=== PATIENT | male | born 1975 | race Caucasian/White ===

== ENCOUNTER 2020-10-17 02:18 | Outpatient (CLI) | payer MEDICAID, SELFPAY ==
--- NOTE | 2020-10-17 | DI.US_ITS ---
EXAM: US ABDOMEN CLINICAL HISTORY: CIRRHOSIS OF LIVER, K74.60 TECHNIQUE: Ultrasound abdomen performed using standard protocol. COMPARISON: No exams were available for comparison FINDINGS: ABDOMINAL AORTA AND IVC: Visualized portions normal caliber. PANCREAS: Normal where visualized. LIVER: There is diffuse increased echogenicity of the liver consistent with fatty infiltration. The liver measures 20 cm in length. No hepatic mass is seen. Hepatopedal flow in the Portal Vein. There is a nodular contour of the liver suggesting hepatic cirrhosis. GALLBLADDER: No evidence of cholelithiasis. No evidence of wall thickening. No pericholecystic fluid identified. BILIARY SYSTEM: Common bile duct measures < 7 mm. No intrahepatic biliary ductal dilation. DARBY'S SIGN: Negative. KIDNEYS: Kidneys are symmetric in size. No evidence of renal calculi. No evidence of hydronephrosis. There is a 1.2 cm cyst in the midpole of the right kidney. No further follow-up is recommended. SPLEEN: The spleen measures 12.5 cm in length. ASCITES: None seen. IMPRESSION: 1. Findings of hepatic cirrhosis, hepatomegaly and hepatic steatosis. 2. No evidence of a hepatic mass. 3. Spleen measures 12.5 cm in length. DATA REPOSITORY:
== END 2020-10-17 02:38 ==
PROVIDERS: PCP Family Medicine; Visit Provider Family Medicine
DX: K74.60 Unspecified cirrhosis of liver (principal); K76.0 Fatty (change of) liver, not elsewhere classified; R16.0 Hepatomegaly, not elsewhere classified
CPT/HCPCS: 76700

== ENCOUNTER 2021-01-31 19:22 | Emergency (ER) | payer MEDICAID, SELFPAY ==
[2021-01-31 19:35] VITALS: BP 126/82; PULSE 110; RESP 16; TEMP 36.8; O2SAT 94
--- NOTE | 2021-01-31 19:52 | W.ED.GENAD ---
Discharge Plan Disposition Patient Disposition: AGAINST MEDICAL ADVICE Condition: Fair Discharge Details Clinical Impression: Pancreatitis, Alcohol intoxication, Cirrhosis, Colitis Primary Care Provider: Fauzia Nelson ED Provider: Ankit Duran and New Rx's Prescriptions: Continued omeprazole 40 mg Capsule,Delayed Release(Dr/Ec) 40 mg PO DAILY RF: 0 sumatriptan succinate 4 mg/0.5 mL Pen Injector SUBCUT RF: 0 buprenorphine-naloxone [Suboxone] 12-3 mg Film 1 film sublingual DAILY RF: 0 acamprosate 333 mg Tablet,Delayed Release (Dr/Ec) 333 mg PO TID RF: 0 Discharge Instructions Instructions: Pancreatitis (ED) Additional Instructions: It is recommended that you stay in the hospital for IV fluids and nothing by mouth status, pain control as needed. Pancreatitis can progress and cause significant morbidity and possibly mortality with worsening pain, vomiting, third spacing and shock. You should return to the ED if your symptoms worsen or if you change your mind regarding admission. Otherwise you should contact your GI doctor at [facility] for close follow-up. I would avoid alcohol at this point. I would stick with clear liquids until you are feeling significantly better. Medical Decision Making Patient presenting to ED with acute epigastric abdominal pain that feels different than his previous chronic abdominal problems. He does have history of cirrhosis, hepatitis C, alcohol abuse and continues to drink. He is followed by [facility] GI. He reports multiple ultrasounds but no CT scan at any point. He is on omeprazole but nothing else for acid disease. Reports that his GI doctor wants to scope him. Reports no vomiting today but typically has vomiting regularly. Patient brought in today by his due to new onset of pain which is different than typical as well as continued chronic abdominal complaints. Patient former IV drug abuser. He did agree to one attempt at ultrasound-guided IV placement peripherally. This was not successful. Given that he has new pain and no previous CT imaging which for abdominal pelvic CT scan. Patient has neck vein and agreed to allow me to attempt EJ which was successful on the first attempt on the left. Blood was obtained. Fluids started. IV Pepcid, oral Carafate ordered. CT of the abdomen pelvis ordered. Patient's laboratory studies show a normal CBC. His normal chemistries. He has elevated liver function which compared to [facility] labs are baseline. He does have elevated lipase at about 550. No previous lipase in the [facility] records. Troponin and BNP is normal. Alcohol level [address] scan was ordered as IV contrast. Per senior quality technician there is no protocol for use of the EJ to give IV contrast through and they declined to perform CT with IV contrast. Noncontrast CT was obtained. Pancreas appears normal. Liver does appear fatty and cirrhotic. Also some evidence of right-sided colitis but patient without right side pain, diarrhea, fever. Recommendation was to admit for IV fluids, n.p.o., pain medication as needed. Reevaluate in the morning and consider repeat ultrasound. Despite my and 's attempt to convince him to stay he wished to sign out AMA. It was explained to him potential complications of pancreatitis. Patient does have capacity and understands his decision and risk. Will contact his GI physician at [facility] for follow-up. Return to ED if worse or if he changes his mind. Discharged AGAINST MEDICAL ADVICE. Medical Records Medical records reviewed: Yes I reviewed the patient's medical records. Lab Data Lab results reviewed: Yes I reviewed the patient's lab results. HPI General Mode of arrival: ambulatory. Date/Time Provider Initiated Documentation: 01/31/21 19:43. Limitations to Documentation: no limitations. Information obtained by: patient, family and RN notes reviewed. HPI Narrative: Patient presents to ED with upper abdominal/epigastric pain for about 18 hours now. Patient has chronic abdominal problems and is followed by [facility] GI for cirrhosis. He has had work-up including ultrasound, laboratory studies with likely endoscopy. He has history of hepatitis C. He no longer using IV drugs. He does continue to drink on a daily basis. He denies any hematemesis. He has vomiting almost every day but has not today. However he has not had much by mouth today. He denies any diarrhea. He has had no fever. He denies chest pain or shortness of breath. He denies any back pain. Related Data Home Medications Medication Instructions Recorded Confirmed acamprosate 333 mg PO TID 01/31/21 01/31/21 buprenorphine-naloxone [Suboxone] 1 film SUBLINGUAL DAILY 01/31/21 01/31/21 omeprazole 40 mg PO DAILY 01/31/21 01/31/21 sumatriptan succinate SUBCUT 01/31/21 Allergies Allergy/AdvReac Type Severity Reaction Status Date / Time No Known Allergies Allergy Unverified 01/31/21 19:41 General Stated Complaint: Abd Prob NUBIA: 3 Review of Systems Narrative: As documented in HPI otherwise negative as below. Const: no fever, chills, weakness Resp: no cough, SOB, pleuritic pain CV: no CP, diaphoresis, edema, syncope GI: no diarrhea Neuro: no headache, numbness, focal weakness, confusion PFSH Medical History Cirrhosis Social History Smoking/Tobacco Use Status: Current every day Tobacco Type: e-cigarettes Smoking risk assessment performed?: Yes Alcohol Intake: current Alcohol Intake frequency: 3 or more drinks per day Substance use type: does not use Do you feel safe at home: Yes Do you feel safe in your relationship?: Yes Exam Narrative Exam Narrative: Const: WDWN male in NAD. HEENT: NC/AT. Normal facial exam. Eyes: Normal conjunctiva and sclera. Neck: Supple. Trachea midline. Lungs: Normal respiratory effort. Lungs are clear. Cor: RRR without murmur/gallop. Good radial pulses. GI: Soft and ND. Tender in the epigastic region. Voluntary guarding. No RUQ tenderness. Neuro: A+O x 3. Normal speech, mentation, gait. Cranial nerves II - XII grossly intact. No gross motor or sensory deficit. Ext: No C/C/E. Skin: Warm and dry without rash. Course Vital Signs Vital signs: Vital Signs Temperature 98.2 F 01/31/21 19:35 Pulse 110 H 01/31/21 19:35 Respiratory Rate 16 01/31/21 19:35 Blood Pressure 126/82 01/31/21 19:35 Pulse Oximetry 94 01/31/21 19:35 Temperature 98.2 F 01/31/21 19:35 Temperature Source Skin 01/31/21 19:35 Pulse 110 H 01/31/21 19:35 Respiratory Rate 16 01/31/21 19:35 Respiratory Effort Non-Labored 01/31/21 19:44 Blood Pressure 126/82 01/31/21 19:35 Blood Pressure Position Sitting 01/31/21 19:35 Pulse Oximetry 94 08/11/21 19:35 Oxygen Delivery Method Room Air 01/31/21 19:35 Oxygen Flow Rate 0 01/31/21 19:35 Procedures EJ/Peripheral Line Neck L: Skin Cleansed in Sterile Fashion: Yes Size (gauge): 22 IV Secured and Dressing Applied: Yes Patient Tolerated Procedure: well and no complications
--- NOTE | 2021-01-31 21:04 | NUR.NOTE ---
while placing US guided IV pt's at bedside began shouting and demanded nurse to stop attempting IV, charge nurse aware, will continue to monitor.
[2021-01-31] MEDS: FAMOTIDINE 20 MG/50 ML BAG 100 MG IVPB (21:27)
[2021-01-31] MEDS: Lactated Ringers 1,000 ML 1000 ML IV (21:27)
[2021-01-31 21:31] LABS: Abs Immature Grans 0.02 10^3/uL (0.0-0.06); Absolute Basophil Count 0.04 10^3/uL (0.0-0.2); Absolute Eosinophil Count 0.26 10^3/uL (0.0-0.7); Absolute Monocyte Count 0.66 10^3/uL (0.1-0.8); Absolute Neutrophil Count 3.57 10^3/uL (1.2-6.7); Basophils % 0.7; Eosinophils % 4.4; HCT 42.2 % (40.0-50.0); HGB 14.3 g/dL (13.5-17.5); Immature Grans % 0.3; Lymphocytes % 22.2; MCH 31.5 pg (27.0-33.0); MCHC 33.9 % (32.0-36.0); MPV 10.2 fL (8.0-11.0); Monocytes % 11.3; Neutrophils % 61.1; Nucleated RBC 0 %; Platelet Count 130 10^3/uL (130-400); RBC 4.54 10^6/uL (4.36-5.78); RDW 12.2 % (11.8-14.1); RDW-SD 41.7 fL; WBC 5.85 10^3/uL (4.4-10.8)
[2021-01-31 21:41] LABS: ETHANOL BLOOD 174.7 mg/dL (<3)
[2021-01-31 21:53] LABS: ALT 228 U/L (16-63); AST 411 U/L (15-37); Albumin 3.5 g/dL (3.4-5.0); Alkaline Phosphatase 131 U/L (46-116); Anion Gap 7.6 mmol/L (3-11); BUN 7 mg/dL (7-18); Bilirubin, Total 0.7 mg/dL (0.2-1.0); CO2 28.4 mmol/L (21.0-32.0); CREATININE 0.7 mg/dL (0.70-1.30); Calcium 8.6 mg/dL (8.5-10.1); Chloride 103 mmol/L (98-107); Glucose 102 mg/dL (74-106); Lipase 547 U/L (73-393); Magnesium 1.8 mg/dL (1.8-2.4); NT-proBNP 26 pg/mL (<300); Potassium 3.8 mmol/L (3.5-5.1); Sodium 139 mmol/L (136-145); Total Protein 9.1 g/dL (6.4-8.2)
[2021-01-31 21:55] LABS: Troponin I < 0.05 ng/mL (<0.06)
--- NOTE | 2021-01-31 22:02 | NUR.NOTE ---
Report from AR King for continued care. Patient in CT scan. Spouse in room.Nursing Note:
--- NOTE | 2021-01-31 22:23 | DI.CT_ITS ---
Exam(s) CT ABDOMEN PELVIS WO EXAM: CT ABDOMEN PELVIS WO CLINICAL HISTORY: upper abdominal pain; different then previous. TECHNIQUE: Imaging Protocol: Axial computed tomography images with coronal and sagittal reformatted images were created and reviewed. COMPARISON: No exams were available for comparison FINDINGS: ABDOMEN: Lung Bases: Normal where visualized. Liver: There is diffuse fatty infiltration. There is a 0.9 cm round hypodense lesion in the left lob e of the liver. The liver measures 20 cm in length. Gallbladder and biliary tract: No radiodense calculus or biliary ductal dilation. Pancreas: Normal density, no abnormal calcifications or inflammatory process. Spleen: The spleen measures 15 cm in length. Kidneys: Normal size, contour and axis.No radiodense stones or obstructive uropathy. No masses seen. Adrenal glands: No mass is seen. Lymph nodes: There is a 2.9 cm lymph node in the milla hepatis. No other enlarged lymph nodes are se en. Abdominal Aorta: Abdominal portion non-dilated. Mild atherosclerosis. PELVIS: Bladder:Symmetric distention, no gross wall thickening. Bowel: No evidence of bowel obstruction. There is mild thickening of the wall of the ascending colon . There is a question of mild inflammatory changes associated with this region. Non-specific coliti s should be considered. Please correlate clinically. Appendix is unremarkable. Peritoneal cavity: No ascites, collection or mesenteric inflammatory response. No free air. Reproductive organs: Within normal limits. Bones: Within normal limits. There is L5 spondylolysis and grade 1 spondylolisthesis of L5 on S1. Soft Tissues: Within normal limits. IMPRESSION: 1. Mild wall thickening and surrounding inflammatory changes in the ascending colon suspicious for a nonspecific colitis. 2. Enlarged milla hepatis lymph node at 2.9 cm. 3. Hepatosplenomegaly. Hepatic steatosis. RADIATION DOSE DELIVERED: 1,217.29mGy.cm Total DLP DATA REPOSITORY: All CT scans at this facility are submitted to the National Radiology Data Registry (NRDR) Dose Index Registry (DIR) with the [employer] (ACR). RADIATION OPTIMIZATION: All CT scans at this facility use at least one of these dose optimization te chniques: automated exposure control; mA and/or kV adjustment per patient size (includes targeted exa ms where dose is matched to clinical indication); or iterative reconstruction.
[2021-01-31 22:35] VITALS: TEMP 37.2
[2021-01-31 22:36] VITALS: BP 130/94; PULSE 86; RESP 18; O2SAT 94
--- NOTE | 2021-01-31 22:50 | DI.VRAD_ITS ---
PROCEDURE INFORMATION: Exam: CT Abdomen And Pelvis Without Contrast Exam date and time: 01/31/2021 10:19 PM Age: 45 years old Clinical indication: Other: Upper abdominal pain; Different then previous TECHNIQUE: Imaging protocol: Computed tomography of the abdomen and pelvis without contrast. Radiation optimization: All CT scans at this facility use at least one of these dose optimization techniques: automated exposure control; mA and/or kV adjustment per patient size (includes targeted exams where dose is matched to clinical indication); or iterative reconstruction. COMPARISON: SD US ABDOMEN 10/17/2020 9:06 AM FINDINGS: Liver: Diffuse decrease in hepatic parenchymal density, consistent with fatty infiltration. 10 mm liver hypodensity that cannot be further characterized on the current examination. Slight nodular contour to the liver suggestive of hepatocellular dysfunction/ cirrhosis. Gallbladder and bile ducts: Normal. No calcified stones. No ductal dilation. Pancreas: Normal. No ductal dilation. Spleen: Splenomegaly up to 14.7 cm. Adrenal glands: Normal. No mass. Kidneys and ureters: Normal. No hydronephrosis. Stomach and bowel: Wall thickening with surrounding inflammatory change at the right colon consistent with a nonspecific colitis. No evidence of intestinal perforation or obstruction. Appendix: No evidence of appendicitis. Intraperitoneal space: Unremarkable. No free air. No significant fluid collection. Vasculature: Unremarkable. No abdominal aortic aneurysm. Lymph nodes: Adenopathy at the milla hepatis largest 2.9 x 1.7 cm. Urinary bladder: Unremarkable as visualized. Reproductive: Unremarkable as visualized. Bones/joints: Bilateral pars defects L5. Grade 1 anterolisthesis L5-S1. Soft tissues: Unremarkable. IMPRESSION: 1. Splenomegaly up to 14.7 cm. 2. Slight nodular contour to the liver suggestive of hepatocellular dysfunction/ cirrhosis. Correlate clinically. 3. Adenopathy at the milla hepatis largest 2.9 x 1.7 cm. 4. Wall thickening with surrounding inflammatory change at the right colon consistent with a nonspecific colitis. Dictated and Authenticated by: Brady Fierro MD. Ordering:ALEA Pham MD
== END 2021-01-31 23:18 | disposition left against medical advice (07) ==
PROVIDERS: Emergency Provider Emergency Medicine; PCP Family Medicine
DX: K85.90 Acute pancreatitis without necrosis or infection, unspecified (principal); K74.60 Unspecified cirrhosis of liver; B18.2 Chronic viral hepatitis C; F10.129 Alcohol abuse with intoxication, unspecified; Z53.29 Procedure and treatment not carried out because of patient's decision for other reasons
CPT/HCPCS: 36556; 80053; 83690; 96361; 96365; 96366; 99284; 74176; 80320; 83735; 83880; 84484; 85025

== ENCOUNTER 2021-04-25 20:12 | Emergency (ER) | payer MEDICAID, SELFPAY ==
[2021-04-25 20:17] VITALS: BP 147/92; PULSE 97; RESP 20; TEMP 37.1; O2SAT 93
[2021-04-25 20:21] VITALS: RESP 20
--- NOTE | 2021-04-25 20:30 | DI.CT_ITS ---
Exam(s) CT NECK W EXAM: CT NECK W CLINICAL HISTORY: reports of difficulty swallowing. TECHNIQUE: Imaging Protocol: Axial CT angiography was performed with multi-slice acquisition and mu lti-planar and/or 3D reconstructions. CONTRAST MATERIAL: Intravenous: Omnipaque 350 Contrast volume:98ml COMPARISON: CR,XR XR CHEST 2V PA LATERAL from 04/25/2021 FINDINGS: Visualized sinuses reveal mucosal thickening in the right frontal sinus and right maxillary sinus. N o fluid levels. Tissues of the nasopharynx are symmetrical. Uvula is midline. Oropharynx appears unremarkable. Hypopharynx reveals no prominent thickening of t he free edge of the epiglottis nor obliteration of the valleculae. No abnormal thickening of the ret ropharyngeal tissues nor of the prevertebral tissues. There is narrowing of the supraglottic airway. This, however, may be related to the patient's holding his breath during image acquisition.. Same is true for the vocal cords. Subglottic airway appears unremarkable. Thyroid gland is not enlarged. No obvious nodules. Lymph nodes: There is no prominent lymphadenopathy in the neck and supraclavicular regions. Parotid and submandibular glands appear unremarkable. Vascular: No significant atherosclerotic narrowing at the level the carotid bifurcations and proximal internal carotid arteries. Internal jugular veins are patent. Osseous: No fractures. Multilevel disc space narrowing. Luschka joint osteophytes noted at the C3-4 level. IMPRESSION: 1. There is a narrowing of the supraglottic airway which is either related to thickening of the aryep iglottic folds or possibly just because the patient was held his breath during image acquisition, res ulting in adduction of soft tissues. Recommend that this can be repeated with quiet breathing techni que (as opposed to breath hold). RADIATION DOSE DELIVERED: 449.82mGy.cm Total DLP DATA REPOSITORY: All CT scans at this facility are submitted to the National Radiology Data Registry (NRDR) Dose Index Registry (DIR) with the [employer] (ACR). RADIATION OPTIMIZATION: All CT scans at this facility use at least one of these dose optimization te chniques: automated exposure control; mA and/or kV adjustment per patient size (includes targeted exa ms where dose is matched to clinical indication); or iterative reconstruction.
--- NOTE | 2021-04-25 20:30 | DI.RAD_ITS ---
Exam(s) XR CHEST 2V PA LATERAL EXAM: XR CHEST 2V PA LATERAL CLINICAL HISTORY: cough. TECHNIQUE: 2D digital imaging was performed. COMPARISON: No exams were available for comparison FINDINGS: Heart size is normal. The mediastinum is not widened. Lungs are clear. No infiltrates nor pleural effusions. IMPRESSION: No acute pulmonary findings. DATA REPOSITORY: RADIATION DOSE DELIVERED:
--- NOTE | 2021-04-25 20:42 | ED.GENADUL_ITS ---
Discharge Plan Disposition Patient Disposition: HOME Condition: Stable Discharge Details Clinical Impression: Vocal cord edema Primary Care Provider: Fauzia Nelson ED Provider: Nadia Capone Home Meds and New Rx's Prescriptions: Continued omeprazole 40 mg Capsule,Delayed Release(Dr/Ec) 40 mg PO DAILY RF: 0 sumatriptan succinate 4 mg/0.5 mL Pen Injector SUBCUT RF: 0 buprenorphine-naloxone [Suboxone] 12-3 mg Film 1 film sublingual DAILY RF: 0 Discharge Instructions Instructions: Pharyngitis (ED) Referrals: Asad Sam MD [ [facility] STAFF PHYSICIAN] - (call in am for follow up rozina,return sooner for new or worsening symptoms) Discharge Data Discharge Date/Time-TO BE ENTERED AT DEPARTURE: 04/25/21 23:07 Medical Decision Making patient presents with c/o throat pain, swelling sensation. voice is unaffected, able to swallow food and fluids. will get cxr, ct soft tissue, cbc, bmp and covid and strep screen. strep screen in negative. posterior pharynx clear with no edema, uvula midline. CT results reviewed, given decadron 10 mg. no elevated white count or fever. stable for discharge to home, close f/u with ENT tomorrow, return sooner if needed. Medical Records Medical records reviewed: Yes I reviewed the patient's medical records. Imaging Data Radiologic Study: Imaging: X-Ray Radiologist's impression: PROCEDURE INFORMATION: Exam: XR Chest Exam date and time: 04/25/2021 8:35 PM Age: 45 years old Clinical indication: Other: Cough TECHNIQUE: Imaging protocol: XR of the chest. Views: 2 views. COMPARISON: CT NECK W 04/25/2021 10:00 PM FINDINGS: Lungs: Mild chronic interstitial prominence. No consolidation. Pleural spaces: No pleural effusion. No pneumothorax. Heart/Mediastinum: No cardiomegaly. Bones/joints: Unremarkable. IMPRESSION: No acute findings. Dictated and Authenticated by: Jarret Villeda MD. Radiologic Study #2: Imaging: CT Scan Radiologist's impression: PROCEDURE INFORMATION: Exam: CT Neck With Contrast Exam date and time: 04/25/2021 8:37 PM Age: 45 years old Clinical indication: Other: Cough, difficulty swallowing TECHNIQUE: Imaging protocol: Computed tomography images of the neck with contrast. COMPARISON: No relevant prior studies available. FINDINGS: Mildly limited due to motion artifact Nasopharynx: Unremarkable. Oropharynx: Unremarkable. No significant tonsillar enlargement. Hypopharynx: Question mild thickening of the aryepiglottic folds Larynx: Narrowing of the supraglottic larynx. Normal epiglottis. Retropharyngeal space: Unremarkable. Submandibular/Parotid glands: Normal. Glands are normal in size. Thyroid: Normal. No enlarged or calcified nodules. Lymph nodes: Unremarkable. No lymphadenopathy. Trachea: Visualized trachea is unremarkable. Lungs: Unremarkable as visualized. Bones/joints: Chronic left clavicular fracture. No acute fracture. Soft tissues: Unremarkable. No significant soft tissue swelling. IMPRESSION: Mild thickening of the aryepiglottic fold suspected with associated narrowing of the supraglottic larynx. Findings may be infectious/inflammatory Dictated and Authenticated by: Jarret Villeda MD. Lab Data Lab results reviewed: Yes I reviewed the patient's lab results. Lab results narrative: Laboratory Results - last 24 hr 04/25/21 04/25/21 21:05 21:05 WBC 5.74 RBC 4.35 L Hgb 14.1 Hct 40.8 MCV 93.8 MCH 32.4 MCHC 34.6 RDW 14.0 Plt Count 117 L MPV 9.5 Immature Gran % 0.3 Neutrophils % 50.9 Lymphocytes % 32.4 Monocytes % 10.6 Eosinophils % 4.9 Basophils % 0.9 Nucleated RBC % 0 Absolute Neutrophils 2.92 Absolute Lymphocytes 1.86 Absolute Monocytes 0.61 Absolute Eosinophils 0.28 Absolute Basophils 0.05 Sodium 144 Potassium 3.5 Chloride 104 Carbon Dioxide 30.1 Anion Gap 9.9 BUN 6 L Creatinine 1.1 Estimated GFR/1.73 m2 >= 60.00 Glucose 149 H Calcium 8.7 HPI General Mode of arrival: ambulatory . Limitations to Documentation: no limitations . Information obtained by: patient . HPI Narrative: patient presents with a 3 day history of dry cough, scratchy throat, swelling sensation with reported difficu lty swallowing. no similar history. no fever, no sick contacts with similar symptoms. is able to take po but states he feels he can't swallow. states he does feel like he has been wheezing and shortness of breath. feels need to frequently clear throat Related Data Home Medications Medication Instructions Recorded Confirmed buprenorphine-naloxone [Suboxone] 1 film SUBLINGUAL DAILY 01/31/21 04/26/21 omeprazole 40 mg PO DAILY 01/31/21 04/26/21 sumatriptan succinate SUBCUT 01/31/21 04/26/21 Allergies Allergy/AdvReac Type Severity Reaction Status Date / Time No Known Allergies Allergy Unverified 04/26/21 15:48 General Stated Complaint: GenMedical NUBIA: 3 Review of Systems All systems reviewed & are unremarkable except as noted in HPI and below Constitutional Constitutional: Denies fever(s) ENT Ears, Nose, Mouth, and Throat: Denies change in voice, Reports dysphagia, Denies dizziness, Denies dry mouth, Denies otalgia, Denies hoarseness, Reports neck mass, Reports sore throat, Reports throat swelling and Denies tongue swelling Cardiovascular Cardiovascular: Denies chest pain and Reports dyspnea Respiratory Respiratory: Reports cough, Reports dyspnea and Reports wheezing Gastrointestinal Gastrointestinal: Reports dysphagia and Denies nausea Musculoskeletal Musculoskeletal: Denies back pain and Denies arthralgias Integumentary/Breasts Skin/Breast: Denies new lesions and Denies rash Neurologic Neurologic: Denies abnormal speech and Denies dizziness Allergic/Immunologic Allergic/Immunologic: Reports throat swelling, Denies tongue swelling and Reports wheezing [facility] Medical History Alcohol intoxication Cirrhosis Colitis Pancreatitis Pharyngitis Vocal cord edema Surgical History History of sinus surgery 2014 Family History Daughter Diabetes Mother Lupus Maternal Aunt Diabetes Breast cancer Brother Diabetes Other Cancer Multiple sclerosis Social History Smoking/Tobacco Use Status: Current every day Tobacco Type: e-cigarettes Smoking risk assessment performed?: Yes Alcohol Intake: current Alcohol Intake frequency: 3 or more drinks per day Drug use: Never Substance use type: marijuana Details: Eats Marijuana cookies Pets and animals: Yes (2 dogs, 1 cat, 2 gerbils ) Pets and animals: cat(s), dog(s) and gerbil(s) Do you feel safe at home: Yes Do you feel safe in your relationship?: Yes Exam Const General: cooperative, comfortable, no acute distress and intoxicated appearing Nutritional Appearance: overweight Orientation: alert, awake and oriented x3 HENMT Head: normal to inspection and normocephalic Mouth: oral mucosae normal Throat: uvula midline, postnasal drainage, uvula not displaced and uvular edema Resp Effort & Inspection: normal respiratory effort Auscultation: clear to auscultation bilaterally Cardio Rate: regular rate Rhythm: regular rhythm GI Inspection: normal to inspection Palpation: soft Skin General skin exam: no rashes or lesions noted Neuro General: patient alert, patient awake and patient oriented x3 Cranial Nerves: tongue midline Speech: speech normal Extrem General: normal to inspection, full ROM and no pedal edema Course Vital Signs Vital signs: Vital Signs Temperature 37.1 C 04/25/21 20:17 Pulse 97 H 04/25/21 20:17 Respiratory Rate 20 04/25/21 20:17 Blood Pressure 147/92 H 04/25/21 20:17 Pulse Oximetry 93 04/25/21 20:17 Temperature 37.1 C 04/25/21 20:17 Temperature Source Temporal Artery Scan 04/25/21 20:17 Pulse 97 H 04/25/21 20:17 Respiratory Rate 20 04/25/21 20:21 Respiratory Effort Non-Labored 04/25/21 20:21 Respiratory Depth Normal 04/25/21 20:21 Respiratory Pattern Normal 04/25/21 20:21 Blood Pressure 147/92 H 04/25/21 20:17 Blood Pressure Position Sitting 04/25/21 20:17 Pulse Oximetry 93 04/25/21 20:17 Pain Level 6 04/25/21 20:17
[2021-04-25 21:14] LABS: Abs Immature Grans 0.02 10^3/uL (0.0-0.06); Absolute Basophil Count 0.05 10^3/uL (0.0-0.2); Absolute Eosinophil Count 0.28 10^3/uL (0.0-0.7); Absolute Lymphocyte Count 1.86 10^3/uL (1.2-3.4); Absolute Monocyte Count 0.61 10^3/uL (0.1-0.8); Absolute Neutrophil Count 2.92 10^3/uL (1.2-6.7); Basophils % 0.9; Eosinophils % 4.9; HCT 40.8 % (40.0-50.0); HGB 14.1 g/dL (13.5-17.5); Immature Grans % 0.3; Lymphocytes % 32.4; MCH 32.4 pg (27.0-33.0); MCHC 34.6 % (32.0-36.0); MCV 93.8 fL (80-95); MPV 9.5 fL (8.0-11.0); Monocytes % 10.6; Neutrophils % 50.9; Nucleated RBC 0 %; Platelet Count 117 10^3/uL (130-400); RBC 4.35 10^6/uL (4.36-5.78); RDW-SD 47.8 fL; WBC 5.74 10^3/uL (4.4-10.8)
[2021-04-25 21:22] LABS: Anion Gap 9.9 mmol/L (3-11); BUN 6 mg/dL (7-18); CO2 30.1 mmol/L (21.0-32.0); CREATININE 1.1 mg/dL (0.70-1.30); Calcium 8.7 mg/dL (8.5-10.1); Chloride 104 mmol/L (98-107); Glucose 149 mg/dL (74-106); Potassium 3.5 mmol/L (3.5-5.1); Sodium 144 mmol/L (136-145)
[2021-04-25] MEDS: Normal Saline - Diluent 50 ML VIAL IV (22:15)
[2021-04-25] MEDS: Normal Saline Flush 10 ML SYR IVP (22:15)
[2021-04-25] MEDS: Omnipaque 350 MG/ML 100 ML BTL IJ (22:15)
--- NOTE | 2021-04-25 22:22 | DI.VRAD_ITS ---
PROCEDURE INFORMATION: Exam: XR Chest Exam date and time: 04/25/2021 8:35 PM Age: 45 years old Clinical indication: Other: Cough TECHNIQUE: Imaging protocol: XR of the chest. Views: 2 views. COMPARISON: CT NECK W 04/25/2021 10:00 PM FINDINGS: Lungs: Mild chronic interstitial prominence. No consolidation. Pleural spaces: No pleural effusion. No pneumothorax. Heart/Mediastinum: No cardiomegaly. Bones/joints: Unremarkable. IMPRESSION: No acute findings. Dictated and Authenticated by: Jarret Villeda MD. Ordering:ATIYA Zuniga MD
--- NOTE | 2021-04-25 22:24 | DI.VRAD_ITS ---
PROCEDURE INFORMATION: Exam: CT Neck With Contrast Exam date and time: 04/25/2021 8:37 PM Age: 45 years old Clinical indication: Other: Cough, difficulty swallowing TECHNIQUE: Imaging protocol: Computed tomography images of the neck with contrast. COMPARISON: No relevant prior studies available. FINDINGS: Mildly limited due to motion artifact Nasopharynx: Unremarkable. Oropharynx: Unremarkable. No significant tonsillar enlargement. Hypopharynx: Question mild thickening of the aryepiglottic folds Larynx: Narrowing of the supraglottic larynx. Normal epiglottis. Retropharyngeal space: Unremarkable. Submandibular/Parotid glands: Normal. Glands are normal in size. Thyroid: Normal. No enlarged or calcified nodules. Lymph nodes: Unremarkable. No lymphadenopathy. Trachea: Visualized trachea is unremarkable. Lungs: Unremarkable as visualized. Bones/joints: Chronic left clavicular fracture. No acute fracture. Soft tissues: Unremarkable. No significant soft tissue swelling. IMPRESSION: Mild thickening of the aryepiglottic fold suspected with associated narrowing of the supraglottic larynx. Findings may be infectious/inflammatory Dictated and Authenticated by: Jarret Villeda MD. Ordering:ATIYA Zuniga MD
[2021-04-25 23:06] VITALS: BP 136/76; PULSE 72; RESP 20; TEMP 37.1; O2SAT 96
--- NOTE | 2021-04-25 23:06 | NUR.NOTE ---
Nursing Note: faxed the follow up referral to ent
[2021-04-27 14:23] LABS: COVID-19 RT-PCR UVMMC Result Negative (Negative)
== END 2021-04-25 23:07 | disposition home or self-care (01) ==
PROVIDERS: Emergency Provider Nurse Practitioner Acute Care; PCP Family Medicine
DX: J38.4 Edema of larynx (principal); Z20.822 Contact with and (suspected) exposure to COVID-19
CPT/HCPCS: 70491; 80048; 87880; 99285; U0003; 71046; 85025; 99284; J3490

== ENCOUNTER 2021-04-26 22:33 | Emergency (ER) | payer MEDICAID, SELFPAY ==
[2021-04-26 22:35] VITALS: BP 148/96; PULSE 110; RESP 18; TEMP 37; O2SAT 98
== END 2021-04-26 22:49 ==
PROVIDERS: PCP Family Medicine
DX: Z53.21 Procedure and treatment not carried out due to patient leaving prior to being seen by health care provider (principal)

== ENCOUNTER 2021-06-03 04:32 | Inpatient (IN) | payer MEDICAID, SELFPAY ==
[2021-06-03] VITALS (139 sets, daily range): BP systolic 121–165; BP diastolic 74–104; PULSE 53–87; RESP 4–29; TEMP 36.7–37; O2SAT 86–100
--- NOTE | 2021-06-03 04:35 | ED.GENADUL_ITS ---
Discharge Plan Disposition Patient Disposition: [facility] INPATIENT Condition: Serious Discharge Details Clinical Impression: Alcohol withdrawal, Pancreatitis, Hypomagnesemia, Thrombocytopenia Primary Care Provider: Fauzia Nelson ED Provider: Ankit Duran and New Rx's Prescriptions: No Action sertraline [Zoloft] 50 mg Tablet 50 mg PO DAILY RF: 0 omeprazole 40 mg Capsule,Delayed Release(Dr/Ec) 40 mg PO DAILY RF: 0 sumatriptan succinate 4 mg/0.5 mL Pen Injector 4 mg SUBCUT DAILY RF: 0 buprenorphine-naloxone [Suboxone] 12-3 mg Film 1 film sublingual DAILY RF: 0 Medical Decision Making Patient presenting in DOC custody with alcohol withdrawal. Previous labs and imaging showed hepatosplenomegaly with elevated LFTs and patient has reported cirrhosis in the past. He does appear to be slightly icteric. We will proceed with benzodiazepine use as opposed to phenobarbital due to the potential for abnormal liver function. IV fluids ordered. IV thiamine ordered. EKG and labs ordered. Nursing unable to obtain IV access in upper extremities due to previous IV drug abuse. EJ placed by me on the right side after attempt on the left failed. Patient subsequently was seen Valium, thiamine, fluids. Heart rate has come down into the 50s which is probably his normal resting. Blood pressure still elevated, still tremulous. Laboratory studies show magnesium to be quite low at 1.2 and this will be replaced. Lipase elevated above 1000. He is not complaining of any abdominal pain or back pain. Liver function with elevated AST but normal ALT. Total bili at 2.8 consistent with his mild icterus. Pt/INR elevated consistent with abnormal liver funcion. He has fairly significant thrombocytopenia as well. Case discussed with hospitalist. Patient will require admission for further managemnt of his alcohol withdrawal, pancreatitis, hypomagnesemia. Patient to be seen by hospitalist in ED and admitted to ICU. Medical Records Medical records reviewed: Yes I reviewed the patient's medical records. Lab Data Lab results reviewed: Yes I reviewed the patient's lab results. ECG Data Attestation: I personally reviewed and interpreted this ECG (s) as follows: Prior ECG tracings: not available for review Interpretation: see EKG HPI General Mode of arrival: EMS . Date/Time Provider Initiated Documentation: 06/03/21 04:35 . Limitations to Documentation: no limitations . Information obtained by: patient, RN notes reviewed and old records reviewed . HPI Narrative: Patient presents to the ED in DOC custody with anxiety, tremor, vomiting, elevated blood pressure presumed due to alcohol withdrawal. Patient last had alcohol 72 hours ago. He has never gone through alcohol detox previously. Only time he stops drinking is to sleep. He did receive 2 doses of p.o. clonidine at the [facility] for elevated blood pressure. He is experiencing sweats, trauma, vomiting, anxiety. He denies chest pain, abdominal pain, shortness of breath. He has not had his Suboxone for almost 48 hours. Related Data Home Medications Medication Instructions Recorded Confirmed buprenorphine-naloxone [Suboxone] 1 film SUBLINGUAL DAILY 01/31/21 06/03/21 omeprazole 40 mg PO DAILY 01/31/21 06/03/21 sumatriptan succinate 4 mg SUBCUT DAILY 01/31/21 06/03/21 sertraline [Zoloft] 50 mg PO DAILY 06/03/21 06/03/21 Allergies Allergy/AdvReac Type Severity Reaction Status Date / Time No Known Allergies Allergy Unverified 06/03/21 04:52 General NUBIA: 2 Review of Systems Narrative: 04/05 Review of Systems completed and is negative except as stated above in HPI (Systems reviewed: Const, Eyes, ENT, Resp, CV, GI, , MSK, Skin, Neuro) PFSH All Active Problems (Updated 06/03/21 @ 06:53 by Ankit Duran MD) Alcohol withdrawal (Acute) Pancreatitis (Chronic) Hypomagnesemia (Acute) Thrombocytopenia (Chronic) Alcohol intoxication (Acute) Colitis (Acute) Vocal cord edema (Acute) Pharyngitis (Acute) Medical History Alcohol abuse Cirrhosis Pancreatitis Surgical History History of sinus surgery 2014 Family History Daughter Diabetes Mother Lupus Maternal Aunt Diabetes Breast cancer Brother Diabetes Other Cancer Multiple sclerosis Social History Smoking/Tobacco Use Status: Current every day Tobacco Type: e-cigarettes Smoking risk assessment performed?: Yes Alcohol Intake: current Alcohol Intake frequency: 3 or more drinks per day Alcohol type: hard liquor Drug use: Current Sobriety Substance use type: marijuana Details: Eats Marijuana cookies Pets and animals: Yes (2 dogs, 1 cat, 2 gerbils ) Pets and animals: cat(s), dog(s) and gerbil(s) Do you feel safe at home: Yes Do you feel safe in your relationship?: Yes Exam Narrative Exam Narrative: Const: WDWN male who is tremulous and diaphoretic.. HEENT: NC/AT. Normal facial exam. Eyes: PERRL and EOMI. Slight icteric tint to sclera. Neck: Supple. Trachea midline. Lungs: Normal respiratory effort. Lungs are clear. Cor: RRR without murmur/gallop. Good radial pulses. GI: Soft. NT/ND. Neuro: A+O x 3. Normal speech, mentation, gait. Cranial nerves II - XII grossly intact. No gross motor or sensory deficit. Ext: No C/C/E. Skin: No rash. Procedures EJ/Peripheral Line Neck R: Time Out Performed: Yes Skin Cleansed in Sterile Fashion: Yes Size (gauge): 20 IV Secured and Dressing Applied: Yes Patient Tolerated Procedure: well Additional Comments: Attempt on left side failed. Attempt on right successful. Critical Care Time Critical Care Time Critical Care Time: Yes Total Critical Care Time: 60 Attestation: Upon my evaluation, this patient had a high probability of imminent or life-threatening deterioration, which required my direct attention, intervention, and personal management. I have personally provided 60 minutes of critical care time exclusive of time spent on separately billable procedures. Time includes review of laboratory data, radiology results, discussion with consultants, and monitoring for potential decompensation. Interventions were performed as documented above.
--- NOTE | 2021-06-03 04:45 | RT.EKG_ITS ---
APPROVED REPORT Exam: Resting ECG Reason for Exam: alcohol withdrawal Patient Location: E HR:62 bpm ECG Measurements Heart Rate 62 AXIS MA 184 P 37 QRSd 106 QRS -8 QT 504 T 6 QTc 504 Conclusion Sinus rhythm...normal P axis, V-rate 60- 99 Atrial premature complex...SV complex w/ short R-R interval Prolonged QT interval...QTc >500mS I have reviewed and interpreted ECG and agree with software generated interpretation.
[2021-06-03 05:54] LABS: Lipase 1035 U/L (73-393)
[2021-06-03] MEDS: Lactated Ringers 1,000 ML 1000 ML IV (05:55)
[2021-06-03] MEDS: diazePAM 10 MG/2 ML SYR IVP (05:55)
[2021-06-03 06:01] LABS: ALT 60 U/L (16-63); AST 130 U/L (15-37); Albumin 3.8 g/dL (3.4-5.0); Alkaline Phosphatase 76 U/L (46-116); Anion Gap 10.3 mmol/L (3-11); BUN 8 mg/dL (7-18); Bilirubin, Total 2.8 mg/dL (0.2-1.0); CO2 28.7 mmol/L (21.0-32.0); CREATININE 0.7 mg/dL (0.70-1.30); Calcium 8.1 mg/dL (8.5-10.1); Chloride 99 mmol/L (98-107); Glucose 137 mg/dL (74-106); Magnesium 1.2 mg/dL (1.8-2.4); Potassium 3.2 mmol/L (3.5-5.1); Sodium 138 mmol/L (136-145); Total Protein 8.2 g/dL (6.4-8.2)
[2021-06-03] MEDS: THIAMINE 100 MG in Normal Saline 100 ML 200 MG IVPB (06:05)
[2021-06-03 06:11] LABS: Troponin I < 0.05 ng/mL (<0.06)
[2021-06-03 06:17] LABS: Source Nasal/Nares
[2021-06-03 06:18] LABS: Abs Immature Grans 0.01 10^3/uL (0.0-0.06); Absolute Basophil Count 0.03 10^3/uL (0.0-0.2); Absolute Eosinophil Count 0.03 10^3/uL (0.0-0.7); Absolute Monocyte Count 0.48 10^3/uL (0.1-0.8); Absolute Neutrophil Count 2.78 10^3/uL (1.2-6.7); Basophils % 0.7; Eosinophils % 0.7; HCT 40.2 % (40.0-50.0); HGB 13.6 g/dL (13.5-17.5); Immature Grans % 0.2; Lymphocytes % 17.4; MCH 32.1 pg (27.0-33.0); MCHC 33.8 % (32.0-36.0); MCV 94.8 fL (80-95); Monocytes % 11.9; Neutrophils % 69.1; Nucleated RBC 0 %; RBC 4.24 10^6/uL (4.36-5.78); RDW 13.7 % (11.8-14.1); RDW-SD 47.5 fL; WBC 4.03 10^3/uL (4.4-10.8)
[2021-06-03 06:27] LABS: INR 1.6 (0.9-1.1); Prothrombin Time 15.6 sec (9.3-11.0)
[2021-06-03 06:45] LABS: Platelet Count 61 10^3/uL (130-400)
[2021-06-03 06:46] LABS: Diff Comment PLT Morph Reviewed; RBC Morphology Normal
--- NOTE | 2021-06-03 07:02 | HPE_ITS ---
Date of service: 06/03/21 Time of Service: 06:50 Assessment and Plan Assessment and plan (1) Alcohol withdrawal: Status: Acute Assessment and plan: Admit to ICU. Will treat with benzodiazepines due to concerns for liver dysfunction. Monitor on CIWA. Supplement thiamine/vitamins. (2) Elevated lipase: Status: Acute Assessment and plan: Clinically there is no evidence of pancreatitis. Will obtain US liver to ensure that there is not obvious pathology. Pancreas looked normal on CT in 01/2021. (3) Opioid abuse: Assessment and plan: Will verify dose of suboxone with pharmacy. (4) Hypomagnesemia: Status: Acute Assessment and plan: Replete (5) Hypokalemia: Status: Acute Assessment and plan: Replete (6) Esophageal varices: Assessment and plan: Avoid chemical DVT ppx. Continue home PPI. Check hematest stool. (7) Thrombocytopenia: Status: Chronic Assessment and plan: As above Avoid chemical DVT ppx. (8) Cirrhosis: Assessment and plan: Alcoholic + h/o Hepatitis C, now treated. With h/o esophageal varices, thrombocytopenia, coagulopathy. Avoid hepatotoxic medications and chemical DVT ppx. [place] [facility] (9) DVT prophylaxis: Status: Acute Assessment and plan: SCDs Will avoid chemical DVT ppx due to h/o bleeding esophageal varices and thrombo cytopenia (10) Discharge planning issues: Status: Acute Assessment and plan: DNR/DNI Admit to ICU. Total Critical Care Time 35 minutes. History of Present Illness History of Present Illness Chief Complaint: Tremors, nausea/vomiting Narrative: Mr Guillermo is a 45 year old male with PMHx of alcoholic cirrhosis and esophageal varices with prior history of variceal bleeding, as well as h/o GERD, cluster headache, opioid dependence on suboxone, who was brought to [facility] ED by the DOC for tremors, n/v, c/w alcohol withdrawal. Because he was icteric and had a h/o cirrhosis, benzodiazepine treatment pathway was chosen, and hospitalist admission was requested. He denies seeing blood in his emetic contents. Just bile. He denies abdominal pain. The patient denies having a hisotry of alcohol withdrawal seizures. He is not sure exactly when he had his last drink (either or Friday morning). Sx of withdrawal started last night. He drinks a fifth a day. The patient states that he has a h/o treated hepatitis C. He gets his suboxone through [facility], fills his script at [facility] ([facility] He is fully vaccinated against COVID-19 and has not had known contacts or sx of COVID-19. Review of Systems All systems reviewed & are unremarkable except as noted in HPI and below PFSH All Active Problems (Updated 06/03/21 @ 07:14 by Yessica Whittington MD) Discharge planning issues (Acute) DVT prophylaxis (Acute) Hypokalemia (Acute) Elevated lipase (Acute) Alcohol withdrawal (Acute) Pancreatitis (Chronic) Hypomagnesemia (Acute) Thrombocytopenia (Chronic) Alcohol intoxication (Acute) Colitis (Acute) Vocal cord edema (Acute) Pharyngitis (Acute) Medical History (Updated 06/03/21 @ 07:14 by Yessica Whittington MD) Alcohol abuse Cirrhosis Cluster headaches Esophageal varices GERD (gastroesophageal reflux disease) GI bleeding Opioid abuse Pancreatitis Surgical History (Updated 06/03/21 @ 07:09 by Yessica Whittington MD) History of esophagogastroduodenoscopy (EGD) History of sinus surgery 2014 Family History (Updated 06/03/21 @ 07:10 by Yessica Whittington MD) Daughter Diabetes Mother Lupus Maternal Aunt Diabetes Breast cancer Stroke Brother Diabetes Maternal Uncle Heart disease Father Hypertension Other Cancer Multiple sclerosis Social History Smoking/Tobacco Use Status: Current every day Tobacco Type: e-cigarettes Smoking risk assessment performed?: Yes Alcohol Intake: current Alcohol Intake frequency: 3 or more drinks per day Alcohol type: hard liquor Drug use: Current Sobriety Substance use type: marijuana Details: Eats Marijuana cookies Pets and animals: Yes (2 dogs, 1 cat, 2 gerbils ) Pets and animals: cat(s), dog(s) and gerbil(s) Do you feel safe at home: Yes Do you feel safe in your relationship?: Yes Meds Allergies and Home Medications Allergies Allergy/AdvReac Type Severity Reaction Status Date / Time No Known Allergies Allergy Unverified 06/03/21 04:52 Home Medications Medication Instructions Recorded Confirmed Type buprenorphine-naloxone [Suboxone] 1 film SUBLINGUAL DAILY 01/31/21 06/03/21 History omeprazole 40 mg PO DAILY 01/31/21 06/03/21 History sumatriptan succinate 4 mg SUBCUT DAILY 01/31/21 06/03/21 History sertraline [Zoloft] 50 mg PO DAILY 06/03/21 06/03/21 History Exam Narrative Exam Narrative: General: Tremulous very pleasant/cooperative middle-aged male, A&Ox3 Neurological: A&Ox3, mildly tremulous, no focal deficits Psychiatric: Appropriate speech pattern/content Skin: Tattoos, otherwise visible skin intact HEENT: Atraumatic, normocephalic, EOMI, dry MM, clear oropharynx, no subm andibular or cervical lymphadenopathy, no goiter or JVD Cardiovascular: RRR, no m/r/g Lungs: CTAB Gastrointestinal: soft, nontender, nondistended Genitourinary: deferred Extremities: no edema BLE's Results Labs Result diagrams: 06/03/21 05:35 06/03/21 06:12 Labs: Laboratory Results - last 24 hr 06/03/21 06/03/21 06/03/21 05:35 05:35 06:10 WBC 4.03 L RBC 4.24 L Hgb 13.6 Hct 40.2 MCV 94.8 MCH 32.1 MCHC 33.8 RDW 13.7 Plt Count 61 L MPV 10.0 Immature Gran % 0.2 Neutrophils % 69.1 Lymphocytes % 17.4 Monocytes % 11.9 Eosinophils % 0.7 Basophils % 0.7 Nucleated RBC % 0 Absolute Neutrophils 2.78 Absolute Lymphocytes 0.70 L Absolute Monocytes 0.48 Absolute Eosinophils 0.03 Absolute Basophils 0.03 RBC Morphology Normal PT INR Sodium Potassium Chloride Carbon Dioxide Anion Gap BUN Creatinine Estimated GFR/1.73 m2 Glucose Calcium Magnesium Total Bilirubin AST ALT Alkaline Phosphatase Troponin I Total Protein Albumin Lipase 1035 H COVID-19 Source Nasal/Nares 06/03/21 06/03/21 06:12 06:12 WBC RBC Hgb Hct MCV MCH MCHC RDW Plt Count MPV Immature Gran % Neutrophils % Lymphocytes % Monocytes % Eosinophils % Basophils % Nucleated RBC % Absolute Neutrophils Absolute Lymphocytes Absolute Monocytes Absolute Eosinophils Absolute Basophils RBC Morphology PT 15.6 H INR 1.6 H Sodium 138 Potassium 3.2 L Chloride 99 Carbon Dioxide 28.7 Anion Gap 10.3 BUN 8 Creatinine 0.7 Estimated GFR/1.73 m2 >= 60.00 Glucose 137 H Calcium 8.1 L Magnesium 1.2 L Total Bilirubin 2.8 H AST 130 H ALT 60 Alkaline Phosphatase 76 Troponin I < 0.05 Total Protein 8.2 Albumin 3.8 Lipase COVID-19 Source Last Vital Signs Temp 37.0 C 06/03/21 04:35 Pulse 54 L 06/03/21 06:30 Resp 19 06/03/21 06:40 BP 157/81 H 06/03/21 06:30 Pulse Ox 95 06/03/21 06:40 PAWSS Pt Consumed Any Amount of Alcohol Within the Last 30 days OR had positive DASHA Upon Admission: Yes Have you Been Recently Intoxicated or Drunk Within the Last 30 days?: Yes Have you Ever Experienced Previous Episodes of Alcohol Withdrawal?: Yes Have you ever Experienced Withdrawal Seizures?: No Have you ever Experienced Delirium Tremens(DT)s?: Yes Result: 3
[2021-06-03] MEDS: MAGNESIUM SULFATE 2 GM/50 ML BAG IVPB ×2 (07:04→14:14)
--- NOTE | 2021-06-03 08:25 | PDOC.CMIN ---
- If Service Date Differs Date of service: 06/03/21 Time of Service: 08:25 Care Management Initial Assess REASON FOR HOSPITALIZATION:: ETOH Withdrawal PAST MEDICAL HISTORY/PAST SURGICAL HISTORY:: Alcohol use disorder. Cirrhosis. Cluster headaches. Esophageal varices. GERD (gastroesophageal reflux disease). GI bleeding. Opioid abuse. Pancreatitis. Surgical History (Updated 06/03/21 @ 07:09 by Yessica Whittington MD). History of esophagogastroduodenoscopy (EGD). History of sinus surgery. 2015 PREVIOUS FUNCTIONAL STATUS/SOCIAL/FAMILY SUPPORTS:: Resides in [facility], reportedly , arrived to hospital in company of correctional guard. CURRENT FUNCTIONAL STATUS:: Wai is in the ICU, being treated for alcohol withdrawal, per [facility] protocol with benzos at this time due to liver function, per MD. Per report, Wai has not detoxed from alcohol in the past. He arrived to [facility] from [facility] after not drinking for a few days with sweats, trauma, vomitting and anxiety. He also had not had his prescribed suboxone for almost 48 hours, assumed this coincides with time of admission to [facility]. ADVANCE DIRECTIVES:: None on file. Has patient been provided with info about the portal/API?: No Did the patient sign up for the portal?: No CODE STATUS:: DNR/DNI INSURANCE COVERAGE / FINANCIAL ISSUES:: Medicaid CURRENT HOME/COMMUNITY SERVICES/EQUIPMENT:: [facility] ([facility]) PRIMARY CARE PHYSICIAN:: Fauzia Nelson POTENTIAL DISCHARGE NEEDS:: Coordinated return to [facility]. PATIENT/FAMILY EDUCATION NEEDS:: Review of discharge instructions. ANTICIPATED BARRIERS TO DISCHARGE:: ETOH withdrawal. [facility] PLAN:: Anticipate Wai will return to the [facility] when medically cleared per MD, he will transport via the facility's transport van. CM continues to follow.
[2021-06-03] MEDS: Omeprazole 20 MG CAPCR 40 MG PO (08:42)
[2021-06-03] MEDS: LORazepam 2 MG/ML VIAL IVP ×5 (08:42→23:52)
[2021-06-03] MEDS: Sertraline 50 MG TAB PO (08:42)
[2021-06-03] MEDS: POTASSIUM CHLORIDE 20 MEQ/100 ML BAG 50 MEQ IVPB ×2 (08:46→10:38)
[2021-06-03] MEDS: Lactated Ringers 1,000 ML 150 ML IV ×2 (08:58→21:30)
[2021-06-03] MEDS: Buprenorphine/Naloxone 12 mg/3 mg FILM 1 EACH SL (09:54)
[2021-06-03] MEDS: MULTIVITAMIN 10 ML, THIAMINE 100 MG, FOLIC ACID 1 MG in DEXTROSE 5%-0.45% SALINE 1,000 ML 150 ML IV (11:59)
[2021-06-03 14:38] LABS: COVID-19 PCR Negative (Negative)
[2021-06-04] VITALS (169 sets, daily range): BP systolic 115–132; BP diastolic 63–100; PULSE 60–118; RESP 10–32; TEMP 36.6–37; O2SAT 79–97
--- NOTE | 2021-06-04 | DI.US_ITS ---
Exam(s) US ABDOMEN EXAM: US ABDOMEN CLINICAL HISTORY: elevated lipase, cirrhosis TECHNIQUE: Ultrasound of complete upper abdomen performed using standard protocol. COMPARISON: US US ABDOMEN from 10/17/[address] ABDOMEN PELVIS WO from 01/31/2021 FINDINGS: There is no ascites evident. LIVER: Somewhat coarse echotexture liver but no discrete focal hepatic solid lesions. There is a 2 x 1.3 x 1.4 cm cyst noted in the liver. Liver size is upper normal. GALLBLADDER/BILIARY: There are no gallstones but there does appear to be some sludge in the gallbladd er lumen. The common hepatic duct isnot dilated, measuring 4-5mm at the level of milla hepatis. PANCREAS: There is no evidence of pancreatic mass nor dilatation of the pancreatic duct. SPLEEN: Splenomegaly noted. Spleen length measures 15 cm. Also small 11 millimeter splenule noted KIDNEYS:Kidneys exhibit normal size with no evidence of solid mass, calculus, nor hydronephrosis. No cortical cysts evident. ABDOMINAL AORTA: No obvious abdominal aortic aneurysm. Bowel gas does somewhat limited IVC: Normal diameter where visualized. IMPRESSION: 1. No calcified gallstones but there does appear to be mild sludge in the gallbladder lumen. No gal lbladder wall edema. Common hepatic duct is not dilated 2. Splenomegaly noted. Liver size is also slightly prominent. There is a small 2 millimeter benign cyst in the liver noted. 3. There is no ascites. DATA REPOSITORY:
--- NOTE | 2021-06-04 | DI.RAD_ITS ---
Exam(s) XR CHEST 2V PA LATERAL EXAM: XR CHEST 2V PA LATERAL CLINICAL HISTORY: vomiting, concern for aspiration pneumonia. TECHNIQUE: 2D digital imaging was performed. COMPARISON: CR,XR XR CHEST 2V PA LATERAL from 04/25/2021 FINDINGS: Chest leads in place Heart size is normal. The mediastinum is not widened. Lungs are clear. No infiltrates nor pleural effusions. IMPRESSION: No acute pulmonary findings.Significant change compared to 04/25/2021. DATA REPOSITORY: RADIATION DOSE DELIVERED:
[2021-06-04] MEDS: LORazepam 2 MG/ML VIAL IVP ×3 (03:39→17:50)
[2021-06-04] MEDS: Lactated Ringers 1,000 ML 150 ML IV ×3 (05:44→20:34)
[2021-06-04] MEDS: Normal Saline Flush 10 ML SYR IVP (05:50)
[2021-06-04 07:42] LABS: Abs Immature Grans 0.01 10^3/uL (0.0-0.06); Absolute Basophil Count 0.04 10^3/uL (0.0-0.2); Absolute Eosinophil Count 0.15 10^3/uL (0.0-0.7); Absolute Lymphocyte Count 1.05 10^3/uL (1.2-3.4); Absolute Monocyte Count 0.52 10^3/uL (0.1-0.8); Absolute Neutrophil Count 2.77 10^3/uL (1.2-6.7); Basophils % 0.9; Eosinophils % 3.3; HCT 38.7 % (40.0-50.0); HGB 13.1 g/dL (13.5-17.5); Immature Grans % 0.2; Lymphocytes % 23.1; MCH 32.7 pg (27.0-33.0); MCHC 33.9 % (32.0-36.0); MCV 96.5 fL (80-95); MPV 10.4 fL (8.0-11.0); Monocytes % 11.5; Nucleated RBC 0 %; RBC 4.01 10^6/uL (4.36-5.78); RDW 13.6 % (11.8-14.1); RDW-SD 48.3 fL; WBC 4.54 10^3/uL (4.4-10.8)
[2021-06-04 07:51] LABS: Platelet Count 53 10^3/uL (130-400)
[2021-06-04 07:59] LABS: ALT 41 U/L (16-63); AST 88 U/L (15-37); Albumin 3.3 g/dL (3.4-5.0); Alkaline Phosphatase 61 U/L (46-116); Anion Gap 3.5 mmol/L (3-11); BUN 7 mg/dL (7-18); Bilirubin, Total 3.2 mg/dL (0.2-1.0); CO2 32.5 mmol/L (21.0-32.0); CREATININE 0.6 mg/dL (0.70-1.30); Calcium 7.8 mg/dL (8.5-10.1); Chloride 101 mmol/L (98-107); Glucose 94 mg/dL (74-106); PHOSPHORUS 2.4 mg/dL (2.6-4.7); Potassium 3.2 mmol/L (3.5-5.1); Sodium 137 mmol/L (136-145); Total Protein 7.1 g/dL (6.4-8.2)
[2021-06-04 08:01] LABS: INR 1.4 (0.9-1.1); Prothrombin Time 14.3 sec (9.3-11.0)
[2021-06-04 08:21] LABS: Folate 5.1 ng/mL (8.6-20.0); Vitamin B12 439 pg/mL (193-986)
--- NOTE | 2021-06-04 09:40 | NUR.NOTE ---
PTs plaid boxers sent to laundry. Nursing Note:
--- NOTE | 2021-06-04 10:18 | PDOC.CMPRO ---
- If Service Date Differs Date of service: 06/04/21 Time of Service: 10:18 Care Management Progress Note S/O: Wai continues to be closely monitored for alcohol withdrawal in the ICU, per [facility] protocol. Visitors for patient are not permitted and he will be accompanied by correctional officers at all times. Per report, IV ativan is working well. Wai has not detoxed from alcohol in the past. CM will continue to monitor discharge planning needs. A: 45 year old male admitted to [facility] on 06/03/21 for alcohol withdrawal. P: Anticipate Wai will return to the [facility] when medically cleared per MD, he will transport via the facility's transport van. CM continues to follow.
[2021-06-04] MEDS: Acetaminophen 325 MG TAB PO ×2 (10:42→17:50)
[2021-06-04] MEDS: Buprenorphine/Naloxone 12 mg/3 mg FILM 1 EACH SL (10:43)
[2021-06-04] MEDS: Heparin 5,000 UNITS/ML VIAL 5000 UNITS SC ×2 (10:43→17:35)
[2021-06-04] MEDS: Omeprazole 20 MG CAPCR 40 MG PO (10:43)
[2021-06-04] MEDS: Sertraline 50 MG TAB PO (10:43)
--- NOTE | 2021-06-04 12:39 | PGE_ITS ---
Date of Service Date of service: 06/04/21 Time of Service: 12:39 Assessment and Plan Assessment and plan (1) Alcohol withdrawal: Status: Acute Assessment and plan: Admit to ICU. Treating withdrawal symptoms with benzodiazepines due to concerns for liver dysfunction (rather than phenobarbitol). Monitor on CIWA. Supplement thiamine/vitamins / now po. (2) Elevated lipase: Status: Acute Assessment and plan: Clinically there is no evidence of pancreatitis. Biliary US: 1. No calcified gallstones but there does appear to be mild sludge in the gallbladder lumen. No gallbladder wall edema. Common hepatic duct is not dilated 2. Splenomegaly noted. Liver size is also slightly prominent. There is a small 2 millimeter benign cyst in the liver noted. 3. There is no ascites. (3) Opioid abuse: Assessment and plan: Cont his prescribed suboxone. (4) Hypomagnesemia: Status: Acute Assessment and plan: Replete (5) Hypokalemia: Status: Acute Assessment and plan: Replete (6) Esophageal varices: Assessment and plan: Dr Carbajal consult appreciated. Despite low platelets, recommends heparin for DVT prophylaxis. Continue home PPI. Hgb 13.3 > 13.1. (7) Thrombocytopenia: Status: Chronic Assessment and plan: As above Avoid chemical DVT ppx. (8) Cirrhosis: Assessment and plan: Alcoholic + h/o Hepatitis C, now treated. With h/o esophageal varices, thrombocytopenia, coagulopathy. Avoid hepatotoxic medications. Followed by GI at [facility] [place]. (9) DVT prophylaxis: Status: Acute Assessment and plan: Now changed to heparin SQ. Monitor platelets and signs/symptoms of bleeding, H/H. (10) Discharge planning issues: Status: Acute Assessment and plan: DNR/DNI Admit to ICU. Subjective Subjective Patient reports: tolerating a regular diet and afebrile Interval history since last seen: Pt asleep. Wakes briefly with soft tactile stimuli but falls back asleep. Exam Const General: no acute distress Nutritional Appearance: overweight Orientation: not awake (arouses briefly to tactile stim. ) Resp Effort & Inspection: normal respiratory effort Auscultation: clear to auscultation bilaterally Cardio Rate: regular rate Rhythm: regular rhythm Heart Sounds: S1 normal and S2 normal GI Inspection: non-distended Palpation: soft Auscultation: normal bowel sounds Skin General skin exam: no rashes or lesions noted Extrem General: no pedal edema and no calf tenderness Objective Last Vital Signs Temp 36.9 C 06/04/21 07:29 Pulse 64 06/04/21 06:00 Resp 18 06/04/21 06:10 BP 122/63 06/04/21 06:00 Pulse Ox 96 06/04/21 06:10 Laboratory Results - last 24 hr 06/03/21 06/04/21 06/04/21 06:10 06:20 06:20 WBC 4.54 RBC 4.01 L Hgb 13.1 L Hct 38.7 L MCV 96.5 H MCH 32.7 MCHC 33.9 RDW 13.6 Plt Count 53 L MPV 10.4 Immature Gran % 0.2 Neutrophils % 61.0 Lymphocytes % 23.1 Monocytes % 11.5 Eosinophils % 3.3 Basophils % 0.9 Nucleated RBC % 0 Absolute Neutrophils 2.77 Absolute Lymphocytes 1.05 L Absolute Monocytes 0.52 Absolute Eosinophils 0.15 Absolute Basophils 0.04 PT 14.3 H INR 1.4 H Sodium Potassium Chloride Carbon Dioxide Anion Gap BUN Creatinine Estimated GFR/1.73 m2 Glucose Calcium Phosphorus Magnesium Total Bilirubin Conjugated Bilirubin AST ALT Alkaline Phosphatase Total Protein Albumin Vitamin B12 Folate SARS-CoV-2 (PCR) Negative 06/04/21 06/04/21 06:22 06:40 WBC RBC Hgb Hct MCV MCH MCHC RDW Plt Count MPV Immature Gran % Neutrophils % Lymphocytes % Monocytes % Eosinophils % Basophils % Nucleated RBC % Absolute Neutrophils Absolute Lymphocytes Absolute Monocytes Absolute Eosinophils Absolute Basophils PT INR Sodium 137 Potassium 3.2 L Chloride 101 Carbon Dioxide 32.5 H Anion Gap 3.5 BUN 7 Creatinine 0.6 L Estimated GFR/1.73 m2 >= 60.00 Glucose 94 Calcium 7.8 L Phosphorus 2.4 L Magnesium 2.0 Total Bilirubin 3.2 H Conjugated Bilirubin 1.0 H AST 88 H ALT 41 Alkaline Phosphatase 61 Total Protein 7.1 Albumin 3.3 L Vitamin B12 439 Folate 5.1 L SARS-CoV-2 (PCR) PAWSS Pt Consumed Any Amount of Alcohol Within the Last 30 days OR had positive DASHA Upon Admission: Yes Have you Been Recently Intoxicated or Drunk Within the Last 30 days?: Yes Have you Ever Experienced Previous Episodes of Alcohol Withdrawal?: Yes Have you ever Experienced Withdrawal Seizures?: No Have you ever Experienced Delirium Tremens(DT)s?: Yes Result: 3
[2021-06-04] MEDS: Thiamine 100 MG TAB PO (13:26)
[2021-06-04] MEDS: Folic Acid 1 MG TAB PO (13:27)
[2021-06-04] MEDS: Multivitamin TAB 1 TAB PO (13:27)
--- NOTE | 2021-06-04 14:14 | PUCC_ITS ---
General Date of Service Date of service: 06/04/21 Time of Service: 08:30 Reason for Admission to ICU: EtOH withdrawal Assessment and Plan Assessment and plan (1) Alcohol withdrawal: Status: Acute (2) Thrombocytopenia: Status: Chronic (3) Hypokalemia: Status: Acute (4) Hypomagnesemia: Status: Acute (5) Cirrhosis: Status: Acute (6) Hepatitis C: Status: Chronic (7) Dooley esophagus: Status: Acute (8) Portal hypertensive gastropathy: Status: Acute Assessment and plan: This is a 45 yo man with alcoholic and hepatitis C related F2 cirrhosis admitted to the ICU for alcohol withdrawal. He was incarcerated and so have been without alcohol since friday when he presented to the ED in withdrawal. He has several electrolyte derrangements that are being corrected. He does not have any known esophageal varices. Given his liver cirrhosis he is being treated with the benzodiazepine pathway and is responding appropriately to this. Recommendations Pulmonary: Hypoxia - can try to wean O2 - in the setting of withdrawal and benzo administration Cardiac: No acute concerns Renal: Hypokalemia - replete to 4.0 Hypomagnesemia - replete to 2.0 I&O: Intake & Output 06/01/21 06/02/21 06/03/21 06/04/21 23:59 23:59 23:59 23:59 Intake Total 2810.533 / 2810.533 2730 / 2730 Output Total 650 / 650 675 / 675 Balance 2160.533 / 2160.533 5 / 205 Weight 104 kg 105.5 kg Daily Fluid Goal:: Positive today GI Nutrition: Cirrhosis - alcohol cessation - no known varices on recent EGD - f/u with outpatient GI at [facility] [place] - MELD 17 today, up from 9 in December - recommend PO diet as soon as patient wanting to eat - consider discontinuing IVF once patient taking PO Dooley's esophagus - continue home PPI Date of Last Bowel Movement: 06/02/21 Infectious Disease: No acute concerns Hematologic: No acute concerns Neurologic: Alcohol withdrawal - CIWA and benzodiazepine algorythm - 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 He has a history of hepatitis C infection (genotype 1a) with a low viral load with no treatment, a history of IVDU ([id number]) on suboxone. He follows with GI at [facility] [place]. He has had a fibroscan in 2018 and was found to have F2 cirrhosis (MELD-Na 9 on 12/26/20). He was recommended to have repeat labs and an up to date Fibroscan in order to submit PA for antiviral therapy for his hep C. He had esophageal varices screening completed and the upper endoscopy found mild portal gastropathy, no varices and Dooley's esophagus and was recommended to take a daily PPI. The patient had received Ativan at the time of my assessment but was calm and responsive to voice. He denied at abdominal pain. He only complained of back pain, which is a chronic issue. He states his last drink was Friday evening. He denies prior episodes of alcohol withdrawal. He has never had seizures. Currently he does not feel as though he is having withdrawal symptoms. Exam Const General: no acute distress Nutritional Appearance: well nourished [facility] Head: normocephalic Ears: external ears normal and no periauricular adenopathy General nose exam: nasal mucous membranes and turbinates normal Face and sinus: sinuses nontender Mouth: oropharynx normal and moist mucous membranes Teeth and gingiva: dentition normal Eyes General: appearance normal, both eyes and all related structures Pupils: PERRL Neck Neck: normal visual inspection and no lymphadenopathy Chest Chest: normal inspection of the chest Resp Effort & Inspection: normal respiratory effort Auscultation: clear to auscultation bilaterally, no rales, no rhonchi and no wheezes Cardio Rate: regular rate Rhythm: regular rhythm Heart Sounds: S1 normal, S2 normal and no murmurs Pulses: radial pulses present bilaterally GI Inspection: normal to inspection Palpation: soft Skin General skin exam: no rashes or lesions noted Neuro General: patient alert, patient awake and patient oriented x3 Extrem General: no clubbing, cyanosis or edema Psych Mental Status: mental status grossly normal Affect: normal affect Attitude: cooperative Most Recent VS/Results Last Vital Signs Temp 36.9 C 06/04/21 07:29 Pulse 64 06/04/21 06:00 Resp 18 06/04/21 06:10 BP 122/63 06/04/21 06:00 Pulse Ox 96 06/04/21 06:10 Laboratory Results - last 24 hr 06/03/21 06/04/21 06/04/21 06:10 06:20 06:20 WBC 4.54 RBC 4.01 L Hgb 13.1 L Hct 38.7 L MCV 96.5 H MCH 32.7 MCHC 33.9 RDW 13.6 Plt Count 53 L MPV 10.4 Immature Gran % 0.2 Neutrophils % 61.0 Lymphocytes % 23.1 Monocytes % 11.5 Eosinophils % 3.3 Basophils % 0.9 Nucleated RBC % 0 Absolute Neutrophils 2.77 Absolute Lymphocytes 1.05 L Absolute Monocytes 0.52 Absolute Eosinophils 0.15 Absolute Basophils 0.04 PT 14.3 H INR 1.4 H Sodium Potassium Chloride Carbon Dioxide Anion Gap BUN Creatinine Estimated GFR/1.73 m2 Glucose Calcium Phosphorus Magnesium Total Bilirubin Conjugated Bilirubin AST ALT Alkaline Phosphatase Total Protein Albumin Vitamin B12 Folate SARS-CoV-2 (PCR) Negative 06/04/21 06/04/21 06:22 06:40 WBC RBC Hgb Hct MCV MCH MCHC RDW Plt Count MPV Immature Gran % Neutrophils % Lymphocytes % Monocytes % Eosinophils % Basophils % Nucleated RBC % Absolute Neutrophils Absolute Lymphocytes Absolute Monocytes Absolute Eosinophils Absolute Basophils PT INR Sodium 137 Potassium 3.2 L Chloride 101 Carbon Dioxide 32.5 H Anion Gap 3.5 BUN 7 Creatinine 0.6 L Estimated GFR/1.73 m2 >= 60.00 Glucose 94 Calcium 7.8 L Phosphorus 2.4 L Magnesium 2.0 Total Bilirubin 3.2 H Conjugated Bilirubin 1.0 H AST 88 H ALT 41 Alkaline Phosphatase 61 Total Protein 7.1 Albumin 3.3 L Vitamin B12 439 Folate 5.1 L SARS-CoV-2 (PCR) Review of Systems All systems reviewed & are unremarkable except as noted in HPI and below Time spent with patient Time spent in Critical Care: 40 Time spent in Critical care included: Coordination of care, Chart review, Docu menting critically ill care, Time at immediate bedside and Discussing critically ill care with other medical staff
--- NOTE | 2021-06-04 14:48 | PHA.REVIEW ---
Pharmacy Admission Review - Admission Clinical Review (Last Updated 06/04/21 @ 14:30 by Nadine Carbajal MD) Portal hypertensive gastropathy (Acute) Dooley esophagus (Acute) Cirrhosis (Acute) Discharge planning issues (Acute) DVT prophylaxis (Acute) Hypokalemia (Acute) Elevated lipase (Acute) Alcohol withdrawal (Acute) Hypomagnesemia (Acute) No Known Allergies Allergy (Unverified 06/03/21 04:52) Resuscitation Status DNR/DNI Height 6 ft 2 in Weight 105.5 kg - Renal Dosing Renal Dosing: BUN 7 mg/dL (7-18) 06/04/21 06:40 Creatinine 0.6 mg/dL (0.70-1.30) L 06/04/21 06:40 Medications needing adjustments: Reviewed (Crcl ~134 mL/min current meds okay.) - Anticoagulation Anticoagulation: Hgb 13.1 g/dL (13.5-17.5) L 06/04/21 06:20 Hct 38.7 % (40.0-50.0) L 06/04/21 06:20 Plt Count 53 10^3/uL (130-400) L 06/04/21 06:20 INR 1.4 (0.9-1.1) H 06/04/21 06:20 Creatinine 0.6 mg/dL (0.70-1.30) L 06/04/21 06:40 DVT Prophylaxis: Intervened (Double checked with provider on the heparin given low platelets, provider is aware and monitoring.) Medications: Heparin Therapeutic Anticoagulation: N/A - Opiate Usage Evaluate Pain Scale/Pains Meds: Reviewed Scheduled Bowel Reg ordered if on Opiates?: No (has prn docusate ordered) - Relevant Labs Sodium 137 mmol/L (136-145) 06/04/21 06:40 Potassium 3.2 mmol/L (3.5-5.1) L 06/04/21 06:40 Chloride 101 mmol/L (98-107) 06/04/21 06:40 Phosphorus 2.4 mg/dL (2.6-4.7) L 06/04/21 06:40 Magnesium 2.0 mg/dL (1.8-2.4) 06/04/21 06:40 Electrolytes, C-Reactive P, ESR: Intervened (K+ and phos low. Provider mentioned K+ replacement in progress note, but no replacement ordered. Will check in with provider.) - DM Control DM Control: Glucose 94 mg/dL (74-106) 06/04/21 06:40 Insulin Dosing: N/A - Heart Failure/NH Heart Failure/NH: Troponin I < 0.05 ng/mL (<0.06) 06/03/21 06:12 EF%, LINH's, B-Blockers, Diuretics: Reviewed - BP Control BP Control: Blood Pressure 122/63 Blood Pressure 119/73 If elevated: N/A - Qtc Review If Elevated: Reviewed (QTc on admission was 504, current meds okay) - IV to PO Switch IV Medications: Intervened (Talked to provider about changing IV multivitamin, thiamine and folic acid to PO as pt is taking other PO meds.) - Home Meds Relevent Home Meds Not ordered & why?: sumatriptan - Current meds Current Medication Order Review: Reviewed - Comments Comments/Follow Ups: Watch VS, plts, K+, phos, labs and for med changes (additional need BM meds, avoid QT prolonging meds).
[2021-06-04] MEDS: Potassium Chloride 20 MEQ TABCR PO ×2 (17:35→23:10)
[2021-06-04] MEDS: LORazepam 1 MG TAB PO/SL (23:10)
[2021-06-05] VITALS (112 sets, daily range): BP systolic 120–142; BP diastolic 68–107; PULSE 63–113; RESP 10–28; TEMP 35.6–37.5; O2SAT 87–97
[2021-06-05] MEDS: LORazepam 2 MG/ML VIAL IVP ×3 (01:55→08:18)
[2021-06-05] MEDS: Lactated Ringers 1,000 ML 150 ML IV ×2 (01:56→10:14)
[2021-06-05] MEDS: Heparin 5,000 UNITS/ML VIAL 5000 UNITS SC ×3 (01:56→19:09)
[2021-06-05] MEDS: Normal Saline Flush 10 ML SYR IVP ×4 (03:59→13:03)
[2021-06-05 07:09] LABS: Abs Immature Grans 0.01 10^3/uL (0.0-0.06); Absolute Basophil Count 0.05 10^3/uL (0.0-0.2); Absolute Eosinophil Count 0.24 10^3/uL (0.0-0.7); Absolute Lymphocyte Count 1.33 10^3/uL (1.2-3.4); Absolute Monocyte Count 0.58 10^3/uL (0.1-0.8); Absolute Neutrophil Count 3.22 10^3/uL (1.2-6.7); Basophils % 0.9; Eosinophils % 4.4; HCT 39.6 % (40.0-50.0); HGB 13.8 g/dL (13.5-17.5); Immature Grans % 0.2; Lymphocytes % 24.5; MCH 32.7 pg (27.0-33.0); MCHC 34.8 % (32.0-36.0); MCV 93.8 fL (80-95); Monocytes % 10.7; Neutrophils % 59.3; Nucleated RBC 0 %; RBC 4.22 10^6/uL (4.36-5.78); RDW 13.8 % (11.8-14.1); RDW-SD 47.5 fL; WBC 5.43 10^3/uL (4.4-10.8)
--- NOTE | 2021-06-05 07:16 | W.PULMCC ---
General Date of Service Date of service: 06/05/21 Time of Service: 07:16 Reason for Admission to ICU: Alcohol withdrawal Assessment and Plan Assessment and plan (1) Alcohol withdrawal: Status: Acute (2) Thrombocytopenia: Status: Chronic (3) Hypokalemia: Status: Acute (4) Hypomagnesemia: Status: Acute (5) Cirrhosis: Status: Acute (6) Hepatitis C: Status: Chronic (7) Dooley esophagus: Status: Acute (8) Portal hypertensive gastropathy: Status: Acute Assessment and plan: This is a 45 yo man with alcoholic and hepatitis C related F2 cirrhosis admitted to the ICU for alcohol withdrawal. He was incarcerated and so have been without alcohol since friday when he presented to the ED in withdrawal. He has several electrolyte derrangements that are being corrected. He does not have any known esophageal varices. Given his liver cirrhosis he is being treated with the benzodiazepine pathway and is responding appropriately to this. He is safe for transfer to med surg Recommendations Pulmonary: Hypoxia - in the setting of withdrawal and benzo administration as well as likely SANTINO Cardiac: No acute concerns Renal: Hypokalemia - replete to 4.0 Hypomagnesemia - replete to 2.0 I&O: Intake & Output 06/02/21 06/03/21 06/04/21 06/05/21 23:59 23:59 23:59 23:59 Intake Total 2810.533 / 2810.533 4040 / 4040 1305 / 1305 Output Total 650 / 650 3275 / 3275 1250 / 1250 Balance 2160.533 / 2160.533 765 / 765 55 / 55 Weight 104 kg 105.5 kg 107.4 kg Daily Fluid Goal:: Even GI Nutrition: Cirrhosis - alcohol cessation - no known varices on recent EGD - [place] [facility] [place] today, up from 9 in December - recommend PO diet as soon as patient wanting to eat - consider discontinuing IVF once patient taking PO Dooley's esophagus - continue home PPI Date of Last Bowel Movement: 06/02/21 Infectious Disease: No acute concerns Hematologic: No acute concerns Neurologic: Alcohol withdrawal - CIWA and benzodiazepine algorythm - 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 He denies any pain or trouble breathing. He overall is doing quite well. He did require up to 4 mg of Ativan overnight and his CIWA scoring from 10-12. He reportedly had hallucinations overnight but these have resolved. Exam Const General: no acute distress Nutritional Appearance: well nourished [facility] Head: normocephalic Ears: external ears normal and no periauricular adenopathy General nose exam: nasal mucous membranes and turbinates normal Face and sinus: sinuses nontender Mouth: oropharynx normal and moist mucous membranes Teeth and gingiva: dentition normal Eyes General: appearance normal, both eyes and all related structures Pupils: PERRL Neck Neck: normal visual inspection and no lymphadenopathy Chest Chest: normal inspection of the chest Resp Effort & Inspection: normal respiratory effort Auscultation: clear to auscultation bilaterally, no rales, no rhonchi and no wheezes Cardio Rate: regular rate Rhythm: regular rhythm Heart Sounds: S1 normal, S2 normal and no murmurs Pulses: radial pulses present bilaterally GI Inspection: normal to inspection Palpation: soft Skin General skin exam: no rashes or lesions noted Neuro General: patient alert, patient awake and patient oriented x3 Extrem General: no clubbing, cyanosis or edema Psych Mental Status: mental status grossly normal Affect: normal affect Attitude: cooperative Most Recent VS/Results Last Vital Signs Temp 35.6 C L 06/05/21 03:38 Pulse 72 06/05/21 06:07 Resp 17 06/05/21 06:40 BP 128/85 06/05/21 06:07 Pulse Ox 88 L 06/05/21 06:40 Laboratory Results - last 24 hr 06/04/21 06/04/21 06/04/21 06:20 06:20 06:22 WBC 4.54 RBC 4.01 L Hgb 13.1 L Hct 38.7 L MCV 96.5 H MCH 32.7 MCHC 33.9 RDW 13.6 Plt Count 53 L MPV 10.4 Immature Gran % 0.2 Neutrophils % 61.0 Lymphocytes % 23.1 Monocytes % 11.5 Eosinophils % 3.3 Basophils % 0.9 Nucleated RBC % 0 Absolute Neutrophils 2.77 Absolute Lymphocytes 1.05 L Absolute Monocytes 0.52 Absolute Eosinophils 0.15 Absolute Basophils 0.04 PT 14.3 H INR 1.4 H Sodium Potassium Chloride Carbon Dioxide Anion Gap BUN Creatinine Estimated GFR/1.73 m2 Glucose Calcium Phosphorus Magnesium Total Bilirubin Conjugated Bilirubin AST ALT Alkaline Phosphatase Total Protein Albumin Vitamin B12 439 Folate 5.1 L 06/04/21 06:40 WBC RBC Hgb Hct MCV MCH MCHC RDW Plt Count MPV Immature Gran % Neutrophils % Lymphocytes % Monocytes % Eosinophils % Basophils % Nucleated RBC % Absolute Neutrophils Absolute Lymphocytes Absolute Monocytes Absolute Eosinophils Absolute Basophils PT INR Sodium 137 Potassium 3.2 L Chloride 101 Carbon Dioxide 32.5 H Anion Gap 3.5 BUN 7 Creatinine 0.6 L Estimated GFR/1.73 m2 >= 60.00 Glucose 94 Calcium 7.8 L Phosphorus 2.4 L Magnesium 2.0 Total Bilirubin 3.2 H Conjugated Bilirubin 1.0 H AST 88 H ALT 41 Alkaline Phosphatase 61 Total Protein 7.1 Albumin 3.3 L Vitamin B12 Folate Review of Systems All systems reviewed & are unremarkable except as noted in HPI and below Time spent with patient Time spent in Critical Care: 35 Time spent in Critical care included: Coordination of care, Chart review, Documenting critically ill care, Time at immediate bedside and Discussing critically ill care with other medical staff
[2021-06-05 07:31] LABS: ALT 37 U/L (16-63); AST 79 U/L (15-37); Albumin 3.4 g/dL (3.4-5.0); Alkaline Phosphatase 65 U/L (46-116); Anion Gap 8.3 mmol/L (3-11); BUN 8 mg/dL (7-18); CO2 27.7 mmol/L (21.0-32.0); CREATININE 0.6 mg/dL (0.70-1.30); Calcium 8.3 mg/dL (8.5-10.1); Chloride 101 mmol/L (98-107); Glucose 82 mg/dL (74-106); Potassium 3.9 mmol/L (3.5-5.1); Sodium 137 mmol/L (136-145); Total Protein 7.7 g/dL (6.4-8.2)
[2021-06-05] MEDS: Sertraline 50 MG TAB PO (08:17)
[2021-06-05] MEDS: Omeprazole 20 MG CAPCR 40 MG PO (08:17)
[2021-06-05] MEDS: Thiamine 100 MG TAB PO (08:17)
[2021-06-05] MEDS: Multivitamin TAB 1 TAB PO (08:17)
[2021-06-05] MEDS: Potassium Chloride 20 MEQ TABCR PO ×2 (08:17→19:09)
[2021-06-05] MEDS: Buprenorphine/Naloxone 12 mg/3 mg FILM 1 EACH SL (08:18)
[2021-06-05] MEDS: Folic Acid 1 MG TAB PO (08:18)
--- NOTE | 2021-06-05 08:52 | PDOC.CMPRO ---
- If Service Date Differs Date of service: 06/05/21 Time of Service: 08:52 Care Management Progress Note S/O: Mike remains in the ICU per CIWA protocol. He is lying in bed and being supervised by 2 correctional officers. He experienced hallucinations over night and his electrolytes continue to be closely monitored and corrected. Per provider, Mike is medically cleared to transfer to the med surg floor. BRANDON spoke with Brigitte Steward from [facility] today and let her know that Mike will likely be cleared for discharge in the next couple days. A: 45 year old male admitted to [facility] on 06/03/21 for alcohol withdrawal. P: Anticipate Wai will return to the [facility] when medically cleared per MD, he will transport via the facility's transport van. A nurse to nurse huddle will need to be done in advance ([facility] Medical Office: [phone]). CM continues to follow.
--- NOTE | 2021-06-05 12:29 | W.PM.HP.N ---
Date of service: 06/05/21 Time of Service: 12:29 [facility] All Active Problems (Updated 06/04/21 @ 14:30 by Nadine Carbajal MD) Portal hypertensive gastropathy (Acute) Dooley esophagus (Acute) Hepatitis C (Chronic) Cirrhosis (Acute) Discharge planning issues (Acute) DVT prophylaxis (Acute) Hypokalemia (Acute) Elevated lipase (Acute) Alcohol withdrawal (Acute) Pancreatitis (Chronic) Hypomagnesemia (Acute) Thrombocytopenia (Chronic) Alcohol intoxication (Acute) Medical History (Updated 06/04/21 @ 14:30 by Nadine Carbajal MD) Alcohol abuse Cirrhosis Cluster headaches Colitis Esophageal varices GERD (gastroesophageal reflux disease) GI bleeding Opioid abuse Pancreatitis Pharyngitis Vocal cord edema Surgical History (Updated 06/03/21 @ 07:09 by Yessica Whittington MD) History of esophagogastroduodenoscopy (EGD) History of sinus surgery 2014 Family History (Updated 06/03/21 @ 07:10 by Yessica Whittington MD) Daughter Diabetes Mother Lupus Maternal Aunt Diabetes Breast cancer Stroke Brother Diabetes Maternal Uncle Heart disease Father Hypertension Other Cancer Multiple sclerosis Social History Smoking/Tobacco Use Status: Current every day Tobacco Type: e-cigarettes Smoking risk assessment performed?: Yes Alcohol Intake: current Alcohol Intake frequency: 3 or more drinks per day Alcohol type: hard liquor Drug use: Current Sobriety Substance use type: marijuana Details: Eats Marijuana cookies Pets and animals: Yes (2 dogs, 1 cat, 2 gerbils ) Pets and animals: cat(s), dog(s) and gerbil(s) Do you feel safe at home: Yes Do you feel safe in your relationship?: Yes Meds Allergies and Home Medications Allergies Allergy/AdvReac Type Severity Reaction Status Date / Time No Known Allergies Allergy Unverified 06/03/21 04:52 Home Medications Medication Instructions Recorded Confirmed Type buprenorphine-naloxone [Suboxone] 1 film SUBLINGUAL DAILY 01/31/21 06/03/21 History omeprazole 40 mg PO DAILY 01/31/21 06/03/21 History sumatriptan succinate 4 mg SUBCUT DAILY 01/31/21 06/03/21 History sertraline [Zoloft] 50 mg PO DAILY 06/03/21 06/03/21 History Results Labs Result diagrams: 06/05/21 06:12 06/05/21 06:12 Labs: Laboratory Results - last 24 hr 06/05/21 06/05/21 06:12 06:12 WBC 5.43 RBC 4.22 L Hgb 13.8 Hct 39.6 L MCV 93.8 MCH 32.7 MCHC 34.8 RDW 13.8 Plt Count MPV Immature Gran % 0.2 Neutrophils % 59.3 Lymphocytes % 24.5 Monocytes % 10.7 Eosinophils % 4.4 Basophils % 0.9 Nucleated RBC % 0 Absolute Neutrophils 3.22 Absolute Lymphocytes 1.33 Absolute Monocytes 0.58 Absolute Eosinophils 0.24 Absolute Basophils 0.05 Sodium 137 Potassium 3.9 D Chloride 101 Carbon Dioxide 27.7 Anion Gap 8.3 BUN 8 Creatinine 0.6 L Estimated GFR/1.73 m2 >= 60.00 Glucose 82 Calcium 8.3 L Total Bilirubin 3.0 H AST 79 H ALT 37 Alkaline Phosphatase 65 Total Protein 7.7 Albumin 3.4 Last Vital Signs Temp 37.5 C 06/05/21 07:45 Pulse 72 06/05/21 10:26 Resp 25 H 06/05/21 11:00 BP 128/78 06/05/21 10:26 Pulse Ox 91 L 06/05/21 11:00 PAWSS Pt Consumed Any Amount of Alcohol Within the Last 30 days OR had positive DASHA Upon Admission: Yes Have you Been Recently Intoxicated or Drunk Within the Last 30 days?: Yes Have you Ever Experienced Previous Episodes of Alcohol Withdrawal?: Yes Have you ever Experienced Withdrawal Seizures?: No Have you ever Experienced Delirium Tremens(DT)s?: Yes Result: 3
--- NOTE | 2021-06-05 12:40 | W.PM.PROGNOT ---
Date of Service Date of service: 06/05/21 Time of Service: 12:40 Assessment and Plan Assessment and plan (1) Alcohol withdrawal: Status: Acute Assessment and plan: Admit to ICU. Treating withdrawal symptoms with benzodiazepines due to concerns for liver dysfunction (rather than phenobarbitol). Monitor on CIWA. Supplement thiamine/vitamins / now po. Appears to be at peak of withdrawal. Anticipate need for less ativan after today. (2) Elevated lipase: Status: Acute Assessment and plan: Clinically there is no evidence of pancreatitis. Biliary US: 1. No calcified gallstones but there does appear to be mild sludge in the gallbladder lumen. No gallbladder wall edema. Common hepatic duct is not dilated 2. Splenomegaly noted. Liver size is also slightly prominent. There is a small 2 millimeter benign cyst in the liver noted. 3. There is no ascites. (3) Opioid abuse: Assessment and plan: Cont his prescribed suboxone. (4) Hypomagnesemia: Status: Acute Assessment and plan: Repleted (5) Hypokalemia: Status: Acute Assessment and plan: Repleted (6) Esophageal varices: Assessment and plan: Dr Carbajal consult appreciated. Despite low platelets, recommends heparin for DVT prophylaxis. Continue home PPI. Hgb 13.3 > 13.1. (7) Thrombocytopenia: Status: Chronic Assessment and plan: As above Avoid chemical DVT ppx. (8) Cirrhosis: Assessment and plan: Alcoholic + h/o Hepatitis C, now treated. With h/o esophageal varices, thrombocytopenia, coagulopathy. Avoid hepatotoxic medications. Followed by GI at [facility]. (9) DVT prophylaxis: Status: Acute Assessment and plan: Now changed to heparin SQ. Monitor platelets and signs/symptoms of bleeding, H/H. (10) Discharge planning issues: Status: Acute Assessment and plan: DNR/DNI Admit to ICU. Subjective Subjective Patient reports: afebrile; denies vomiting and shortness of breath Interval history since last seen: Sleeping much of the time. Ativan being given for CIWA scoring of an avg of 10. Hallucinations last PM; none noted today. Exam Const General: no acute distress Nutritional Appearance: overweight Orientation: not awake (arouses briefly to tactile stim. ) Resp Effort & Inspection: normal respiratory effort Auscultation: clear to auscultation bilaterally Cardio Rate: regular rate Rhythm: regular rhythm Heart Sounds: S1 normal and S2 normal GI Inspection: non-distended Palpation: soft Auscultation: normal bowel sounds Skin General skin exam: no rashes or lesions noted Extrem General: no pedal edema and no calf tenderness Objective Last Vital Signs Temp 37.5 C 06/05/21 07:45 Pulse 72 06/05/21 10:26 Resp 25 H 06/05/21 11:00 BP 128/78 06/05/21 10:26 Pulse Ox 91 L 06/05/21 11:00 Laboratory Results - last 24 hr 06/05/21 06/05/21 06:12 06:12 WBC 5.43 RBC 4.22 L Hgb 13.8 Hct 39.6 L MCV 93.8 MCH 32.7 MCHC 34.8 RDW 13.8 Plt Count MPV Immature Gran % 0.2 Neutrophils % 59.3 Lymphocytes % 24.5 Monocytes % 10.7 Eosinophils % 4.4 Basophils % 0.9 Nucleated RBC % 0 Absolute Neutrophils 3.22 Absolute Lymphocytes 1.33 Absolute Monocytes 0.58 Absolute Eosinophils 0.24 Absolute Basophils 0.05 Sodium 137 Potassium 3.9 D Chloride 101 Carbon Dioxide 27.7 Anion Gap 8.3 BUN 8 Creatinine 0.6 L Estimated GFR/1.73 m2 >= 60.00 Glucose 82 Calcium 8.3 L Total Bilirubin 3.0 H AST 79 H ALT 37 Alkaline Phosphatase 65 Total Protein 7.7 Albumin 3.4 PAWSS Pt Consumed Any Amount of Alcohol Within the Last 30 days OR had positive DASHA Upon Admission: Yes Have you Been Recently Intoxicated or Drunk Within the Last 30 days?: Yes Have you Ever Experienced Previous Episodes of Alcohol Withdrawal?: Yes Have you ever Experienced Withdrawal Seizures?: No Have you ever Experienced Delirium Tremens(DT)s?: Yes Result: 3
--- NOTE | 2021-06-05 13:02 | NUR.NOTE ---
Patients gold ring removed from finger using floss and baby soap. Brought to med surg floor and put in safe. Nursing Note:
[2021-06-05] MEDS: Furosemide 20 MG/2 ML VIAL IVP (13:04)
[2021-06-05 13:50] LABS: Platelet Count 60 10^3/uL (130-400)
--- NOTE | 2021-06-05 15:34 | NUR.NOTE ---
Nursing Note: 06/05/21 [id number] Spoke to pt's mother who wanted to know his status. She is on HIPPA but per corrections, she needs to obtain info from facility. She reports that they will not tell her anything. THis nurse called facility to give them an update to call his mother with. Spoke to Food Safety Director Maday who transfered to renal case manager Anibal. Informed Alessandroshruthi that mother was on HIPPA here and patient signed it in ED. Update that patient is doing much better and is more awake was given. Anibal asked for expected d/c date and this nurse noted that it was discussed that he may be transfered to [facility] tomorrow, but no d/c yet.
[2021-06-06] VITALS (30 sets, daily range): BP systolic 36–125; BP diastolic 14–91; PULSE 58–101; RESP 9–29; TEMP 36.5–36.8; O2SAT 89–96
[2021-06-06] MEDS: Heparin 5,000 UNITS/ML VIAL 5000 UNITS SC (02:17)
[2021-06-06 07:15] LABS: HCT 39.2 % (40.0-50.0); HGB 13.2 g/dL (13.5-17.5); MCH 32.7 pg (27.0-33.0); MCHC 33.7 % (32.0-36.0); MPV 11.4 fL (8.0-11.0); RBC 4.04 10^6/uL (4.36-5.78); RDW 13.8 % (11.8-14.1); RDW-SD 48.9 fL; WBC 4.73 10^3/uL (4.4-10.8)
[2021-06-06 07:35] LABS: ALT 40 U/L (16-63); AST 74 U/L (15-37); Albumin 3.5 g/dL (3.4-5.0); Alkaline Phosphatase 68 U/L (46-116); Anion Gap 8.2 mmol/L (3-11); BUN 11 mg/dL (7-18); Bilirubin, Total 2.6 mg/dL (0.2-1.0); CO2 28.8 mmol/L (21.0-32.0); CREATININE 0.7 mg/dL (0.70-1.30); Calcium 8.6 mg/dL (8.5-10.1); Chloride 100 mmol/L (98-107); Glucose 85 mg/dL (74-106); Potassium 3.7 mmol/L (3.5-5.1); Sodium 137 mmol/L (136-145); Total Protein 7.7 g/dL (6.4-8.2)
[2021-06-06 07:41] LABS: Platelet Count 60 10^3/uL (130-400)
[2021-06-06] MEDS: Potassium Chloride 20 MEQ TABCR PO (08:25)
[2021-06-06] MEDS: Omeprazole 20 MG CAPCR 40 MG PO (08:25)
[2021-06-06] MEDS: Sertraline 50 MG TAB PO (08:25)
[2021-06-06] MEDS: Multivitamin TAB 1 TAB PO (08:25)
[2021-06-06] MEDS: Folic Acid 1 MG TAB PO (08:25)
[2021-06-06] MEDS: Thiamine 100 MG TAB PO (08:25)
[2021-06-06] MEDS: Buprenorphine/Naloxone 12 mg/3 mg FILM 1 EACH SL (08:25)
--- NOTE | 2021-06-06 08:40 | CMPROGNOTE_ITS ---
- If Service Date Differs Date of service: 06/06/21 Time of Service: 08:40 Care Management Progress Note S/O: Mike remains in the ICU on CIWA protocol. He is lying in bed and being supervised by 2 correctional officers. A: 45 year old male admitted to [facility] on 06/03/21 for alcohol withdrawal. P: Anticipate Wai will return to the [facility] when medically cleared per MD, he will transport via the facility's transport van. A nurse to nurse huddle will need to be done in advance ([facility] Medical Office: [phone]). CM continues to follow.
--- NOTE | 2021-06-06 11:11 | W.PM.DS.N ---
Date of service: 06/06/21 Time of Service: 11:11 DS: Diagnosis Discharge Diagnosis (1) Alcohol withdrawal: Status: Acute (2) Elevated lipase: Status: Acute (3) Opioid abuse: (4) Hypomagnesemia: Status: Acute (5) Hypokalemia: Status: Acute (6) Esophageal varices: (7) Thrombocytopenia: Status: Chronic (8) Cirrhosis: (9) DVT prophylaxis: Status: Acute (10) Discharge planning issues: Status: Acute Discharge Plan Disposition [facility] Disposition[facility] Condition: Good Discharge Details Reason For Visit: Alcohol Withdrawl Admit Date/Time: 06/03/21 06:46 Admit Provider: Yessica Whittington Attending Provider: Yessica Whittington Primary Care Provider: [facility] Course Hospital Course: Follow up with PCP in 1-2 weeks. Home Meds and New Rx's Prescriptions: New folic acid 1 mg Tablet 1 mg PO QAM Qty: 0 RF: 0 thiamine mononitrate (vit B1) [Vitamin B-1 (mononitrate)] 100 mg Tablet 100 mg PO QAM Qty: 0 RF: 0 Continued sertraline [Zoloft] 50 mg Tablet 50 mg PO DAILY RF: 0 omeprazole 40 mg Capsule,Delayed Release(Dr/Ec) 40 mg PO DAILY RF: 0 sumatriptan succinate 4 mg/0.5 mL Pen Injector 4 mg SUBCUT DAILY RF: 0 buprenorphine-naloxone [Suboxone] 12-3 mg Film 1 film sublingual DAILY RF: 0 Discharge Instructions Activity:: Activity as Tolerated Equipment/Supplies:: No Equipment Needed Diet:: As Tolerated Discharge Orders Discharge Orders: Discharge Order (Routine); Ordered 06/06/21 Ordered By: Lance López Discharge Data Discharge Date/Time-TO BE ENTERED AT DEPARTURE: 06/06/21 13:00 DS: Summary Time Spent with Patient providing and/or coordinating discharge services: Greater than 30 minutes Status at Discharge Functional status at discharge: independent ambulation Overall status at discharge: patient is progressing back to baseline Mental Status: mental status grossly normal Speech and Movement: speech and movement normal Mood: congruent mood Affect: normal affect Exam Const General: cooperative and no acute distress Nutritional Appearance: overweight Orientation: alert Resp Effort & Inspection: normal respiratory effort Auscultation: clear to auscultation bilaterally Cardio Rate: regular rate Rhythm: regular rhythm Heart Sounds: S1 normal and S2 normal GI Inspection: non-distended Palpation: soft Auscultation: normal bowel sounds Skin General skin exam: no rashes or lesions noted Extrem General: no pedal edema and no calf tenderness Psych Mental Status: mental status grossly normal Speech and Movement: speech and movement normal Mood: congruent mood Affect: normal affect DS: Data Vitals/I&O Vitals and I&O: Vital Signs Temperature 36.8 C 06/06/21 08:05 Temperature Source Temporal Artery Scan 06/06/21 08:05 Pulse 101 H 06/06/21 10:05 Pulse 70 06/06/21 10:30 Respiratory Rate 17 06/06/21 10:30 Respiratory Effort 06/06/21 08:05 Respiratory Depth Shallow 06/06/21 08:05 Respiratory Pattern Normal 06/06/21 08:05 Blood Pressure 36/14 L 06/06/21 10:05 Blood Pressure Mean 17 06/06/21 10:05 Blood Pressure Position Supine 06/06/21 08:05 Pulse Oximetry 93 06/06/21 10:30 Respiratory End-tidal CO2 06/05/21 04:20 Oxygen Delivery Method Room Air 06/06/21 08:05 Oxygen Flow Rate 0 06/06/21 08:05 Pain Level 0 06/06/21 08:05 Intake & Output 06/05/21 06/05/21 06/06/21 11:59 23:59 11:59 Intake Total 2545 / 3375 830 / 3375 240 / 240 Output Total 1600 / 3400 1800 / 3400 1300 / 1300 Balance 945 / -25 -970 / -25 -1060 / -1060 Weight 107.4 kg 104.8 kg Intake: IV 1805 / 2135 330 / 2135 Oral 740 / 1240 500 / 1240 240 / 240 Output: Urine 1600 / 3400 1800 / 3400 1300 / 1300 Other: Urine Color Light Jenn Light Jenn Light Jenn Brewster Urine Appearance Clear Clear Clear Urine Odor Normal None None Comment at times incont Estimated 1500 out after lasix, guards forgot to call nurse with 3 voids. They were educated to the need to track I&Os Stool Occult Blood Negative Stool Size Large Stool Characteristics Soft Formed Voiding Methods Toilet Urinal Urinal Urinal Data Completed and Pending Labs on day of discharge: Labs from last 24 hours 06/06/21 06/06/21 06/05/21 06:15 06:15 13:33 WBC 4.73 RBC 4.04 L Hgb 13.2 L Hct 39.2 L MCV 97.0 H MCH 32.7 MCHC 33.7 RDW 13.8 Plt Count 60 L 60 L MPV 11.4 H Sodium 137 Potassium 3.7 Chloride 100 Carbon Dioxide 28.8 Anion Gap 8.2 BUN 11 Creatinine 0.7 Estimated GFR/1.73 m2 >= 60.00 Glucose 85 Calcium 8.6 Total Bilirubin 2.6 H AST 74 H ALT 40 Alkaline Phosphatase 68 Total Protein 7.7 Albumin 3.5 PFSH All Active Problems Portal hypertensive gastropathy (Acute) Dooley esophagus (Acute) Hepatitis C (Chronic) Cirrhosis (Acute) Discharge planning issues (Acute) DVT prophylaxis (Acute) Hypokalemia (Acute) Elevated lipase (Acute) Alcohol withdrawal (Acute) Pancreatitis (Chronic) Hypomagnesemia (Acute) Thrombocytopenia (Chronic) Alcohol intoxication (Acute) Medical History Alcohol abuse Cirrhosis Cluster headaches Colitis Esophageal varices GERD (gastroesophageal reflux disease) GI bleeding Opioid abuse Pancreatitis Pharyngitis Vocal cord edema Surgical History History of esophagogastroduodenoscopy (EGD) History of sinus surgery 2014 Family History Daughter Diabetes Mother Lupus Maternal Aunt Diabetes Breast cancer Stroke Brother Diabetes Maternal Uncle Heart disease Father Hypertension Other Cancer Multiple sclerosis Social History Smoking/Tobacco Use Status: Current every day Tobacco Type: e-cigarettes Smoking risk assessment performed?: Yes Alcohol Intake: current Alcohol Intake frequency: 3 or more drinks per day Alcohol type: hard liquor Drug use: Current Sobriety Substance use type: marijuana Details: Eats Marijuana cookies Pets and animals: Yes (2 dogs, 1 cat, 2 gerbils ) Pets and animals: cat(s), dog(s) and gerbil(s) Do you feel safe at home: Yes Do you feel safe in your relationship?: Yes
--- NOTE | 2021-06-06 14:56 | CMDISCH_ITS ---
- If Service Date Differs Date of service: 06/06/21 Time of Service: 14:56 LACE Index Scoring Tool - Questions: Length of Stay (in days): 3 Acuity (Admit via E.D.?): Yes Comorbidities: Liver or Renal Disease E.D. Visits: 4 - Answers: Total Score: 15 Risk of Readmission: High Risk Care Management Discharge Reason for Hospitalization: ETOH Withdrawal Discharge Plan: [facility] Patient/Family Education Needs: Review of discharge instructions.
== END 2021-06-06 13:00 | disposition home or self-care (01) | DRG 897 ==
LOC: ER 07:15 → ICU 08:06
PROVIDERS: Family Medicine; Admitting Provider Internal Medicine; Emergency Provider Emergency Medicine; PCP Family Medicine; Visit Provider Internal Medicine
DX: F10.239 Alcohol dependence with withdrawal, unspecified (principal); I85.00 Esophageal varices without bleeding; K76.6 Portal hypertension; R74.8 Abnormal levels of other serum enzymes; F11.10 Opioid abuse, uncomplicated; E87.6 Hypokalemia; E83.42 Hypomagnesemia; D69.6 Thrombocytopenia, unspecified; Z66 Do not resuscitate; K70.30 Alcoholic cirrhosis of liver without ascites; K21.9 Gastro-esophageal reflux disease without esophagitis; G44.009 Cluster headache syndrome, unspecified, not intractable; F17.290 Nicotine dependence, other tobacco product, uncomplicated; D73.2 Chronic congestive splenomegaly; Z86.19 Personal history of other infectious and parasitic diseases; R09.02 Hypoxemia; K31.89 Other diseases of stomach and duodenum; K22.70 Barrett's esophagus without dysplasia
CPT/HCPCS: 36415; 36556; 80048; 80053; 80076; 83690; 85027; 87635; 93005; 96361; 96365; 96367; 99291; 71046; 76700; 82607; 82746; 83735; 84100; 84484; 85025; 85049; 85610; 93010; 99232; 99233; 99239; J1644; J1941; J2060; J3360; J3480

== ENCOUNTER 2023-11-09 13:10 | Emergency (ER) | payer MEDICAID, SELFPAY ==
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
[2023-11-09 13:16] VITALS: BP 165/107; PULSE 87; RESP 16; TEMP 36.5; O2SAT 97
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
[2023-11-09] MEDS: Normal Saline 1,000 ML 1000 ML IV (13:46)
[2023-11-09] MEDS: Ketorolac 15 MG/ML VIAL IVP (13:46)
[2023-11-09 13:52] LABS: Abs Immature Grans 0.01 10^3/uL (0.0-0.06); Absolute Basophil Count 0.05 10^3/uL (0.0-0.2); Absolute Eosinophil Count 0.21 10^3/uL (0.0-0.7); Absolute Lymphocyte Count 2.21 10^3/uL (1.2-3.4); Absolute Monocyte Count 0.43 10^3/uL (0.1-0.8); Absolute Neutrophil Count 3.28 10^3/uL (1.2-6.7); Basophils % 0.8 %; Eosinophils % 3.4 %; HCT 45.1 % (40.0-50.0); HGB 15.7 g/dL (13.5-17.5); Immature Grans % 0.2 %; Lymphocytes % 35.7 %; MCH 29.1 pg (27.0-33.0); MCHC 34.8 % (32.0-36.0); MCV 84 fL (80-95); MPV 10.6 fL (8.0-11.0); Monocytes % 6.9 %; Platelet Count 138 10^3/uL (130-400); RBC 5.39 10^6/uL (4.36-5.78); RDW 13.2 % (11.8-14.1); RDW-SD 40.2 fL; WBC 6.19 10^3/uL (4.4-10.8)
[2023-11-09 14:06] LABS: ALT 43 U/L (16-63); AST 67 U/L (15-37); Albumin 4.9 g/dL (3.4-5.0); Alkaline Phosphatase 84 U/L (46-116); Anion Gap 13.5 mmol/L (3-11); BUN 8 mg/dL (7-18); Bilirubin, Total 1.3 mg/dL (0.2-1.0); CO2 28.5 mmol/L (21.0-32.0); CREATININE 1.1 mg/dL (0.70-1.30); Calcium 9.3 mg/dL (8.5-10.1); Chloride 99 mmol/L (98-107); Estimated GFR 82.29 (mL/min/1.73m2); Glucose 86 mg/dL (74-106); INR 1.3 (0.9-1.1); Magnesium 1.8 mg/dL (1.8-2.4); PTT Activated 27.9 sec (23.6-32.8); Prothrombin Time 12.7 sec (9.1-11.1); Sodium 141 mmol/L (136-145); Total Protein 9.2 g/dL (6.4-8.2)
[2023-11-09] MEDS: Normal Saline Flush 10 ML SYR IVP (14:18)
[2023-11-09] MEDS: Normal Saline - Diluent 50 ML VIAL IJ (14:18)
[2023-11-09] MEDS: Omnipaque 350 MG/ML 100 ML BTL IJ (14:19)
[2023-11-09] MEDS: Potassium Chloride 20 MEQ TABCR 40 MEQ PO (14:23)
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
[2023-11-09] MEDS: Lidocaine 5% Patch 1 PATCH TP (15:26)
== END 2023-11-09 15:32 | disposition home or self-care (01) ==
PROVIDERS: Emergency Provider Emergency Medicine; PCP Family Medicine
DX: E87.6 Hypokalemia (principal); S22.42XA Multiple fractures of ribs, left side, initial encounter for closed fracture; Y04.0XXA Assault by unarmed brawl or fight, initial encounter; F17.290 Nicotine dependence, other tobacco product, uncomplicated
CPT/HCPCS: 36415; 74177; 80053; 86850; 86900; 86901; 96361; 96374; 99285; 70450; 71260; 72125; 83735; 85025; 85610; 85730; 99284; J1885; J3490

== ENCOUNTER 2024-01-26 18:54 | Outpatient (CLI) | payer MEDICAID, SELFPAY ==
[2024-01-26 13:12] LABS: Abs Immature Grans 0.03 10^3/uL (0.0-0.06); Absolute Basophil Count 0.04 10^3/uL (0.0-0.2); Absolute Eosinophil Count 0.12 10^3/uL (0.0-0.7); Absolute Lymphocyte Count 1.34 10^3/uL (1.2-3.4); Absolute Monocyte Count 0.43 10^3/uL (0.1-0.8); Absolute Neutrophil Count 6.22 10^3/uL (1.2-6.7); Basophils % 0.5 %; Eosinophils % 1.5 %; HCT 43.7 % (40.0-50.0); HGB 14.9 g/dL (13.5-17.5); Immature Grans % 0.4 %; Lymphocytes % 16.4 %; MCHC 34.1 % (32.0-36.0); MCV 85 fL (80-95); MPV 10.4 fL (8.0-11.0); Monocytes % 5.3 %; Neutrophils % 75.9 %; Platelet Count 138 10^3/uL (130-400); RBC 5.13 10^6/uL (4.36-5.78); RDW 13.1 % (11.8-14.1); RDW-SD 41.1 fL; WBC 8.18 10^3/uL (4.4-10.8)
[2024-01-26 13:39] LABS: ALT 41 U/L (16-63); AST 31 U/L (15-37); Albumin 4.2 g/dL (3.4-5.0); Alkaline Phosphatase 93 U/L (46-116); Anion Gap 7.8 mmol/L (3-11); BUN 11 mg/dL (7-18); Bilirubin, Total 0.63 mg/dL (0.2-1.0); CO2 29.2 mmol/L (21.0-32.0); CREATININE 0.9 mg/dL (0.70-1.30); Calcium 9.2 mg/dL (8.5-10.1); Calculated LDL 93 mg/dL (<100); Chloride 102 mmol/L (98-107); Cholesterol 158 mg/dL (<200); Glucose 111 mg/dL (74-106); HDL Cholesterol 48 mg/dL (40-60); Potassium 3.9 mmol/L (3.5-5.1); Sodium 139 mmol/L (136-145); Total Protein 8.6 g/dL (6.4-8.2); Triglyceride 85 mg/dL (<150)
[2024-01-27 10:04] LABS: HIV-1/2 Ag & Ab Screen Negative (Negative)
[2024-01-27 10:15] LABS: Hepatitis C Ab w Rflx HCV PCR Reactive (Negative)
[2024-01-27 10:27] LABS: Syphilis Serology (RPR) Negative (Negative)
[2024-01-27 14:10] LABS: Chlamydia Result Negative (Negative); GC Result Negative (Negative)
[2024-01-27 18:18] LABS: Hemoglobin A1C 5.2 % (<5.7)
[2024-01-28 12:36] LABS: HCV RNA Qualitative Undetected (Undetected)
== END 2024-01-26 18:55 | disposition home or self-care (01) ==
LOC: LBO 18:54
PROVIDERS: PCP Nurse Practitioner; Visit Provider Nurse Practitioner
DX: Z11.59 Encounter for screening for other viral diseases (principal); R79.9 Abnormal finding of blood chemistry, unspecified; R73.03 Prediabetes
CPT/HCPCS: 36415; 80053; 80061; 86803; 87389; 87491; 87522; 87591; 83036; 85025; 86592

== ENCOUNTER 2024-03-05 11:50 | Outpatient (CLI) | payer MEDICAID, SELFPAY ==
[2024-03-05 11:15] LABS: TSH (W/Ref FT4) 1.03 uIU/mL (0.36-3.74)
[2024-03-05 18:00] LABS: Estradiol 24 pg/mL (<40)
[2024-03-05 18:13] LABS: LH 3.8 mIU/mL (1.5-9.3); Prolactin 5.5 ng/mL (2.1-17.7)
[2024-03-08 10:16] LABS: DHEA Sulfate 113 ug/dL (136-448)
[2024-03-13 16:00] LABS: Testosterone, Total 397 ng/dL (240-950)
== END 2024-03-05 11:51 | disposition home or self-care (01) ==
LOC: LBO 11:51
PROVIDERS: PCP Nurse Practitioner; Visit Provider Nurse Practitioner
DX: N62 Hypertrophy of breast (principal); I10 Essential (primary) hypertension
CPT/HCPCS: 36415; 82627; 84402; 84403; 82670; 83002; 84146; 84443

== ENCOUNTER 2024-03-23 15:16 | Outpatient (CLI) | payer MEDICAID, SELFPAY ==
--- NOTE | 2024-03-23 11:00 | DI.RAD_ITS ---
Exam(s) XR CHEST 2V PA LATERAL EXAM: XR CHEST 2V PA LATERAL CLINICAL HISTORY: cough, wheeze, hx pneumonia R05.9 COUGH TECHNIQUE: 2D digital imaging was performed. Two views. COMPARISON: CT CT CHEST/ABD/PEL W from 11/09/2023 FINDINGS: HEART: Normal size. Aorta: Not dilated. PULMONARY VASCULATURE: Normal. MEDIASTINUM: Unremarkable. LUNGS: Clear. PLEURAL SPACE: No pleural effusion or pneumothorax. BONE:Old left rib fractures. SOFT TISSUES: Unremarkable. IMPRESSION: No acute abnormality. DATA REPOSITORY: RADIATION DOSE DELIVERED:
--- OUTSIDE RECORDS SUMMARY | 2024-03-23 15:19 | XMS_ITS | Encounter Summary ---
Author Organization [facility] Address [address] [place] [address] Care Team Providers Care Back Grinder Name Role Phone Unknown, Provider Primary Care Provider Encounter Details Date Type Department Care Team (Late st Contact Info) Description 01/26/2024 Lab Requisition [facility] Pathology & Laboratory Medicine - [address] [phone] Outr Resulting Lab, Provider Social History Tobacco Use Types Packs/Day Years Used Date Smoking Tobacco: Never Assessed Interpersonal Safety Answer Date Record ed Physically Hurt Never 01/23/2020 Verbally Threaten Not on file 01/23/2020 Sex and Gender Information Value Date Recorded Sex Assigned at Not on file Gender Identity Not on file Sexual Orientation Not on file documented as of this encounter Plan of Treatment Not on file documented as of this encounter Procedures Procedure Name Priority Date/Time Associated Diagnosis Comments CHLAMYDIA/N. GONORRHOEAE AMPLIFIED NUCLEIC ACID Routine 01/26/2024 13:00 EDT documented in this encounter Results * CHLAMYDIA/N. GONORRHOEAE AMPLIFIED NUCLEIC ACID (01/26/2024 13:00 EDT) Neisseria gonorrhoeae Result Negative Negative 01/27/2024 14:05 EDT [facility] Chlamydia trachomatis Result Negative Negative 01/27/2024 14:05 EDT [facility] Urine URINE / Unknown 01/26/2024 1 3:00 EDT 01/26/2024 21:27 EDT Provider Outr Resulting Lab MICROBIOLOGY - GENERAL ORDERABLES [facility] [address] [place] [id number] documented in this encounter Visit Diagnoses Not on filedocumented in this encounter Care Teams Back Grinder Relationship Specialty Start Date End Date Unknown, Provider, PCP - General 09/26/16 documented as of this encounter
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
--- OUTSIDE RECORDS SUMMARY | 2024-03-23 15:19 | XMS_ITS | Encounter Summary ---
Author Organization [facility] Address [address] [place] [address] Care Team Providers Care Net Making Supervisor Name Role Phone Unknown, Provider Primary Care Provider [phone] Encounter Details Date Type Department Care Team (Latest Contact Info) Description 02/26/2024 Specialty Pharmacy [facility] [address], [place] [id number] Arti Rose RPH Refill Coordination Outreach for Addiction Medicine Social History Tobacco Use Types Packs/Day Years Used Date Smoking Tobacco: Never Assessed Interpersonal Safety Answer Date Record ed Physically Hurt Never 01/23/2020 Verbally Threaten Not on file 01/23/2020 Sex and Gender Information Value Date Recorded Sex Assigned at Not on file Gender Identity Not on file Sexual Orientation Not on file documented as of this encounter Progress Notes * Deborah Salcido - 02/26/2024 1155 EDT Prescription Receipt by [facility] Date Received: 02/26/2024 Medication: Brixadi 128 mg Provider: Kelsi Santioz Provider Phone number: [phone] [facility]: addiction services Comments: script received, uploaded to scans and profiled. Script is refill too soon until 03/05/2024. PA Status: PA not required Prescription copy available in scans: YES Relevant clinical documents in scans (if applicable): Yes Routed to appropriate Pharmacist: YES [facility] Specialty Pharmacy: [phone] documented in this encounter Plan of Treatment Not on file documented as of this encounter Visit Diagnoses Not on filedocumented in this encounter Care Teams Net Making Supervisor Relationship Specialty Start Date End Date Unknown, ProviderMD PCP - General 09/26/16 documented as of this encounter
--- OUTSIDE RECORDS SUMMARY | 2024-03-23 15:19 | XMS_ITS | Encounter Summary ---
Author Organization [facility] Address [address] [place] [address] Care Team Providers Care Director Safety Council Name Role Phone Unknown, Provider Primary Care Provider [phone] Encounter Details Date Type Department Care Team (Latest Contact Info) Description 01/06/2024 Specialty Pharmacy [facility] [address], [place] [address] Arti Rose RPH Refill Coordination Outreach for [...] on filedocumented in this encounter Care Teams Director Safety Council Relationship Specialty Start Date End Date Unknown, Provider, PCP - General 09/26/16 documented as of this encounter
--- OUTSIDE RECORDS SUMMARY | 2024-03-23 15:19 | XMS_ITS | Referral Summary ---
Author Organization [facility] Address [address] [place] [address] Care Team Providers Care Value Stream Leader Name Role Phone Unknown, Provider Primary Care Provider Encounters Date Type Department Care Team Description 03/05/2024 Lab Requisition [facility] Pathology Laboratory [address] [address] Outr Resulting Lab, Provider 02/26/2024 [facility] [address] [place] [address] Arti Rose [facility] Refill Coordination Outreach for Addiction Medicine 02/13/2024 Specialty Pharmacy [facility] [address] [place] [address] Arti Rose [facility] Refill Coordination Outreach for Addiction Medicine 01/26/2024 Lab Requisition [facility] Pathology & Laboratory [address] [address] Outr Resulting Lab, Provider 01/26/2024 Lab Requisition [facility] Pathology & Laboratory [address] [address] Outr Resulting Lab, Provider 01/26/2024 Lab Requisition [facility] Pathology & Laboratory [address] [address] Outr Resulting Lab, Provider 01/06/2024 [facility] [address] [place] [address] Arti Rose [facility] Refill Coordination Outreach for Addiction Medicine from Last 3 Months Allergies No known active allergies Medications Medication Sig Dispensed Refills Start Date End Date Status acetaminophen (TYLENOL) 325 mg tablet Take 650 mg by mouth 2 times daily as needed for Pain. Active SUMAtriptan (IMITREX) 25 mg tablet Take 1 Tablet by mouth as needed for Migraine. Active ibuprofen (MOTRIN) 600 mg tablet Take 600 mg by mouth 2 times daily as needed for Pain. Active buprenorphine HCL (SUBUTEX) [address] 16 mg under the tongue daily. Active doxepin (SINEQUAN) 100 mg capsule Take 1 Capsule by mouth daily. Active hydrOXYzine (ATARAX) 50 mg tablet Take 1 Tablet by mouth at bedtime. 75 mg in AM and 50 in PM Active omeprazole (PRILOSEC) 20 mg capsule Take 2 Capsules by mouth daily. Active sertraline (ZOLOFT) 100 mg tablet Take 75 mg by mouth daily. Active dexmethylphenidate (FOCALIN XR) 25 mg multiphase capsule Take 1 Capsule by mouth daily. Daily Max: 25 mg Active buprenorphine (BRIXADI) 128 mg/0.36 mL solution, extended rel syringe Inject 128 mg into the skin every 28 days. Daily Max: 128 mg Active Active Problems Patient Care Coordination No te Formatting of this note migh t be different from the original. Currently resides at: [facility]) [facility] [address]. Problem Noted Date Diagnosed Date Opioid use disorder 05/21/2023 Social History Tobacco Use Types Packs/Day Years Used Date Smoking Tobacco: Never Assessed Interpersonal Safety Answer Date Record ed Physically Hurt Never 01/23/2020 Verbally Threaten Not on file 01/23/2020 Sex and Gender Information Value Date Recorded Sex Assigned at Not on file Gender Identity Not on file Sexual Orientation Not on file Plan of Treatment Not on file Procedures Procedure Name Priority Date/Time Associated Diagnosis Comments HOLD SST Today 03/05/2024 10:40 EDT LH Today 03/05/2024 10:40 EDT PROLACTIN Today 03/05/2024 10:40 EDT ESTRADIOL, ADULTS Today 03/05/2024 10: 40 EDT DHEA SULFATE Today 03/05/2024 10:40 EDT HCV RNA DETECT QUANT Today 01/26/2024 13:00 EDT SYPHILIS SEROLOGY Routine 01/26/2024 13: 00 EDT HEPATITIS C AB W REFLEX TO HCV RNA BY PCR Routine 01/26/2024 13:00 EDT HIV 1/2 ANTIGEN AND ANTIBODY, 4TH GENERATION Routine 01/26/2024 13:00 EDT CHLAMYDIA/N. GONORRHOEAE AMPLIFIED NUCLEIC ACID Routine 01/26/2024 13:00 EDT from Last 3 Months Results * HOLD SST (03/05/2024 10:40 EDT) Hold Hold 03/05/2024 18:15 EDT [facility] Blood VENOUS BLOOD / Unknown 03/05/2024 10:40 EDT 03/05/2024 17:06 EDT Provider Outr Resulting Lab LAB INFO SER VICE AND SUPPORT & PHONE RESULT [facility] [address] [place] [address] * PROLACTIN (03/05/2024 10:40 EDT) Pathologist [facility] Prolactin 5.5 2.1 - 17.7 ng/mL 03/05/2024 18:08 EDT [facility] Blood VENOUS BLOOD / Unknown 03/05/2024 10:40 EDT 03/05/2024 17:05 EDT Provider Outr Resulting Lab CHEMISTRY & BLOOD GAS ORDERABLES [facility] [address] [place] [address] * (ABNORMAL) DHEA SULFATE (03/05/2024 10:40 EDT) Pathologist [facility] DHEA Sulfate 113(L) 136 - 448 ug/dL 03/08/2024 10:11 EDT [facility] Blood VENOUS BLOOD / Unknown 03/05/2024 10:40 EDT 03/05/2024 17:05 EDT Provider Outr Resulting Lab CHEMISTRY & BLOOD GAS ORDERABLES Performing Organization Address City/[facility]/ZIP Co de Phone Number [facility] [address] [place] [address] * ESTRADIOL, ADULTS (03/05/2024 10:40 EDT) [facility] Estradiol 24 <40 pg/mL 03/05/2024 17:55 EDT [facility] Blood VENOUS BLOOD / Unknown 03/05/2024 10:40 EDT 03/05/2024 17:05 EDT Provider Outr Resulting Lab CHEMISTRY & BLOOD GAS ORDERABLES Performing Organization Address City/[facility]/ZIP Co de Phone Number [facility] [address] [place], [place] [id number] * LH (03/05/2024 10:40 EDT) [facility] Luteinizing Hormone 3.8 1.5 - 9.3 mIU/mL 03/05/2024 18:08 EDT [facility] Blood VENOUS BLOOD / Unknown 03/05/2024 10:40 EDT 03/05/2024 17:05 EDT Provider Outr Resulting Lab CHEMISTRY & BLOOD GAS ORDERABLES Performing Organization Address City/[facility]/ZIP Co de Phone Number [facility] [address] [place], [place] [phone] * HCV RNA DETECT QUANT (01/26/2024 13:00 EDT) [facility] HCV RNA Qualitative Undetected Undetected 01/28/2024 12:30 EDT [facility] Blood VENOUS BLOOD / Unknown 01/26/2024 13:00 EDT 01/26/2024 21:23 EDT Narrative [facility] - 01/28/2024 12:30 EDT The quantification range of this assay is 15 IU/mL to 100,000,000 IU/mL. Testing was performed using the Jia HCV test ([employer] with the jia [id number] System. Provider Outr Resulting Lab CHEMISTRY & BLOOD GAS ORDERABLES Performing Organization Address City/[facility]/ZIP Co de Phone Number [facility] [address] [place], [place] [address] * SYPHILIS SEROLOGY (01/26/2024 13:00 EDT) Syphilis Serology Negative Negative 01/27/2024 10:22 EDT [facility] Blood VENOUS BLOOD / Unknown 01/26/2024 13:00 EDT 01/26/2024 21:23 EDT Provider Outr Resulting Lab IMMUNOLOGY A ND SEROLOGY ORDERABLES Performing Organization Address [facility] Co de Phone Number [facility] [address] [place] [address] * CHLAMYDIA/N. GONORRHOEAE AMPLIFIED NUCLEIC ACID (01/26/2024 13:00 EDT) Neisseria gonorrhoeae Result Negative Negative 01/27/2024 14:05 EDT [facility] Chlamydia trachomatis Result Negative Negative 01/27/2024 14:05 EDT [facility] Urine URINE / Unknown 01/26/2024 1 3:00 EDT 01/26/2024 21:27 EDT Provider Outr Resulting Lab MICROBIOLOGY - GENERAL ORDERABLES Performing Organization Address [facility] Co de Phone Number [facility] [address] [place] [address] * (ABNORMAL) HEPATITIS C AB W REFLEX TO HCV RNA BY PCR (01/26/2024 13:00 EDT) Hep C Antibody Reactive(A ) Negative 01/27/2024 10:08 EDT [facility] Comment: Supplemental testing for HCV RNA is ordered to rule out active HCV infection. Blood VENOUS BLOOD / Unknown 01/26/2024 13:00 EDT 01/26/2024 21:23 EDT Provider Outr Resulting Lab CHEMISTRY & BLOOD GAS ORDERABLES Performing Organization Address [facility] Co de Phone Number [facility] [address] [place] [address] * HIV 1/2 ANTIGEN AND ANTIBODY, 4TH GENERATION (01/26/2024 13:00 EDT) Pathologist [facility] HIV 1 and 2 Antibody/p24 Antigen, 4th Generation Negative Negative 01/27/2024 10:00 EDT [facility] Comment:If acute HIV-1 infec tion is suspected in a high risk patient, submit plasma specimen for HIV-1 RNA quantitation test. Blood VENOUS BLOOD / Unknown 01/26/2024 13:00 EDT 01/26/2024 21:23 EDT Narrative [facility] - 01/27/2024 10:00 EDT Fourth Generation assay performed on the Siemens Centaur XPT. Provider Outr Resulting Lab IMMUNOLOGY A ND SEROLOGY ORDERABLES Performing Organization Address [facility]/ZIP Co de Phone Number [facility] [address] [place] [address] from Last 3 Months Care Teams Value Stream Leader Relationship Specialty Start Date End Date Unknown, Provider, PCP - General 09/26/16
--- OUTSIDE RECORDS SUMMARY | 2024-03-23 15:19 | XMS_ITS | Clinical Summary ---
Author Organization [facility] Address [address] [place] [address] Care Team Providers Care Rubber Compounder Name Role Phone Unknown, Provider Primary Care Provider [phone] Allergies No known active allergies Medications Medication [...] different from the original. Currently resides at: [facility] ([facility]. [facility] [address] [address]. Problem Noted Date Diagnosed Date Opioid use disorder 05/21/2023 Encounters Date Type Department Care Team Description 03/05/2024 Lab Requisition [facility] Pathology & Laboratory Medicine - [facility] [address] [place] [address] Outr Resulting Lab, Provider 02/26/2024 Specialty Pharmacy [facility] [address] [place] [address] Arti Rose RPH Refill Coordination Outreach for Addiction Medicine 02/13/2024 Specialty Pharmacy [facility] [address] [place] [address] Arti Rose RP Refill Coordination Outreach for Addiction Medicine 01/26/2024 Lab Requisition [facility] Pathology & Laboratory [address] [address] Outr Resulting Lab, Provider 01/26/2024 Lab Requisition [facility] Pathology Laboratory [address] [address] Outr Resulting Lab, Provider 01/26/2024 Lab Requisition [facility] Pathology Laboratory [address] [address] Outr Resulting Lab, Provider 01/06/2024 Specialty Pharmacy [facility] [address] [place] [address] [facility] Refill Coordination Outreach for Addiction Medicine from Last 3 Months Social History Tobacco Use Types Packs/Day Years Used Date Smoking Tobacco: Never Assessed Interpersonal Safety Answer Date Record ed Physically Hurt Never 01/23/2020 Verbally Threaten Not on file 01/23/2020 Sex and Gender Information Value Date Recorded Sex Assigned at Not on file Gender Identity Not on file Sexual Orientation Not on file Plan of Treatment Health Maintenance Due Date Last Done Comments Hepatitis B Vaccine (1 of 3 - 19+ 3-dose series) 1993 COVID-19 Vaccine ( season) 2024 Hepatitis C Screen Completed 01/26/2024, 01/26/2024 Procedures Procedure Name Priority Date/Time Associated Diagnosis [...] 10:40 EDT) Hold Hold 03/05/2024 18:15 EDT [facility] Blood VENOUS BLOOD / Unknown 03/05/2024 10:40 EDT 03/05/2024 17:06 EDT Provider Outr Resulting Lab LAB INFO SER VICE AND SUPPORT & PHONE RESULT Performing Organization Address City/[facility] Co de Phone Number [facility] [address] [place] [address] * PROLACTIN (03/05/2024 10:40 EDT) Prolactin 5.5 2.1 - 17.7 ng/mL 03/05/2024 18:08 EDT [facility] Blood VENOUS BLOOD / Unknown 03/05/2024 10:40 EDT 03/05/2024 17:05 EDT Provider Outr Resulting Lab CHEMISTRY & BLOOD GAS ORDERABLES [facility] [address] [place], [place] [phone] * (ABNORMAL) DHEA SULFATE (03/05/2024 10:40 EDT) DHEA Sulfate 113(L) 136 - 448 ug/dL 03/08/2024 10:11 EDT [facility] Blood VENOUS BLOOD / Unknown 03/05/2024 10:40 EDT 03/05/2024 17:05 EDT Provider Outr Resulting Lab CHEMISTRY & BLOOD GAS ORDERABLES Performing Organization Address [facility]/ZIP Co de Phone Number [facility] [address] [place], [place] [phone] * ESTRADIOL, ADULTS (03/05/2024 10:40 EDT) Pathologist [facility] Estradiol 24 <40 pg/mL 03/05/2024 17:55 EDT [facility] Blood VENOUS BLOOD / Unknown 03/05/2024 10:40 EDT 03/05/2024 17:05 EDT Provider Outr Resulting Lab CHEMISTRY & BLOOD GAS ORDERABLES Performing Organization Address [facility]/ZIP Co de Phone Number [facility] [address] [place], [place] [phone] * LH (03/05/2024 10:40 EDT) Luteinizing Hormone 3.8 1.5 - 9.3 mIU/mL 03/05/2024 18:08 EDT [facility] Blood VENOUS BLOOD / Unknown 03/05/2024 10:40 EDT 03/05/2024 17:05 EDT Provider Outr Resulting Lab CHEMISTRY & BLOOD GAS ORDERABLES Performing Organization Address [facility]/ZIP Co de Phone Number [facility] [address] [place], [place] [phone] * HCV RNA DETECT QUANT (01/26/2024 13:00 EDT) Pathologist [facility] HCV RNA Qualitative Undetected Undetected 01/28/2024 12:30 EDT [facility] Blood VENOUS BLOOD / Unknown 01/26/2024 13:00 EDT 01/26/2024 21:23 EDT Narrative [facility] - 01/28/2024 12:30 EDT The quantification range of this assay is 15 IU/mL to 100,000,000 IU/mL. Testing was performed using the Jia HCV test ([employer] with the jia [id number] System. Provider Outr Resulting Lab CHEMISTRY & BLOOD GAS ORDERABLES Performing Organization Address [facility]/ZIP Co de Phone Number [facility] [address] [place] [address] * SYPHILIS SEROLOGY (01/26/2024 13:00 EDT) [facility] Syphilis Serology Negative Negative 01/27/2024 10:22 EDT [facility] Blood VENOUS BLOOD / Unknown 01/26/2024 13:00 EDT 01/26/2024 21:23 EDT Provider Outr Resulting Lab IMMUNOLOGY A ND SEROLOGY ORDERABLES Performing Organization Address [facility]/ZIP Co de Phone Number [facility] [address] [place] [address] * CHLAMYDIA/N. GONORRHOEAE AMPLIFIED NUCLEIC ACID (01/26/2024 13:00 EDT) Pathologist [facility] Neisseria gonorrhoeae Result Negative Negative 01/27/2024 14:05 EDT [facility] Chlamydia trachomatis Result Negative Negative 01/27/2024 14:05 EDT [facility] Urine URINE / Unknown 01/26/2024 1 3:00 EDT 01/26/2024 21:27 EDT Provider Outr Resulting Lab MICROBIOLOGY - GENERAL ORDERABLES Performing Organization Address [facility]/ZIP Co de Phone Number [facility] [address] [place] [address] * (ABNORMAL) HEPATITIS C AB W REFLEX TO HCV RNA BY PCR (01/26/2024 13:00 EDT) Hep C Antibody Reactive(A ) Negative 01/27/2024 10:08 EDT [facility] Comment: Supplemental testing for HCV RNA is ordered to rule out active HCV infection. Blood VENOUS BLOOD / Unknown 01/26/2024 13:00 EDT 01/26/2024 21:23 EDT Provider Outr Resulting Lab CHEMISTRY & BLOOD GAS ORDERABLES Performing Organization Address [facility] Co de Phone Number [facility] [address] [place], [place] [phone] * HIV 1/2 ANTIGEN AND ANTIBODY, 4TH GENERATION (01/26/2024 13:00 EDT) Pathologist [facility] HIV 1 and 2 Antibody/p24 Antigen, 4th Generation Negative Negative 01/27/2024 10:00 EDT [facility] Comment:If acute HIV-1 infec tion is suspected in a high risk patient, submit plasma specimen for HIV-1 RNA quantitation test. Blood VENOUS BLOOD / Unknown 01/26/2024 13:00 EDT 01/26/2024 21:23 EDT Narrative [facility] - 01/27/2024 10:00 EDT Fourth Generation assay performed on the Siemens Centaur XPT. Provider Outr Resulting Lab IMMUNOLOGY A ND SEROLOGY ORDERABLES Performing Organization Address [facility] Co de Phone Number [facility] [address] [place] [address] from Last 3 Months Care Teams Rubber Compounder Relationship Specialty Start Date End Date Unknown, Provider, PCP - General 09/26/16
--- OUTSIDE RECORDS SUMMARY | 2024-03-23 15:19 | XMS_ITS | Encounter Summary ---
Author Organization [facility] Address [address] [place] [address] Care Team Providers Care Derrick Operator Name Role Phone Unknown, Provider Primary Care Provider [phone] Encounter Details Date Type Department Care Team (Latest Contact Info) Description 12/01/[address] [facility] [address] [place] [address] Arti Rose RPH Refill Coordination Outreach for [...] encounter Progress Notes * Deborah Salcido - 12/01/2023 0923 EDT Prescription Receipt by [facility] Date Received: 11/28/2023 Medication: Brixadi 128 mg Provider: Kelsi Santizo Provider Phone number: [phone] [facility]: addiction services Comments: script received, uploaded to scans and profiled. Script is refill too soon until 12/08/2023. PA Status: PA not required Prescription copy available in scans: YES Relevant clinical documents in scans (if applicable): YES Routed to appropriate Pharmacist: YES [facility] Specialty Pharmacy: [phone] documented in this encounter Plan of Treatment Not on file documented as of this encounter Visit Diagnoses Not on filedocumented in this encounter Care Teams Derrick Operator Relationship Specialty Start Date End Date Unknown, ProviderMD PCP - General 09/26/16 documented as of this encounter
--- OUTSIDE RECORDS SUMMARY | 2024-03-23 15:19 | XMS_ITS | Encounter Summary ---
Author Organization [facility] Address [address] [place] [address] Care Team Providers Care Policy Checker Name Role Phone Unknown, Provider Primary Care Provider [phone] Encounter Details Date Type Department Care Team (Late st Contact Info) Description 01/26/2024 Lab Requisition [facility] Pathology & Laboratory Medicine - [facility] [address] [place] [address] Outr Resulting Lab, Provider Social History Tobacco [...] Procedure Name Priority Date/Time Associated Diagnosis Comments HCV RNA DETECT QUANT Today 01/26/2024 13:00 EDT SYPHILIS SEROLOGY Routine 01/26/2024 13: 00 EDT HEPATITIS C AB W REFLEX TO HCV RNA BY PCR Routine 01/26/2024 13:00 EDT documented in this encounter Results * HCV RNA DETECT QUANT (01/26/2024 13:00 EDT) HCV RNA Qualitative Undetected Undetected 01/28/2024 12:[address] [facility] Blood VENOUS BLOOD / Unknown 01/26/2024 13:00 EDT 01/26/2024 21:[address] [facility] - 01/28/2024 12:30 EDT The quantification range of this assay is 15 IU/mL to 100,000,000 IU/mL. Testing was performed using the Kiara HCV test ([employer] with the kiara [id number] System. Provider Outr Resulting Lab CHEMISTRY & BLOOD GAS ORDERABLES Performing Organization Address [facility]/ZIP Co de Phone Number [facility] [address] [place], [place] [address] * SYPHILIS SEROLOGY (01/26/2024 13:00 EDT) Syphilis Serology Negative Negative 01/27/2024 10:[address] [facility] Blood VENOUS BLOOD / Unknown 01/26/2024 13:00 EDT 01/26/2024 21:23 EDT Provider Outr Resulting Lab IMMUNOLOGY A ND SEROLOGY ORDERABLES Performing Organization Address [facility] de Phone Number [facility] [address] [place] [address] * (ABNORMAL) HEPATITIS C AB W REFLEX TO HCV RNA BY PCR (01/26/2024 13:00 EDT) Hep C Antibody Reactive(A ) Negative 01/27/2024 10:[address] [facility] Comment: Supplemental testing for HCV RNA is ordered to rule out active HCV infection. Blood VENOUS BLOOD / Unknown 01/26/2024 13:00 EDT 01/26/2024 21:23 EDT Provider Outr Resulting Lab CHEMISTRY & BLOOD GAS ORDERABLES Performing Organization Address [facility] Co de Phone Number [facility] [address] [place], [place] [address] documented in this encounter Visit Diagnoses Not on filedocumented in this encounter Care Teams Policy Checker Relationship Specialty Start Date End Date Unknown, Provider, PCP - General 09/26/16 documented as of this encounter
--- OUTSIDE RECORDS SUMMARY | 2024-03-23 15:19 | XMS_ITS | Encounter Summary ---
Author Organization [facility] Address [address] [place] [address] Care Team Providers Care Control Operator Name Role Phone Unknown, Provider Primary Care Provider [phone] Encounter Details Date Type Department Care Team (Latest Contact Info) Description 02/13/2024 Specialty Pharmacy [facility] [address] [place], [place] [address] Arti Rose RPH Refill Coordination Outreach for [...] on filedocumented in this encounter Care Teams Control Operator Relationship Specialty Start Date End Date Unknown, Provider, PCP - General 09/26/16 documented as of this encounter
--- OUTSIDE RECORDS SUMMARY | 2024-03-23 15:19 | XMS_ITS | Data Portability ---
Author Organization [facility] [place] Address [address] [place] [address] Assessment Encounter Date Assessment Date Assessment LastModified by Organization Details LastModified Time 12/12/2023 12/12/2023 Telemedicine Information: This telmed (audio + visual) appointment provided a MAT prescription. Time Start: 1330; Time End: 1345 Provider Location: home; Patient Location: home Telemedicine Consent Given (verbal): Y - This patient with a history of OUD, AUD, presents today for their bi-weekly MOUD visit. Current prescription is: Brixadi 128mg monthly injection. Past Tx Hx: -Jyotiida Initial 04/08/23 upon release from corrections. Maintained on buprenorphine 16 mg while in DOC. -05/29/2023, Transitioned to Brixadi 12/12/2023 Since Last Visit: Wai presenting today from home as a check-in visit, given struggle with AUD and recent legal and medical consequences secondary to his alcohol use. (Wai has remained guarded about events leading up to arrest in October 2023. Previously reported low potassium as reason for fugue like state and no recollection of events leading up to arrest. Had denied alcohol or illicit substance use at the time. Since this time, discloses alcohol use had been a factor, yet reluctant to discuss.) Reports overall, doing okay. Remains living back at home with and their two daughters. Primary concern at this time for Wai, continues to be GI upset; post-prandial nausea and pain, stomach in knots after I eat. No updates on colonoscopy/endo scopy dates. Agrees to f/u on this. Biweekly, OUD, stable: -Brixadi 128 mg mthly dose not due today. Due again 12/23/23 -Last tested positive for illicit opioid, 08/01 UDS, pos morphine. Denies any knowledge of opioid use or other substance use. -New Brixadi Rx required 02/2024, send to [facility] AUD, unstable: Last reported use, x4 wk ago. Identifies reconciling with and moving back into home with her and children, as motivating factor for sobriety. 08/29/2023 Dx alcohol induced pancreatitis. GI upset last several mth. Declines pharm agents indicated for tx AUD. Stim/Cocaine Use d/o: Last pos uds 10/15/23, pos amph. Denies use of amphetamine cocaine last detected in uds 07/11/23. Denies use or cravings. Describes last use, as first use x10 years. Psych: ADHD, focalin Rx'd through [facility]. Soc: Working --not working at this time. 2 daughters, ages 9 and 15. 15 yr old enjoying band and drama. Hobbies: Music, paying drums. Med: PCP- [facility] LFT last checked 11/09/2023, AST elev, 67. Lab Results: Last UDS result (qualitative screen): 11/28/23POS buprenorphine and NO illicit drugs Last confirmatory test result 10/15/23 (LCMS/quantitati ve): Quantitative levels of:amph 1500 Last Bup confirmation was performed on 06/20/2023 with the result: Bup: 97 ng/ml & Norbup: 92 ng/ml Last LFT result: Elevated LFTs Assessment Pt meet diagnostic criteria for opioid use disorder, stable maintenance. AUD, unstable -although progress made in reducing use. Medication dose: No report of severe or persistent cravings/withdra wal symptoms. Pt will remain at current dose ER/Inj bup, diversion not concern. Brixadi Injection Administration: The patient is not due for injection today. ? Plan AUD: Praised in efforts to avoid daily use. Enc to continue avoiding triggers. Continue biweekly check in visits, remote codie jane for next visit. Med: f/u on scheduling colonoscopy Transfer care planned to [facility], per pt request. Continue bh engagement given stressors appear as catalyst for etoh use. OUD: Continue Brixadi 128mg monthly injections. Next dose due 12/23/23 UDS Mthly routine screen New prescription required next 02/2024 Treatment plan review: Continue current level of care LFT will be repeated per clinical protocol Prescription monitoring program is reviewed. If reviewed, I have identified agents prescribed to the patient in addition to any issued by our program; the patient is counseled regarding any risk of combining sedating agents. Not available 12/14/2023 11:14:12 12/23/2023 12/23/2023 Telemedicine Information: This telmed (audio + visual) appointment provided a MAT prescription. Time Start: 1720; Time End: 1735 Provider Location: home; Patient Location: office Telemedicine Consent Given (verbal): Y - This patient with a history of OUD, AUD, presents today for their bi-weekly MOUD visit. Current prescription is: Brixadi 128mg monthly injection. Past Tx Hx: -SaVida Initial 04/08/23 upon release from corrections. Maintained on buprenorphine 16 mg while in DOC. -05/29/2023, Transitioned to Brixadi 01/11/2024 Since Last Visit: Wai presenting today for monthly brixadi dose and uds. Requesting to continue biweekly check-in visits on alternating weeks. Biweekly, OUD, stable: -Brixadi 128 mg mthly dose not due today. Due again 12/23/23 -Last tested positive for illicit opioid, / UDS, pos morphine. Denies any knowledge of opioid use or other substance use. -New Brixadi Rx required 02/2024, send to [facility] AUD, unstable: Last reported use, x1 wk ago. Identifies reconciling with and moving back into home with her and children, as motivating factor for sobriety. 08/29/2023 Dx alcohol induced pancreatitis. GI upset last several mth. Declines pharm agents indicated for tx AUD. Stim/Cocaine Use d/o: Last pos uds 10/15/23, pos amph. Denies use of amphetamine cocaine last detected in uds 07/11/23. Denies use or cravings. Describes last use, as first use x10 years. Psych: ADHD, focalin Rx'd through [facility]. Soc: Working --not working at this time. 2 daughters, ages 9 and 15. 15 yr old enjoying band and drama. Hobbies: Music, paying drums. Med: PCP- [facility] LFT last checked 11/09/2023, AST elev, 67. Lab Results: Last UDS result (qualitative screen): 11/28/23POS buprenorphine and NO illicit drugs Last confirmatory test result 10/15/23 (LCMS/quantitati ve): Quantitative levels of:amph 1500 Last Bup confirmation was performed on 06/20/2023 with the result: Bup: 97 ng/ml & Norbup: 92 ng/ml Last LFT result: Elevated LFTs Assessment Pt meet diagnostic criteria for opioid use disorder, stable maintenance. AUD, unstable -although progress made in reducing use. Medication dose: No report of severe or persistent cravings/withdra wal symptoms. Pt will remain at current dose ER/Inj bup, diversion not concern. Brixadi Injection Administration: The patient is due for injection today. Please see PC for injection details. ? Plan AUD: Praised in efforts to reduce daily use. Enc to continue avoiding triggers. Continue biweekly check in visits, remote codie ok for next visit. Med: f/u on scheduling colonoscopy Transfer care planned to [facility], per pt request. Continue engagement given stressors appear as catalyst for etoh use. OUD: Continue Brixadi 128mg monthly injections. Next dose due 01/20/24 UDS Mthly routine screen New prescription required next 02/2024 Treatment plan review: Continue current level of care LFT will be repeated per clinical protocol Prescription monitoring program is reviewed. If reviewed, I have identified agents prescribed to the patient in addition to any issued by our program; the patient is counseled regarding any risk of combining sedating agents. Not available 12/23/2023 17:59:20 01/26/2024 01/26/2024 Telemedicine Information: This telmed (audio + visual) appointment provided a MAT prescription. Time Start: 1000; Time End: 1005 Provider Location: office; Patient Location: office Telemedicine Consent Given (verbal): Y - This patient with a history of OUD, AUD, presents today for their bi-weekly MOUD visit. Current prescription is: Brixadi 128mg monthly injection. Past Tx Hx: -SaVida Initial 04/08/23 upon release from corrections. Maintained on buprenorphine 16 mg while in DOC. -05/29/2023, Transitioned to Brixadi 01/11/2024 Since Last Visit: Wai presenting today for monthly brixadi dose and uds. Requesting to continue biweekly check-in visits on alternating weeks. Biweekly, OUD, stable: -Brixadi 128 mg mthly dose due today -Last tested positive for illicit opioid, 08/01 UDS, pos morphine. Denies any knowledge of opioid use or other substance use. -New Brixadi Rx required 02/2024, send to [facility] AUD, unstable: Last reported use, x1 wk ago. Identifies reconciling with and moving back into home with her and children, as motivating factor for sobriety. 08/29/2023 Dx alcohol induced pancreatitis. GI upset last several mth. Declines pharm agents indicated for tx AUD. Stim/Cocaine Use d/o: Last pos uds 10/15/23, pos amph. Denies use of amphetamine cocaine last detected in uds 07/11/23. Denies use or cravings. Describes last use, as first use x10 years. Psych: ADHD, focalin Rx'd through [facility]. Soc: Working --not working at this time. 2 daughters, ages 9 and 15. 15 yr old enjoying band and drama. Hobbies: Music, paying drums. Med: PCP- [facility] LFT last checked 11/09/2023, AST elev, 67. Lab Results: Last UDS result (qualitative screen): 11/28/23POS buprenorphine and NO illicit drugs NEG ETOH Last confirmatory test result 12/23/23 (LCMS/quantitati ve): N/A due to negative UDS Last Bup confirmation was performed on 06/20/2023 with the result: Bup: 97 ng/ml & Norbup: 92 ng/ml Last LFT result: Elevated LFTs Assessment Pt meet diagnostic criteria for opioid use disorder, stable maintenance. AUD, unstable - he denies use in a couple of months. Medication dose: No report of severe or persistent cravings/withdra wal symptoms. Pt will remain at current dose ER/Inj bup, diversion not concern. Brixadi Injection Administration: The patient is due for injection today. Please see PC for injection details. ? Plan AUD: Denies use - says it has been a couple of months. Congratulated. Enc to continue avoiding triggers. Continue biweekly check in visits, remote codie jane for next visit. Med: f/u on scheduling colonoscopy Transfer care planned to [facility], per pt request. Continue bh engagement given stressors appear as catalyst for etoh use. OUD: Continue Brixadi 128mg monthly injections. Next dose due 01/20/24 UDS Mthly routine screen New prescription required next 02/2024 Treatment plan review: Continue current level of care LFT will be repeated per clinical protocol Prescription monitoring program is reviewed. If reviewed, I have identified agents prescribed to the patient in addition to any issued by our program; the patient is counseled regarding any risk of combining sedating agents. [email or web address] Not available 01/26/2024 10:09:26 02/18/2024 02/18/2024 Telemedicine Information: This telmed (audio + visual) appointment provided a MAT prescription. Time Start: 1145; Time End: 12 p.m. Provider Location: home; Patient Location: office Telemedicine Consent Given (verbal): Y - This patient with a history of OUD, AUD, presents today for their bi-weekly MOUD visit. Current prescription is: Brixadi 128mg monthly injection. Past Tx Hx: -SaVida Initial 04/08/23 upon release from corrections. Maintained on buprenorphine 16 mg while in DOC. -05/29/2023, Transitioned to Brixadi 02/17/2024 Since Last Visit: Missed appt last week - with MAT provider and clinician. Biweekly visits intended for additional support given active AUD. Biweekly, OUD, stable: -Brixadi 128 mg mthly dose NOT due today -Last tested positive for illicit opioid, 08/01 UDS, pos morphine. Denies any knowledge of opioid use or other substance use. AUD, unstable: Last reported use, x2 wk ago. Identifies reconciling with and moving back into home with her and children, as motivating factor for sobriety, yet source of stress, stating trying to make it work for the kids. 08/29/2023 Dx alcohol induced pancreatitis. GI upset last several mth. Declines pharm agents indicated for tx AUD. Stim/Cocaine Use d/o: Last pos uds 10/15/23, pos amph. Denies use of amphetamine cocaine last detected in uds 07/11/23. Denies use or cravings. Describes last use, as first use x10 years. Psych: ADHD, focalin Rx'd through [facility]. Soc: Working --not working at this time. 2 daughters, ages 9 and 15. 15 yr old enjoying band and drama. Hobbies: Music, paying drums. Med: PCP- [facility] LFT last checked 11/09/2023, AST elev, 67. Lab Results: Last UDS result (qualitative screen): 4POS buprenorphine and NO illicit drugs NEG ETOH Last confirmatory test result (LCMS/quantitati ve): N/A due to negative UDS Last Bup confirmation was performed on 06/20/2023 with the result: Bup: 97 ng/ml & Norbup: 92 ng/ml Last LFT result: Elevated LFTs Assessment Pt meet diagnostic criteria for opioid use disorder, stable maintenance. AUD, stable -denies use x2 wk Medication dose: No report of severe or persistent cravings/withdra wal symptoms. Pt will remain at current dose ER/Inj bup, diversion not concern. Brixadi Injection Administration: The patient is not due for injection today. ? Plan AUD: Enc to continue avoiding triggers. reasonable to d/c biweekly check in visits for now. Continue bh engagement given stressors appear as catalyst for etoh use. OUD: Continue Brixadi 128mg monthly injections. Next dose due 02/25/2024 UDS Mthly routine screen New prescription required next 02/2024 Treatment plan review: Continue current level of care LFT will be repeated per clinical protocol Prescription monitoring program is reviewed. If reviewed, I have identified agents prescribed to the patient in addition to any issued by our program; the patient is counseled regarding any risk of combining sedating agents. Not available 02/18/2024 16:56:33 02/25/2024 02/25/2024 Telemedicine Information: This telmed (audio + visual) appointment provided a MAT prescription. Time Start: 1540; Time End: 1555 Provider Location: home; Patient Location: office Telemedicine Consent Given (verbal): Y - This patient with a history of OUD, AUD, presents today for their bi-weekly MOUD visit. Current prescription is: Brixadi 128mg monthly injection. Past Tx Hx: -SaVida Initial 04/08/23 upon release from corrections. Maintained on buprenorphine 16 mg while in DOC. -05/29/2023, Transitioned to Brixadi 02/25/2024 Since Last Visit: Biweekly, OUD, stable: -Brixadi 128 mg mthly dose due today -Last tested positive for illicit opioid, 08/01 UDS, pos morphine. Denies any knowledge of opioid use or other substance use. -Reports feeling stable on current brixadi dose/tx plan. AUD, unstable: Last reported use, x3-4 wk ago. Identifies reconciling with and moving back into home with her and children, as motivating factor for sobriety, yet source of stress, stating trying to make it work for the kids. 08/29/2023 Dx alcohol induced pancreatitis. GI upset resolved over last 2-3 mth Declines pharm agents indicated for tx AUD. Stim/Cocaine Use d/o: Last pos uds 10/15/23, pos amph. Denies use of amphetamine cocaine last detected in uds 07/11/23. Denies use or cravings. Describes last use, as first use x10 years. Psych: ADHD, focalin Rx'd through [facility]. Last filled #10 tabs 01/25 Counseling/Behav [facility]: -Engaged in regular counseling with LAWANDA Seals through [employer]. -Starting wk of 03/01/24, couples and individual [facility]. Soc: Working --not working at this time. 2 daughters, ages 9 and 15. 15 yr old enjoying band and drama. Hobbies: Music, paying drums. Med: PCP- [facility] LFT last checked 11/09/2023, AST elev, 67. Lab Results: Last UDS result (qualitative screen): 4POS buprenorphine and NO illicit drugs NEG ETOH Last confirmatory test result (LCMS/quantitati ve): N/A due to negative UDS Last Bup confirmation was performed on 02/18/2024 with the result: Bup: 132 ng/ml & Norbup: 69 ng/ml Last LFT result: Elevated LFTs Assessment Pt meet diagnostic criteria for opioid use disorder, stable maintenance. AUD, stable -denies use x3-4 wk Medication dose: No report of severe or persistent cravings/withdra wal symptoms. Pt will remain at current dose ER/Inj bup, diversion not concern. Brixadi Injection Administration: The patient is due for injection today. Brixadi 128mg/0.36mL monthly injection was given by subcutaneous injection using aseptic by RN, into the far lateral right lumbar region of the abdominal subcutaneous tissue. No site reaction noted, pt tolerated injection well. ??? Med Lot #: [id number] Expiration Date: SN: [id number] ? Plan AUD: Enc to continue avoiding triggers. reasonable to d/c biweekly check in visits for now. Continue bh engagement given stressors appear as catalyst for etoh use. OUD: Continue Brixadi 128mg monthly injections. Next dose due 03/24/2024 UDS Mthly routine screen#2 doses, #2 RF sent today. New Rx due 05/2024 Treatment plan review: Continue current level of care LFT will be repeated per clinical protocol Prescription monitoring program is reviewed. If reviewed, I have identified agents prescribed to the patient in addition to any issued by our program; the patient is counseled regarding any risk of combining sedating agents. Not available 02/25/2024 17:10:22 Plan of Treatment Reminders Order Date Submit Date Provider Last Modified By Organization Details Last Modified Time Details Appointments MAT - Brixadi Injection 30 2023 03:15P M Not available Not available Not available BH - 15 min 2023 03:45P M Not available Not available Not available Lab drug screen, urine 2023 [facility], [address] [place], [id number], 12/26/2023 14:03:25 ethanol, QL, screen, urine 2023 024 [facility], [address] [place], [id number], 12/26/2023 14:03:23 additiona l order codes 2023 024 [facility], [address] [place], [id number], 12/23/2023 17:59:36 additiona l order codes 2023 024 [facility], [address] [place], [id number], 12/23/2023 17:59:33 additiona l order codes 2023 024 [facility], [address] [place], [id number], 12/23/2023 17:59:29 additiona l order codes 2023 024 [facility], [address] [place], [id number], 12/23/2023 17:59:40 additiona l order codes 2023 024 [facility], [address] [place], [id number], 12/23/2023 17:59:38 additiona l order codes 2023 024 [facility], [address] [place], [id number], 12/23/2023 17:59:31 additiona l order codes 2023 024 [facility], [address] [place], [id number], 12/23/2023 17:59:42 drug screen, urine 2023 024 [facility], [address] [place], [id number], 01/27/2024 12:45:20 cannabino ids, QL, screen, urine 2023 024 [facility], [address] [place], [id number], 01/27/2024 12:43:23 ethanol, QL, screen, urine 2023 024 [facility], [address] [place], [id number], 01/27/2024 12:43:03 additiona l order codes 2023 024 [facility], [address] [place], [id number], 01/26/2024 10:09:42 additiona l order codes 2023 024 [facility], [address] [place], [id number], 01/26/2024 10:09:36 additiona l order codes 2023 024 [facility], [address] [place], [id number], 01/26/2024 10:09:53 additiona l order codes 2023 024 [facility], [address] [place], [id number], 01/26/2024 10:09:51 additiona l order codes 2023 024 [facility], [address] [place], [id number], 01/26/2024 10:09:46 additiona l order codes 2023 024 [facility], [address] [place], [id number], 01/26/2024 10:09:40 additiona l order codes 2023 024 [facility], [address] [place], [id number], 01/26/2024 10:09:44 drug screen, urine 2023 024 [facility], [address] [place], [id number], 02/19/2024 15:29:00 ethanol, QL, screen, urine 2023 024 [facility], [address] [place], [id number], 02/18/2024 16:57:08 cannabino ids, QL, screen, urine 2023 024 [facility], [address] [place], [id number], 02/19/2024 14:15:32 ethanol, QL, screen, urine 2023 024 [facility], [address] [place], [id number], 02/19/2024 14:15:34 additiona l order codes 2023 024 [facility], [address] [place], [id number], 02/18/2024 16:57:12 additiona l order codes 2023 024 [facility], [address] [place], [id number], 02/18/2024 16:56:58 additiona l order codes 2023 024 [facility], [address] [place], [id number], 02/18/2024 16:57:39 additiona l order codes 2023 024 [facility], [address] [place], [id number], 02/18/2024 16:57:30 additiona l order codes 2023 024 [facility], [address] [place], [id number], 02/18/2024 16:57:03 additiona l order codes 2023 024 [facility], [address] [place], [id number], 02/18/2024 16:57:34 additiona l order codes 2023 024 [facility], [address] [place], [id number], 02/18/2024 16:57:26 drug screen, urine 2023 024 [facility], [address] [place], [id number], 02/27/2024 12:51:22 ethanol, QL, screen, urine 2023 024 [facility], [address] [place], [id number], 02/27/2024 12:51:20 additiona l order codes 2023 024 [facility], [address] [place], [id number], 02/25/2024 17:15:00 additiona l order codes 2023 024 [facility], [address] [place], [id number], 02/25/2024 17:15:29 additiona l order codes 2023 024 [facility], [address] [place], [id number], 02/25/2024 17:15:19 additiona l order codes 2023 024 [facility], [address] [place], [id number], 02/25/2024 17:15:05 additiona l order codes 2023 024 [facility], [address] [place], [id number], 02/25/2024 17:15:24 additiona l order codes 2023 024 [facility], [address], [id number], 02/25/2024 17:15:14 additiona l order codes 2023 024 [facility], [address], [id number], 02/25/2024 17:14:56 Referral None recorded. Procedures None recorded. Surgeries None recorded. Imaging None recorded. Medication Orders Brixadi Monthly 128 mg/0.36 mL solution, extend.re l. subcut.sy ringe 2023 024 [facility] ([facility]), [address] [place] [address], [id number], 02/25/2024 17:11:13 Patient TargetsNo targets recorded. Patient Instructions Encounter Date Encounter Id Patient Instructions Last Modified By Organization Details Last Modified Time 12/23/2023 [id number] Education provid ed at today's visit included: Review of patient's individualized treatment plan; Review of Specialty pharmacy procedures; Review of program policies: urine screening, medication, visit, counseling requirement; Discussed importance of avoiding opioid while on Brixadi Treatment; discussed Brixadi? s common and serious side effects; Counseling re: trigger avoidance, relapse prevention and the importance of developing a sober network; Counseling re safe sex and control; Counseling re: Discovery & Drop-out prevention in early recovery. Greater than 50% of today's visit spent face to face counseling and coordinating care. [email or web address] Not available 12/22/2023 13:49:35 01/26/2024 [id number] Education provid ed at today's visit included: Review of patient's individualized treatment plan; Review of Specialty pharmacy procedures; Review of program policies: urine screening, medication, visit, counseling requirement; Discussed importance of avoiding opioid while on Brixadi Treatment; discussed Brixadi? s common and serious side effects; Counseling re: trigger avoidance, relapse prevention and the importance of developing a sober network; Counseling re safe sex and control; Counseling re: Discovery & Drop-out prevention in early recovery. Greater than 50% of today's visit spent face to face counseling and coordinating care. Not available 01/23/2024 14:07:48 02/25/2024 [id number] Education provid ed at today's visit included: Review of patient's individualized treatment plan; Review of Specialty pharmacy procedures; Review of program policies: urine screening, medication, visit, counseling requirement; Discussed importance of avoiding opioid while on Brixadi Treatment; discussed Brixadi? s common and serious side effects; Counseling re: trigger avoidance, relapse prevention and the importance of developing a sober network; Counseling re safe sex and control; Counseling re: Discovery & Drop-out prevention in early recovery. Greater than 50% of today's visit spent face to face counseling and coordinating care. Not available 02/24/2024 15:01:20 Reason for Referral None Reported. Results Created Date Observation Date Name Description Value Unit Range Abnormal Flag Note LastModifiedBy Organization Detail LastModifiedTime 11/12/19 24 11/13/2023 BUPRE NORPH INE PT UDS, QL, U cocaine metabolite NEG NG/mL <300 normal Not Available [facility] [address] [place], [address], 11/13/2023 13:53:09 11/12/19 24 11/13/2023 BUPRE NORPH INE PT UDS, QL, U amphetamines NEG NG/mL <500 normal Not Available [facility] [address] [place], [address], 11/13/2023 13:53:09 11/12/19 24 11/13/2023 BUPRE NORPH INE PT UDS, QL, U benzodiazepi bobby NEG NG/mL <200 normal Not Available [facility] [address] [place], [address], 11/13/2023 13:53:09 11/12/19 24 11/13/2023 BUPRE NORPH INE PT UDS, QL, U buprenorphin e POS NG/mL <[address] [facility] [address] [place], [address], 11/13/2023 13:53:09 11/12/19 24 11/13/2023 BUPRE NORPH INE PT UDS, QL, U fentanyl NEG NG/mL <10 normal Not Available [facility] [address] [place], [address], 11/13/2023 13:53:09 11/12/19 24 11/13/2023 BUPRE NORPH INE PT UDS, QL, U methadone NEG NG/mL <300 normal Not Available [facility] [address] [place], [address], 11/13/2023 13:53:09 11/12/19 24 11/13/2023 BUPRE NORPH INE PT UDS, QL, U opiates NEG NG/mL <300 normal Not Available [facility] [address] [place], [address], 11/13/2023 13:53:09 11/12/19 24 11/13/2023 BUPRE NORPH INE PT UDS, QL, U oxycodone NEG NG/mL <300 normal Not Available [facility] [address] [place], [address], 11/13/2023 13:53:09 11/12/19 24 11/13/2023 BUPRE NORPH INE PT UDS, QL, U urine pH 5.8 4.5 - 9.0 Not Available [facility] [address] [place], [address], 11/13/2023 13:53:09 11/12/19 24 11/13/2023 BUPRE NORPH INE PT UDS, QL, U urine specific gravity 1.024 1.003 - 1.035 Not Available [facility] [address] [place], [address], 11/13/2023 13:53:09 11/12/19 24 11/13/2023 BUPRE NORPH INE PT UDS, QL, U urine creatinine 200 mg/dL 20 - [address] [facility] [address] [place], [address], 11/13/2023 13:53:09 11/12/19 24 11/13/2023 ROSALINA OL, QL, U ethanol NEG mg/dL <10 normal Not Available [facility] [address] [place], [address], 11/13/2023 13:53:10 11/12/19 24 11/13/2023 CANNA BINOI DS, QL, U cannabinoids POS NG/mL <50 abnormal Not Available [facility] [address] [place], [address], 11/13/2023 13:53:12 11/28/19 24 12/01/2023 BUPRE NORPH INE PT UDS, QL, U cocaine metabolite NEG NG/mL <300 normal Not Available [facility] [address] [place], [address], 12/01/2023 12:45:56 11/28/19 24 12/01/2023 BUPRE NORPH INE PT UDS, QL, U amphetamines NEG NG/mL <500 normal Not Available [facility] [address] [place], [address], 12/01/2023 12:45:56 11/28/19 24 12/01/2023 BUPRE NORPH INE PT UDS, QL, U benzodiazepi bobby NEG NG/mL <[address] [facility] [address] [place], [address], 12/01/2023 12:45:56 11/28/19 24 12/01/2023 BUPRE NORPH INE PT UDS, QL, U buprenorphin e POS NG/mL <[address] [facility] [address] [place], [address], 12/01/2023 12:45:56 11/28/19 24 12/01/2023 BUPRE NORPH INE PT UDS, QL, U fentanyl NEG NG/mL <10 normal Not Available [facility] [address] [place], [address], 12/01/2023 12:45:56 11/28/19 24 12/01/2023 BUPRE NORPH INE PT UDS, QL, U methadone NEG NG/mL <300 normal Not Available [facility] [address] [place], [address], 12/01/2023 12:45:56 11/28/19 24 12/01/2023 BUPRE NORPH INE PT UDS, QL, U opiates NEG NG/mL <300 normal Not Available [facility] [address] [place], [address], 12/01/2023 12:45:56 11/28/19 24 12/01/2023 BUPRE NORPH INE PT UDS, QL, U oxycodone NEG NG/mL <300 normal Not Available [facility] [address] [place], [address], 12/01/2023 12:45:56 11/28/19 24 12/01/2023 BUPRE NORPH INE PT UDS, QL, U urine pH 6.3 4.5 - 9.0 Not Available [facility] [address] [place], [address], 12/01/2023 12:45:56 11/28/19 24 12/01/2023 BUPRE NORPH INE PT UDS, QL, U urine specific gravity 1.024 1.003 - 1.035 Not Available [facility] [address] [place], [address], 12/01/2023 12:45:56 11/28/19 24 12/01/2023 BUPRE NORPH INE PT UDS, QL, U urine creatinine >400 mg/dL 20 - 320 high Not Available [facility] [address] [place], [address], 12/01/2023 12:45:56 11/28/19 24 12/01/2023 ROSALINA OL, QL, U ethanol NEG mg/dL <10 normal Not Available [facility] [address] [place], [address], 12/01/2023 12:46:20 12/23/19 24 12/26/2023 ROSALINA OL, QL, U ethanol NEG mg/dL <10 normal Not Available [facility] [address] [place], [address], 12/26/2023 14:03:23 12/23/19 24 12/26/2023 BUPRE NORPH INE PT UDS, QL, U cocaine metabolite NEG NG/mL <300 normal Not Available [facility] [address] [place], [address], 12/26/2023 14:03:25 12/23/19 24 12/26/2023 BUPRE NORPH INE PT UDS, QL, U amphetamines NEG NG/mL <500 normal Not Available [facility] [address] [place], [address], 12/26/2023 14:03:25 12/23/19 24 12/26/2023 BUPRE NORPH INE PT UDS, QL, U benzodiazepi bobby NEG NG/mL <200 normal Not Available [facility] [address] [place], [address], 12/26/2023 14:03:25 12/23/19 24 12/26/2023 BUPRE NORPH INE PT UDS, QL, U buprenorphin e POS NG/mL <5 normal Not Available [facility] [address] [place], [address], 12/26/2023 14:03:25 12/23/19 24 12/26/2023 BUPRE NORPH INE PT UDS, QL, U fentanyl NEG NG/mL <10 normal Not Available [facility] [address] [place], [address], 12/26/2023 14:03:25 12/23/19 24 12/26/2023 BUPRE NORPH INE PT UDS, QL, U methadone NEG NG/mL <300 normal Not Available [facility] [address] [place], [address], 12/26/2023 14:03:25 12/23/19 24 12/26/2023 BUPRE NORPH INE PT UDS, QL, U opiates NEG NG/mL <300 normal Not Available [facility] [address] [place], [address], 12/26/2023 14:03:25 12/23/19 24 12/26/2023 BUPRE NORPH INE PT UDS, QL, U oxycodone NEG NG/mL <300 normal Not Available [facility] [address] [place], [address], 12/26/2023 14:03:25 12/23/19 24 12/26/2023 BUPRE NORPH INE PT UDS, QL, U urine pH 8.3 4.5 - 9.0 Not Available [facility] [address] [place], [address], 12/26/2023 14:03:25 12/23/19 24 12/26/2023 BUPRE NORPH INE PT UDS, QL, U urine specific gravity 1.011 1.003 - 1.035 Not Available [facility] [address] [place], [address], 12/26/2023 14:03:25 12/23/19 24 12/26/2023 BUPRE NORPH INE PT UDS, QL, U urine creatinine 117 mg/dL 20 - 320 Not Available [facility] [address] [place], [address], 12/26/2023 14:03:25 01/26/20 24 01/27/2024 ROSALINA OL, QL, U ethanol NEG mg/dL <10 normal Not Available [facility] [address] [place], [address], 01/27/2024 12:43:03 01/26/20 24 01/27/2024 CANNA BINOI DS, QL, U cannabinoids POS NG/mL <50 abnormal Not Available [facility] [address] [place], [address], 01/27/2024 12:43:23 01/26/20 24 01/27/2024 BUPRE NORPH INE PT UDS, QL, U cocaine metabolite NEG NG/mL <300 normal Not Available [facility] [address] [place], [address], 01/27/2024 12:45:20 01/26/20 24 01/27/2024 BUPRE NORPH INE PT UDS, QL, U amphetamines NEG NG/mL <500 normal Not Available [facility] [address] [place], [address], 01/27/2024 12:45:20 01/26/20 24 01/27/2024 BUPRE NORPH INE PT UDS, QL, U benzodiazepi bobby NEG NG/mL <200 normal Not Available [facility] [address] [place], [address], 01/27/2024 12:45:20 01/26/20 24 01/27/2024 BUPRE NORPH INE PT UDS, QL, U buprenorphin e POS NG/mL <5 normal Not Available [facility] [address] [place], [address], 01/27/2024 12:45:20 01/26/20 24 01/27/2024 BUPRE NORPH INE PT UDS, QL, U fentanyl NEG NG/mL <10 normal Not Available [facility] [address] [place], [address], 01/27/2024 12:45:20 01/26/20 24 01/27/2024 BUPRE NORPH INE PT UDS, QL, U methadone NEG NG/mL <300 normal Not Available [facility] [address] [place], [address], 01/27/2024 12:45:20 01/26/20 24 01/27/2024 BUPRE NORPH INE PT UDS, QL, U opiates NEG NG/mL <300 normal Not Available [facility] [address] [place], [address], 01/27/2024 12:45:20 01/26/20 24 01/27/2024 BUPRE NORPH INE PT UDS, QL, U oxycodone NEG NG/mL <300 normal Not Available [facility] [address] [place], [address], 01/27/2024 12:45:20 01/26/20 24 01/27/2024 BUPRE NORPH INE PT UDS, QL, U urine pH 6.9 4.5 - 9.0 Not Available [facility] [address] [place], [address], 01/27/2024 12:45:20 01/26/20 24 01/27/2024 BUPRE NORPH INE PT UDS, QL, U urine specific gravity 1.024 1.003 - 1.035 Not Available [facility] [address] [place], [address], 01/27/2024 12:45:20 01/26/20 24 01/27/2024 BUPRE NORPH INE PT UDS, QL, U urine creatinine 229 mg/dL 20 - 320 Not Available [facility] [address] [place], [address], 01/27/2024 12:45:20 02/18/20 24 02/19/2024 CANNA BINOI DS, QL, U cannabinoids POS NG/mL <50 abnormal Not Available [facility] [address] [place], [address], 02/19/2024 14:15:32 02/18/20 24 02/19/2024 ROSALINA OL, QL, U ethanol NEG mg/dL <10 normal Not Available [facility] [address] [place], [address], 02/19/2024 14:15:34 02/18/20 24 02/19/2024 BUPRE NORPH INE PT UDS, QL, U cocaine metabolite NEG NG/mL <300 normal Not Available [facility] [address] [place], [address], 02/19/2024 15:28:59 02/18/20 24 02/19/2024 BUPRE NORPH INE PT UDS, QL, U amphetamines NEG NG/mL <500 normal Not Available [facility] [address] [place], [address], 02/19/2024 15:28:59 02/18/20 24 02/19/2024 BUPRE NORPH INE PT UDS, QL, U benzodiazepi bobby NEG NG/mL <200 normal Not Available [facility] [address] [place], [address], 02/19/2024 15:28:59 02/18/20 24 02/19/2024 BUPRE NORPH INE PT UDS, QL, U buprenorphin e NEG NG/mL <5 abnormal Not Available [facility] [address] [place], [address], 02/19/2024 15:28:59 02/18/20 24 02/19/2024 BUPRE NORPH INE PT UDS, QL, U fentanyl NEG NG/mL <10 normal Not Available [facility] [address] [place], [address], 02/19/2024 15:28:59 02/18/20 24 02/19/2024 BUPRE NORPH INE PT UDS, QL, U methadone NEG NG/mL <300 normal Not Available [facility] [address] [place], [address], 02/19/2024 15:28:59 02/18/20 24 02/19/2024 BUPRE NORPH INE PT UDS, QL, U opiates NEG NG/mL <300 normal Not Available [facility] [address] [place], [address], 02/19/2024 15:28:59 02/18/20 24 02/19/2024 BUPRE NORPH INE PT UDS, QL, U oxycodone NEG NG/mL <300 normal Not Available [facility] [address] [place], [address], 02/19/2024 15:28:59 02/18/20 24 02/19/2024 BUPRE NORPH INE PT UDS, QL, U urine pH 7.6 4.5 - 9.0 Not Available [facility] [address] [place], [address], 02/19/2024 15:28:59 02/18/20 24 02/19/2024 BUPRE NORPH INE PT UDS, QL, U urine specific gravity 1.004 1.003 - 1.035 Not Available [facility] [address] [place], [address], 02/19/2024 15:28:59 02/18/20 24 02/19/2024 BUPRE NORPH INE PT UDS, QL, U urine creatinine 44 mg/dL 20 - 320 Not Available [facility] [address] [place], [address], 02/19/2024 15:28:59 02/18/20 24 02/23/2024 NEGAT JASMINA BUPRE NORPH INE CONFI RMATI ON, QN, U normalized buprenorphin e 131.5 NG/mL Not Available [facility] [address] [place], [address], 02/23/2024 19:49:04 02/18/20 24 02/23/2024 NEGAT JASMINA BUPRE JOSH INE CONFI RMATI ON, QN, U xylazine NEGATI VE NG/mL <10.0 Not Available [facility] [address] [place], [address], 02/23/2024 19:49:04 02/18/20 24 02/23/2024 NEGAT JASMINA BUPRE JOSH INE CONFI RMATI ON, QN, U normalized norbuprenorp evy 68.7 NG/mL Not Available [facility] [address] [place], [address], 02/23/2024 19:49:04 02/18/20 24 02/23/2024 NEGAT JASMINA BUPRE JOSH INE CONFI RMATI ON, QN, U 6-acetylmorp evy NEGATI VE NG/mL <10.0 Not Available [facility] [address] [place], [address], 02/23/2024 19:49:04 02/18/20 24 02/23/2024 NEGAT JASMINA BUPRE JOSH INE CONFI RMATI ON, QN, U buprenorphin e 58.3 NG/mL <10.[address] [facility] [place], [address], 02/23/2024 19:49:04 02/18/20 24 02/23/2024 NEGAT JASMINA BUPRE NORPH INE CONFI RMATI ON, QN, U cis-tramadol NEGATI VE NG/mL <100.0 Not Available [facility] [address] [place], [address], 02/23/2024 19:49:04 02/18/20 24 02/23/2024 NEGAT JASMINA BUPRE NORPH INE CONFI RMATI ON, QN, U codeine NEGATI VE NG/mL <50.0 Not Available [facility] [address] [place], [address], 02/23/2024 19:49:04 02/18/20 24 02/23/2024 NEGAT JASMINA BUPRE NORPH INE CONFI RMATI ON, QN, U fentanyl NEGATI VE NG/mL <10.0 Not Available [facility] [address] [place], [address], 02/23/2024 19:49:04 02/18/2002/23/2024 NEGAT JASMINA BUPRE NORPH INE CONFI RMATI ON, QN, U hydrocodone NEGATI VE NG/mL <50.0 Not Available [facility] [address] [place], [address], 02/23/2024 19:49:04 02/18/20 24 02/23/2024 NEGAT JASMINA BUPRE NORPH INE CONFI RMATI ON, QN, U hydromorphon e NEGATI VE NG/mL <50.0 Not Available [facility] [address] [place], [address], 02/23/2024 19:49:04 02/18/20 24 02/23/2024 NEGAT JASMINA BUPRE NORPH INE CONFI RMATI ON, QN, U morphine NEGATI VE NG/mL <50.0 Not Available [facility] [address] [place], [address], 02/23/2024 19:49:04 02/18/2002/23/2024 NEGAT JASMINA BUPRE NORPH INE CONFI RMATI ON, QN, U norbuprenorp evy 30.4 NG/mL <10.0 normal Not Available [place] [address] [place], [address], 02/23/2024 19:49:04 02/18/20 24 02/23/2024 NEGAT JASMINA BUPRE NORPH INE CONFI RMATI ON, QN, U norfentanyl NEGATI VE NG/mL <10.0 Not Available [facility] [address] [place], [address], 02/23/2024 19:49:04 02/18/20 24 02/23/2024 NEGAT JASMINA BUPRE NORPH INE CONFI RMATI ON, QN, U norhydrocodo ne NEGATI VE NG/mL <100.0 Not Available [facility] [address] [place], [address], 02/23/2024 19:49:04 Result Notes None recorded. 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 864247927 Active 2023 Kelsi Szymanski NP [address] [facility] [place], [address], [facility] 4 15:11:46 Gastritis 1499911 Active 2023 Kelsi Szymanski NP [address] [facility] [place], [address], [facility] 4 15:12:02 Alcohol dependence 18101965 Active 2023 Kelsi Szymanski NP [address] [facility] [place], [address], [facility] 4 15:19:08 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 Kelsi Szymanski NP [address] [facility] [place], [address], [facility] 4 15:56:27 Fracture of rib 01010134 Active 2023 Kelsi Szymanski NP [address] [facility] [place], [address], [facility] [employer] [facility] 4 17:00:49 Cluster headache 652247314 Active 2022 Kelsi Szymanski NP [address] [facility] [place], [address], [facility] [employer] [facility] 3 10:12:55 Opioid dependence, on agonist therapy 5865926145381 Active 2022 Kelsi Szymanski NP [address] [facility] [place], [address], [facility] [employer] [facility] 3 10:13:27 Chronic back pain 724034534 Active 2022 Kelsi Szymanski NP [address] [facility] [place], [address], [facility] [employer] [facility] 3 10:14:09 Stimulant dependence 716702628 Active 2022 In remiss ion, last use > 12 mth ago. Kelsi Szymanski NP [address] [facility] [place], [address], [facility] [employer] 3 21:56:31 Cirrhosis of liver 31192956 Active 2022 stage 4 Tessie Raines, TRAE [address] [facility] [place], [address], [facility] [employer] [facility] 3 10:37:55 Problem Notes None recorded. Procedures Surgical History Date Name Laterality Status Provider Name and Address Organization Details Recorded Time 4 62520, G0480, G0481 active Caridad Argueta [place] [facility] 03/23/2024 11:52:31 4 88335, G0480, G0481 completed Caridad Rubiquette [place] [employer] [facility] 02/24/2024 15:01:21 4 83279, G0480, G0481 completed Caridad Argueta [place] [facility] 01/23/2024 14:07:48 4 82015, G0480, G0481 cancelled Teresa Moreland [place] [facility] 01/20/2024 15:45:40 4 72692, G0480, G0481 completed Rianna Washburn, RN [address] [place], [address], [facility] 12/22/2023 13:49:10 4 40314, G0480, G0481 completed Rianna Washburn, AR [address] [place], [address], [facility] 12/11/2023 11:26:04 4 44752, G0480, G0481 completed Teresa Green [facility] 11/26/2023 08:28:28 4 59216, G0480, G0481 completed Caridad Kendall [facility] 10/29/2023 08:29:32 4 05421, G0480, G0481 completed Kelsi Szymanski, TRAE [address] [place], [address], [facility] 10/13/2023 16:52:38 4 05583, G0480, G0481 completed Teresa Green [facility] 10/01/2023 13:27:13 4 56982, G0480, G0481 cancelled [facility] Green [facility] 09/11/2023 10:42:07 4 42955, G0480, G0481 cancelled Kelsi Szymanski, TRAE [address] [place], [address], [facility] 09/04/2023 09:58:24 4 41670, G0480, G0481 completed Kelsi Szymanski, TRAE [address] [place], [address], [facility] 08/29/2023 09:18:38 4 84665, G0480, G0481 completed Tessie Raines, TRAE [address] [place], [address], [facility] 08/15/2023 19:08:21 4 74787, G0480, G0481 completed Kelsi Szymanski, SALES DEPARTMENT CLERK [address] [place], [address], [facility] 08/11/2023 10:25:11 4 15537, G0480, G0481 completed Kelsi Szymanski, SALES DEPARTMENT CLERK [address] [place], [address], [facility] 08/01/2023 10:59:48 4 62468, G0480, G0481 completed Kelsi Szymanski, SALES DEPARTMENT CLERK [address] [place], [address], [facility] 07/25/2023 09:42:14 4 57669, G0480, G0481 completed Teresa Green [facility] 07/17/2023 15:00:04 4 16175, G0480, G0481 cancelled Tessie Raines, SALES DEPARTMENT CLERK [address] [place], [address], [facility] 07/16/2023 08:16:55 4 25161, G0480, G0481 cancelled Tessie Raines, SALES DEPARTMENT CLERK [address] [place], [address], [facility] 07/10/2023 15:05:09 4 93747, G0480, G0481 completed Kelsi Szymanski, SALES DEPARTMENT CLERK [address] [place], [address], [facility] 07/11/2023 10:35:22 4 85206, G0480, G0481 completed Teresa Green [facility] 07/04/2023 14:23:48 4 24088, G0480, G0481 completed Putvain Tonja [facility] 06/27/2023 13:21:04 3 24191, G0480, G0481 completed Kelsi Szymanski, SALES DEPARTMENT CLERK [address] [place], [address], [facility] 06/13/2023 10:44:45 3 83703, G0480, G0481 completed Tony Omalley PA-C [address] [place] [address], [address], [facility] 06/06/2023 09:36:06 3 69884, G0480, G0481 completed Rianna Washburn RN [address] [place] [address], [address], [facility] 05/27/2023 13:15:46 3 71362, G0480, G0481 completed Rianna Washburn RN [address] [place] [address], [address], [facility] 05/20/2023 09:07:31 3 04334, G0480, G0481 completed Rianna Washburn RN [address] [place] [address], [address], [facility] 05/14/2023 08:20:06 3 22166, G0480, G0481 completed Kelsi Szymanski NP [address] [place] [address], [address], [facility] 05/09/2023 10:07:31 3 Septoplasty completed Kelsi Szymanski NP [address] [place] [address], [address], [facility] 05/09/2023 10:16:26 Imaging Results None recorded. Procedure Notes None recorded. Medical Equipment None Reported. Allergies Allergen ID Allergen Name Allergen Category Reaction Reaction Severity Criticality Documentation Date Start Date Code Code System Note Provider Name and Address Organization Details Recorded Time 24646 contact metal agent environme nt rash moderate Not available 08/12/2023 Kelsi Szymanski NP [address] [place] [address], [address], [facility] 4 18:14:28 Medications Name Sig Start Date Stop Date Status Note LastModified by Organization Details LastModified Time sumatript an 25 mg tablet TAKE ONE TABLET BY MOUTH AT ONSET OF MIGRAINE active Not Available Not Available No t Available prednison e 20 mg tablet TAKE ONE TABLET BY MOUTH EVERY MORNING FOR 3 DAYS 05/09 completed Not Available Not Available Not Available sertralin e 100 mg tablet TAKE ONE TABLET BY MOUTH EVERY DAY 08/18 completed Not Available Not Available Not Available hydroxyzi ne pamoate 50 mg capsule TAKE ONE CAPSULE BY MOUTH FOUR TIMES A DAY NEEDED FOR ANXIETY active Not Available Not Available No t Available hydroxyzi ne HCl 50 mg tablet TAKE ONE TABLET BY MOUTH EVERY DAY 08/15 completed Not Available Not Available Not Available omeprazol e 40 mg capsule,d elayed release TAKE ONE CAPSULE BY MOUTH EVERY DAY active Rx via [facility] Not Available Not Available Not Available doxepin 100 mg capsule Take 1 capsule every day by oral route at bedtime. 02/24 completed Rx via [facility] Not Available Not Available Not Available gabapenti n 300 mg capsule TAKE ONE CAPSULE BY MOUTH THREE TIMES A DAY NEEDED FOR ANXIETY active Not Available Not Available No t Available hydroxyzi ne HCl 25 mg tablet TAKE THREE TABLETS BY MOUTH EVERY DAY 08/15 completed Not Available Not Available Not Available buprenorp vey 8 mg-naloxo ne 2 mg sublingua l tablet PLACE TWO TABLETS UNDER THE TONGUE EVERY DAY 05/19 completed Not Available Not Available Not Available Suboxone 8 mg-2 mg sublingua l film PLACE TWO FILMS UNDER THE TONGUE EVERY MORNING FOR 3 DAYS 06/18 completed Not Available Not Available Not Available dexmethyl phenidate ER 25 mg capsule,e xtended release biphasic5 0-50 TAKE ONE CAPSULE BY MOUTH EVERY DAY active Not Available Not Available No t Available Brixadi Weekly 24 mg/0.48 mL solution, extend.re l. subcut.sy ringe Inject 0.48 mL every week by subcutan eous route. 07/25 completed Not Available Not Available Not Available Brixadi Weekly 32 mg/0.64 mL solution, extend.re l. subcut.sy ringe Inject 0.64 mL every week by subcutan eous route as directed . 08/11 completed Not Available Not Available Not Available Brixadi Monthly 128 mg/0.36 mL solution, extend.re l. subcut.sy ringe Inject 0.36 mL every month by subcutan eous route. 2023 active Not Available Not Available Not Avai lable Vitals Date Recorded Body height Body mass index (BMI) Body weight Body temperature Oxygen saturation Oxygen saturation in Arterial blood by Pulse oximetry Heart rate Systolic blood pressure Diastolic blood pressure Provider Name and Address Organization Details Last Updated DateTime 4 187.96 cm 28.6 kg/m2 394828. 1 g 97.1 [degF] 94 % 94 % 89 /min 140 mm[Hg] 84 mm[Hg] Ekta Martin RN [address] [place], [address], [employer] 4 17:20:04 Date Recorded Body height Body mass index (BMI) Body weight Body temperature Oxygen saturation Oxygen saturation in Arterial blood by Pulse oximetry Heart rate Systolic blood pressure Diastolic blood pressure Provider Name and Address Organization Details Last Updated DateTime 4 187.96 cm 28.6 kg/m2 941279. 1 g 97 [degF] 97 % 97 % 70 /min 144 mm[Hg] 88 mm[Hg] Ekta Martin RN [address] [place] [address], [address], [place] [facility] 4 09:49:40 Date Recorded Body height Body temperature Oxygen saturation Oxygen saturation in Arterial blood by Pulse oximetry Heart rate Systolic blood pressure Diastolic blood pressure Provider Name and Address Organization Details Last Updated DateTime 4 187.96 cm 97.7 [degF] 99 % 99 % 95 /min 128 mm[Hg] 82 mm[Hg] Teresa Moreland [place] [facility] 4 11:49:01 Date Recorded Body height Body mass index (BMI) Body weight Body temperature Oxygen saturation Oxygen saturation in Arterial blood by Pulse oximetry Heart rate Systolic blood pressure Diastolic blood pressure Provider Name and Address Organization Details Last Updated DateTime 4 187.96 cm 29 kg/m2 137864. 88 g 97.8 [degF] 95 % 95 % 70 /min 120 mm[Hg] 78 mm[Hg] Ekta Martin RN [address] [place] [address], [address], [place] [facility] 4 15:53:31 Social History Question Answer Notes LastModified by Organization Details LastModified Time Tobacco Smoking Status Former Smoker Noemy Alejandro RN [address] [place] [address], [phone], [facility] 05/09/2023 09:36:06 Do You Have An Advance Directive? Yes [email or web address] Information not available 05/09/2023 What Is Your Level Of Alcohol Consumption? Occasional [email or web address] Information not available 05/09/2023 How Many Times Per Week Do You Consume Alcohol? 1-2 Times Per Week Information not available 05/09/2023 Are You Blind Or Do You Have Difficulty Seeing? Yes Has Glasses [email or web address] Information not available 05/09/2023 What Is Your Level Of Caffeine Consumption? Moderate Information not available 05/09/2023 In The 14 Days Before Symptom Onset, Have You Had Close Contact With A Laboratory-conf irmed COVID-19 While That Case Was Ill? No [email or web address] Information not available 05/09/2023 In The 14 Days Before Symptom Onset, Have You Had Close Contact With A Person Who Is Under Investigation For COVID-19 While That Person Was Ill? No [email or web address] Information not available 05/09/2023 Have You Been To An Area Known To Be High Risk For COVID-19? No [email or web address] Information not available 05/09/2023 Are You Currently Employed? Yes [email or web address] Information not available 05/09/2023 Are You Deaf Or Do You Have Serious Difficulty Hearing? Yes Both Ears Information not available 05/09/2023 Do You Or Have You Ever Used E-cigarettes Or Vape? Current User Of Electronic Cigarettes [email or web address] Information not available 05/09/2023 What Is The Highest Grade Or Level Of School You Have Completed Or The Highest Degree You Have Received? 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 11-15yearssincela raj [email or web address] Information not available 05/09/2023 Are There Any Guns Present In Your Home? No Information not available 05/09/2023 How Many Times In The Past Year Have You Used An Illegal Drug Or Used A Prescription Medication For Nonmedical Reasons? 0 [email or web address] Information not available 05/09/2023 Where Do You Live? [facility] [email or web address] Information not available 05/09/2023 *Housing Stable - Safe Currently Trying To Move In With And Children With [employer] [email or web address] Information not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
--- OUTSIDE RECORDS SUMMARY | 2024-03-23 15:19 | XMS_ITS | Encounter Summary ---
Author Organization [facility] Address [address] [place] [address] Care Team Providers Care Health Care Marketing Specialist Name Role Phone Unknown, Provider Primary Care Provider Encounter Details Date Type Department Care Team (Late st Contact Info) Description 03/05/2024 Lab Requisition [facility] Pathology & Laboratory Medicine - [facility] [address] [place] [address] Outr Resulting Lab, Provider Social History Tobacco [...] Comments HOLD SST Today 03/05/2024 10:40 EDT PROLACTIN Today 03/05/2024 10:40 EDT DHEA SULFATE Today 03/05/2024 10:40 EDT ESTRADIOL, ADULTS Today 03/05/2024 10: 40 EDT LH Today 03/05/2024 10:40 EDT documented in this encounter Results * HOLD SST (03/05/2024 10:40 EDT) Hold Hold 03/05/2024 18:15 EDT [facility] Blood VENOUS BLOOD / Unknown 03/05/2024 10:40 EDT 03/05/2024 17:06 EDT Provider Outr Resulting Lab LAB INFO SER VICE AND SUPPORT & PHONE RESULT Performing Organization Address [place]/[facility]/ZIP Co de Phone Number [facility] [address] [place], [place] [address] * LH (03/05/2024 10:40 EDT) Luteinizing Hormone 3.8 1.5 - 9.3 mIU/mL 03/05/2024 18:08 EDT [facility] Blood VENOUS BLOOD / Unknown 03/05/2024 10:40 EDT 03/05/2024 17:05 EDT Provider Outr Resulting Lab CHEMISTRY & BLOOD GAS ORDERABLES Performing Organization Address [facility] de Phone Number [facility] [address] [place] [address] * PROLACTIN (03/05/2024 10:40 EDT) Prolactin 5.5 2.1 - 17.7 ng/mL 03/05/2024 18:08 EDT [facility] Blood VENOUS BLOOD / Unknown 03/05/2024 10:40 EDT 03/05/2024 17:05 EDT Provider Outr Resulting Lab CHEMISTRY & BLOOD GAS ORDERABLES Performing Organization Address [place] Co de Phone Number [facility] [address] [place], [place] [address] * ESTRADIOL, ADULTS (03/05/2024 10:40 EDT) Estradiol 24 <40 pg/mL 03/05/2024 17:55 EDT [facility] Blood VENOUS BLOOD / Unknown 03/05/2024 10:40 EDT 03/05/2024 17:05 EDT Provider Outr Resulting Lab CHEMISTRY & BLOOD GAS ORDERABLES Performing Organization Address City/[facility]/ZIP Co de Phone Number [facility] [address] [place] [address] * (ABNORMAL) DHEA SULFATE (03/05/2024 10:40 EDT) DHEA Sulfate 113(L) 136 - 448 ug/dL 03/08/2024 10:11 EDT [facility] Blood VENOUS BLOOD / Unknown 03/05/2024 10:40 EDT 03/05/2024 17:05 EDT Provider Outr Resulting Lab CHEMISTRY & BLOOD GAS ORDERABLES Performing Organization Address [place]/[facility] Co de Phone Number [facility] [address] [place] [address] documented in this encounter Visit Diagnoses Not on filedocumented in this encounter Care Teams Health Care Marketing Specialist Relationship Specialty Start Date End Date Unknown, Provider, PCP - General 09/26/16 documented as of this encounter
--- OUTSIDE RECORDS SUMMARY | 2024-03-23 15:20 | XMS_ITS | Encounter Summary ---
Author Organization [facility] Address [address] [place] [address] Care Team Providers Care Shellfish Dredge Operator Name Role Phone Unknown, Provider Primary Care Provider Encounter Details Date Type Department Care Team (Latest Contact Info) Description 07/03/2023 Specialty Pharmacy [facility] [address] [place], [place] [id number] Arit Rose RPH Refill Coordination Outreach for Addiction [...] on filedocumented in this encounter Care Teams Shellfish Dredge Operator Relationship Specialty Start Date End Date Unknown, Provider, PCP - General 09/26/16 documented as of this encounter
--- OUTSIDE RECORDS SUMMARY | 2024-03-23 15:20 | XMS_ITS | Encounter Summary ---
Author Organization [facility] Address [address] [place] [address] Care Team Providers Care Power Superintendent Name Role Phone Unknown, Provider Primary Care Provider [phone] Reason for Visit * Reason Onset Date Comments Other 11/26/2022 Encounter Details Date Type Department Care Team (Late st Contact Info) Description 11/26/2022 Telephone [facility] Nephrology - [address] [address] Angelica Acosta, RN [address] [place] [address] Other Social History Tobacco Use Types Packs/Day Years Used Date Smoking Tobacco: Never Assessed Interpersonal Safety Answer Date Record ed Physically Hurt Never 01/23/2020 Verbally Threaten Not on file 01/23/2020 Sex and Gender Information Value Date Recorded Sex Assigned at Not on file Gender Identity Not on file Sexual Orientation Not on file documented as of this encounter Miscellaneous Notes * Telephone Encounter - Angelica Acosta, RN - 11/26/2022 0830 EDT ----- Message from Glenna Garcia MD sent at 11/25/2022 16:54 EDT ----- Please make sure my note is faxed to the correctional facility. Thanks, documented in this encounter Plan of Treatment Not on file documented as of this encounter Visit Diagnoses Not on filedocumented in this encounter Care Teams Power Superintendent Relationship Specialty Start Date End Date Unknown, ProviderMD PCP - General 09/26/16 documented as of this encounter
--- OUTSIDE RECORDS SUMMARY | 2024-03-23 15:20 | XMS_ITS | Encounter Summary ---
Author Organization [facility] Address [address] [place] [address] Care Team Providers Care Pulley Mortiser Operator Name Role Phone Fauzia Nelson MD Primary Care Provider [phone] Encounter Details Date Type Department Care Team (Latest Contact Info) Description 09/24/2016 8:41 EDT - 09/24/2016 23:59 EDT Hospital Encounter [address] [address] Unknown, Provider, Discharge Disposition: Home or Self Care Social History Tobacco Use Types Packs/Day Years Used Date Smoking Tobacco: Never Assessed Sex and Gender Information Value Date Recorded Sex Assigned at Not on file Gender Identity Not on file Sexual Orientation Not on file documented as of this encounter Discharge Disposition Disposition Code Departure Means Destination Home or Self Retirement documented in this encounter Plan of Treatment Not on file documented as of this encounter Visit Diagnoses Not on filedocumented in this encounter Care Teams Pulley Mortiser Operator Relationship Specialty Start Date End Date Fauzia Nelson MD PCP - General 07/08/14 09/25/16 documented as of this encounter
--- OUTSIDE RECORDS SUMMARY | 2024-03-23 15:20 | XMS_ITS | Encounter Summary ---
Author Organization [facility] Address [address] [place] [address] Care Team Providers Care Motor Vehicle Emissions Inspector Name Role Phone Unknown, Provider Primary Care Provider Encounter Details Date Type Department Care Team (Latest Contact Info) Description 06/06/2023 Specialty Pharmacy [facility] [address] [place], [place] [id number] Arti Rose RPH Refill Coordination Outreach for [...] on filedocumented in this encounter Care Teams Motor Vehicle Emissions Inspector Relationship Specialty Start Date End Date Unknown, Provider, PCP - General 09/26/16 documented as of this encounter
--- OUTSIDE RECORDS SUMMARY | 2024-03-23 15:20 | XMS_ITS | Encounter Summary ---
Author Organization [facility] Address [address] [place] [address] Care Team Providers Care Mortgage Loan Officer Originator Name Role Phone Unknown, Provider Primary Care Provider Reason for Visit * Reason Comments Chronic Kidney Disease * Consult (Routine) - Receiving Office to Obtain Authorization Specialty Diagnoses / Procedures Referred By Dorita arambula Referred To Contact Diagnoses KERWIN (acute kidney injury) ([facility]) Zach Rooney PA-C [address] [place] [address] [facility] [address] [place] [id number] Referral ID Status Reason Start Date Expiration Date Visits Requested Visits Authorized [id number] Receiving Office to Obtain Authorization 1 1 Encounter Details Date Type Department Care Team (Late st Contact Info) Description 11/25/2022 13:00 EDT Telemedicine [facility] Nephrology - [place] [address] [place], [place] [id number] Glenna Garcia MD 1 [facility], [address] [place] [address] Chronic kidney disease, unspecified CKD stage (Primary Dx); History of hepatitis C virus infection; Edema, unspecified type; Excessive use of nonsteroidal anti-inflammatory drugs (NSAIDs) Social History Tobacco Use Types Packs/Day Years Used Date Smoking Tobacco: Never Assessed Interpersonal Safety Answer Date Record ed Physically Hurt Never 01/23/2020 Verbally Threaten Not on file 01/23/2020 Sex and Gender Information Value Date Recorded Sex Assigned at Not on file Gender Identity Not on file Sexual Orientation Not on file documented as of this encounter Patient Instructions * Patient Instructions* Glenna Garcia MD - 11/25/2022 13:00 EDT - Discontinue ibuprofen - Continue Lasix 80 mg BID for now - Labs (electrolytes, BUN, creatinine, calcium, phos, albumin, PTH, CBC, urine dip, urine albumin to creatinine ratio, YUNIER); I will be in touch with Arti Capone NP with any new recommendations when I see the results - Start vitamin D 2000 units daily - Follow up with hepatology at [facility] (appointment was supposed to be in September 2022) - Limit sodium to 2-3 grams/day - Next visit in [place] in March; I will have ordered labs to be done a few days prior to that visit documented in this encounter Progress Notes * Glenna Garcia MD - 11/25/2022 1300 EDT Images from the original note were not included. TELEMEDICINE VIDEO VISIT Today's visit was provided through telemedicine video conferencing: I have reviewed the appropriateness of using video technology with the patient with regards to today's visit. The location of the patient [facility] Patient location state: Visit Location State: [place] The location of the provider: Office Provider location state: Visit Location State: [place] The following people and their roles were present for today's visit: Appointment Provider: Glenna Garcia MD Nurse Glenna Garcia MD Nephrology Clinic H&P Date of Service: 11/25/2022 Chief Complaint Patient presents with ??? Chronic Kidney Disease HPI: Mr. Mike Guillermo is a 47-year-old gentleman who was referred to nephrology clinic by his PCP (Zach Rooney PA-C) for evaluation and management of his elevated creatinine and lower extremity edema in the setting of known hepatitis C cirrhosis. Has had cirrhosis for 3-4 years. Followed by a outlet manager at [facility] (treatment started in 2018with Mavyret) which was treated and was since treated and cleared.* He has been seen once since that time (~ 6 months ago). Currently only taking Lasix 80 mg daily. No longer is taking Bumex (stopped 07/01/22 due to electrolyte depletion) or spironolactone (stopped 07/04/22 due to gynecomastia) BPs 140/70-80 (highest 172/112, rare; low 97/57) Medical history: Suboxone use H/o heroin abuse since 2009 No other drug use Cluster headaches Alcohol use 2018, then escalated and then stopped May 2021 Tobacco use (cigarettes) [age] (1 PPD) Kidney stone in the past (2001) - calcium stone; had gross hematuria at that time Surgical history Nasal/sinus surgery Family history Has half brother (type I DM) One daughter (8 years old; Type I DM; doing well) No known kidney disease Mother's mother had MS Mother has lupus Mother's sister had breast cancer Mother's brother had skin cancer Social History [facility] (has been there ~ 1.5 years; will be there another 4-5 months [employer] ([employer]) Schooling - high school ([employer]) Living with daughter before being arrested; will live with mother and daughter when released *(from hepatology note in April 2018): Review of Systems Denies lightheadedness Appetite is fair No nausea or vomiting Swelling in legs: pitting edema up to knees and some swelling in hands (not pitting) Rare shortness of breath Some exercise Headaches (cluster headaches; worse in fall and spring) Joint pain in feet and knees (takes ibuprofen) Sinus pain/congestion due to allergies No new eye issues No rash Spider veins on stomach and feet Active Problem List There are no problems to display for this patient. PMH PSH No past medical history on file. No past surgical history on file. Social History Family history Social History Socioeconomic History ??? Marital status: Single Spouse name: Not on file ??? Number of children: Not on file ??? Years of education: Not on file ??? Highest education level: Not on file Occupational History ??? Not on file Tobacco Use ??? Smoking status: Not on file ??? Smokeless tobacco: Not on file Substance and Sexual Activity ??? Alcohol use: Not on file ??? Drug use: Not on file ??? Sexual activity: Not on file Other Topics Concern ??? Not on file Social History Narrative ??? Not on file Social Determinants of Health Financial Resource Strain: Not on file Food Insecurity: Not on file Transportation Needs: Not on file Physical Activity: Not on file Stress: Not on file Social Connections: Not on file Housing Stability: Not on file No family history on file. Current Outpatient Medications on File Prior to Visit Medication Sig Dispense Refill ??? acetaminophen (TYLENOL) 325 mg tablet Take 650 mg by mouth 2 times daily as needed for Pain. ??? buprenorphine HCL (SUBUTEX) [address] 16 mg under the tongue daily. ??? doxepin (SINEQUAN) 100 mg capsule Take 100 mg by mouth daily. ??? furosemide (LASIX) 80 mg tablet Take 80 mg by mouth 2 times daily. ??? hydrOXYzine (ATARAX) 50 mg tablet Take 50 mg by mouth 3 times daily. ??? ibuprofen (MOTRIN) 600 mg tablet Take 600 mg by mouth 2 times daily as needed for Pain. ??? magnesium oxide (MAG-OX) 400 mg (241.3 mg magnesium) tablet Take 400 mg by mouth daily. ??? omeprazole (PRILOSEC) 20 mg capsule Take 40 mg by mouth daily. ??? potassium gluconate 550 mg (90 mg) tablet Take 550 mg by mouth daily. ??? sertraline (ZOLOFT) 100 mg tablet Take 100 mg by mouth daily. ??? SUMAtriptan (IMITREX) 25 mg tablet Take 25 mg by mouth as needed for Migraine. No current facility-administered medications on file prior to visit. Allergies Not on File Objective: There were no vitals taken for this visit. Exam deferred (video visit) Previous Labs: No recent labs Assessment: 47 y.o. M with CKD (stage not clear) in the setting of known prior hepatitis C infection and fibrosis/cirrhosis. He has had some increased LE edema and is on Lasix 80 mg PO BID. He has also been taking 1200 mg of ibuprofen daily for joint pains mostly in his feet. His edema and elevated creatinine are most likely secondary to his liver disease and significant NSAID use. However, as he does have afamily history of autoimmune disease, I would like to rule that out. For now, I recommend discontinuation of ibuprofen and continuation of Lasix 80 mg PO BID. A full set of labs is needed before any further recommendations can be made. Recommendations: - Discontinue ibuprofen - Continue Lasix 80 mg BID for now - Labs (electrolytes, BUN, creatinine, calcium, phos, albumin, PTH, CBC, urine dip, urine albumin to creatinine ratio, YUNIER - Start vitamin D 2000 units daily - Follow up with hepatology at [facility] (appointment was supposed to be in September 2022) - Limit sodium to 2-3 grams/day - Next visit in [place] in March; I will need to order a new set of labs pending results of the above 1. Chronic kidney disease, unspecified CKD stage 2. History of hepatitis C virus infection 3. Edema, unspecified type 4. Excessive use of nonsteroidal anti-inflammatory drugs (NSAIDs) This visit is being conducted by telemedicine using Zoom video (HIPPA compliant) with the patient at home and provider in their office. This is to protect the patient from exposure to potentially hazardous environmental conditions. The patient has given consent for this communication. The patient, provider and nurse were present. The telemedicine session lasted 60 minutes. The concept of ???Telemedicine?? has been described to the patient.? Patient has been informed of the anticipated benefits and possible risks.? Patient understands the information provided regardingtelemedicine, has had the opportunity to ask questions about this information, and all questions have been answered to patient???s satisfaction. Patient consents for the use of telemedicine in his/her medical care and authorizes the transmission of any relevant medical information to providers and their staff involved in patient???s medical or mental health care. Patient understands that they maybe responsible for copays, deductible or coinsurance for this service. Glenna Garcia MD 11/25/22 documented in this encounter Plan of Treatment Not on file documented as of this encounter Visit Diagnoses Diagnosis Chronic kidney disease, unspecified CKD stage- Primary History of hepatitis C virus infection Edema, unspecified type Excessive use of nonsteroidal anti-inflammatory drugs (NSAIDs) documented in this encounter Historical Medications * This list may reflect changes made after this encounter. Medication Sig Dispensed Refills Start Date End Date sertraline (ZOLOFT) 100 mg tablet Take 75 mg by mouth daily. omeprazole (PRILOSEC) 20 mg capsule Take 2 Capsules by mouth daily. hydrOXYzine (ATARAX) 50 mg tablet Take 1 Tablet by mouth at bedtime. 75 mg in AM and 50 in PM doxepin (SINEQUAN) 100 mg capsule Take 1 Capsule by mouth daily. buprenorphine HCL (SUBUTEX) [address] 16 mg under the tongue daily. ibuprofen (MOTRIN) 600 mg tablet Take 600 mg by mouth 2 times daily as needed for Pain. SUMAtriptan (IMITREX) 25 mg tablet Take 1 Tablet by mouth as needed for Migraine. acetaminophen (TYLENOL) 325 mg tablet Take 650 mg by mouth 2 times daily as needed for Pain. magnesium oxide (MAG-OX) 400 mg (241.3 mg magnesium) tablet Take 400 mg by mouth daily. 05/21/2023 furosemide (LASIX) 80 mg tablet Take 80 mg by mouth 2 times daily. 05/21/2023 potassium gluconate 550 mg (90 mg) tablet Take 550 mg by mouth daily. 05/21/2023 added in this encounter Care Teams Mortgage Loan Officer Originator Relationship Specialty Start Date End Date Unknown, Provider, PCP - General 09/26/16 documented as of this encounter
--- OUTSIDE RECORDS SUMMARY | 2024-03-23 15:20 | XMS_ITS | Encounter Summary ---
Author Organization [facility] Address [address] [place] [address] Care Team Providers Care Motorcycle Police Name Role Phone Unknown, Provider Primary Care Provider Encounter Details Date Type Department Care Team (Latest Contact Info) Description 05/21/2023 Specialty Pharmacy [facility] [address] [place], [place] [phone] Arti Rose RPH Patient Education for Addiction Medicine, Set up initial fill for Addiction Medicine, Prospective Review for Addiction Medicine Social History Tobacco Use [...] encounter Progress Notes * Deborah Salcido - 05/21/2023 3924 EST Prescription Receipt by [facility] Date Received: 05/21/2023 Medication: Brixadi Sent by: [facility] Provider: [facility] Phone number: Benefits Investigation Results: Comments: script received, uploaded to scans and processes through insurance. Request for outside chart notes faxed on 05/21/2023 @ [phone]. Prescription copy available in scans: YES Relevant clinical documents in scans (if applicable): YES Routed to appropriate Pharmacist: YES [facility] Special[facility] Pharmacy: [phone] * Arti Rose RPH - 05/21/2023 4057 EST Mike Guillermo is a 47 y.o. male -- pharmacist clinical review of initial prescription for Buprenorphine ER injection Treatment information: Prescriber: Kelsi Szymanski Prescriber Contact Info: [facility] [phone] Sublingual Buprenorphine Naive: No Transmucosal Buprenorphine Dose: 16 mg/day Buprenorphine ER Formulation: Brixadi Initial Dose: 24 mg weekly REMS requirements met: Yes Naloxone prescribed: Yes Medication Management Notes: Patient will be administered the medication at [facility]. To contact the clinic call: [phone] Baseline labs: Not available - outside lab, outside provider Current medications: Outpatient Encounter Medications as of 05/21/2023 Medication Sig acetaminophen (TYLENOL) 325 mg tablet Take 650 mg by mouth 2 times daily as needed for Pain. buprenorphine (BRIXADI) 24 mg/0.48 mL solution, extended rel syringe Inject 24 mg into the skin once a week. Daily Max: 24 mg buprenorphine HCL (SUBUTEX) [address] 16 mg under the tongue daily. dexmethylphenidate (FOCALIN XR) 25 mg multiphase capsule Take 1 Capsule by mouth daily. Daily Max: 25 mg doxepin (SINEQUAN) 100 mg capsule Take 1 Capsule by mouth daily. [DISCONTINUED] furosemide (LASIX) 80 mg tablet Take 80 mg by mouth 2 times daily. hydrOXYzine (ATARAX) 50 mg tablet Take 1 Tablet by mouth at bedtime. 75 mg in AM and 50 in PM ibuprofen (MOTRIN) 600 mg tablet Take 600 mg by mouth 2 times daily as needed for Pain. [DISCONTINUED] magnesium oxide (MAG-OX) 400 mg (241.3 mg magnesium) tablet Take 400 mg by mouth daily. omeprazole (PRILOSEC) 20 mg capsule Take 2 Capsules by mouth daily. [DISCONTINUED] potassium gluconate 550 mg (90 mg) tablet Take 550 mg by mouth daily. sertraline (ZOLOFT) 100 mg tablet Take 1 Tablet by mouth daily. SUMAtriptan (IMITREX) 25 mg tablet Take 1 Tablet by mouth as needed for Migraine. No facility-administered encounter medications on file as of 05/21/2023. Allergies: NKDA Drug Interactions and Management Plan: DDI with current medication list checked Drug-drug interactions identified: doxepin, hydroxyzine, sertraline, sumatriptan, dexmethylphenidate - patient has been tolerating with suboxone Comorbidities: reviewed Coinfection/Vaccination Assessment: Not available, outside lab, outside provider Additional Notes: Spoke with patient for updated med list, allergies, and med ed: Therapeutic rationale / Goals of therapy discussed - buprenorphine ER subcutaneous injection (Brixadi) is a medication used for the treatment of moderate to severe opioid use disorder Dosage and administration discussed - clinic administered injection once weekly Adherence and missed doses discussed - Contact your clinic to follow-up on next [facility] to ensure that your medication will be on hand. Missing a dose you should try to receive the next dose as soon as possible. Therapy contraindications discussed - N/A, none identified Possible adverse effects and management discussed - The most common side effects are constipation, headache, nausea/vomiting, and tiredness. Some other side effects where you should reach out to yourprovider are, trouble breathing, dizziness, and liver problems (jaundice, loss of appetite). Possible drug and prescription drug interactions discussed - No drug-drug interactions identified. Make sure to tell your healthcare provider about all the medications you take including prescriptions, [id number] medicines, herbal products and supplements. If acute pain management is needed, such as a surgery or you are hospitalized, make sure your tell your doctor that you are on this medication. That way they can dose additional pain medications accordingly. Lab monitoring and follow-up discussed. The most common lab would be to monitor your liver function. Make sure that if your provider orders labs that you get them done. It is recommended that you have naloxone (Narcan) on hand for the treatment of accidental overdose.If naloxone is ever needed please get immediate medical attention. Arti Rose, PharmD, BCACP (she/her) Security Sales Manager Pharmacist [facility] 05/21/2023 documented in this encounter Plan of Treatment Not on file documented as of this encounter Visit Diagnoses Not on filedocumented in this encounter Discontinued Medications Medication Sig Discontinue Reason Start Date End Da te furosemide (LASIX) 80 mg tablet Take 80 mg by mouth 2 times daily. Therapy completed 05/21/2023 magnesium oxide (MAG-OX) 400 mg (241.3 mg magnesium) tablet Take 400 mg by mouth daily. Therapy completed 05/21/2023 potassium gluconate 550 mg (90 mg) tablet Take 550 mg by mouth daily. Therapy completed 05/21/2023 documented as of this encounter Historical Medications * This list may reflect changes made after this encounter. Medication Sig Dispensed Refills Start Date End Date dexmethylphenidate (FOCALIN XR) 25 mg multiphase capsule Take 1 Capsule by mouth daily. Daily Max: 25 mg buprenorphine (BRIXADI) 24 mg/0.48 mL solution, extended rel syringe Inject 24 mg into the skin once a week. Daily Max: 24 mg 07/14/2023 added in this encounter Care Teams Motorcycle Police Relationship Specialty Start Date End Date Unknown, Provider, PCP - General 09/26/16 documented as of this encounter
--- OUTSIDE RECORDS SUMMARY | 2024-03-23 15:20 | XMS_ITS | Encounter Summary ---
Author Organization [facility] Address [address] [place] [address] Care Team Providers Care Chancery Clerk Name Role Phone Unknown, Provider Primary Care Provider Encounter Details Date Type Department Care Team (Latest Contact Info) Description 11/13/2023 Specialty Pharmacy [facility] [address] [place], [place] [address] Arti Rose RPH Refill Coordination Outreach for [...] on filedocumented in this encounter Care Teams Chancery Clerk Relationship Specialty Start Date End Date Unknown, Provider, PCP - General 09/26/16 documented as of this encounter
--- OUTSIDE RECORDS SUMMARY | 2024-03-23 15:20 | XMS_ITS | Encounter Summary ---
Author Organization [facility] Address [address] [place] [address] Care Team Providers Care Full Charge Bookkeeper Name Role Phone Unknown, Provider Primary Care Provider Encounter Details Date Type Department Care Team (Latest Contact Info) Description 07/11/2023 Specialty Pharmacy [facility] [address] [place], [place] [id number] Arti Wilson RPH Refill Coordination Outreach for Addiction Medicine, Clinical Follow-up (2x annually) for Addiction Medicine Social History Tobacco Use Types Packs/Day Years Used Date Smoking Tobacco: Never Assessed Interpersonal Safety Answer Date Record ed Physically Hurt Never 01/23/2020 Verbally Threaten Not on file 01/23/2020 Sex and Gender Information Value Date Recorded Sex Assigned at Not on file Gender Identity Not on file Sexual Orientation Not on file documented as of this encounter Progress Notes * Clinton Bernstein - 07/11/2023 1632 EST Prescription Receipt by [facility] Date Received: 07/11/23 Medication: Brixadi 32mg Provider: Kelsi Szymanski NP Provider Phone number: [phone] [facility] Clinic: Addiction Medicine Comments: dose increase, $0/14d Prescription copy available in scans: YES Relevant clinical documents in scans (if applicable): YES Routed to appropriate Pharmacist: YES [facility] Specialty Pharmacy: [phone] * Arti Wilson RPH - 07/11/2023 1632 EST [facility] Specialty Pharmacy Medication Therapy Follow Up: Mike Guillermo is a 47 y.o. male being treated with Brixadi for OUD. Patient receives this medication at [facility]. Brixadi dose is increasing from 24 mg subcutaneous weekly to 32 mg subcutaneous weekly. Method for Follow Up: Chart note in scans 07/14/23 I completed a complete review of the patient's current medical record, including medications, allergies and immunizations. There are no new pertinent drug-drug interactions at this time. Therapeutic goal(s): Engage is treatment for OUD, reduce cravings, avoid withdrawal symptoms Adherence: Patient is adherence to therapy. PCC activities reviewed. No adherence concerns identified. Side effects/toxicities: Patient reports no side effects. Assessment: According to chart note in scans, patient reports withdrawal symptoms at the end of the dosing interval. Also behavioral health services reports that patient disclosed that he has recently relapsed. He continues to engage in treatment. Brixadi dose increase to help with cravings/withdrawal symptoms. Follow-up planned: - Clinic appointment: per Taz Iqbal - Pharmacist Follow up: twice yearly or sooner as needed ARTI WILSON RPH documented in this encounter Plan of Treatment Not on file documented as of this encounter Visit Diagnoses Not on filedocumented in this encounter Discontinued Medications Medication Sig Discontinue Reason Start Date End Da te buprenorphine (BRIXADI) 24 mg/0.48 mL solution, extended rel syringe Inject 24 mg into the skin once a week. Daily Max: 24 mg Dose adjustment 07/14/2023 documented as of this encounter Historical Medications * This list may reflect changes made after this encounter. Medication Sig Dispensed Refills Start Date End Date buprenorphine (BRIXADI) 32 mg/0.64 mL solution, extended rel syringe Inject 32 mg into the skin once a week. Daily Max: 32 mg 08/29/2023 added in this encounter Care Teams Full Charge Bookkeeper Relationship Specialty Start Date End Date Unknown, Provider, PCP - General 09/26/16 documented as of this encounter
--- OUTSIDE RECORDS SUMMARY | 2024-03-23 15:20 | XMS_ITS ---
Author Organization [facility] Address [address] [place] [address] Care Team Providers Care Er Rn Name Role Phone Unknown, Provider Primary Care Provider Addiction Medicine Status:Enrolled (Active) Start date:05/21/2023 Enrollment date:05/21/2023 Enrollment reason:Referred by provider Current support & services provided:Clinical Management, Refill Management, Clinic Administered Medication Linked medications:buprenorphine (Active) Linked problems:Opioid use disorder (Active) Overview [place]: [phone] Case Team Name Relationship Phone Arti Rose [facility] Pharmacist(Responsible Staff) Continued Care and Services Coordination
--- OUTSIDE RECORDS SUMMARY | 2024-03-23 15:20 | XMS_ITS | Encounter Summary ---
Author Organization [facility] Address [address] [place] [address] Care Team Providers Care Bag Bundler Name Role Phone Unknown, Provider Primary Care Provider Encounter Details Date Type Department Care Team (Latest Contact Info) Description 08/12/2023 Specialty Pharmacy [facility] [address] [place], [place] [id number] Arti Rose RPH Refill Coordination Outreach for [...] as of this encounter Progress Notes * Arti Rose RPH - 08/12/2023 1216 EST [facility] called from [facility]. Mike received Brixadi injection 08/01 - first monthly 128 mg injection (was previously getting Brixadi weekly without a problem) and about 8-9 days later noticed an injection site reaction vs other type reaction or infection. Patient describes a red area about quarter size around the injection site. The injection area is swollen and there is a palpable lump. It is trending in the right direction. The clinic is monitoring closely. Patient does not have latex or soy allergy. Reported to [facility]. Arti Rose, PharmD (she/her) Pillar Worker Pharmacist [facility] Specialty Pharmacy 08/12/2023 documented in this encounter Plan of Treatment Not on file documented as of this encounter Visit Diagnoses Not on filedocumented in this encounter Care Teams Bag Bundler Relationship Specialty Start Date End Date Unknown, Provider, PCP - General 09/26/16 documented as of this encounter
--- OUTSIDE RECORDS SUMMARY | 2024-03-23 15:20 | XMS_ITS | Encounter Summary ---
Author Organization [facility] Address [address] [place] [address] Care Team Providers Care Copping Machine Operator Name Role Phone Unknown, Provider Primary Care Provider Encounter Details Date Type Department Care Team (Late st Contact Info) Description 04/26/2021 Lab Requisition [facility] Pathology & Laboratory Medicine - [address] [address] Outr Resulting Lab, Provider Social History Tobacco [...] Procedure Name Priority Date/Time Associated Diagnosis Comments ZZCOVID-19 TEST [facility] PCR Today 04/25/2021 21:30 EDT COVID-19 TESTING Routine 04/25/2021 21:3 0 EDT documented in this encounter Results * COVID-19 TEST [facility] PCR (04/25/2021 21:30 EDT) Swab ENTIRE NASOPHARYNX / Unknown 04/25/2021 21:30 EDT 04/26/2021 16:09 EDT Provider Outr Resulting Lab MICROBIOLOGY - GENERAL ORDERABLES [facility] [address] [place] [address] * COVID-19 TESTING (04/25/2021 21:30 EDT) COVID-19 rt-PCR Result Negative Negative 04/27/2021 14:16 EDT [facility] Comment: This test has not been FDA cleared or approved. This test has been authorized by FDA under an EUA for use by authorized laboratories. This test has been authorized only for detection of nucleic acid from 2019-nCoV, not for any other viruses or pathogens. This test is only authorized for the duration of the declaration that circumstances exist justifying the authorization of emergency use of in vitro diagnostic tests for detection and/or diagnosis of 2019-nCoV under section 564(b)(1) of Act, 21 U.S.C ?? 360bbb-3(b) (1), unless the authorization is terminated or revoked sooner. Negative results do not preclude 2019-nCoV infection and should not be used as the sole basis for treatment or other patient management decisions. Negative results must be combined with clinical observations, patient history, and epidemiological information. This test was developed and its performance characteristics determined by [facility]. It has not been cleared or approved by the US Food and Drug Administration. FDA does not require this test to go through premarket FDA review. This test is used for clinical purposes. It should not be regarded as investigational or for research. This laboratory is certified under the Clinical Laboratory Improvement Amendments (CLIA) as qualified to perform high complexity clinical laboratory testing. This test is based on the [facility] COVID-19 Emergency Use Authorization (EUA) assay, with minor modification as defined by the FDA Performed on the Applied [employer]e Therapeuticso 7 Pro RT-PCR System. Performing Lab [facility] 04/27/2021 14:16 EDT [facility] Swab 04/25/2021 21:3 0 EDT 04/26/2021 16:09 EDT Provider Outr Resulting Lab MICROBIOLOGY - GENERAL ORDERABLES [facility] [address] [place] [address] documented in this encounter Visit Diagnoses Not on filedocumented in this encounter Care Teams Copping Machine Operator Relationship Specialty Start Date End Date Unknown, Provider, PCP - General 09/26/16 documented as of this encounter
--- OUTSIDE RECORDS SUMMARY | 2024-03-23 15:20 | XMS_ITS | Encounter Summary ---
Author Organization [facility] Address [address] [place] [address] Care Team Providers Care Nuclear Technologist Name Role Phone Unknown, Provider Primary Care Provider [phone] Encounter Details Date Type Department Care Team (Latest Contact Info) Description 10/17/2023 Specialty Pharmacy [facility] [address] [place], [place] [address] Arti Rose RPH Refill Coordination Outreach for [...] on filedocumented in this encounter Care Teams Nuclear Technologist Relationship Specialty Start Date End Date Unknown, Provider, PCP - General 09/26/16 documented as of this encounter
--- OUTSIDE RECORDS SUMMARY | 2024-03-23 15:20 | XMS_ITS | Encounter Summary ---
Author Organization [facility] Address [address] [place] [address] Care Team Providers Care Entry Engineer Name Role Phone Fauzia Nelson MD Primary Care Provider Encounter Details Date Type Department Care Team (Late st Contact Info) Description 09/24/2016 Results Only [facility] [phone] Alexandr Jarrell MD [facility] [place] [address] Social History Tobacco Use Types Packs/Day Years Used Date Smoking Tobacco: Never Assessed Sex and Gender Information Value Date Recorded Sex Assigned at Not on file Gender Identity Not on file Sexual Orientation Not on file documented as of this encounter Plan of Treatment Not on file documented as of this encounter Procedures Procedure Name Priority Date/Time Associated Diagnosis Comments SURGICAL PATHOLOGY Routine 09/24/2016 9:04 EDT documented in this encounter Results * SURGICAL PATHOLOGY (09/24/2016 9:04 EDT) Pathology Report: SURGICAL PATHOLOGY REPORT Reports generated via electronic interface contain original data; however they are lacking the format of the original report. Caution should be taken when reading/interpret ing unformatted reports. Name: ? JASBIR GUILLERMO ? Accession #: ? [id number] ? : ? 1975 (Age: 41) ??M ? Collect Date: ? 09/24/2016 ? Location: ? [facility] ? Receive Date: ? 09/25/2016 ? Provider: ALEXANDR JARRELL MD Copy to: ? Final Pathologic Diagnosis: Nasal contents, nasal septal deviation, curettage: - Fragments of cartilage and bone, consistent nasal septum. Gross only. Document reviewed and electronically signed by: ELZBIETA BENSON MD Report ??Date: 09/30/2016 11:08 By the signature above, the attending physician certifies that he/she has personally conducted a gross and/or microscopic examination of the described specimens and rendered or confirmed the above diagnosis. Specimen(s) Received: Fragments of cartilage and bone Clinical History: Nasal septal dev Gross Description: ? Received in formalin labelled with proper patient identification (initials S, A) and fragments of cartilage and bone, septoplasty are multiple irregular fragments of light subramanian-dark brown cartilaginous and bony tissues measuring 3.2 x 1.5 x 0.7 cm in aggregate. Soft tissue is not identified. No sections are submitted. ??Gross only. OLY Almonte (ASCP) 09/25/2016 11:02 AM End of Report [facility] 09/24/2016 9:04 EDT 09/25/2016 9:04 EDT Alexandr Jarrell MD PATHOLOGY ORDERABLES Performing Organization Address City/State/[facility] Co de Phone Number [facility] [address] [place] [address] documented in this encounter Visit Diagnoses Not on filedocumented in this encounter Care Teams Entry Engineer Relationship Specialty Start Date End Date Fauzia Nelson MD PCP - General 07/08/14 09/25/16 documented as of this encounter
--- OUTSIDE RECORDS SUMMARY | 2024-03-23 15:20 | XMS_ITS | Encounter Summary ---
Author Organization [facility] Address [address] [place] [address] Care Team Providers Care Lead Care Manager Name Role Phone Unknown, Provider Primary Care Provider [phone] Encounter Details Date Type Department Care Team (Latest Contact Info) Description 07/21/2023 Specialty Pharmacy [facility] [address] [place], [place] [address] Arti Rose RPH Clinical Follow-up (2x annually) for Addiction Medicine, Refill Coordination Outreach for Addiction Medicine Social [...] encounter Progress Notes * Deborah Salcido - 07/21/2023 1243 EST Prescription Receipt by [facility] Date Received: 07/25/2023 Medication: Brixadi Provider: Kelsi Santizo Provider Phone number: [phone] [facility] Clinic: Addiction Services Comments: script received, uploaded to scans and processes through insurance. Prescription copy available in scans: YES Relevant clinical documents in scans (if applicable): YES Routed to appropriate Pharmacist: YES [facility]: [phone] documented in this encounter Plan of Treatment Not on file documented as of this encounter Visit Diagnoses Not on filedocumented in this encounter Care Teams Lead Care Manager Relationship Specialty Start Date End Date Unknown, Provider, PCP - General 09/26/16 documented as of this encounter
--- OUTSIDE RECORDS SUMMARY | 2024-03-23 15:20 | XMS_ITS | Encounter Summary ---
Author Organization [facility] Address [address] [place] [address] Care Team Providers Care Due Diligence Coordinator Name Role Phone Unknown, Provider Primary Care Provider Encounter Details Date Type Department Care Team (Latest Contact Info) Description 08/14/2023 Specialty Pharmacy [facility] [address] [place], [place] [address] Arti Rose RPH Refill Coordination Outreach for [...] on filedocumented in this encounter Care Teams Due Diligence Coordinator Relationship Specialty Start Date End Date Unknown, Provider, PCP - General 09/26/16 documented as of this encounter
--- OUTSIDE RECORDS SUMMARY | 2024-03-23 15:20 | XMS_ITS | Encounter Summary ---
Author Organization [facility] Address [address] [place] [address] Care Team Providers Care Associate Professor Physician Name Role Phone Unknown, Provider Primary Care Provider [phone] Encounter Details Date Type Department Care Team (Latest Contact Info) Description 06/17/2023 Specialty Pharmacy [facility] [address] [place], [place] [address] Arti Rose RPH Refill Coordination Outreach for [...] on filedocumented in this encounter Care Teams Associate Professor Physician Relationship Specialty Start Date End Date Unknown, Provider, PCP - General 09/26/16 documented as of this encounter
--- OUTSIDE RECORDS SUMMARY | 2024-03-23 15:20 | XMS_ITS | Encounter Summary ---
Author Organization [facility] Address [address] [place] [address] Care Team Providers Care Orthodontic Treatment Coordinator Name Role Phone Unknown, Provider Primary Care Provider Encounter Details Date Type Department Care Team (Latest Contact Info) Description 09/22/2023 Specialty Pharmacy [facility] [address] [place] [address] Arti Wilson RPH Refill Coordination Outreach for [...] of this encounter Progress Notes * Arti Wilson RPH - 09/22/2023 1352 EDT [facility] Specialty Pharmacy [facility] Follow Up Assessment Patient: Mike Guillermo Therapy: Brixadi for OUD Follow-up complete via: Other Contacted via: Telephone - spoke with nurse Nelli at [facility] Goals of therapy: Engage in treatment for OUD, reduce cravings, avoid withdrawal symptoms Labs evaluated: Unable to assess - outside provider, outside lab Medication reconciliation completed. Patient-reported medication changes: 0 Pertinent drug-drug interactions: >1 Clinically relevant drug-drug interactions identified: sertraline, doxepin- no interventions needed- patient tolerating and will monitor for sedation Adherence: Nurse reports patient adherence to injections and appointments Side effects/toxicities identified: No Progress Towards Therapeutic Benefit/Goal(s): Therapeutic benefit/goal(s) achieved Comment: Denies cravings and withdrawal symptoms Therapy Plan: Expectations/outcomes of therapy: Engage in treatment for OUD, reduce cravings, avoid withdrawal symptoms Appropriate to continue current therapy. Assessment: Goal(s) of therapy: Engage in treatment for OUD, reduce cravings, avoid withdrawal symptoms Progress towards Therapeutic Benefit/Goal(s): Therapeutic benefit/goal(s) achieved Comment - Progress: Denies cravings and withdrawal symptoms Follow-up planned: - Laboratory monitoring: LFTs and UDS per clinic protocol - Next clinic appointment: Visit date not found - Next pharmacist assessment will be completed in approximately 6 months to evaluate patient???s response to therapy, side effects, changes in their medications/allergies, drug interactions, and adherence. ARTI WILSON RPH 10/17/2023 documented in this encounter Plan of Treatment Not on file documented as of this encounter Visit Diagnoses Not on filedocumented in this encounter Care Teams Orthodontic Treatment Coordinator Relationship Specialty Start Date End Date Unknown, Provider, PCP - General 09/26/16 documented as of this encounter
--- OUTSIDE RECORDS SUMMARY | 2024-03-23 15:20 | XMS_ITS | Encounter Summary ---
Author Organization [facility] Address [address] [place] [address] Care Team Providers Care Field Services Director Name Role Phone Unknown, Provider Primary Care Provider [phone] Encounter Details Date Type Department Care Team (Latest Contact Info) Description 08/29/2023 Specialty Pharmacy [facility] [address] [place], [place] [address] Arti Rose RPH Refill Coordination Outreach for Addiction Medicine, [...] Start Date End Da te buprenorphine (BRIXADI) 32 mg/0.64 mL solution, extended rel syringe Inject 32 mg into the skin once a week. Daily Max: 32 mg Dose adjustment 08/29/2023 documented as of this encounter Historical Medications * This list may reflect changes made after this encounter. Medication Sig Dispensed Refills Start Date End Date buprenorphine (BRIXADI) 128 mg/0.36 mL solution, extended rel syringe Inject 128 mg into the skin every 28 days. Daily Max: 128 mg added in this encounter Care Teams Field Services Director Relationship Specialty Start Date End Date Unknown, Provider, PCP - General 09/26/16 documented as of this encounter
--- OUTSIDE RECORDS SUMMARY | 2024-03-23 15:20 | XMS_ITS | Encounter Summary ---
Author Organization [facility] Address [address] [place] [address] Care Team Providers Care Mechanical Engineering Coop Name Role Phone Fauzia Nelson MD Primary Care Provider Reason for Visit * Reason Onset Date Comments Appointment Related 09/30/2014 NO SHOW AND CX HISTORY Encounter Details Date Type Department Care Team (Late st Contact Info) Description 09/30/2014 Telephone [facility] Gastroenterology - [address] [address] Luke Deshpande MD PhD [address] [place] [address], [address] [place] [address] Appointment Related (NO SHOW AND CX HISTORY) Social History Tobacco Use Types Packs/Day Years Used Date Smoking Tobacco: Never Assessed Sex and Gender Information Value Date Recorded Sex Assigned at Not on file Gender Identity Not on file Sexual Orientation Not on file documented as of this encounter Miscellaneous Notes * Telephone Encounter - Elyse Garg - 09/30/2014 1524 EDT Patient is not to be rescheduled with our office. Patient has no showed and cx five times. I have let Dr. Fauzia Nelson's office know. documented in this encounter Plan of Treatment Not on file documented as of this encounter Visit Diagnoses Not on filedocumented in this encounter Care Teams Mechanical Engineering Coop Relationship Specialty Start Date End Date Fauzia Nleson MD PCP - General 07/08/14 09/25/16 documented as of this encounter
--- OUTSIDE RECORDS SUMMARY | 2024-03-23 15:20 | XMS_ITS | Encounter Summary ---
Author Organization [facility] Address [address] [place] [address] Care Team Providers Care Emergency Medical Technician/Driver Name Role Phone Unknown, Provider Primary Care Provider [phone] Encounter Details Date Type Department Care Team (Latest Contact Info) Description 06/26/2023 Specialty Pharmacy [facility] [address] [place], [place] [phone] Arti Rose RPH Refill Coordination Outreach for Addiction Medicine, Initial Clinical Follow-up (by 6 weeks) for Addiction Medicine Social History Tobacco Use [...] encounter Progress Notes * Deborah Salcido - 06/26/2023 8776 EST Prescription Receipt by [facility] Date Received: 06/26/2023 Medication: Brixadi Sent by: [facility]: [facility] Provider: [facility] Phone number: [phone] Benefits Investigation Results: Comments: script received, uploaded to scans and profiled. Script is refill too soon until 07/01/2023. Prescription copy available in scans: YES Relevant clinical documents in scans (if applicable): YES Routed to appropriate Pharmacist: YES [facility] Specialty Pharmacy: [phone] * Shannan San RPH - 06/26/2023 3559 EST [facility] Specialty Pharm[facility] Medication Therapy Follow Up: Mike Guillermo is a 47 y.o. male being treated with brixadi 24mg subcutaneous weekly for OUD. Contact Method for Follow Up: Telephone I completed a complete review of the patient's current medical record, including medications, allergies and immunizations. There are pertinent drug-drug interactions at this time w/ sertraline and doxepin- no interventionsrequired at this time, patient will monitor for drowsiness Therapeutic goal(s): Engage is treatment for OUD, reduce cravings, avoid withdrawal symptoms Adherence: Patient reports adherence to therapy. PCC activities reviewed. No adherence concerns identified. Side effects/toxicities: Patient reports No side effects. Education Provided: None Assessment: Mike Guillermo is meeting goals of therapy and therapeutic benefit is tolerating Brixadi and wishes to continue injections Follow-up planned: - Clinic appointment: TBD- outside clinic outside provider - Pharmacist Follow up: ~ 6 months - Laboratory monitoring: per clinical protocol - Next refill due: 07/01/23 SHANNAN SAN RPH documented in this encounter Plan of Treatment Not on file documented as of this encounter Visit Diagnoses Not on filedocumented in this encounter Care Teams Emergency Medical Technician/Driver Relationship Specialty Start Date End Date Unknown, Provider, PCP - General 09/26/16 documented as of this encounter
== END 2024-03-23 15:36 ==
LOC: DI 15:17
PROVIDERS: PCP Nurse Practitioner; Visit Provider Nurse Practitioner
DX: R05.9 Cough, unspecified (principal)
CPT/HCPCS: 71046

== ENCOUNTER 2024-03-25 01:23 | Outpatient (CLI) | payer MEDICAID, SELFPAY ==
--- NOTE | 2024-03-25 08:00 | DI.MAMMO_ITS ---
Exam(s) US BREAST LT COMPLETE US BREAST RT COMPLETE MG MAMMO DIAGNOSTIC BI EXAM: MG MAMMO DIAGNOSTIC BI CLINICAL HISTORY: bilat lumps, family h/o breast ca,gynecomastia,n63.0. COMPARISON: US US BREAST RT COMPLETE from 03/25/2024 TECHNIQUE: Craniocaudal and mediolateral oblique Full Field Digital Mammography views of both breast s with Computer Aided Diagnosis followed by Tomosynthesis and bilateral breast ultrasound. FINDINGS: Mammography/Tomosynthesis: Masses/Architectural Distortion: None seen. Significant symmetric bilateral breast tissue developme nt. Microcalcifications: No suspicious pleomorphic-type are seen. Skin Thickening/Nipple Retraction: None. Bilateral breast US: Echotexture: glandular tissue in the subareolar regions bilaterally.. Shadowing: No suspicious foci. Cyst: None. Solid lesions: None seen. Ductal dilation: None. IMPRESSION: 1. No evidence of malignancy is noted. Findings consistent with bilateral gynecomastia. BI-RADS Category 2 - Benign Findings Breast Density - Category C - Heterogeneously dense Breast density category C or D implies that the patient has dense breast tissue. Dense breast tissue is very common and is not abnormal but dense breast tissue can make it harder to find cancer on a ma mmogram. Also, dense breast tissue may increase their breast cancer risk. This information about the result of the mammogram report was provided to the patient to raise their awareness. Use this report when you speak with the patient about their risks for breast cancer, which includes their family hist ory. At that time, you may recommend for more screening tests (Ultrasound or MRI) as they might be us eful based on their risk. A negative radiographic report should not delay biopsy if a dominant or clinically suspicious mass is present. Up to ten percent of cancers are not identified on mammography. A negative report may reinforce clinical impression. Adenosis and dense breasts may obscure an underlying neoplasm. False positive reports average 6 to 10%. Patient will receive a letter notifying them of these results.
== END 2024-03-25 01:43 ==
LOC: DI 01:23
PROVIDERS: PCP Nurse Practitioner; Visit Provider Nurse Practitioner
DX: N63.20 Unspecified lump in the left breast, unspecified quadrant (principal); N63.10 Unspecified lump in the right breast, unspecified quadrant; Z80.3 Family history of malignant neoplasm of breast
CPT/HCPCS: 76642; 77062; 77066; G0279

== ENCOUNTER 2024-05-26 01:45 | Outpatient (CLI) | payer MEDICAID, SELFPAY ==
--- NOTE | 2024-05-26 11:35 | DI.MRI_ITS ---
Exam(s) MR UPPER JOINT RT WO EXAM: MR UPPER JOINT RT WO CLINICAL HISTORY: chronic R shoulder pain, decreased ROM,stiffness rt shoulder,m25.611,m25.51. TECHNIQUE: Multiplanar multisequence MRI was performed. COMPARISON: None. FINDINGS: Exam was interpreted without benefit of comparison plain films. BONES: There is no fracture or contusion pattern. JOINTS:The acromioclavicular joint shows minimal spurring. The glenohumeral joint shows severe degenerative changes, with joint space narrowing and cartilage th inning, greater posteriorly and inferiorly. There are subchondral cysts in the posterior glenoid. The re is spurring at the glenoid. Minimal joint effusion. TENDONS: Supraspinatus: Unremarkable. Infraspinatus: Unremarkable. Subscapularis: Unremarkable. Teres Minor: Unremarkable. Biceps and [place]: Unremarkable. MUSCLES: Unremarkable. GLENOID LABRUM: Severe degeneration of the posterior labrum. SOFT TISSUES: Unremarkable. BURSAE: Subacromial and subdeltoid bursae shows minimal fluid. Small amount of fluid is present in t he sub coracoid bursa.. 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 No evidence of rotator cuff tear. DATA REPOSITORY:
== END 2024-05-26 02:05 ==
LOC: DI 01:46
PROVIDERS: PCP Nurse Practitioner; Visit Provider Nurse Practitioner
DX: M19.011 Primary osteoarthritis, right shoulder (principal)
CPT/HCPCS: 73221

== ENCOUNTER 2024-07-07 15:59 | Outpatient (CLI) | payer MEDICAID, SELFPAY ==
--- NOTE | 2024-07-07 11:00 | DI.RAD_ITS ---
Exam(s) XR SHOULDER RT COMPLETE 2+V EXAM: XR SHOULDER RT COMPLETE 2+V CLINICAL HISTORY: arthrits. TECHNIQUE: 2D digital imaging was performed. Two views. COMPARISON: No exams were available for comparison FINDINGS: BONES: No acute fracture is present. No bony destructive lesion is seen. JOINTS: No dislocation present. Mild narrowing of the glenohumeral joint space. Spurring at the gle noid greater inferiorly. The AC joint is unremarkable. SOFT TISSUE: Normal. IMPRESSION: Moderate degenerative changes of the glenohumeral joint. DATA REPOSITORY: RADIATION DOSE DELIVERED:
== END 2024-07-07 16:00 | disposition home or self-care (01) ==
LOC: DIORS 15:59
PROVIDERS: PCP Nurse Practitioner; Visit Provider Student in an Organized Health Care Education/Training Program
DX: M19.011 Primary osteoarthritis, right shoulder (principal)
CPT/HCPCS: 73030

== ENCOUNTER 2024-07-12 01:32 | Outpatient (CLI) | payer MEDICAID, SELFPAY ==
--- NOTE | 2024-07-12 07:00 | DI.MRI_ITS ---
Exam(s) MR LUMBAR SPINE WO EXAM: MR LUMBAR SPINE WO CLINICAL HISTORY: Worsening recurrent LUMBAR BACK PAIN,LT LEG NUMBNESS,RADICULOPATHY,PARS. TECHNIQUE: Multiplanar multisequence MRI of the Lumbar spine was performed. COMPARISON: CT CT THORACIC LUMBAR SPINE REC from 11/09/2023 FINDINGS: Conus medullaris is at normal level. There is no evidence of conus mass nor subjacent clumping of in trathecal nerve roots to suggest arachnoiditis. The distal thecal sac appears unremarkable.There is no evidence of Tarlov intrasacral cysts nor other significant findings within the sacral canal Bones:There is an anterior wedge compression fracture of L4 which was not evident on CT images 4 and exhibit surrounding bone edema. This fractures does not involve the posterior cortex of the L4 vertebral body. There is also 1 cm anterolisthesis L5 upon S1 due to bilateral pars defects, as evident on prior CT s can of October 2023. See below. With respect to the individual levels... T12-L1: Unremarkable L1-2: Normal disc height and signal. No disc herniation nor central canal stenosis.No foraminal steno sis L2-3: Normal disc height. No disc herniation nor central canal stenosis.No foraminal stenosis.No face t arthropathy. L3-4: Normal disc height. There is symmetrical posterior annular bulging without a dominant disc her niation. Central canal dimensions are lower normal. The annular bulging extends into the floor of t he bilateral exiting neural foramina but there is no significant foraminal stenosis on either side.Fa cet joints appear unremarkable at this level. L4-5: This level exhibits normal disc height. Posteriorly there is mild central annular bulging. Th ere is also asymmetric annular bulging into the floor of the exiting right neural foramen at this lev el. This results in mild right-sided foraminal stenosis. No foraminal stenosis on the opposite-lef t side. There are mild degenerative changes in the facet joints at this level. L5-S1: This level exhibits advanced disc space narrowing and 1 cm anterolisthesis of L5 upon S1 relat ed to bilateral pars defects and there are also Modic type 1 sub endplate marrow edema changes on bot h sides of this disc space. There is also vacuum phenomena M seen within the diminished disc space. The anterior slippage of L5 upon S1 results in increased AP dimension of the canal. However, there is significant compression of the exiting nerve roots bilaterally at this level, this related to the lateral recesses being carried forward by the listhesis as well as the disc height loss at this level . This results in severe compression of the exiting nerve roots between the overlying pedicles and t he subjacent pseudo herniation of the annulus at this level. There are only mild degenerative change s in the facet joints at this level. Soft tissues: paraspinal soft tissues appear unremarkable. IMPRESSION: 1. There is in anterior predominantly left of center wedge compression fracture of L4 vertebral body. Although there is only approximately 10-20 percent height loss, there is significant edema in the s urrounding marrow of the L4 vertebral body indicating that this is acute or subacute and indeed this was not evident on images of an abdominal CT scan performed 11/09/2023. Fracture does not extend to the posterior cortex and there is no significant canal stenosis at this level. 2. Also at L4-5 level is asymmetric annular bulging in the floor of the exiting right neural foramen with mild asymmetric right-sided foraminal stenosis at this level. 3. There is severe compression of the exiting nerve roots bilaterally at L5-S1 level at the level of the exiting neural foramina, this related to the lateral recesses being carried forward by the chroni c listhesis of L5 upon S1 at this left (there are bilateral pars interarticularis defects at L5 level ) as well as significant disc height loss at this level. DATA REPOSITORY:
== END 2024-07-12 01:52 ==
LOC: DI 01:32
PROVIDERS: PCP Nurse Practitioner; Visit Provider Nurse Practitioner
DX: M43.06 Spondylolysis, lumbar region (principal)
CPT/HCPCS: 72148

== ENCOUNTER 2024-07-16 00:53 | Outpatient (CLI) | payer MEDICAID, SELFPAY ==
--- OUTSIDE RECORDS SUMMARY | 2024-07-16 00:56 | XMS_ITS | Encounter Summary ---
Author Organization [facility] Address [address] [place] [address] Care Team Providers Care Remedial Project Manager Name Role Phone Unknown, Provider Primary Care Provider Unava ilable Encounter Details Date Type Department Care Team (Latest Contact Info) Description 09/22/2023 Specialty Pharmacy [facility] [address] [place], [place] [phone] Arti Wilson RPH Refill Coordination Outreach for Addiction Medicine, Clinical Follow-up (2x annually) for Addiction Medicine Social History Tobacco Use Types Packs/Day Years Used Date Smoking Tobacco: Never Assessed Interpersonal Safety Answer Date Record ed Physically Hurt Never 01/23/2020 Verbally Threaten Not on file 01/23/2020 Sex and Gender Information Value Date Recorded Sex Assigned at Not on file Legal Sex Male 18:04 EST Gender Identity Not on file Sexual Orientation Not on file documented as of this encounter Progress Notes * Arti Wilson RPH - 09/22/2023 1352 EDT [facility] Specialty Pharmacy [facility] Follow Up Assessment Patient: Mike Guillermo Therapy: [facility] for OUD Follow-up complete via: Other Contacted via: Telephone - spoke with nurse Nelli at [facility] Goals of therapy: Engage in treatment for [...] on filedocumented in this encounter Care Teams Remedial Project Manager Relationship Specialty Start Date End Date Unknown, Provider, PCP - General 09/26/16 documented as of this encounter
--- OUTSIDE RECORDS SUMMARY | 2024-07-16 00:56 | XMS_ITS | Encounter Summary ---
Author Organization [facility] Address [address] [place] [address] Care Team Providers Care Taxi Proprietor Name Role Phone Unknown, Provider Primary Care Provider Unava ilable Encounter Details Date Type Department Care Team (Latest Contact Info) Description 08/14/2023 Specialty Pharmacy [facility] [address] [place], [place] [phone] Arti Rose RPH Refill Coordination Outreach for [...] on filedocumented in this encounter Care Teams Taxi Proprietor Relationship Specialty Start Date End Date Unknown, Provider, PCP - General 09/26/16 documented as of this encounter
--- OUTSIDE RECORDS SUMMARY | 2024-07-16 00:56 | XMS_ITS | Encounter Summary ---
Author Organization [facility] Address [address] [place] [address] Care Team Providers Care Denture Packer Name Role Phone Unknown, Provider Primary Care Provider Unava ilable Encounter Details Date Type Department Care Team (Late st Contact Info) Description 01/26/2024 Lab Requisition [facility] Pathology & Laboratory Medicine - [facility] [address] [place], [place] [id number] Outr Resulting Lab, Provider Social History Tobacco [...] gonorrhoeae Result Negative Negative 01/27/2024 14:05 EDT [facility] Chlamydia trachomatis Result Negative Negative 01/27/2024 14:05 EDT [facility] Urine URINE / Unknown 01/26/2024 1 3:00 EDT 01/26/2024 21:27 EDT us Provider Outr Resulting Lab MICROBIOLOGY - GENER AL ORDERABLES Final Result [facility] [address] [place] [address] documented in this encounter Visit Diagnoses Not on filedocumented in this encounter Care Teams Denture Packer Relationship Specialty Start Date End Date Unknown, Provider, PCP - General 09/26/16 documented as of this encounter
--- OUTSIDE RECORDS SUMMARY | 2024-07-16 00:56 | XMS_ITS | Encounter Summary ---
Author Organization [facility] Address [address] [place] [address] Care Team Providers Care Slicer Machine Operator Name Role Phone Unknown, Provider Primary Care Provider Unava ilable Encounter Details Date Type Department Care Team (Latest Contact Info) Description 07/03/2023 Specialty Pharmacy [facility] [address] [place], [place] [phone] Arti Rose RPH Refill Coordination Outreach for [...] on filedocumented in this encounter Care Teams Slicer Machine Operator Relationship Specialty Start Date End Date Unknown, Provider, PCP - General 09/26/16 documented as of this encounter
--- OUTSIDE RECORDS SUMMARY | 2024-07-16 00:56 | XMS_ITS | Clinical Summary ---
Author Organization [facility] Address [address] [place] [address] Care Team Providers Care Jet Pilot Name Role Phone Unknown, Provider Primary Care Provider Unava ilable Allergies No known active allergies Medications acetaminophen (TYLENOL) 325 mg tablet Take 650 [...] under the tongue daily. Active doxepin (SINEQUAN) 50 mg capsule Take 1 Capsule by mouth daily. Active hydrOXYzine (ATARAX) 50 mg tablet Take 1 Tablet by mouth at bedtime. 75 mg in AM and 50 in PM Active omeprazole (PRILOSEC) 20 mg capsule Take 2 Capsules by mouth daily. Active sertraline (ZOLOFT) 100 mg tablet Take 75 mg by mouth daily. Active dexmethylpheni date (FOCALIN XR) 25 mg multiphase capsule Take 1 Capsule by mouth daily. Daily Max: 25 mg Active cyclobenzaprin e (FLEXERIL) 10 mg tablet Take 1 Tablet by mouth 3 times daily as needed for Muscle Spasms. Active gabapentin (NEURONTIN) 300 mg capsule Take 1 Capsule by mouth 3 times daily as needed (anxiety). Active mirtazapine (REMERON) 15 mg tablet Take 1 Tablet by mouth at bedtime. Active lisdexamfetami ne (VYVANSE) 40 mg capsule Take 1 Capsule by mouth every morning. Daily Max: 40 mg Active buprenorphine ER (SUBLOCADE) 300 mg/1.5 mL solution, extended rel syringe Inject 1.5 mL into the skin every 28 days. Daily Max: 300 mg Active buprenorphine (BRIXADI) 128 mg/0.36 mL solution, extended rel syringe Inject 128 mg into the skin every 28 days. Daily Max: 128 mg 024 Discontinued Active Problems Patient Care Coordination No te Formatting of this note migh t be different from the original. Currently resides at: [facility]. [address] [address]. Problem Noted Date Diagnosed Date Opioid use disorder 05/21/2023 Encounters Date Type Department Care Team Description 07/01/2024 Specialty Pharmacy [facility] [address] [place] [address] Hortencia Navas RPH Therapy Change for Addiction Medicine 06/21/2024 Specialty Pharmacy [facility] [address] [place] [address] Catherine Stuart RPH Therapy Change: Education for Addiction Medicine, Therapy Change: Prospective for Addiction Medicine 06/03/2024 Specialty Pharmacy [facility] [address] [place] [address] Catherine Stuart RPH Refill Coordination Outreach for Addiction Medicine 05/07/2024 Specialty Pharmacy [facility] [address] [place] [address] Catherine Stuart RPH Refill Coordination Outreach for Addiction Medicine from [...] - 19+ 3-dose series) 1993 COVID-19 Vaccine (2023- season) 2024 Hepatitis C Screen Completed 01/26/2024, 01/26/2024 Procedures Procedure Name Priority Date/Time Associated Diagnosis Comments HEPATITIS C AB W REFLEX TO HCV RNA BY PCR Routine 01/26/2024 13:00 EDT from Last 3 Months or Most Recently Relevant to Health Maintenance Results * (ABNORMAL) HEPATITIS C AB W REFLEX TO HCV RNA BY PCR (01/26/2024 13:00 EDT) Hep C Antibody Reactive(A ) Negative 01/27/2024 10:[address] [facility] Comment: Supplemental testing for HCV RNA is ordered to rule out active HCV infection. Blood VENOUS BLOOD / Unknown 01/26/2024 13:00 EDT 01/26/2024 21:23 EDT us Provider Outr Resulting Lab CHEMISTRY & BLOOD GA S ORDERABLES Final Result [facility] [address] [place] [address] from Last 3 Months or Most Recently Relevant to Health Maintenance [place] [address] [address] [place] [address] MEDICAID [place] Care Teams Jet Pilot Relationship Specialty Start Date End Date Unknown, Provider, PCP - General 09/26/16
--- OUTSIDE RECORDS SUMMARY | 2024-07-16 00:56 | XMS_ITS | Encounter Summary ---
Author Organization [facility] Address [address] [place] [address] Care Team Providers Care Wrapping Machine Helper Name Role Phone Unknown, Provider Primary Care Provider Unava ilable Encounter Details Date Type Department Care Team (Latest Contact Info) Description 01/06/2024 Specialty Pharmacy [facility] [address] [place], [place] [address] Arti Rose RPH Refill Coordination Outreach for [...] on filedocumented in this encounter Care Teams Wrapping Machine Helper Relationship Specialty Start Date End Date Unknown, Provider, PCP - General 09/26/16 documented as of this encounter
--- OUTSIDE RECORDS SUMMARY | 2024-07-16 00:56 | XMS_ITS | Referral Summary ---
Author Organization [facility] Address [address] [place] [address] Care Team Providers Care Mine Laborer Name Role Phone Unknown, Provider Primary Care Provider Unava ilable Encounters Date Type Department Care Team Description 07/01/2024 Specialty Pharmacy [facility] [address] [place], [place] [phone] Hortencia Navas RPH Therapy Change for Addiction Medicine 06/21/2024 Specialty Pharmacy [facility] [address] [place], [place] [address] Catherine Stuart RPH Therapy Change: Education for Addiction Medicine, Therapy Change: Prospective for Addiction Medicine 06/03/2024 Specialty Pharmacy [facility] [address] [place] [phone] Catherine Stuart RPH Refill Coordination Outreach for Addiction Medicine 05/07/2024 Specialty Pharmacy [facility] [address] [place], [place] [phone] Catherine Stuart RPH Refill Coordination Outreach for Addiction Medicine from Last 3 Months Allergies No known active allergies Medications acetaminophen [...] different from the original. Currently resides at: [facility]. [facility] [place] [address]. Problem Noted Date Diagnosed Date Opioid use [...] Antibody Reactive(A ) Negative 01/27/2024 10:08 EDT [facility] Comment: Supplemental testing for HCV RNA is ordered to rule out active HCV infection. Blood VENOUS BLOOD / Unknown 01/26/2024 13:00 EDT 01/26/2024 21:23 EDT us Provider Outr Resulting Lab CHEMISTRY & BLOOD GA S ORDERABLES Final Result [facility] [address] [place] [address] from Last 3 Months or Most Recently Relevant to Health Maintenance Insurance [facility] Member Subscriber Plan / Payer (Ef fective 2022-Present) Name:Mike Guillermo Relation to Subscriber:Self Name:Mike Guillermo Payer ID:Not on file Group ID:Not on file Type:Public Agency GL Address: ATTN: [facility] [address] [place] [id number] MEDICAID [place] Care Teams Mine Laborer Relationship Specialty Start Date End Date Unknown, Provider, PCP - General 09/26/16
--- OUTSIDE RECORDS SUMMARY | 2024-07-16 00:56 | XMS_ITS | Encounter Summary ---
Author Organization [facility] Address [address] [place] [address] Care Team Providers Care Consumer Product Advisor Name Role Phone Unknown, Provider Primary Care Provider Unava ilable Encounter Details Date Type Department Care Team (Latest Contact Info) Description 05/07/2024 Specialty Pharmacy [facility] [address] [place], [place] [phone] Catherine Stuart RPH Refill Coordination Outreach for [...] on filedocumented in this encounter Care Teams Consumer Product Advisor Relationship Specialty Start Date End Date Unknown, Provider, PCP - General 09/26/16 documented as of this encounter
--- OUTSIDE RECORDS SUMMARY | 2024-07-16 00:56 | XMS_ITS | Encounter Summary ---
Author Organization [facility] Address [address] [place] [address] Care Team Providers Care Transitional Studies Instructor Name Role Phone Unknown, Provider Primary Care Provider Unava ilable Encounter Details Date Type Department Care Team (Latest Contact Info) Description 07/01/2024 Specialty Pharmacy [facility] [address] [place], [place] [address] Hortencia Navas RPH Therapy Change for Addiction Medicine Social History Tobacco Use [...] on filedocumented in this encounter Care Teams Transitional Studies Instructor Relationship Specialty Start Date End Date Unknown, Provider, PCP - General 09/26/16 documented as of this encounter
--- OUTSIDE RECORDS SUMMARY | 2024-07-16 00:56 | XMS_ITS | Encounter Summary ---
Author Organization [facility] Address [address] [place] [address] Care Team Providers Care Cordwood Cutter Name Role Phone Unknown, Provider Primary Care Provider Unava ilable Encounter Details Date Type Department Care Team (Late st Contact Info) Description 01/26/2024 Lab Requisition [facility] Pathology & Laboratory Medicine - [facility] [address] [place] [address] Outr Resulting Lab, Provider Social History Tobacco [...] RNA Qualitative Undetected Undetected 01/28/2024 12:30 EDT [facility] Blood VENOUS BLOOD / Unknown 01/26/2024 13:00 EDT 01/26/2024 21:23 EDT Narrative [facility] - 01/28/2024 12:30 EDT The quantification range of this assay is 15 IU/mL to 100,000,000 IU/mL. Testing was performed using the Kiara HCV test ([employer] with the kiara [id number] System. us Provider Outr Resulting Lab CHEMISTRY & BLOOD GA S ORDERABLES Final Result Performing Organization Address [facility]/ZIP Co de Phone Number [facility] [address] [place] [id number] * SYPHILIS SEROLOGY (01/26/2024 13:00 EDT) Syphilis Serology Negative Negative 01/27/2024 10:22 EDT [facility] Blood VENOUS BLOOD / Unknown 01/26/2024 13:00 EDT 01/26/2024 21:23 EDT us Provider Outr Resulting Lab IMMUNOLOGY AND SEROL OGY ORDERABLES Final Result Performing Organization Address [facility] Co de Phone Number [facility] [address] [place] [phone] * (ABNORMAL) HEPATITIS C AB W REFLEX TO HCV RNA BY PCR (01/26/2024 13:00 EDT) Hep C Antibody Reactive(A ) Negative 01/27/2024 10:08 EDT [facility] Comment: Supplemental testing for HCV RNA is ordered to rule out active HCV infection. Blood VENOUS BLOOD / Unknown 01/26/2024 13:00 EDT 01/26/2024 21:23 EDT us Provider Outr Resulting Lab CHEMISTRY & BLOOD GA S ORDERABLES Final Result Performing Organization Address [facility] Co de Phone Number [facility] [address] [place] [phone] documented in this encounter Visit Diagnoses Not on filedocumented in this encounter Care Teams Cordwood Cutter Relationship Specialty Start Date End Date Unknown, Provider, PCP - General 09/26/16 documented as of this encounter
--- OUTSIDE RECORDS SUMMARY | 2024-07-16 00:56 | XMS_ITS | Encounter Summary ---
Author Organization [facility] Address [address] [place] [address] Care Team Providers Care Granulating Blender Name Role Phone Unknown, Provider Primary Care Provider Unava ilable Encounter Details Date Type Department Care Team (Latest Contact Info) Description 06/03/2024 Specialty Pharmacy [facility] [address] [place], [place] [address] Catherine Stuart RPH Refill Coordination Outreach for [...] on filedocumented in this encounter Care Teams Granulating Blender Relationship Specialty Start Date End Date Unknown, Provider, PCP - General 09/26/16 documented as of this encounter
--- OUTSIDE RECORDS SUMMARY | 2024-07-16 00:56 | XMS_ITS | Encounter Summary ---
Author Organization [facility] Address [address] [place] [address] Care Team Providers Care Care Analyst Name Role Phone Unknown, Provider Primary Care Provider Unava ilable Encounter Details Date Type Department Care Team (Latest Contact Info) Description 06/21/2024 Specialty Pharmacy [facility] [address], [place] [address] Catherine Stuart RPH Therapy Change: Education for Addiction Medicine, Therapy Change: Prospective for Addiction Medicine Social History Tobacco Use [...] encounter Progress Notes * Deborah Salcido - 06/21/2024 1205 EST Prescription Receipt by [facility] Date Received: 06/21/2024 Medication: Sublocade 300 mg Provider: Kelsi Santizo Provider Phone number: [phone] [facility] Program: addiction services Comments: script received, uploaded to scans and processes through insurance. PA Status: PA not required PA Exp (if applicable): Prescription copy available in scans: YES Relevant clinical documents in scans (if applicable): Yes Routed to appropriate Pharmacist: YES [facility] Specialty Pharmacy: [phone] * Emma Irene RPH - 06/21/2024 1201 EST Specialty Pharmacy Consultation: Opioid Use Disorder Medication Management: Pharmacist Initial Clinical Review for Buprenorphine ER Injection Treatment information: Clinic Contact: Nelli ( ) Buprenorphine ER Formulation: Sublocade Initial Dose: 300 mg Transmucosal Buprenorphine Dose: n/a switching from Brixadi 128 mg subcutaneous monthly Naloxone Prescribed: No REMS Requirements Met: Yes Clinic Note in Epic Scans: yes Baseline labs: Outside Provider Medications reviewed: Epic chart review, Surescripts information, and Chart notes in scans Medication reconciliation completed: No Allergies reviewed: Yes Drug Interactions and Management Plan: DDI with current medication list checked Drug-drug interactions identified: No DDIs requiring intervention Treatment Goals: Engage in OUD treatment, reduce cravings, avoid withdrawal symptoms Linda DoyleD, [facility] Pharmacist Ambulatory Clinician 06/21/2024 documented in this encounter Plan of Treatment Not on file documented as of this encounter Visit Diagnoses Not on filedocumented in this encounter Discontinued Medications Medication Sig Discontinue Reason Start Date End Da te buprenorphine (BRIXADI) 128 mg/0.36 mL solution, extended rel syringe Inject 128 mg into the skin every 28 days. Daily Max: 128 mg 06/21/2024 documented as of this encounter Historical Medications * This list may reflect changes made after this encounter. buprenorphine ER (SUBLOCADE) 300 mg/1.5 mL solution, extended rel syringe Inject 1.5 mL into the skin every 28 days. Daily Max: 300 mg lisdexamfetamine (VYVANSE) 40 mg capsule Take 1 Capsule by mouth every morning. Daily Max: 40 mg mirtazapine (REMERON) 15 mg tablet Take 1 Tablet by mouth at bedtime. gabapentin (NEURONTIN) 300 mg capsule Take 1 Capsule by mouth 3 times daily as needed (anxiety). cyclobenzaprine (FLEXERIL) 10 mg tablet Take 1 Tablet by mouth 3 times daily as needed for Muscle Spasms. added in this encounter Care Teams Care Analyst Relationship Specialty Start Date End Date Unknown, Provider, PCP - General 09/26/16 documented as of this encounter
--- OUTSIDE RECORDS SUMMARY | 2024-07-16 00:56 | XMS_ITS | Encounter Summary ---
Author Organization [facility] Address [address] [place] [address] Care Team Providers Care Job Captain Name Role Phone Unknown, Provider MD Primary Care Provider Unava ilable Encounter Details Date Type Department Care Team (Latest Contact Info) Description 12/01/2023 Specialty Pharmacy [facility] [address] [place], [place] [address] Arti Rose RPH Refill Coordination Outreach for [...] 0923 EDT Prescription Receipt by [facility] Pharm[facility] Date Received: 11/28/2023 Medication: Brixadi 128 mg Provider: Kelsi Santizo Provider Phone number: [phone] [facility] Clinic: addiction services Comments: script received, uploaded to scans and profiled. Script is refill too soon until 12/08/2023. PA Status: PA not required Prescription copy available in scans: YES Relevant clinical documents in scans (if applicable): YES Routed to appropriate Pharmacist: YES [facility] Specialty Pharmacy: [phone] documented in this encounter Plan of Treatment Not on file documented as of this encounter Visit Diagnoses Not on filedocumented in this encounter Care Teams Job Captain Relationship Specialty Start Date End Date Unknown, Provider, PCP - General 09/26/16 documented as of this encounter
--- OUTSIDE RECORDS SUMMARY | 2024-07-16 00:56 | XMS_ITS | Encounter Summary ---
Author Organization [facility] Address [address] [place] [address] Care Team Providers Care Manager Intensive Care Unit Name Role Phone Unknown, Provider MD Primary Care Provider Unava ilable Encounter Details Date Type Department Care Team (Latest Contact Info) Description 07/21/2023 Specialty Pharmacy [facility] Special[facility] [address] [place], [place] [address] Arti Rose RPH Clinical Follow-up (2x annually) [...] - 07/21/2023 1243 EST Prescription Receipt by [facility] Date Received: 07/25/2023 Medication: Brixadi Provider: Kelsi Santizo Provider Phone number: [phone] [facility] Clinic: Addiction Services Comments: script received, uploaded to scans and processes through insurance. Prescription copy available in scans: YES Relevant clinical documents in scans (if applicable): YES Routed to appropriate Pharmacist: YES [facility] Specialty Pharmacy: [phone] documented in this encounter Plan of Treatment Not on file documented as of this encounter Visit Diagnoses Not on filedocumented in this encounter Care Teams Manager Intensive Care Unit Relationship Specialty Start Date End Date Unknown, Provider, PCP - General 09/26/16 documented as of this encounter
--- OUTSIDE RECORDS SUMMARY | 2024-07-16 00:56 | XMS_ITS | Encounter Summary ---
Author Organization [facility] Address [address] [place] [address] Care Team Providers Care Gis Geographer Name Role Phone Unknown, Provider Primary Care Provider Unaadia isbell Encounter Details Date Type Department Care Team (Latest Contact Info) Description 04/09/2024 Specialty Pharmacy [facility] [address] [place], [place] [id number] Arti Rose RPH Refill Coordination Outreach for [...] as of this encounter Progress Notes * Joselito Morales RPH - 04/09/2024 0842 EDT [facility] Medication Therapy Follow Up Mike Guillermo is a 48 y.o. male being treated with Brixadi 128mg injected every 28 days for Addiction. I spoke with Nelli from [facility] via phone. Assessment of the patient and benefit from Brixadi therapy are required to obtain medication reauthorization. The patient started treatment 04/2023 and will continue this therapy until lack of efficacy after an adequate medication trial or unacceptable adverse effects support discontinuation. I completed a complete review of the patient's current medical record, including medications, allergies and immunizations. Adherence: Patient has received doses 03/24/2024 The patient's next dose is due 04/21/2024 Side effects/toxicities: none Assessment: Reduced cravings? yes Any Relapses? no Withdrawal symptoms? no Education Provided: none Follow-up planned: Clinic appointment: 04/21/2024 Phone call: 10/19/2024 Next dose due: 04/21/2024 Joselito Morales PharmD Specialty Pharmacy 04/20/2024 documented in this encounter Plan of Treatment Not on file documented as of this encounter Visit Diagnoses Not on filedocumented in this encounter Care Teams Gis Geographer Relationship Specialty Start Date End Date Unknown, Provider, PCP - General 09/26/16 documented as of this encounter
--- OUTSIDE RECORDS SUMMARY | 2024-07-16 00:56 | XMS_ITS | Encounter Summary ---
Author Organization [facility] Address [address] [place] [address] Care Team Providers Care Material Control Clerk Name Role Phone Unknown, Provider Primary Care Provider Unava ilable Encounter Details Date Type Department Care Team (Latest Contact Info) Description 07/11/2023 Specialty Pharmacy [facility] [address] [place], [place] [id number] Arti Wilson RPH Refill Coordination Outreach for [...] - 07/11/2023 1632 EST Prescription Receipt by [facility] Date Received: 07/11/23 Medication: Brixadi 32mg Provider: Kelsi Szymanski NP Provider Phone number: [phone] [facility] Clinic: Addiction Medicine Comments: dose increase, $0/14d Prescription copy available in scans: YES Relevant clinical documents in scans (if applicable): YES Routed to appropriate Pharmacist: YES [facility] Specialty Pharmacy: [phone] * Arti Wilson RPH - 07/11/2023 1632 EST [facility] Specialty Pharmacy Medication Therapy Follow Up: Mike Guillermo is a 47 y.o. male being treated with Brixadi for OUD. Patient receives this medication at [facility]. Brixadi dose is increasing from 24 mg [...] symptoms. Follow-up planned: - Clinic appointment: per [facility] - Pharmacist Follow up: twice yearly or [...] reflect changes made after this encounter. buprenorphine (BRIXADI) 32 mg/0.64 mL solution, extended rel syringe Inject 32 mg into the skin once a week. Daily Max: 32 mg 08/29/2023 added in this encounter Care Teams Material Control Clerk Relationship Specialty Start Date End Date Unknown, Provider, PCP - General 09/26/16 documented as of this encounter
--- OUTSIDE RECORDS SUMMARY | 2024-07-16 00:56 | XMS_ITS | Encounter Summary ---
Author Organization [facility] Address [address] [place] [address] Care Team Providers Care Mastic Floor Layer Name Role Phone Unknown, Provider Primary Care Provider Unava ilable Encounter Details Date Type Department Care Team (Late st Contact Info) Description 03/05/[address] [facility] Pathology & Laboratory Medicine - [facility] [address] [place], [place] [id number] Outr Resulting Lab, Provider Social History Tobacco [...] 10:40 EDT) Hold Hold 03/05/2024 18:15 EDT [facility] Blood VENOUS BLOOD / Unknown 03/05/2024 10:40 EDT 03/05/2024 17:06 EDT us Provider Outr Resulting Lab LAB INFO SERVICE AND SUPPORT & PHONE RESULT Final Result [facility] [address] [place], [place] [address] * LH (03/05/2024 10:40 EDT) Luteinizing Hormone 3.8 1.5 - 9.3 mIU/mL 03/05/2024 18:08 EDT [facility] Blood VENOUS BLOOD / Unknown 03/05/2024 10:40 EDT 03/05/2024 17:05 EDT us Provider Outr Resulting Lab CHEMISTRY & BLOOD GA S ORDERABLES Final Result Performing Organization Address [facility]/ZIP Co de Phone Number [facility] [address] [place] [address] * PROLACTIN (03/05/2024 10:40 EDT) Prolactin 5.5 2.1 - 17.7 ng/mL 03/05/2024 18:08 EDT [facility] Blood VENOUS BLOOD / Unknown 03/05/2024 10:40 EDT 03/05/2024 17:05 EDT us Provider Outr Resulting Lab CHEMISTRY & BLOOD GA S ORDERABLES Final Result Performing Organization Address [facility]/ZIP Co de Phone Number [facility] [address] [place], [place] [phone] * ESTRADIOL, ADULTS (03/05/2024 10:40 EDT) Estradiol 24 <40 pg/mL 03/05/2024 17:55 EDT [facility] Blood VENOUS BLOOD / Unknown 03/05/2024 10:40 EDT 03/05/2024 17:05 EDT us Provider Outr Resulting Lab CHEMISTRY & BLOOD GA S ORDERABLES Final Result Performing Organization Address City/[facility]/ZIP Co de Phone Number [facility] [address] [place], [place] [phone] * (ABNORMAL) DHEA SULFATE (03/05/2024 10:40 EDT) DHEA Sulfate 113(L) 136 - 448 ug/dL 03/08/2024 10:11 EDT [facility] Blood VENOUS BLOOD / Unknown 03/05/2024 10:40 EDT 03/05/2024 17:05 EDT us Provider Outr Resulting Lab CHEMISTRY & BLOOD GA S ORDERABLES Final Result Performing Organization Address [facility]/ZIP Co de Phone Number [facility] [address] [place], [place] [phone] documented in this encounter Visit Diagnoses Not on filedocumented in this encounter Care Teams Mastic Floor Layer Relationship Specialty Start Date End Date Unknown, Provider, PCP - General 09/26/16 documented as of this encounter
--- OUTSIDE RECORDS SUMMARY | 2024-07-16 00:56 | XMS_ITS | Encounter Summary ---
Author Organization [facility] Address [address] [place] [address] Care Team Providers Care An/Sqq 89(V)15 Sonar System Journeyman Name Role Phone Unknown, Provider Primary Care Provider Unava ilable Encounter Details Date Type Department Care Team (Latest Contact Info) Description 02/13/2024 Specialty Pharmacy [facility] [address] [place], [place] [address] Arti Rose RPH Refill Coordination Outreach for [...] on filedocumented in this encounter Care Teams An/Sqq 89(V)15 Sonar System Journeyman Relationship Specialty Start Date End Date Unknown, Provider, PCP - General 09/26/16 documented as of this encounter
--- OUTSIDE RECORDS SUMMARY | 2024-07-16 00:56 | XMS_ITS | Encounter Summary ---
Author Organization [facility] Address [address] [place] [address] Care Team Providers Care Financial Sales Assistant Name Role Phone Unknown, Provider Primary Care Provider Unaadia ilham Encounter Details Date Type Department Care Team (Latest Contact Info) Description 08/29/2023 Specialty Pharmacy [facility] [address] [place], [place] [address] Arti Rose RPH Refill Coordination Outreach for [...] changes made after this encounter. buprenorphine (BRIXADI) 128 mg/0.36 mL solution, extended rel syringe Inject 128 mg into the skin every 28 days. Daily Max: 128 mg 06/21/2024 added in this encounter Care Teams Financial Sales Assistant Relationship Specialty Start Date End Date Unknown, Provider, PCP - General 09/26/16 documented as of this encounter
--- OUTSIDE RECORDS SUMMARY | 2024-07-16 00:56 | XMS_ITS | Encounter Summary ---
Author Organization [facility] Address [address] [place] [address] Care Team Providers Care Hard Candy Batch Mixer Name Role Phone Unknown, Provider Primary Care Provider Unava ilable Encounter Details Date Type Department Care Team (Late st Contact Info) Description 01/26/2024 Lab Requisition [facility] Pathology & Laboratory Medicine - [facility] [address] [place] [address] Outr Resulting Lab, Provider Social [...] 4th Generation Negative Negative 01/27/2024 10:00 EDT [facility] Comment:If acute HIV-1 infec tion is suspected in a high risk patient, submit plasma specimen for HIV-1 RNA quantitation test. Blood VENOUS BLOOD / Unknown 01/26/2024 13:00 EDT 01/26/2024 21:23 EDT Narrative [facility] - 01/27/2024 10:00 EDT Fourth Generation assay performed on the Siemens Centaur XPT. us Provider Outr Resulting Lab IMMUNOLOGY AND SEROL OGY ORDERABLES Final Result [facility] [address] [place] [id number] documented in this encounter Visit Diagnoses Not on filedocumented in this encounter Care Teams Hard Candy Batch Mixer Relationship Specialty Start Date End Date Unknown, Provider, PCP - General 09/26/16 documented as of this encounter
--- OUTSIDE RECORDS SUMMARY | 2024-07-16 00:56 | XMS_ITS | Encounter Summary ---
Author Organization [facility] Address [address] [place] [address] Care Team Providers Care Boom Truck Driver Name Role Phone Unknown, Provider MD Primary Care Provider Unava ilable Encounter Details Date Type Department Care Team (Latest Contact Info) Description 02/26/2024 Specialty Pharmacy [facility] [address] [place], [place] [address] Arti Rose RPH Refill Coordination Outreach for [...] - 02/26/2024 1155 EDT Prescription Receipt by [facility] Date Received: 02/26/2024 Medication: Brixadi 128 mg Provider: Kelsi Santizo Provider Phone number: [phone] [facility] Clinic: addiction services Comments: script received, uploaded to scans and profiled. Script is refill too soon until 03/05/2024. PA Status: PA not required Prescription copy available in scans: YES Relevant clinical documents in scans (if applicable): Yes Routed to appropriate Pharmacist: YES [facility] Specialty Pharmacy: [phone] documented in this encounter Plan of Treatment Not on file documented as of this encounter Visit Diagnoses Not on filedocumented in this encounter Care Teams Boom Truck Driver Relationship Specialty Start Date End Date Unknown, Provider, PCP - General 09/26/16 documented as of this encounter
--- OUTSIDE RECORDS SUMMARY | 2024-07-16 00:56 | XMS_ITS | Encounter Summary ---
Author Organization [facility] Address [address] [place] [address] Care Team Providers Care Preassembler And Inspector Name Role Phone Unknown, Provider Primary Care Provider Unava ilable Encounter Details Date Type Department Care Team (Latest Contact Info) Description 08/12/2023 Specialty Pharmacy [facility] [address] [place], [place] [phone] Arti Rose RPH Refill Coordination Outreach for [...] 08/12/2023 1216 EST AR Aiken called from [facility]. Mike received Brixadi injection 08/01 - first [...] have latex or soy allergy. Reported to [employer]. Arti Rose, PharmD (she/her) Sql Bi Developer Pharmacist [facility] Specialty Pharmacy 08/12/2023 documented in this encounter Plan of Treatment Not on file documented as of this encounter Visit Diagnoses Not on filedocumented in this encounter Care Teams Preassembler And Inspector Relationship Specialty Start Date End Date Unknown, Provider, PCP - General 09/26/16 documented as of this encounter
--- OUTSIDE RECORDS SUMMARY | 2024-07-16 00:56 | XMS_ITS | Encounter Summary ---
Author Organization [facility] Address [address] [place] [address] Care Team Providers Care Quality Compliance Manager Name Role Phone Unknown, Provider Primary Care Provider Unava ilable Encounter Details Date Type Department Care Team (Latest Contact Info) Description 06/26/2023 Specialty Pharmacy [facility] [address] [place], [place] [phone] Arti Rose RPH Refill Coordination Outreach for [...] Progress Notes * Deborah Salcido - 06/26/2023 150 EST Prescription Receipt by [facility] Specialty Pharmacy Date Received: 06/26/2023 Medication: Brixadi Sent by: Kelsi Santizo [facility]: [facility] Provider: Kelsi Santizo [facility] Phone number: [phone] Benefits Investigation Results: Comments: script received, uploaded to scans and profiled. Script is refill too soon until 07/01/2023. Prescription copy available in scans: YES Relevant clinical documents in scans (if applicable): YES Routed to appropriate Pharmacist: YES [facility] Specialty Pharmacy: [phone] * Shannan San RPH - 06/26/2023 1507 EST [facility] Special[facility] Pharm[facility] Medication Therapy Follow Up: Mike [...] on filedocumented in this encounter Care Teams Quality Compliance Manager Relationship Specialty Start Date End Date Unknown, Provider, PCP - General 09/26/16 documented as of this encounter
--- OUTSIDE RECORDS SUMMARY | 2024-07-16 00:56 | XMS_ITS | Encounter Summary ---
Author Organization [facility] Address [address] [place] [address] Care Team Providers Care Granulating Blender Name Role Phone Unknown, Provider Primary Care Provider Unava ilable Encounter Details Date Type Department Care Team (Latest Contact Info) Description 11/13/2023 Specialty Pharmacy [facility] [address] [place], [place] [address] Arti Rose RPH Refill Coordination Outreach for [...]
--- OUTSIDE RECORDS SUMMARY | 2024-07-16 00:56 | XMS_ITS | Encounter Summary ---
Author Organization [facility] Address [address] [place] [address] Care Team Providers Care Credit Consultant Name Role Phone Unknown, Provider Primary Care Provider Unava ilable Encounter Details Date Type Department Care Team (Latest Contact Info) Description 10/17/2023 Specialty Pharmacy [facility] [address] [place], [place] [address] Arti Rose RPH Refill Coordination Outreach for [...] on filedocumented in this encounter Care Teams Credit Consultant Relationship Specialty Start Date End Date Unknown, Provider, PCP - General 09/26/16 documented as of this encounter
--- OUTSIDE RECORDS SUMMARY | 2024-07-16 00:57 | XMS_ITS | Encounter Summary ---
Author [place] [address] Care Team Providers Care Diesel Service Apprentice Name Role Phone Fauzia Nelson MD Primary Care Provider + Encounter Details Date Type Department Care Team (Late st Contact Info) Description 02/07/2021 Telephone [place] [phone] Kevyn Santana L Social History Tobacco Use Types Packs/Day Years Used Date Smoking Tobacco: Former e-Cigarettes Smokeless Tobacco: Never Sex and Gender Information Value Date Recorded Sex Assigned at Not on file Gender Identity Not on file Sexual Orientation Not on file documented as of this encounter Miscellaneous Notes * Telephone Encounter - Santana Bagley - 02/07/2021 4:42 PM EDT Mike Guillermo [id number] Diagnosis/Indication: cirrhosis, screen for varices 1. Have you ever had a/an Upper Endoscopy before? No 2. Do you take any blood thinners or have you been diagnosed with a bleeding disorder that increases your risk of bleeding with procedures? No 3. Do you have a Pacemaker or Defibrillator device? No 4. Are you a diabetic? No 5. Do you have any Allergies to Eggs, Latex or Medications? No 6. Do you take any Oral Iron Supplements (Including multi-vitamins)? No 7. Do you have a history of three or more abdominal surgeries? No 8. Have you had a problem with sedation or anesthesia? No 9. Do you use a c-pap machine or oxygen tank? Neither 10. Do you take prescription narcotic pain medications, including suboxone or methodone? Yes 11. Do you have a preference regarding the gender of your provider? No Preference 12. Is there any other information you would like to us to note for the provider and nursing team who will perform your case? No 13. Say to patient: You must have a responsible constitution party who will drive you to your procedure, stay [place] for the entire duration of your procedure, and drive you home from your procedure? *Please Verify the height and weight, and adjust if height and/or weight have changed* Estimated body mass index is 31.66 kg/m?? as calculated from the following: Height as of 04/29/18: 185.4 cm (6' 1). Weight as of 12/26/20: 108.9 kg (240 lb). Age:45 y.o. documented in this encounter Plan of Treatment Not on file documented as of this encounter Goals Goal Patient Goal Type Associated Problems Recent Progress Patient-Stated? Author Home Medication Compliance and Understanding Patient Facing Action Plan No Marilou Sood [facility] Note: SVR12 through treatment with Mavyret. Home Medication Compliance and Understanding Patient Facing Action Plan On track(2020 12:44 PM EDT) No Lesli Palomino [facility] Note: SVR12 through treatment with Mavyret x 8 weeks documented as of this encounter Visit Diagnoses Not on filedocumented in this encounter Care Teams Diesel Service Apprentice Relationship Specialty Start Date End Date Fauzia Nelson MD PCP - General Family Medicine 12/26/20 04/17/22 documented as of this encounter
--- OUTSIDE RECORDS SUMMARY | 2024-07-16 00:57 | XMS_ITS | Encounter Summary ---
Author Organization [facility] Address [address] [place] [address] Care Team Providers Care Inventory Control Associate Name Role Phone Fauzia Nelson MD Primary Care Provider Encounter Details Date Type Department Care Team (Latest Contact Info) Description 09/24/2016 8:41 EDT - 09/24/2016 23:59 EDT Hospital Encounter [address] [address] Unknown, Provider, MD Discharge Disposition: Home or Self Care Social History Tobacco Use Types Packs/Day Years Used Date Smoking Tobacco: Never Assessed Sex and Gender Information Value Date Recorded Sex Assigned at Not on file Legal Sex Male 18:04 EST Gender Identity Not on file Sexual Orientation Not on file documented as of this encounter Discharge Disposition Disposition Code Departure Means Destination Home or Self [facility] documented in this encounter Plan of Treatment Not on file documented as of this encounter Visit Diagnoses Not on filedocumented in this encounter Care Teams Inventory Control Associate Relationship Specialty Start Date End Date Fauzia Nelson MD PCP - General 07/08/14 09/25/16 documented as of this encounter
--- OUTSIDE RECORDS SUMMARY | 2024-07-16 00:57 | XMS_ITS | Encounter Summary ---
[place] [address] Care Team Providers Care Bowl Topper Name Role Phone Fauzia Nelson MD Primary Care Provider + Encounter Details Date Type Department Care Team (Late st Contact Info) Description 04/05/2021 [place] [address] Hortencia Blake, RN Social History Tobacco Use Types Packs/Day Years [...] Patient Facing Action Plan No Marilou Sood [facility] Note: SVR12 through treatment with Mavyret. [facility] Medication Compliance and Understanding Patient Facing Action Plan On track(2020 12:44 PM EDT) No Lesli Palomino [facility] Note: SVR12 through treatment with Mavyret x 8 weeks documented as of this encounter Visit Diagnoses Not on filedocumented in this encounter Care Teams Bowl Topper Relationship Specialty Start Date End Date Fauzia Nelson MD PCP - General Family Medicine 12/26/20 04/17/22 documented as of this encounter
--- OUTSIDE RECORDS SUMMARY | 2024-07-16 00:57 | XMS_ITS | Encounter Summary ---
Author Organization [facility] Address [address] [place] [address] Care Team Providers Care Applications Tester Name Role Phone Unknown, Provider Primary Care Provider Unava ilable Encounter Details Date Type Department Care Team (Latest Contact Info) Description 06/06/[address] [facility] [address] [place], [place] [address] Arti Rose RPH Refill Coordination Outreach for [...] on filedocumented in this encounter Care Teams Applications Tester Relationship Specialty Start Date End Date Unknown, Provider, PCP - General 09/26/16 documented as of this encounter
--- OUTSIDE RECORDS SUMMARY | 2024-07-16 00:57 | XMS_ITS | Encounter Summary ---
Author Organization [facility] Address [address] [place] [address] Care Team Providers Care Manufacturing Intern Name Role Phone Fauzia Nelson MD Primary Care Provider Encounter Details Date Type Department Care Team (Late st Contact Info) Description 09/24/2016 Results Only [facility] [phone] Alexandr Jarrell MD [address] [place], [place] [address] Social History Tobacco Use Types Packs/Day Years [...] ? JASBIR GUILLERMO ? Accession #: ? [id number] ? : ? 1975 (Age: 41) ??M [...] sections are submitted. ??Gross only. OLY Almonte ([facility]) 09/25/2016 11:02 AM End of Report [facility] 09/24/2016 9:04 EDT 09/25/2016 9:04 EDT us Alexandr Jarrell MD PATHOLOGY ORDERABLES Final Resul t [facility] [address] [place] [address] documented in this encounter Visit Diagnoses Not on filedocumented in this encounter Care Teams Manufacturing Intern Relationship Specialty Start Date End Date Fauzia Nelson MD PCP - General 07/08/14 09/25/16 documented as of this encounter
--- OUTSIDE RECORDS SUMMARY | 2024-07-16 00:57 | XMS_ITS | Encounter Summary ---
Author Organization [facility] [place] [address] Care Team Providers Care Neonatal Nurse Practitioner Name Role Phone Fauzia Nelson MD Primary Care Provider + Encounter Details Date Type Department Care Team (Late st Contact Info) Description 04/25/2021 10:45 PM EDT Ancillary Procedure Radiology Library at [facility] [place] [phone] Fauzia Nelson MD [facility] [place] [address] Social History Tobacco Use Types Packs/Day Years [...] Patient Facing Action Plan No Marilou Sood [facility] Note: SVR12 through treatment with Mavyret. [facility] Medication Compliance and Understanding Patient Facing Action Plan On track(2020 12:44 PM EDT) No Lesli Palomino [facility] Note: SVR12 through treatment with Mavyret x 8 weeks documented as of this encounter Procedures Procedure Name Priority Date/Time Associated Diagnosis Comments FILM LIBRARY - STORAGE ONLY CT NECK Routine 04/25/2021 10:40 PM EDT documented in this encounter Results * Film Library- Storage Only CT Neck (04/25/2021 10:40 PM EDT) Narrative RAD - 04/25/2021 10:40 PM EDT This exam is auto-finalizing. It's purpose is for storage only. Fauzia Nelson MD IMG FILM LIBRARY ORDERABLES [place], [place] documented in this encounter Visit Diagnoses Not on filedocumented in this encounter Care Teams Neonatal Nurse Practitioner Relationship Specialty Start Date End Date Fauzia Nelson MD PCP - General Family Medicine 12/26/20 04/17/22 documented as of this encounter
--- OUTSIDE RECORDS SUMMARY | 2024-07-16 00:57 | XMS_ITS | Encounter Summary ---
[place] [address] Care Team Providers Care Rn Digestive Name Role Phone Fauzia Nelson MD Primary Care Provider + Encounter Details Date Type Department Care Team (Late st Contact Info) Description 04/18/2022 Telephone [place] [phone] León Wong PA [address] [place] [address] [place] [address] Social History Tobacco Use Types Packs/Day Years Used Date Smoking Tobacco: Former e-Cigarettes Smokeless Tobacco: Never Comments:vaping nicotine Alcohol Use Standard Drinks/Week Comments Not Currently 0 (1 standard drink = 0.6 oz pur e alcohol) 1/5 a day Sex and Gender Information Value Date Recorded Sex Assigned at Not on file Gender Identity Not on file Sexual Orientation Not on file documented as of this encounter Plan of Treatment Not on file documented as of this encounter Goals Goal Patient Goal Type Associated Problems Recent Progress Patient-Stated? Author Home Medication Compliance and Understanding Patient Facing Action Plan No Marilou Sood [facility] Note: SVR12 through treatment with Mavyret. [facility] Medication Compliance and Understanding Patient Facing Action Plan On track(2020 12:44 PM EDT) No Lesli Palomino [facility] Note: SVR12 through treatment with Mavyret x 8 weeks documented as of this encounter Visit Diagnoses Not on filedocumented in this encounter Care Teams Rn Digestive Relationship Specialty Start Date End Date Fauzia Nelson MD [address] [place] [address] PCP - General Family Medicine 04/18/22 11/10/23 documented as of this encounter
--- OUTSIDE RECORDS SUMMARY | 2024-07-16 00:57 | XMS_ITS | Encounter Summary ---
Author Organization [facility] Address [address] [place] [address] Care Team Providers Care Beck Tender Name Role Phone Unknown, Provider Primary Care Provider Unava ilable Reason for Visit * Reason Comments Chronic Kidney Disease * Consult (Routine) - Receiving Office to Obtain Authorization Specialty Diagnoses / Procedures Referred By Contty t Referred To Contact Diagnoses KERWIN (acute kidney injury) ([facility]) Zach Rooney PA-C [address] [place] [address] Phone: tel: [facility] [address] [address] Phone: tel: fax: Referral ID Status Reason Start Date Expiration Date Visits Requested Visits Authorized [id number] Receiving Office to Obtain Authorization 1 1 Encounter Details Date Type Department Care Team (Late st Contact Info) Description 11/25/2022 13:00 EDT Telemedicine [facility] [address] [address] Glenna Garcia MD [address] [place] [address] Rehab, Level 2 [place] [address] Chronic kidney disease, unspecified CKD [...] daily - Follow up with hepatology at [facility] (appointment was supposed to be in September 2022) - Limit sodium to 2-3 grams/day - Next visit in [place] in March; I will have ordered labs [...] Facility Patient location state: Visit Location State: [place] The location of the provider: Office Provider location state: Visit Location State: [place] The following people and their roles were [...] cirrhosis for 3-4 years. Followed by a inspector materials and processes at [facility] (treatment started in 2018with Mavyret) which was [...] Mother's brother had skin cancer Social History [facility] (has been there ~ 1.5 years; will be there another 4-5 months [employer]) Schooling - high school ([employer]) Living with daughter before being arrested; will [...] daily - Follow up with hepatology at [facility] (appointment was supposed to be in September 2022) - Limit sodium to 2-3 grams/day - Next visit in [place] in March; I will need to order [...] may reflect changes made after this encounter. sertraline (ZOLOFT) 100 mg tablet Take 75 mg by mouth daily. omeprazole (PRILOSEC) 20 mg capsule Take 2 Capsules by mouth daily. hydrOXYzine (ATARAX) 50 mg tablet Take 1 Tablet by mouth at bedtime. 75 mg in AM and 50 in PM doxepin (SINEQUAN) 50 mg capsule Take 1 [...] 05/21/2023 added in this encounter Care Teams Beck Tender Relationship Specialty Start Date End Date Unknown, Provider, PCP - General 09/26/16 documented as of this encounter
--- OUTSIDE RECORDS SUMMARY | 2024-07-16 00:57 | XMS_ITS | Encounter Summary ---
Author Organization [facility] Address [address] [place] [address] Care Team Providers Care Color Specialist Name Role Phone Unknown, Provider Primary Care Provider Unava ilable Reason for Visit * Reason Onset Date Comments Other 11/26/2022 Encounter Details Date Type Department Care Team (Late st Contact Info) Description 11/26/2022 Telephone [facility] Nephrology - [address] [phone] Angelica Acosta, RN [address] [place] [address] Other Social History Tobacco Use Types Packs/Day [...] on filedocumented in this encounter Care Teams Color Specialist Relationship Specialty Start Date End Date Unknown, Provider, PCP - General 09/26/16 documented as of this encounter
--- OUTSIDE RECORDS SUMMARY | 2024-07-16 00:57 | XMS_ITS | Encounter Summary ---
Author Organization [facility] [place] [address] Care Team Providers Care Sales Administration Manager Name Role Phone Crystal Cruz MD Primary Care Provider [phone] Reason for Referral * Surgical (Routine) - Pending Review Specialty Diagnoses / Procedures Referred By Dorita arambula Referred To Contact Gastroenterology Diagnoses Screening for unspecified condition HX OF REACTIVE DUODENITIS Crystal Cruz MD [address] [place] [address] [place] [address] [facility] [address] [place] [address] Referral ID Status Reason Start Date Expiration Date Visits Requested Visits Authorized [id number] Pending Review Test Only PCP Updated and/or Approved 11/11/2023 11/10/2024 1 1 Encounter Details Date Type Department Care Team (Latest Contact Info) Description 11/11/2023 Transcribe Orders eDH Incoming Referrals [phone] Crystal Cruz MD [address] [place] [address] [place] [address] Screening for unspecified condition Social History Tobacco Use Types Packs/Day Years [...] as of this encounter Plan of Treatment Scheduled Referrals Name Type Priority Associated Diagnoses Orde r Schedule REFERRAL TO COLONOSCOPY PROCEDURE Outpatient Referral Routine Screening for unspecified condition Ordered: 11/11/2023 documented as of this encounter Goals Goal Patient Goal Type Associated Problems Recent Progress Patient-Stated? Author Home Medication Compliance and Understanding Patient Facing Action Plan No Marilou Sood [facility] Note: SVR12 through treatment with Mavyret. Home Medication Compliance and Understanding Patient Facing Action Plan On track(2020 12:44 PM EDT) No Lesli Palomino [facility] Note: SVR12 through treatment with Mavyret x 8 weeks documented as of this encounter Visit Diagnoses Diagnosis Screening for unspecified condition documented in this encounter Care Teams Sales Administration Manager Relationship Specialty Start Date End Date Crystal Cruz MD [address] [place] [address] [place] [address] PCP - General Family Medicine 11/11/23 03/30/24 documented as of this encounter
--- OUTSIDE RECORDS SUMMARY | 2024-07-16 00:57 | XMS_ITS | Encounter Summary ---
Author Organization [facility] [place] [address] Care Team Providers Care Neon Glass Blower Name Role Phone Fauzia Nelson MD Primary Care Provider + Reason for Visit * Reason Onset Date Comments Medication Refill 01/29/2021 Encounter Details Date Type Department Care Team (Late st Contact Info) Description 01/29/2021 Refill Gastroenterology at [facility] [place] [address] León Wong PA [address] [place] [address] [place] [address] Chronic hepatitis C without hepatic coma Social History Tobacco Use Types Packs/Day Years Used Date Smoking Tobacco: Former e-Cigarettes Smokeless Tobacco: Never Sex and Gender Information Value Date Recorded Sex Assigned at Not on file Gender Identity Not on file Sexual Orientation Not on file documented as of this encounter Miscellaneous Notes * Telephone Encounter - Hortencia Blake RN - 01/29/2021 10:00 AM EDT HCV pt ready for treatment with Mavyret x 8 weeks: GT 1a VL 714,797 IU/mL F4 on Fibroscan/fibrosis panel (compensated) HIV neg HBcAb neg (2018) Looking at his labs and realizing now that he has [place] [facility], he probably needs updated HBcAb. documented in this encounter Plan of Treatment Not on file documented as of this encounter Goals Goal Patient Goal Type Associated Problems Recent Progress Patient-Stated? Author [facility] Medication Compliance and Understanding Patient Facing Action Plan No Marilou Sood, [facility] Note: SVR12 through treatment with Mavyret. documented as of this encounter Visit Diagnoses Diagnosis Chronic hepatitis C without hepatic coma documented in this encounter Care Teams Neon Glass Blower Relationship Specialty Start Date End Date Fauzia Nelson MD PCP - General Family Medicine 12/26/20 04/17/22 documented as of this encounter
--- OUTSIDE RECORDS SUMMARY | 2024-07-16 00:57 | XMS_ITS | Encounter Summary ---
Author Organization [facility] Address [address] [place] [address] Care Team Providers Care Juvenile Court Judge Name Role Phone Unknown, Provider Primary Care Provider Unava ilable Encounter Details Date Type Department Care Team (Latest Contact Info) Description 06/17/2023 Specialty Pharmacy [facility] [address] [place], [place] [address] Arti Rose RPH Refill Coordination Outreach for [...] on filedocumented in this encounter Care Teams Juvenile Court Judge Relationship Specialty Start Date End Date Unknown, Provider, PCP - General 09/26/16 documented as of this encounter
--- OUTSIDE RECORDS SUMMARY | 2024-07-16 00:57 | XMS_ITS | Encounter Summary ---
[place] [address] Care Team Providers Care Environmental Conservation Professor Name Role Phone Fauzia Nelson MD Primary Care Provider + Reason for Visit * Reason Comments Medication Management Patient Education Encounter Details Date Type Department Care Team (Late st Contact Info) Description 01/30/2021 Specialty [place] [address] Lesli Palomino RPH Social History Tobacco Use Types Packs/Day Years Used Date Smoking Tobacco: Former e-Cigarettes Smokeless Tobacco: Never Sex and Gender Information Value Date Recorded Sex Assigned at Not on file Gender Identity Not on file Sexual Orientation Not on file documented as of this encounter Progress Notes * Lesli Palomino RPH - 01/30/2021 12:05 PM EDT Specialty Pharmacy Consultation; Lesli Palomino RPH Comprehensive Medication Management (CMM) Mike Guillermo Diagnosis: HCV Therapy Start Date: TBD Contact in person or via telephone: Telephone Mr. Mike Guillermo is a 45 y.o. (1975) male who was contacted in regard to specialty medication. Spoke with patient regarding MAVYRET . A review of the medication therapy was performed. The medication was Filled as scheduled, and all medication related questions and concerns were addressed.The specialty pharmacy staff will follow up with the patient around day 3 of therapy to assess tolerability and adherence. Is the patient willing to proceed with the Clinical Assessment? Yes Summary and Recommendations: Mike Guillermo was contacted regarding approval of Hepatitis C treatment with Mavyret. We discussed the medication and treatment process in detail. He understands to take 3 tablets once daily withfood, at the same time each day for a total of 8 weeks. The importance of adherence was stressed, and I recommended a phone alarm reminder to help with adherence. Medications were reconciled and I do not see any clinically significant interaction. However, patient takes 40 mg of omeprazole once daily. Per the [place] Interaction Perfect Binder Setter: Coadministration ofglecaprevir/pibrentasvir and omeprazole (20 mg once daily) decreased glecaprevir Cmax and AUC by 22% and 29%. Coadministration of glecaprevir/pibrentasvir and omeprazole (40 mg once daily taken 1 hour before breakfast) decreased glecaprevir Cmax and AUC by 64% and 51%. When omeprazole was administered in the evening without food, glecaprevir Cmax and AUC decreased by 46% and 49%. Despite the decrease in glecaprevir exposure with omeprazole there is no change in pibrentasvir exposure and, therefore, virological suppression is expected to be maintained. The SPC for glecaprevir/pibrentasvir indicates that no dose adjustment is required and the [place] Prescribing Information indicates no clinically significant interaction and no dose adjustment required. I did not tell the patient to dec rease omeprazole dose based on this information, but I will make the provider aware of potential decrease in glecaprevir exposure. Additionally, I spoke to patient about his alcohol intake. Patient recently started acamprosate, and reports no change in current alcohol intake of 4 cocktails daily. We reviewed common side effects and mitigation strategies, as well as the lab schedule. He is awarethat he needs SVR12 labs for assessment of cure. Need to follow up with prescriber to confirm lab schedule. We are filling the Mavyret and mailing it out to him. He was asked to notify us when he starts so we can follow-up accordingly. No recommendations at this time. Clinic Follow-up needed: yes - SVR12, need to confirm with prescriber about additional labs. Allergies and Drug intolerance: No Known Allergies Problem List: Patient Active Problem List Diagnosis Code ??? Chronic hepatitis C without hepatic coma B18.2 ??? Habitual alcohol use Z72.89 ??? Overweight E66.3 ??? Hypertension I10 ??? Gastroesophageal reflux K21.9 ??? Sleep apnea G47.30 ??? Low back pain, non-specific M54.5 ??? Eczema L30.9 ??? Migraine G43.909 ??? Cigarette smoker F17.210 ??? History of intravenous drug abuse F19.11 ??? Opioid dependence F11.20 Special Dietary or Hydration Requirements: yes - Take with food There is no height or weight on file to calculate BMI. Medication Reconciliation Discrepancies (compared to [facility] med list) -No longer taking gabapentin -Omeprazole is 40mg once daily Medication Adherence Demonstrates understanding of importance of adherence: yes Informant: patient Reliability of informant: reliable Provider-estimated medication adherence level: 90-100% Reasons for non-adherence: no problems identified Adherence tools used: directed education Support network for adherence: healthcare provider Confirmed plan for next specialty medication refill: delivery by pharmacy Refills needed for supportive medications: not needed Medication List: Current Outpatient Medications Medication Sig Dispense Refill ??? glecaprevir-pibrentasvir (Mavyret) 100-40 mg Tablet Take 3 tablets by mouth daily. 84 tablet 1 ??? SUMAtriptan (IMITREX STATDOSE) 6 mg/0.5 mL Pen Injector GIVE ONE INJCETION AT FIRST SIGN OF HEADACHE MAY REPEAT IN TWO HOURS IF NEEDED ??? acamprosate DR (Campral) 333 mg Tablet, Delayed Release (E.C.) Take 2 tablets by mouth 3 times daily. 180 tablet 2 ??? omeprazole (PriLOSEC) 40 mg Capsule, Delayed Release(E.C.) Take 40 mg by mouth daily. ??? buprenorphine-naloxone (SUBOXONE) 12-[address] 1 Film under the tongue daily. No current facility-administered medications for this visit. Most Recent Vitals: Ht Readings from Last 1 Encounters: 04/29/18 185.4 cm (6' 1) Wt Readings from Last 3 Encounters: 12/26/20 108.9 kg (240 lb) 04/29/18 99 kg (218 lb 3.2 oz) Temp Readings from Last 3 Encounters: No data found for Temp BP Readings from Last 3 Encounters: 12/26/20 (!) 145/93 04/29/18 126/69 Pulse Readings from Last 3 Encounters: 12/26/20 95 04/29/18 69 Pertinent Lab values: Lab Results Component Value Date NA 140 12/26/2020 K 3.7 12/26/2020 CL 100 12/26/2020 CO2 27 12/26/2020 BUN 7 (L) 12/26/2020 CREATININE 0.75 (L) 12/26/2020 GLUCOSE 108 12/26/2020 CALCIUM 9.1 12/26/2020 Lab Results Component Value Date ALT 211 (H) 12/26/2020 AST 449 (H) 12/26/2020 ALKPHOS 94 12/26/2020 BILITOT 1.1 12/26/2020 ALBUMIN 4.1 12/26/2020 PROT 8.6 (H) 12/26/2020 Lab Results Component Value Date WBC 4.7 12/26/2020 HGB 14.8 12/26/2020 HCT 42.8 12/26/2020 MCV 93.0 12/26/2020 PLATELET 109 (L) 12/26/2020 No results found for: HA1C There is no immunization history on file for this patient. Assessment and Recommendations: Title Type of Medication Management: chronic disease management, targeted medication review Referred By: provider Recipient: beneficiary Provider: plan sponsor pharmacist Visit Type: [facility] New Pt Method of Contact: by telephone Cognitive Ability: good Cognitive Impairment Status Verified this Year: no Drug Interactions Provided the patient with educational material regarding drug interactions: yes Patient Counseling Counseled the patient on the following: reviewed medication changes since last visit, medication safety precautions education provided, drug interaction education provided to patient, doses and administration discussed, safe handling, storage, and disposal discussed, possible adverse effects and management discussed, possible drug and prescription drug interactions discussed, possible drug and OTC drug and food interactions discussed, lab monitoring and follow-up discussed, therapeutic rationale discussed, cost of medications and cost implications discussed, adherence and missed doses discussed, pharmacy contact information discussed, health goals discussed, monitoring medication discussed, over the counter products discussed, preventative care discussed, reminder to refill or orange picker medication discussed, start medication discussed, timing of medications discussed, lifestyle modification education, referral needs discussed Drug Medication Management Summary Topics discussed: reviewed medication changes since last visit, medication safety precautions education provided, drug interaction education provided to patient, doses and administration discussed, safe handling, storage, and disposal discussed, possible adverse effects and management discussed, possible drug and prescription drug interactions discussed, possible drug and OTC drug and food interactions discussed, lab monitoring and follow-up discussed, therapeutic rationale discussed, cost of medications and cost implications discussed, adherence and missed doses discussed, pharmacy contact information discussed, health goals discussed, monitoring medication discussed, over the counter products discussed, preventative care discussed, reminder to refill or orange picker medication discussed, start medication discussed, timing of medications discussed, lifestyle modification education, referral needs discussed Treatment Outcomes 01/30/2021 1212 Disease progression: Stable Reviewed in detail with patient: Dose appropriateness based on recommended standard dosing Current medication list including OTC medications Medication and disease problems Allergies Comorbid conditions/ Problem List Past adverse events if any Special needs of the patient including physical and cognitive limitations Goals of therapy and management strategies Warnings, precautions, and contraindications Side effects Drug-drug and drug-food interactions Administration instructions including dose, frequency and method Handling, storage, and disposal Verifying expiration dates on products before use Rotating medication inventory to use oldest product first Relevant lab data Treatments impact on disease Dose appropriateness based on recommended standard dosing schedule, including any variations from FDA approved dosing Patient verbalizes understanding and is able to read-back instructions on self-administration/injection, proper storage, drug stability, importance of adherence and management strategies, side effectavoidance and mitigation strategies, and interruptions in therapy: Yes Physical and Cognitive Assessment: Functional limitations identified: no Cognitive limitations identified: no Concern regarding orientation/memory: no Concern with reasoning/judgement: no Is patient a fall risk: no Other needed information: no Social Assessment: Does the patient have a primary health care sanitary technician? no Does the patient have an emergency contact on file: Yes Does patient need referral to social work nurse: No Does patient need referral to advocacy group: No Home Health Assessment: Is the patient in a safe home environment? Yes Is the patient able to store their medication as directed? Yes Does the patient have a support network at home? Yes Reviewed potential home safety hazards with patient: Yes Economic Assessment: Patient is agreeable to medication copay: Yes Copay Amount: $3.00 Day Supply: 28 Date Needed: New Start Copay assistance required: no Therapy Assessment: Current Medication Dosing/Route/Frequency: Mavyret 100-40 mg take 3 tablets by mouth once daily with food x8 weeks Appropriate Therapy: Yes Genotype: 1a Treatment Naive/Experienced: Naive Fibrosis Score: F4 (compensated) HX of liver transplant: No HBV Coinfection: No HIV Coinfection: No Patient's Problems/Needs: Treatment of HepC - adherence to medication regimen and lab monitoring schedule Expected Outcome: SVR12 Patient's goals: Patient's specific desired goal: SVR12 Measured by: HepC viral load 12 weeks post-treatment Time-frame to meet goal: 12 weeks post-treatment Care Plan Reviewed and Approved by both Pharmacist and Patient: Yes Interventions (if applicable): No N/a Additional care/services needed: no Educational information or adherence tools provided: Yes HCV therapy adherence: Yes HCV treatment response: Yes Additional equipment/supplies required: no Monitoring requirements for prescribed medication: Monitor efficacy, safety, tolerability Monitor CBC, CMP, HepC viral load week 4, end of treatment, 3 and 6 months post-treatment Patient Counseling: Lab schedule reviewed: Yes Verbalized understanding to call office before start: Yes Pharmacist follow-up needed: Yes Patient Satisfaction with care/services provided: Yes Informed patient of specialty pharmacy services: Yes -Patient will be provided with welcome packet: Yes Date to be provided: TBD Delivery Method: Mail -Patient will be provided with Rights & Responsibilities: Yes Date to be provided: TBD Delivery Method: Mail -Patient is aware a licensed pharmacist is available 24 hours a day, 7 days a week to discuss medication-related questions or concerns: Yes -Patient verbalizes understanding of the common side effect profile of their medication. The patient is able to call 911 or seek urgent care if signs/symptoms of allergy or harmful adverse reactions occur: Yes Patient Satisfaction with Therapy: yes - No concerns Patient understands no changes to current drug regimen were made at the appointment and that [facility] isprov[facility] recommendations (summary located at top of note) for provider review and follow up. Lesli Palomino RPH 01/30/21 12:13 PM documented in this encounter Plan of Treatment Not on file documented as of this encounter Goals Goal Patient Goal Type Associated Problems Recent Progress Patient-Stated? Author RYAN Home Medication Compliance and Understanding Patient Facing Action Plan No Marilou Sood [facility] Note: SVR12 through treatment with Mavyret. Home Medication Compliance and Understanding Patient Facing Action Plan On track(2020 12:44 PM EDT) No Lesli Palomino, [facility] Note: SVR12 through treatment with Mavyret x 8 weeks documented as of this encounter Visit Diagnoses Not on filedocumented in this encounter Care Teams Environmental Conservation Professor Relationship Specialty Start Date End Date Fauzia Nelson MD PCP - General Family Medicine 12/26/20 04/17/22 documented as of this encounter
--- OUTSIDE RECORDS SUMMARY | 2024-07-16 00:57 | XMS_ITS | Encounter Summary ---
[place] [address] Care Team Providers Care Content Designer Name Role Phone Fauzia Nelson MD Primary Care Provider + Reason for Visit * Reason Comments Prior Authorization Mavyret 100-40mg tab lets Encounter Details Date Type Department Care Team (Late st Contact Info) Description 01/29/2021 Specialty [place] [address] Nell Talbert, [facility] Social History Tobacco Use Types Packs/Day Years Used Date Smoking Tobacco: Former e-Cigarettes Smokeless Tobacco: Never Sex and Gender Information Value Date Recorded Sex Assigned at Not on file Gender Identity Not on file Sexual Orientation Not on file documented as of this encounter Progress Notes * Nell Talbert - 01/29/2021 12:43 PM EDT [facility], Medication Prior Authorization Patient: Mike Guillermo Patient : 1975 Patient Address: [address] [place] [id number] (home) Medication Name: MAVYRET 100 MG-40 MG TABLET Medication ID: [id number] Patient Location: [facility] 4L Patient Location Comment: Subscriber Insurance: [place] Medicaid Subscriber Insurance Comment: Physician: BENSON BRAUN Physician Comment: Sent Via: Fax Crooks: N/A Ref/Case/PA#: N/A Medication Strength Frequency Requested: Take 3 tablets by mouth daily Qty/Day Supply: New Start: New to Therapy Diagnosis & ICD-10 Code: Chronic hepatitis C without hepatic coma, B18.2 Patient Notified: No Submission Notes: None Bela Talbert 01/29/21 12:45 PM * Nell Talbert - 01/29/2021 12:43 PM EDT [facility], Prior Authorization Approval Medication Name: MAVYRET 100 MG-40 MG TABLET Medication ID: [id number] Approval Dates: 01/29/2021 to 03/31/2021 Insurance requirements/notes: None Other Notes: None Case/Reference #: [id number] Approval notification Received via: Fax Copay: $3.00 Copay assistance: None Copay Notes: Insurance mandated Pharmacy: [facility] Fillable at [facility]: Yes Pharmacy staff will be reaching out to the patient to inform them of their medication's approval [facility]. If applicable, a pharmacist will speak with the patient to offer our specialty pharmacy services and to arrange delivery of their medication. Bela Talbert 01/30/21 8:16 AM documented in this encounter Plan of Treatment Not on file documented as of this encounter Goals Goal Patient Goal Type Associated Problems Recent Progress Patient-Stated? Author Home Medication Compliance and Understanding Patient Facing Action Plan No Marilou Sood [facility] Note: SVR12 through treatment with Mavyret. Home Medication Compliance and Understanding Patient Facing Action Plan On track(2020 12:44 PM EDT) No Lesli Palomino [facility] Note: SVR12 through treatment with Mavyret x 8 weeks documented as of this encounter Visit Diagnoses Not on filedocumented in this encounter Care Teams Content Designer Relationship Specialty Start Date End Date Fauzia Nelson MD PCP - General Family Medicine 12/26/20 04/17/22 documented as of this encounter
--- OUTSIDE RECORDS SUMMARY | 2024-07-16 00:57 | XMS_ITS | Encounter Summary ---
Author [facility] [place] [address] Care Team Providers Care Cornetist Name Role Phone Fauzia Nelson MD Primary Care Provider + Encounter Details Date Type Department Care Team (Late st Contact Info) Description 01/10/2022 Telephone [place] [phone] Cortney Andrews Social History Tobacco Use Types Packs/Day Years [...] encounter Miscellaneous Notes * Telephone Encounter - Cortney Andrews - 01/10/2022 9:26 AM EDT Called Marilou and wanted to confirm pt appt w/ US & labs. The last time I spoke to Marilou she hadsaid she did not want everything on the same day cause she could not have the patient sitting in the hallways waiting. Patient is scheduled all on the same day so wanted to confirm this was okay. I did say if it was to not call back and if it needs to be changed to reach out to the office documented in this encounter Plan of Treatment Not on file documented as of this encounter Goals Goal Patient Goal Type Associated Problems Recent Progress Patient-Stated? Author RYAN Home Medication Compliance and Understanding Patient Facing Action Plan Marilou Quintana, [facility] Note: SVR12 through treatment with Mavyret. Home Medication Compliance and Understanding Patient Facing Action Plan On track(2020 12:44 PM EDT) No Lesli Palomino, [facility] Note: SVR12 through treatment with Mavyret x 8 weeks documented as of this encounter Visit Diagnoses Not on filedocumented in this encounter Care Teams Cornetist Relationship Specialty Start Date End Date Fauzia Nelson MD PCP - General Family Medicine 12/26/20 04/17/22 documented as of this encounter
--- OUTSIDE RECORDS SUMMARY | 2024-07-16 00:57 | XMS_ITS | Encounter Summary ---
[place] [address] Care Team Providers Care Car Conditioner Name Role Phone Fauzia Nelson MD Primary Care Provider + Reason for Visit * Reason Comments Medication Management Patient Education Encounter Details Date Type Department Care Team (Late st Contact Info) Description 12/26/2020 Specialty Pharmacy [place] [address] Leona Vogel RPH Social History Tobacco Use Types Packs/Day Years Used Date Smoking Tobacco: Former e-Cigarettes Smokeless Tobacco: Never Sex and Gender Information Value Date Recorded Sex Assigned at Not on file Gender Identity Not on file Sexual Orientation Not on file documented as of this encounter Progress Notes * Leona Vogel RPH - 12/26/2020 3:24 PM EDT Clinical Management Plan: In-clinic New Start Consult Specialty Pharmacy Consultation; Leona Vogel RPH Comprehensive Medication Management (CMM) Mike Guillermo Diagnosis: HCV Therapy Start Date: TBD Contact in person or via telephone: In person Mr. Mike Guillermo is a 45 y.o. (1975) male who was contacted in regard to specialty medication. Spoke with patient regarding Mavyret and Epclusa. A review of the medication therapy was performed. All medication related questions and concerns were addressed. Summary and Recommendations: Mr. Mike Guillermo is a 45 y.o. (1975) male who I met with in the clinic regarding potential hepatitis C treatment with Mavyret or Epclusa, depending on insurance approval and fibrosis scoring. During the consult we briefly discussed Mavyret and Epclusa, possible side effects and mitigationstrategies, the importance of adherence, the lab schedule throughout treatment, goals of therapy, and the services that the specialty pharmacy provides. We discussed how his omeprazole will interact with Epclusa and specific timing of the medication is needed. I provided the patient with the specialty pharmacy contact information and handout about our services. He plans on getting the medication shipped to him. I explained that he will need to sign for the medication when it gets delivered and he is okay with anyone in his household signing for it. His bestcontact number is [phone], however that number does not accept so his secondary number is [phone] - this number is for his who will need to complete a personal rep form. He understands that the medication has not yet been prescribed, that additional testing and lab results are needed prior to his provider prescribing the medication, and that there is a prior authorization process that needs to occur prior to us filling the medication. The patient understands that once the medication is approved, the specialty pharmacy will follow up with him accordingly. If the patient is eligible to fill with the [facility] specialty pharmacy, we will contact the patient per the following schedule: Initial pharmacist consult, day 3 follow-up, refill reminder and follow-up 10 days prior to refill, end of treatment follow-up. Informed patient of specialty pharmacy services: Yes -Patient is aware a licensed pharmacist is available 24 hours a day, 7 days a week to discuss medication-related questions or concerns: Yes -Patient verbalizes understanding of the common side effect profile of their medication. The patient is able to call 911 or seek urgent care if signs/symptoms of allergy or harmful adverse reactions occur: Yes Patient understands no changes to current drug regimen were made at the appointment and that [facility] isproviding recommendations (summary located at top of note) for provider review and follow up. Leona Vogel RPH 12/26/2020 documented in this encounter Plan of Treatment Not on file documented as of this encounter Goals Goal Patient Goal Type Associated Problems Recent Progress Patient-Stated? Author DH Home Medication Compliance and Understanding Patient Facing Action Plan No Marilou Sood [facility] Note: SVR12 through treatment with Mavyret. documented as of this encounter Visit Diagnoses Not on filedocumented in this encounter Care Teams Car Conditioner Relationship Specialty Start Date End Date Fauzia Nelson MD PCP - General Family Medicine 12/26/20 04/17/22 documented as of this encounter
--- OUTSIDE RECORDS SUMMARY | 2024-07-16 00:57 | XMS_ITS | Clinical Summary ---
Author Organization [facility] Address One [facility] [place] [address] Care Team Providers Care Plc Programmer Name Role Phone Joellen Grissom TYRONE Primary Care Provider [phone] Allergies No known active allergies Medications Medication Sig Dispensed Refills Start Date End Date Status omeprazole (PriLOSEC) 40 mg Capsule, Delayed Release(E.C.) Take 40 mg by mouth daily. Active buprenorphine-naloxon e (Suboxone) 12-[address] 1 Film under the tongue daily. Active SUMAtriptan (IMITREX STATDOSE) 6 mg/0.5 mL Pen Injector GIVE ONE INJCETION AT FIRST SIGN OF HEADACHE MAY REPEAT IN TWO HOURS IF NEEDED 09/20/2020 Active baclofen (Lioresal) 10 mg Tablet Take 10 mg by mouth 3 times daily. Active Cetirizine 10 mg Capsule Take 10 mg by mouth daily. Active doxepin (SINEquan) 50 mg Capsule Take 50 mg by mouth daily. Active furosemide (Lasix) 80 mg Tablet Take 80 mg by mouth 2 times daily. Active hydrOXYzine (Atarax) 50 mg Tablet Take 50 mg by mouth 3 times daily as needed for Itching. Active potassium gluconate 550 mg (90 mg) Tablet Take 550 each by mouth daily. Active Pramoxine (Sarna Sensitive) 1 % Lotion Apply topically 2 times daily. Active sertraline (ZOLOFT) 100 mg Tablet Take 100 mg by mouth daily. Active spironolactone (Aldactone) 100 mg Tablet Take 150 mg by mouth 2 times daily. Take 1 1/2 tablets twice daily Active buprenorphine (Subutex) 8 mg Tablet, Sublingual Place 16 mg under the tongue daily. Active SUMAtriptan (Imitrex) 25 mg Tablet Take 25 mg by mouth as needed for Migraine. Initial dose: 25 mg, 50 mg, or 100 mg (take with fluids). May repeat dose after 2 hours. Max daily dose: 200 mg Active Psyllium Seed-Sucrose (Fiber) Powder Take by mouth daily. Active Active Problems Problem Noted Date Diagnosed Date Hepatic cirrhosis 04/18/2022 Edema of lower extremity 04/18/2022 Dooley's esophagus 04/18/2022 History of hepatitis C 12/27/2020 Habitual alcohol use 12/27/2020 Overweight 12/27/2020 Hypertension 12/27/2020 Gastroesophageal reflux 12/27/2020 Sleep apnea 12/27/2020 Low back pain, non-specific 12/27/2020 Eczema 12/27/2020 Migraine 12/27/2020 Cigarette smoker 12/27/2020 History of intravenous drug abuse 12/27/2020 Opioid dependence 12/27/2020 Social History Tobacco Use Types Packs/Day Years Used Date Smoking Tobacco: Former e-Cigarettes Smokeless Tobacco: Never Comments:vaping nicotine Alcohol Use Standard Drinks/Week Comments Not Currently 0 (1 standard drink = 0.6 oz pur e alcohol) 1/5 a day Sex and Gender Information Value Date Recorded Sex Assigned at Not on file Gender Identity Not on file Sexual Orientation Not on file Last Filed Vital Signs Vital Sign Reading Time Taken Comments Blood Pressure 128/77 04/18/2022 10:29 AM EDT Pulse 86 04/18/2022 10:29 AM EDT Temperature 37.6 ??C (99.7 ??F) 05/03/2021 4:45 PM ES T Respiratory Rate 20 05/03/2021 6:02 PM EST Oxygen Saturation 96% 05/03/2021 6:25 PM EST Inhaled Oxygen Concentration - - Weight 124.6 kg (274 lb 11.2 oz) 2021 10:29 AM EDT Height 188 cm (6' 2) 04/18/2022 10:29 AM EDT Body Mass Index 35.27 04/18/2022 10:29 AM EDT Plan of Treatment Health Maintenance Due Date Last Done Comments CT Colonography 1974 Colonoscopy 1974 Colorectal Cancer Screening 1974 FIT DNA 1974 FIT 1974 Sigmoidoscopy (10 year) with FIT yearly 1974 Sigmoidoscopy 1974 Lipid Screening 1992 Hepatitis B vaccine (0-59 yrs) (1) 1993 Pneumococcal Vaccine: At-Ris k 5-49yrs (1 of 2 - PCV) 1993 Tetanus/Diphtheria/Pertussis Vaccines (1 - Tdap) 1993 Covid-19 Vaccine (3 - season) 2024, 10/23/2020 Influenza (Flu) vaccine (1 o f 1 - Influenza standard series) 02/22/2024 Diabetes Screening (HgbA1C o r Glucose) 04/18/2025 04/18/2022, 12/26/2020, 04/29/2018 HIV screen Completed 12/26/2020 Goals Goal Patient Goal Type Associated Problems Recent Progress Patient-Stated? Author Home Medication Compliance and Understanding Patient Facing Action Plan No Marilou Sood [facility] Note: SVR12 through treatment with Mavyret. [facility] Medication Compliance and Understanding Patient Facing Action Plan On track(2020 12:44 PM EDT) No Lesli Palomino [facility] Note: SVR12 through treatment with Mavyret x 8 weeks Procedures Procedure Name Priority Date/Time Associated Diagnosis Comments COMPREHENSIVE METABOLIC PANEL Routine 04/18/2022 9:41 AM EDT Chronic hepatitis C without hepatic coma Hepatic cirrhosis, unspecified hepatic cirrhosis type, unspecified whether ascites present HC HIV SCREEN, 4TH GENERATION Routine 12/26/2020 5:07 PM EDT Chronic hepatitis C without hepatic coma from Last 3 Months or Most Recently Relevant to Health Maintenance Results * (ABNORMAL) Comprehensive metabolic panel (non-fasting) (04/18/2022 9:41 AM EDT) Glucose 111 65 - 199 mg/dL [facility] Comment:Diabetes: >=200 mg/d L plus symptoms Blood Urea Nitrogen 18 10 - 20 mg/dL [facility] Creatinine 1.18 0.80 - 1.50 mg/dL [facility] Sodium 134(L) 135 - 145 mmol/L [facility] Potassium 4.4 3.5 - 5.0 mmol/L [facility] Comment: Please note: ??Patients with WBC >100,000 may have falsely elevated Potassium levels. ??For accurate Potassium quantification in these patients send serum separator tube (gold top) for subsequent determinations. ??Contact the Clinical Chemistry Laboratory if there are any questions. Chloride 91(L) 98 - 107 mmol/L [facility] Carbon Dioxide 33(H) 22 - 31 mmol/L [facility] Anion Gap 10 5 - 15 mmol/L [facility] Calcium 9.5 8.5 - 10.5 mg/dL [facility] Protein, Total 9.0(H) 6.1 - 8.0 g/dL [facility] Albumin 4.3 3.2 - 5.2 g/dL [facility] Aspartate Aminotransferase 38 0 - 39 unit/L [facility] Alanine Aminotransferase 19 0 - 55 unit/L [facility] Alkaline Phosphatase 113 40 - 130 unit/L [facility] Bilirubin, Total 0.7 0.2 - 1.3 mg/dL [facility] Est Glomerular Filtration Rate 77 >=60 mL/min/1. 73 m?? [facility] Comment: This patient's estimated GFR was calculated using the 2020 CKD-EPI equation. The estimated GFR can vary from the measured GFR by up to 30% in the absence of rapidly changing kidney function. Assessment of the estimated GFR is not appropriate when creatinine concentrations are rapidly changing. For clinical situations in which a more precise estimate of GFR is necessary, consider alternative methods of GFR estimation such as a 24-hour urine creatinine clearance. Assignment of CKD stage 1-5 for patients with an eGFR near the transition point between stages may be based on clinical assessment of muscle mass and symptoms in addition to eGFR. Blood 04/18/2022 9:41 AM EDT 04/18/2022 9:53 AM EDT Narrative Resulting Agency Comment Spec In Lab Vida Ayala MD CHEMISTRY ORDERABLES [facility] [place] [address] * HIV Screen, 4th Generation ([facility]/CGP/APD/NLH) (12/26/2020 5:07 PM EDT) HIV Ab/Ag Screen Negative Negative [facility] Comment: This 4th Generation HIV test screens for the presence of the HIV-1 p24 antigen as well as antibodies reactive against HIV-1 and HIV-2. A negative screen does not rule out an acute HIV infection. If acute HIV infection is suspected, testing should be repeated in 2 - 3 weeks or HIV nucleic acid testing performed. Blood 12/26/2020 5:07 PM EDT 12/26/2020 5:31 PM EDT Narrative Resulting Agency Comment Spec In Lab Vida Ayala MD CHEMISTRY ORDERABLES [facility] [place] [address] from Last 3 Months or Most Recently Relevant to Health Maintenance Care Teams Plc Programmer Relationship Specialty Start Date End Date Joellen Grissom APRN [address] [place] [address] PCP - General Internal Medicine 03/31/24
--- OUTSIDE RECORDS SUMMARY | 2024-07-16 00:57 | XMS_ITS | Encounter Summary ---
Author Organization [facility] Address [address] [place] [address] Care Team Providers Care Supervisor Cellars Name Role Phone Unknown, Provider Primary Care Provider Unava ilable Encounter Details Date Type Department Care Team (Latest Contact Info) Description 05/21/2023 Specialty Pharmacy [facility] [address] [place], [place] [id number] Arti Rose RPH Patient Education for Addiction [...] Progress Notes * Deborah Salcido - 05/21/2023 1405 EST Prescription Receipt by [facility] Date Received: 05/21/2023 Medication: [facility] Provider: Kelsi Darlyn [facility] Phone number: Benefits Investigation Results: Comments: script received, uploaded to scans and processes through insurance. Request for outside chart notes faxed on 05/21/2023 @ [phone]. Prescription copy available in scans: YES Relevant clinical documents in scans (if applicable): YES Routed to appropriate Pharmacist: YES [facility] Specialty Pharmacy: [phone] * Arti Rose RPH - 05/21/2023 9010 EST Mike Guillermo is a 47 y.o. male -- pharmacist clinical review of initial prescription for Buprenorphine ER injection Treatment information: Prescriber: Kelsi Szymanski Prescriber Contact Info: [facility] [phone] Sublingual Buprenorphine Naive: No Transmucosal Buprenorphine Dose: 16 mg/day Buprenorphine ER Formulation: Brixadi Initial Dose: 24 mg weekly REMS requirements met: Yes Naloxone prescribed: Yes Medication Management Notes: Patient will be administered the medication at [facility]. To contact the clinic call: [phone] Baseline labs: Not available - outside lab, [...] clinic to follow-[facility] on next [facility] [...] all the medications you take including prescriptions, pkpo-hla-puvvyyl medicines, herbal products and supplements. If acute [...] medical attention. Arti Rose, PharmD, BCACP (she/her) Grocery Store Manager Pharmacist [facility] Specialty Pharmacy 05/21/2023 documented in this encounter [...] may reflect changes made after this encounter. dexmethylphenidat e (FOCALIN XR) 25 mg multiphase capsule Take 1 Capsule by mouth daily. Daily Max: 25 mg buprenorphine (BRIXADI) 24 mg/0.48 mL solution, extended rel syringe Inject 24 mg into the skin once a week. Daily Max: 24 mg 07/14/2023 added in this encounter Care Teams Supervisor Cellars Relationship Specialty Start Date End Date Unknown, Provider, PCP - General 09/26/16 documented as of this encounter
--- OUTSIDE RECORDS SUMMARY | 2024-07-16 00:57 | XMS_ITS | Encounter Summary ---
[place] [address] Care Team Providers Care Revenue Agent Name Role Phone Joellen Grissom APRN Primary Care Provider Reason for Referral * Consultation (Routine) - Closed Specialty Diagnoses / Procedures Referred By Dorita arambula Referred To Contact Endocrinology Diagnoses Hypertrophy of breast Abnormal finding of blood chemistry, unspecified Other fatigue Decreased libido GYNECOMASTIA, MALE, DHEA LOW AT 113, T LEVELS LOW NORMAL Joellen Grissom APRN [address] [place] [address] [facility] [place] [place] Endocrinology [address] [place] [phone] Referral ID Status Reason Start Date Expiration Date V isits Requested Visits Authorized [id number] Closed Consult, Test & Treat PCP Updated and/or Approved 03/15/2024 03/15/2025 6 6 Encounter Details Date Type Department Care Team (Latest Contact Info) Description 03/31/2024 Transcribe Orders eDH Incoming Referrals [phone] Joellen Grissom APRN [address] [place], [place] [id number] Hypertrophy of breast; Abnormal finding of blood chemistry, unspecified; Other fatigue; Decreased libido Social History Tobacco Use Types Packs/Day Years [...] Scheduled Referrals Name Type Priority Associated Diagnoses Order Schedule Referral to Endocrinology Outpatient Referral Routine Hypertrophy of breast Abnormal finding of blood chemistry, unspecified Other fatigue Decreased libido Ordered: 03/31/2024 documented as of this encounter Goals Goal Patient Goal Type Associated Problems Recent Progress Patient-Stated? Author Home Medication Compliance and Understanding Patient Facing Action Plan No Marilou Sood [facility] Note: SVR12 through treatment with Mavyret. [facility] Medication Compliance and Understanding Patient Facing Action Plan On track(2020 12:44 PM EDT) No Lesli Palomino [facility] Note: SVR12 through treatment with Mavyret x 8 weeks documented as of this encounter Visit Diagnoses Diagnosis Hypertrophy of breast Abnormal finding of blood chemistry, unspecified Other fatigue Decreased libido documented in this encounter Care Teams Revenue Agent Relationship Specialty Start Date End Date Joellen Grissom, TYRONE [address] [place] [address] PCP - General Internal Medicine 03/31/24 documented as of this encounter
--- OUTSIDE RECORDS SUMMARY | 2024-07-16 00:57 | XMS_ITS | Encounter Summary ---
[facility] [place] [address] Care Team Providers Care Investigations Consultant Name Role Phone Fauzia Nelson MD Primary Care Provider + Encounter Details Date Type Department Care Team (Late st Contact Info) Description 01/11/2021 Telephone [place] [phone] León Wong PA [address] [place] [address] [place] [address] Social History Tobacco Use Types Packs/Day Years Used Date Smoking Tobacco: Former e-Cigarettes Smokeless Tobacco: Never Sex and Gender Information Value Date Recorded Sex Assigned at Not on file Gender Identity Not on file Sexual Orientation Not on file documented as of this encounter Miscellaneous Notes * Telephone Encounter - León Wong PA - 01/11/2021 10:26 AM EDT I spoke with Mr. Guillermo today to review his labs from 12/26. In summary, LFTs were significantly more elevated than in the past that I think is likely due to combination of his HCV infection plus alcohol use. He states that the acamprosate seems to be helping and he has decreased his alcohol use sincewe met. More importantly however, liver fibrosis panel came back concerning for cirrhosis (F4), which is consistent with his most recent ultrasound findings although does not correlate with his priorFibroScan from 2018. Because of this, I would like him to come back for another FibroScan exam performed by me to compare to his last exam. It sounds as if at this point he likely does have cirrhosisbut would like to confirm. I let them know that this will not change his management much at all other than long-term follow-up. We agreed to meet on January 29 at 8:30 AM for the FibroScan. I will need to ask my scheduling staff to alter my schedule to accommodate this. Confirmed with him the day and time and fasting 3 to 4 hours and to check in at 4L at 8:15. León Wong PA-C Section of Gastroenterology [place] [address] documented in this encounter Plan of Treatment Not on file documented as of this encounter Goals Goal Patient Goal Type Associated Problems Recent Progress Patient-Stated? Author DH Home Medication Compliance and Understanding Patient Facing Action Plan Marilou Quintana, [facility] Note: SVR12 through treatment with Mavyret. documented as of this encounter Visit Diagnoses Not on filedocumented in this encounter Care Teams Investigations Consultant Relationship Specialty Start Date End Date Fauzia Nelson MD PCP - General Family Medicine 12/26/20 04/17/22 documented as of this encounter
--- OUTSIDE RECORDS SUMMARY | 2024-07-16 00:57 | XMS_ITS | Encounter Summary ---
Author Organization Formerly [facility] Address [facility] [place] [place] [address] Care Team Providers Care Well Logging Operator Mud Analysis Name Role Phone Fauzia Nelson MD Primary Care Provider + Encounter Details Date Type Department Care Team (Latest Contact Info) Description 04/18/2022 8:30 AM EDT - 04/18/2022 11:59 PM EDT Hospital Encounter Ultrasound at [facility], [place] [address] Vida Mehta MD [facility] [place] [address] Chronic hepatitis C without hepatic coma; Hepatic cirrhosis, unspecified hepatic cirrhosis type, unspecified whether ascites present Discharge Disposition: Home Social History Tobacco Use Types Packs/Day Years [...] on file documented as of this encounter Medications at Time of Discharge Medication Sig Dispensed Refills Start Date End Date baclofen (Lioresal) 10 mg Tablet Take 10 mg by mouth 3 times daily. Cetirizine 10 mg Capsule Take 10 mg by mouth daily. doxepin (SINEquan) 50 mg Capsule Take 50 mg by mouth daily. furosemide (Lasix) 80 mg Tablet Take 80 mg by mouth 2 times daily. hydrOXYzine (Atarax) 50 mg Tablet Take 50 mg by mouth 3 times daily as needed for Itching. potassium gluconate 550 mg (90 mg) Tablet Take 550 each by mouth daily. Pramoxine (Sarna Sensitive) 1 % Lotion Apply topically 2 times daily. sertraline (ZOLOFT) 100 mg Tablet Take 100 mg by mouth daily. spironolactone (Aldactone) 100 mg Tablet Take 150 mg by mouth 2 times daily. Take 1 1/2 tablets twice daily buprenorphine (Subutex) 8 mg Tablet, Sublingual Place 16 mg under the tongue daily. SUMAtriptan (Imitrex) 25 mg Tablet Take 25 mg by mouth as needed for Migraine. Initial dose: 25 mg, 50 mg, or 100 mg (take with fluids). May repeat dose after 2 hours. Max daily dose: 200 mg Psyllium Seed-Sucrose (Fiber) Powder Take by mouth daily. SUMAtriptan (IMITREX STATDOSE) 6 mg/0.5 mL Pen Injector GIVE ONE INJCETION AT FIRST SIGN OF HEADACHE MAY REPEAT IN TWO HOURS IF NEEDED 09/20/2020 omeprazole (PriLOSEC) 40 mg Capsule, Delayed Release(E.C.) Take 40 mg by mouth daily. buprenorphine-naloxone (Suboxone) 12-[address] 1 Film under the tongue daily. documented as of this encounter Plan of Treatment Not on file documented as of this encounter Goals Goal Patient Goal Type Associated Problems Recent Progress Patient-Stated? Author Home Medication Compliance and Understanding Patient Facing Action Plan No Marilou Sood [facility] Note: SVR12 through treatment with Mavyret. [facility] Medication Compliance and Understanding Patient Facing Action Plan On track(2020 12:44 PM EDT) No Lesli Palomino [facility] Note: SVR12 through treatment with Mavyret x 8 weeks documented as of this encounter Procedures Procedure Name Priority Date/Time Associated Diagnosis Comments US ABDOMEN VASCULAR LIMITED - HEPATOLOGY PROTOCOL Routine 04/18/2022 9:08 AM EDT Chronic hepatitis C without hepatic coma Hepatic cirrhosis, unspecified hepatic cirrhosis type, unspecified whether ascites present documented in this encounter Results * US Abdomen Vascular Limited Hepatology Protocol (04/18/2022 9:08 AM EDT) Anatomical Region Laterality Modality Abdomen Ultrasound 04/18/2022 9:06 AM EDT Impressions 04/18/2022 10:12 AM EDT 1. ??Normal size and attenuation of the hepatic parenchyma. 2. ??1.7 cm simple hepatic cyst posterior left lobe with a single uniformly thin avascular septation. No further follow-up recommended. 3. ??Hepatic and portal veins are patent. No ascites. 4. ??Mild splenomegaly. I have personally reviewed the image(s) and the resident's interpretation and agree with the findings, Catherine Ramirez MD at 04/18/2022 10:04 AM Thank you for letting us participate in the care of this patient. If you are a health care provider and have any questions regarding this report, please contact the number above. For patients who have questions, please contact the health janitor caretaker that requested your imaging first. ? Catherine Ramirez, Staff Physician Electronically Signed Final Report ?? 04/18/2022 10:12 am Narrative 04/18/2022 10:12 AM EDT Abdominal ? (Signed Final 04/18/2022 10:12 am) PATIENT INFO: ID #: ? [id number] ?: ??[birth year] (46 yrs)(M) Name: ? JASBIR GUILLERMO ?Visit Date: 04/18/2022 09:06 am PERFORMED BY: Performed By: ? Etta Bolanos RDMS Attending: ?Ashley HUNTER, Catherine H. Resident: ? Leonides Babcock DO Referred By: ?VIDA MEHTA Location: ? [place] SERVICE(S) PROVIDED: [id number] - Hepatology Protocol - ? 25032, 40214 Abdominal Limited Survey with Vascular ??- ??Single Organ or Quadrant - [id number] INDICATIONS: Cirrhosis with portal hypertension, screen for HCC and assess all quadrants for ascites, portal venous flow/patency COMPARISON: US: 07/02/2011 ------ LIVER: ------ Right Lobe Length: ?? 16.0 ?? cm Echogenicity/Echotexture: ?? Normal HEPATIC-PORTAL DUPLEX: ? PSV ? Waveform ? (cm/s) Right Hepatic ? Patent where Vein: ? seen Middle ?Patent where Hepatic Vein: ? seen Left Hepatic ?Patent where Vein: ? seen Main Portal ? 13.8 ?Patent where Vein: ? seen Right Portal ?Patent where Vein: ? seen Left Portal ? Patent where Vein: ? seen ? Direction of Flow Main Portal ? Hepatopetal Vein: Collaterals: ?None visualized GALLBLADDER: Cholelithiasis: ?No stones visualized Wall Thickness: ?2.0 mm Focal Tenderness: ?Negative sonographic Crouch's sign BILIARY TRACT: Intrahepatic Ducts: ?? Normal Extrahepatic Ducts: ?? Normal Common Duct Size: ? 3.0 ? mm ------- SPLEEN: ------- Size (cm) ?L: ??15.4 ?AP: ??7.7 ? TV: ??13.1 Vol (ml): ?813.4 Comment: ?Splenomegaly FLUID COLLECTIONS: Ascites not present on 4 quadrant evaluation. Procedure Note Catherine Ramirez MD - 04/18/2022 Abdominal (Signed Final 04/18/2022 10:12 am) PATIENT INFO: ID #: [id number] : [birth year] (46 yrs)(M) Name: JASBIR GUILLERMO Visit Date: 04/18/2022 09:06 am PERFORMED BY: Performed By: Etta Bolanos RDMS Attending: Catherine Ramirez MD Resident: Leonides Babcock DO Referred By: VIDA MEHTA Location: [place] SERVICE(S) PROVIDED: [facility] - Hepatology Protocol - 15728, 04719 Abdominal Limited Survey with Vascular - Single Organ or Quadrant - [id number] INDICATIONS: Cirrhosis with portal hypertension, screen for HCC and assess all quadrants for ascites, portal venous flow/patency COMPARISON: US: 07/02/2011 ------ LIVER: ------ Right Lobe Length: 16.0 cm Echogenicity/Echotexture: Normal HEPATIC-PORTAL DUPLEX: PSV Waveform (cm/s) Right Hepatic Patent where Vein: seen Middle Patent where Hepatic Vein: seen Left Hepatic Patent where Vein: seen Main Portal 13.8 Patent where Vein: seen Right Portal Patent where Vein: seen Left Portal Patent where Vein: seen Direction of Flow Main Portal Hepatopetal Vein: Collaterals: None visualized GALLBLADDER: Cholelithiasis: No stones visualized Wall Thickness: 2.0 mm Focal Tenderness: Negative sonographic Crouch's sign BILIARY TRACT: Intrahepatic Ducts: Normal Extrahepatic Ducts: Normal Common Duct Size: 3.0 mm ------- SPLEEN: ------- Size (cm) L: 15.4 AP: 7.7 TV: 13.1 Vol (ml): 813.4 Comment: Splenomegaly FLUID COLLECTIONS: Ascites not present on 4 quadrant evaluation. IMPRESSION 1. Normal size and attenuation of the hepatic parenchyma. 2. 1.7 cm simple hepatic cyst posterior left lobe with a single uniformly thin avascular septation. No further follow-up recommended. 3. Hepatic and portal veins are patent. No ascites. 4. Mild splenomegaly. I have personally reviewed the image(s) and the resident's interpretation and agree with the findings, Catherine Ramirez MD at 04/18/2022 10:04 AM Thank you for letting us participate in the care of this patient. If you are a health care provider and have any questions regarding this report, please contact the number above. For patients who have questions, please contact the health janitor caretaker that requested your imaging first. Catherine Ramirez, Staff Physician Electronically Signed Final Report 04/18/2022 10:12 am Vida Mehta MD IMG US GEN ORDERABLE S documented in this encounter Visit Diagnoses Diagnosis Chronic hepatitis C without hepatic coma Hepatic cirrhosis, unspecified hepatic cirrhosis type, unspecified whether ascites present documented in this encounter Care Teams Well Logging Operator Mud Analysis Relationship Specialty Start Date End Date Fauzia Nelson MD [address] [place] [address] PCP - General Family Medicine 04/18/22 11/10/23 documented as of this encounter
--- OUTSIDE RECORDS SUMMARY | 2024-07-16 00:57 | XMS_ITS | Encounter Summary ---
Author [facility] [place] [address] Care Team Providers Care Biology Professor Name Role Phone Fauzia Nelson MD Primary Care Provider + Encounter Details Date Type Department Care Team (Late st Contact Info) Description 05/26/2022 Orders [place] [address] León Wong PA [address] [place] [address] [place] [address] Hepatic cirrhosis, unspecified hepatic cirrhosis type, unspecified whether ascites present Social History Tobacco Use Types Packs/Day Years [...] Type Associated Problems Recent Progress Patient-Stated? Author [facility] Medication Compliance and Understanding Patient Facing Action Plan No Marilou Sood [facility] Note: SVR12 through treatment with Mavyret. [facility] Medication Compliance and Understanding Patient Facing Action Plan On track(2020 12:44 PM EDT) No Lesli Palomino [facility] Note: SVR12 through treatment with Mavyret x 8 weeks documented as of this encounter Visit Diagnoses Diagnosis Hepatic cirrhosis, unspecified hepatic cirrhosis type, unspecified whether ascites present documented in this encounter Care Teams Biology Professor Relationship Specialty Start Date End Date Fauzia Nelson MD [address] [place] [address] PCP - General Family Medicine 04/18/22 11/10/23 documented as of this encounter
--- OUTSIDE RECORDS SUMMARY | 2024-07-16 00:57 | XMS_ITS | Encounter Summary ---
Author Organization [facility] [place] [place] [place] [address] Care Team Providers Care Fleece Tier Name Role Phone Fauzia Nelson MD Primary Care Provider + Encounter Details Date Type Department Care Team (Late st Contact Info) Description 02/02/2021 [place] [phone] Lesli Palomino [facility] Social History Tobacco Use Types Packs/Day Years Used Date Smoking Tobacco: Former e-Cigarettes Smokeless Tobacco: Never Sex and Gender Information Value Date Recorded Sex Assigned at Not on file Gender Identity Not on file Sexual Orientation Not on file documented as of this encounter Miscellaneous Notes * Telephone Encounter - Lesli Palomino [facility] - 02/02/2021 8:29 AM EDT Called patient to check in with him about his recent ED visit for pancreatitis and to relay instructions from Edgardo Wong to hold off on starting Mavyret until he feels better for 1-2 weeks. Patient reports that he is feeling better today. He understands instructions and will call me when he starts. Talha Palomino PharmD 02/02/2021 8:31 AM documented in this encounter Plan of Treatment Not on file documented as of this encounter Goals Goal Patient Goal Type Associated Problems Recent Progress Patient-Stated? Author Home Medication Compliance and Understanding Patient Facing Action Plan Marilou Quintana [facility] Note: SVR12 through treatment with Mavyret. [facility] Medication Compliance and Understanding Patient Facing Action Plan On track(2020 12:44 PM EDT) No Lesli Palomino, [facility] Note: SVR12 through treatment with Mavyret x 8 weeks documented as of this encounter Visit Diagnoses Not on filedocumented in this encounter Care Teams Fleece Tier Relationship Specialty Start Date End Date Fauzia Nelson MD PCP - General Family Medicine 12/26/20 04/17/22 documented as of this encounter
--- OUTSIDE RECORDS SUMMARY | 2024-07-16 00:57 | XMS_ITS | Encounter Summary ---
[facility] [place] [address] Care Team Providers Care Manager Pathology Name Role Phone Fauzia Nelson MD Primary Care Provider + Reason for Visit * Reason Comments Patient Education Medication Management Encounter Details Date Type Department Care Team (Late st Contact Info) Description 03/29/2021 Specialty [place] [address] Lesli Palomino [place] Social History Tobacco Use Types Packs/Day Years Used Date Smoking Tobacco: Former e-Cigarettes Smokeless Tobacco: Never Sex and Gender Information Value Date Recorded Sex Assigned at Not on file Gender Identity Not on file Sexual Orientation Not on file documented as of this encounter Progress Notes * Lesli Palomino RPH - 03/29/2021 8:48 AM EDT Specialty Pharmacy Consultation; Lesli Palomino RPH Comprehensive Medication Management (CMM) Mike Guillermo Diagnosis: Hepatitis C Therapy Start Date: 02/09/21 Mr. Mike Guillermo is a 45 y.o. (1975) male who was contacted in regard to specialty medication. Spoke with patient regarding MAVYRET. A review of the medication therapy was performed. All medication related questions and concerns were addressed. The specialty pharmacy staff will follow up with the patient 12 weeks after treatment ends for SVR12 lab reminder. Is the patient willing to proceed with the Clinical Assessment? Yes Summary and Recommendations: Changes to medication regimen at therapy completion: no Mike Guillermo was contacted regarding hepatitis C treatment with Mavyret. The patient has 8 doses remaining of their current supply (including today's dose) which aligns with their start date andreport of no missed doses throughout treatment. I reminded the patient to get SVR12 labs drawn on 06/29/21. I also provided a reminder to replace nail clippers, razor, and toothbrush at the end of treatment. We will follow up with the patient in approximately 3 months for the SVR12 lab reminder. I have no recommendations at this time. Approximate date of treatment completion: Patient will complete treatment on 04/05/21 which suggests 0 missed doses throughout the total course of treatment. Patient's response to therapy: Week 4 HCV viral load (if applicable): n/a SVR12 lab due: 06/29/21 Labs ordered and sent to preferred lab location: yes - lab orders in place at [facility] Patient understands no changes to current drug regimen were made at the appointment and that [facility] is[facility] (summary located at top of note) for provider review and follow up. Lesli Palomino RPH 03/29/21 8:48 AM documented in this encounter Plan of Treatment Not on file documented as of this encounter Goals Goal Patient Goal Type Associated Problems Recent Progress Patient-Stated? Author [facility] Medication Compliance and Understanding Patient Facing Action Plan No Marilou Sood [facility] Note: SVR12 through treatment with Mavyret. [facility] Medication Compliance and Understanding Patient Facing Action Plan On track(2020 12:44 PM EDT) No Lesli Paolmino [facility] Note: SVR12 through treatment with Mavyret x 8 weeks documented as of this encounter Visit Diagnoses Not on filedocumented in this encounter Care Teams Manager Pathology Relationship Specialty Start Date End Date Fauzia Nelson MD PCP - General Family Medicine 12/26/20 04/17/22 documented as of this encounter
--- OUTSIDE RECORDS SUMMARY | 2024-07-16 00:57 | XMS_ITS | Encounter Summary ---
Author Organization [facility] [place] [address] Care Team Providers Care Dry Mixer Name Role Phone Fauzia Nelosn MD Primary Care Provider + Encounter Details Date Type Department Care Team (Late st Contact Info) Description 02/02/2021 [place] [phone] Noemy Francois Social History Tobacco Use Types Packs/Day Years Used Date Smoking Tobacco: Former e-Cigarettes Smokeless Tobacco: Never Sex and Gender Information Value Date Recorded Sex Assigned at Not on file Gender Identity Not on file Sexual Orientation Not on file documented as of this encounter Miscellaneous Notes * Telephone Encounter - Noemy Francois - 02/02/2021 11:04 AM EDT Call made to patient per in basket request from: OLY Louise Patient needs: New Patient appt with a fellow in a Pancreas clinic spot LVM for patient to call GI clinic to schedule documented in this encounter Plan of Treatment [...] on filedocumented in this encounter Care Teams Dry Mixer Relationship Specialty Start Date End Date Fauzia Nelson MD PCP - General Family Medicine 12/26/20 04/17/22 documented as of this encounter
--- OUTSIDE RECORDS SUMMARY | 2024-07-16 00:57 | XMS_ITS | Encounter Summary ---
Author Organization [place] [address] Care Team Providers Care Rn Progressive Care Unit Name Role Phone Fauzia Nelson MD Primary Care Provider + Encounter Details Date Type Department Care Team (Late st Contact Info) Description 01/05/2022 Orders [place] [phone] León Wong PA [address] [place] [address] [place] [address] Chronic hepatitis C without hepatic coma; Hepatic [...] Patient Facing Action Plan No Marilou Sood [facility] Note: SVR12 through treatment with Mavyret. [facility] Medication Compliance and Understanding Patient Facing Action Plan On track(2020 12:44 PM EDT) No Lesli Palomino [facility] Note: SVR12 through treatment with Mavyret x 8 weeks documented as of this encounter Results * Hepatitis C RNA, quantitative, PCR (04/18/2022 9:41 AM EDT) [facility] HCV Viral Load <12 IU/mL [facility] HCV Viral Load Result: <12 IU/mL (Target Not Detected) Indication for Study: Hepatitis C Infection Analysis: The Mcneal Alinity m HCV assay is an in vitro reverse transcriptase polymerase chain reaction (RT-PCR)for the quantification of hepatitis C viral (HCV) RNA in human serum or plasma (EDTA) from HCV-infected individuals. Sample: plasma/serum Method: Mcneal Alinity m HCV Assay Linear Range: 12 IU/mL - 100,000,000IU/mL Note: The Mcneal Alinity HCV Assay has been approved by the U.S. Food and Drug Administration. [facility] Comment: [VERIFIED DATE]04.19.22 Verified By:Shanon Hurley (Electronic Signature) Blood 04/18/2022 9:41 AM EDT 04/18/2022 9:08 PM EDT Narrative Resulting Agency Comment Spec In Lab Vida Mehta MD MOLECULAR ORDERABLES Performing Organization Address City/[facility] Co de Phone Number [facility] [place] [address] * AFP tumor marker (04/18/2022 9:41 AM EDT) [facility] Alpha Fetoprotein 2.0 <=8.3 ng/mL [facility] Comment: This result was generated using a Talib Kiara immunoassay. ??Results obtained from other methods or manufacturers cannot be used interchangeably with this method. Blood 04/18/2022 9:41 AM EDT 04/18/2022 9:53 AM EDT Narrative Resulting Agency Comment Spec In Lab Vida Mehta MD CHEMISTRY ORDERABLES Performing Organization Address City/[facility] Co de Phone Number [facility] [place] [address] * (ABNORMAL) Prothrombin Time (04/18/2022 9:41 AM EDT) [facility] Prothrombin Time 13.4(H) 9.4 - 12.5 sec [facility] International Normalization Ratio 1.2 [facility] Comment: An INR <2.0 indicates adequate procoagulant activity for hemostasis in most patients without underlying bleeding disorders, though the INR may not adequately reflect hemostatic capacity in patients with liver disease and synthetic impairment. The recommended target INR range for therapeutic anticoagulation is 2.0 ? 3.0 for most applications, though lower and higher ranges may be appropriate depending on clinical circumstances. Blood 04/18/2022 9:41 AM EDT 04/18/2022 9:53 AM EDT Narrative Resulting Agency Comment Spec In Lab Vida Mehta MD HEMATOLOGY ORDERABLE S [facility] [place] [address] * (ABNORMAL) Comprehensive metabolic panel (non-fasting) (04/18/2022 9:41 AM EDT) Glucose 111 65 - 199 mg/dL [facility] Comment:Diabetes: >=200 mg/d L plus symptoms Blood Urea Nitrogen 18 10 - 20 mg/dL [facility] Creatinine 1.18 0.80 - 1.50 mg/dL [facility] Sodium 134(L) 135 - 145 mmol/L [facility] Potassium 4.4 3.5 - 5.0 mmol/L [facility] Comment: Please note: ??Patients with WBC >100,000 may have falsely elevated Potassium levels. ??For accurate Potassium quantification in these patients send serum separator tube (gold top) for subsequent determinations. ??Contact the Clinical Chemistry Laboratory if there are any questions. Chloride 91(L) 98 - 107 mmol/L [facility] Carbon Dioxide 33(H) 22 - 31 mmol/L [facility] Anion Gap 10 5 - 15 mmol/L [facility] Calcium 9.5 8.5 - 10.5 mg/dL [facility] Protein, Total 9.0(H) 6.1 - 8.0 g/dL [facility] Albumin 4.3 3.2 - 5.2 g/dL [facility] Aspartate Aminotransferase 38 0 - 39 unit/L [facility] Alanine Aminotransferase 19 0 - 55 unit/L [facility] Alkaline Phosphatase 113 40 - 130 unit/L [facility] Bilirubin, Total 0.7 0.2 - 1.3 mg/dL [facility] Est Glomerular Filtration Rate 77 >=60 mL/min/1. 73 m?? [facility] Comment: This patient's estimated GFR [...] Resulting Agency Comment Spec In Lab Vida Mehta MD CHEMISTRY ORDERABLES Performing Organization Address City/State/[facility] Co de Phone Number [facility] [place] [address] * US Abdomen Vascular Limited Hepatology Protocol [...] Catherine Ramirez MD at 04/18/2022 10:04 AM Electronically signed by: Catherine Ramirez MD, [facility] ([phone]), at 04/18/2022 10:04 AM Thank you for letting us participate in the care of this patient. If you are a health care provider and have any questions regarding this report, please contact the number above. For patients who have questions, please contact the health home health caregiver that requested your imaging first. ? Catherine Ramirez, Staff Physician Electronically Signed Final Report ?? 04/18/2022 10:12 am Narrative 04/18/2022 10:12 AM EDT Abdominal ? (Signed Final 04/18/2022 10:12 am) PATIENT INFO: ID #: ? [id number] ?: ??[birth year] (46 yrs)(M) Name: ? JASBIR GUILLERMO ?Visit Date: 04/18/2022 09:06 am PERFORMED BY: Performed By: ? Etta Bolanos RDMS Attending: ?Ashley HUNTER, Catherine Goel Resident: ? Leonides Babcock DO Referred By: ?VIDA MEHTA Location: ? [place] [facility] Protocol - ? 30837, 60839 Abdominal Limited Survey with Vascular ??- ??Single Organ or Quadrant - [id number] INDICATIONS: Cirrhosis with portal hypertension, screen for [...] 04/18/2022 10:12 am) PATIENT INFO: ID #: [id number] : [birth year] (46 yrs)(M) Name: JASBIR GUILLERMO Visit Date: 04/18/2022 09:06 am PERFORMED BY: Performed By: Etta Bolanos RDMS Attending: Catherine Ramirez MD Resident: Leonides Babcock DO Referred By: VIDA MEHTA Location: [place] [facility] - Hepatology Protocol - 85045, 00640 Abdominal Limited Survey with Vascular - Single Organ or Quadrant - [id number] INDICATIONS: Cirrhosis with portal hypertension, screen for [...] Catherine Ramirez MD at 04/18/2022 10:04 AM Electronically signed by: Catherine Ramirez MD, [facility] ([phone]), at 04/18/2022 10:04 AM Thank you for letting us participate in the care of this patient. If you are a health care provider and have any questions regarding this report, please contact the number above. For patients who have questions, please contact the health home health caregiver that requested your imaging first. Catherine Ramirez, Staff Physician Electronically Signed Final Report 04/18/2022 10:12 am Vida Mehta MD IMG GEN ORDERABLE S documented in this encounter Visit Diagnoses Diagnosis Chronic hepatitis C without hepatic coma Hepatic cirrhosis, unspecified hepatic cirrhosis type, unspecified whether ascites present Chronic hepatitis C without hepatic coma Hepatic cirrhosis, unspecified hepatic cirrhosis type, unspecified whether ascites present documented in this encounter Care Teams Rn Progressive Care Unit Relationship Specialty Start Date End Date Fauzia Nelson MD PCP - General Family Medicine 12/26/20 04/17/22 documented as of this encounter
--- OUTSIDE RECORDS SUMMARY | 2024-07-16 00:57 | XMS_ITS | Encounter Summary ---
Author Organization [facility] [place] [place] [address] Care Team Providers Care [employer] Name Role Phone Fauzia Nelson MD Primary Care Provider + Reason for Visit * Reason Onset Date Comments Pancreatitis 02/01/2021 Encounter Details Date Type Department Care Team (Late st Contact Info) Description 02/01/2021 Telephone [place] [phone] Hortencia Blake RN Pancreatitis Social History Tobacco Use Types Packs/Day Years Used Date Smoking Tobacco: Former e-Cigarettes Smokeless Tobacco: Never Sex and Gender Information Value Date Recorded Sex Assigned at Not on file Gender Identity Not on file Sexual Orientation Not on file documented as of this encounter Miscellaneous Notes * Telephone Encounter - Hortencia Blake RN - 02/01/2021 11:20 AM EDT Returned call to pt re: his visit last night to the [facility] ER for new central abdominal pain. Spoke with both patient and spouse. She reports having to strongly insist he be evaluated, as pt did not want to go to ER. Patient reports that he was given 2 liters of LR and felt a lot better after this. He did not want to stay at [facility] due to lack of junito in care there, as well as significant difficulty with IV placement. IV had to be placed in his neck, and he did not want to remain there overnight with this discomfort. Labs available in Care Everywhere with the following particularly noted: Lipase January 31, 2021 9:20pm 547 U/L Above high normal <393 Ethyl Alcohol Level January 31, 2021 9:20pm 174.7 mg/dL Pt also states he had CT scan without contrast d/t concern about giving contrast through the neck IV. He is feeling better today, but they do have questions about what follow up should be done and how concerned they should be. The following is from Care Everywhere: It is recommended that you stay in the hospital for IV fluids and nothing by mouth status, pain control as needed. Pancreatitis can progress and cause significant morbidity and possibly mortality with worsening pain, vomiting, third spacing and shock. You should return to the ED if your symptoms worsen or if you change your mind regarding admission. Otherwise you should contact your GI doctor at [facility] for close follow-up. I would avoid alcohol at this point. I would stick with clear liquidsuntil you are feeling significantly better. documented in this encounter Plan of Treatment Not on file documented as of this encounter Goals Goal Patient Goal Type Associated Problems Recent Progress Patient-Stated? Author DH Home Medication Compliance and Understanding Patient Facing Action Plan No Marilou Sood [facility] Note: SVR12 through treatment with Mavyret. Home Medication Compliance and Understanding Patient Facing Action Plan On track(2020 12:44 PM EDT) No Lesli Palomino [facility] Note: SVR12 through treatment with Mavyret x 8 weeks documented as of this encounter Visit Diagnoses Not on filedocumented in this encounter Care Teams [employer] Relationship Specialty Start Date End Date Fauzia Nelson MD PCP - General Family Medicine 12/26/20 04/17/22 documented as of this encounter
--- OUTSIDE RECORDS SUMMARY | 2024-07-16 00:57 | XMS_ITS | Encounter Summary ---
[facility] [place] [address] Care Team Providers Care Director [employer] Name Role Phone Fauzia Nelson MD Primary Care Provider + Reason for Visit * Reason Comments Medication Management Patient Education Encounter Details Date Type Department Care Team (Late st Contact Info) Description 02/12/2021 Specialty [place] [address] Lesli Palomino Twin Social History Tobacco Use Types Packs/Day Years Used Date Smoking Tobacco: Former e-Cigarettes Smokeless Tobacco: Never Sex and Gender Information Value Date Recorded Sex Assigned at Not on file Gender Identity Not on file Sexual Orientation Not on file documented as of this encounter Progress Notes * Lesli Palomino RPH - 02/12/2021 12:00 PM EDT Specialty Pharmacy Consultation; Lesli Palomino [...] staff will follow up with the patient 10 days prior to next refill. Is the patient willing to proceed with the Clinical Assessment? Yes Summary and Recommendations: Mike Guillermo was contacted for early follow-up on initiation of Hepatitis C treatment with Mavyret. He started taking it on 02/09/21 and reports no missed doses so far. He reports that so far it is going well overall and he has not experienced any side effects. He takes the 3 tablets of Mavyretall at once with food at around 5pm every day. He is staying well hydrated and uses a phone alarm to help him remember his dose. We will reach out to him again around day 18 of treatment for a refillreminder, lab reminder, and follow-up. Clinic Follow-up needed: yes - SVR12 due 06/29/21 Barriers to Adherence: no Adherence Tools Used by Patient: yes - alarm Proper Hydration: Yes Side Effects: no Side Effect Mitigation Strategies Discussed: Yes Changes in other medications: no Interventions (if applicable): no n/a Any changes to the care plan? no Patient Satisfaction with Therapy: yes - no concerns Patient understands no changes to current drug regimen were made at the appointment and that [facility] isproviding recommendations (summary located at top of note) for provider review and follow up. Lesli Palomino RPH 02/12/21 12:01 PM documented in this encounter Plan of Treatment Not on file documented as of this encounter Goals Goal Patient Goal Type Associated Problems Recent Progress Patient-Stated? Author Home Medication Compliance and Understanding Patient Facing Action Plan No Marilou Sood [facility] Note: SVR12 through treatment with Mavyret. Home Medication Compliance and Understanding Patient Facing Action Plan On track(2020 12:44 PM EDT) No Lesli Palomino [facility] Note: SVR12 through treatment with Mavyret x 8 weeks documented as of this encounter Visit Diagnoses Not on filedocumented in this encounter Care Teams Director [employer] Relationship Specialty Start Date End Date Fauzia Nelson MD PCP - General Family Medicine 12/26/20 04/17/22 documented as of this encounter
--- OUTSIDE RECORDS SUMMARY | 2024-07-16 00:57 | XMS_ITS | Encounter Summary ---
[place] [address] Care Team Providers Care Transcription Manager Name Role Phone Fauzia Nelson MD Primary Care Provider + Reason for Visit * Reason Comments Patient Education Medication Refill Medication Management Encounter Details Date Type Department Care Team (Late st Contact Info) Description 02/27/2021 Specialty [place] [address] Lesli Palomino RPH Social History Tobacco Use Types Packs/Day Years Used Date Smoking Tobacco: Former e-Cigarettes Smokeless Tobacco: Never Sex and Gender Information Value Date Recorded Sex Assigned at Not on file Gender Identity Not on file Sexual Orientation Not on file documented as of this encounter Progress Notes * Lesli Palomino RPH - 02/27/2021 12:43 PM EDT Specialty Pharmacy Consultation; Lesli Palomino RPH Comprehensive Medication Management (CMM) Mike Guillermo Diagnosis: HCV Therapy Start Date: 02/09/21 Contact in person or via telephone: telephone Mr. Mike Guillermo is a 45 y.o. (1975) male who was contacted in regard to specialty medication. Spoke with patient regarding MAVYRET. A review of the medication therapy was performed. The medication was Refilled as scheduled, and all medication related questions and concerns were addressed. The specialty pharmacy staff will follow up with the patient towards the end of treatment. Is the patient willing to proceed with the Clinical Assessment? Yes Summary and Recommendations: Mike Guillermo was contacted regarding his hepatitis C treatment with Mavyret. He has 10 doses remaining of his current supply (including today's dose) which aligns with his start date and his report of no missed doses throughout the treatment thus far. He reports that he seems to be tolerating the medication well at this point and denies side effects. He takes the 3 tablets of Mavyret all at once with food at around 4:30-5pm every day with his dinner. He understands the importance of adherence. He reports no changes in allergies, medications or medical conditions. He is aware that he needs to get labs done 12 weeks after treatment ends for assessment of cure. I also reminded him that he should throw away his nail clippers, razor, and toothbrush after he finishes 4 weeks of treatment and then again at the end of treatment. We are refilling the Mavyret and mailing it out to him. No recommendations at this time. Clinic Follow-up needed: yes - SVR12 due 06/29/21; preferred lab is [facility] Allergies and Drug intolerance: No Known Allergies [...] F19.11 ??? Opioid dependence F11.20 Special Dietary Requirements: yes - must take Mavyret with food There is no height or weight on file to calculate BMI. Medication Reconciliation Discrepancies (compared to [facility] med list) -none Medication Adherence Patient reported X missed doses in the last month: 0 Any gaps in refill history greater than 2 weeks in the last 3 months: no Demonstrates understanding of importance of adherence: yes Informant: patient Reliability of informant: fairly reliable Provider-estimated medication adherence level: 90-100% Reasons for non-adherence: no problems identified Adherence tools used: alarm, directed education Support network for adherence: family member, healthcare provider Confirmed plan for next specialty medication refill: delivery by pharmacy Refills needed for supportive medications: not needed Medication List: Current Outpatient Medications Medication Sig Note Dispense Refill ??? glecaprevir-pibrentasvir (Mavyret) 100-40 mg Tablet Take 3 tablets by mouth daily. 02/12/2021: Start date: 02/09/21 Duration: 8 weeks 84 tablet 1 ??? SUMAtriptan (IMITREX STATDOSE) [...] beneficiary Provider: plan sponsor pharmacist Visit Type: [facility] Follow-up Method of Contact: by telephone Cognitive Ability: good Cognitive Impairment Status Verified this Year: no Drug Interactions Provided the patient with educational material regarding drug interactions: yes Patient Counseling Counseled the patient on the following: reviewed medication changes since last visit, medication safety precautions education provided, drug interaction education provided to patient, doses and administration discussed, possible adverse effects and management discussed, possible drug and prescription drug interactions discussed, possible drug and OTC drug and food interactions discussed, lab monitoring and follow-up discussed, cost of medications and cost implications discussed, adherence and missed doses discussed, pharmacy contact information discussed, monitoring medication discussed, over the counter products discussed, preventative care discussed, reminder to refill or pick and shovel worker medication discussed, timing of medications discussed, referral needs discussed Drug Medication Management Summary Topics discussed: reviewed medication changes since last visit, medication safety precautions education provided, drug interaction education provided to patient, doses and administration discussed, possible adverse effects and management discussed, possible drug and prescription drug interactions discussed, possible drug and OTC drug and food interactions discussed, lab monitoring and follow-up discussed, cost of medications and cost implications discussed, adherence and missed doses discussed, pharmacy contact information discussed, monitoring medication discussed, over the counter products discussed, preventative care discussed, reminder to refill or pick and shovel worker medication discussed, timing of medications discussed, referral needs discussed Treatment Outcomes 02/27/2021 1245 Disease progression: Stable Reviewed in detail with [...] Assessment: Does the patient have a primary career and technology education teacher? no Does the patient have an emergency contact on file: Yes Does patient need referral to socially responsible investment adviser: No Does patient need referral to advocacy group: No Home Health Assessment: Is the patient in a safe home environment? Yes Is the patient able to store their medication as directed? Yes Does the patient have a support network at home? Yes Reviewed potential home safety hazards with patient: Yes Economic Assessment: Patient is agreeable to medication copay: yes Copay Amount: $3.00 Day Supply: 28 Date Needed: 03/09/21 Copay assistance required: no Therapy Assessment: Current Medication Dosing/Route/Frequency: Mavyret 100-40 mg take 3 tablets by mouth once daily with food x 8 weeks ? Appropriate Therapy: Yes ?? Genotype: 1a Treatment Naive/Experienced: Naive Fibrosis Score: F4 (compensated) HX of liver transplant: No HBV Coinfection: No HIV Coinfection: No Effective: TBD w/ SVR12 labs Most Recent HCV Viral Load: 714,797 IU/mL pre-treatment on 12/26/20 Undetectable RVR4 Labs: n/a Patient-Reported Side Effects: no Side Effect Mitigation Strategies Discussed: Yes Patient Goals: Patient's specific desired goal: SVR12 Measured by: HepC viral load 12 weeks post-treatment Time-frame to meet goal: 12 weeks post-treatment Is the patient on track to achieve goals of therapy? yes If no, what are the barriers and action plan to reach the goal: n/a Care Plan and Interventions: Care Plan Reviewed and Approved by both Pharmacist and Patient: Yes Did Care Plan Change? No If yes: Change to plans of care based on: Patient's request: no Condition: no Response to therapy: no Provider request: no Follow-up needed: No Interventions (if applicable): No n/a Patient experienced change in condition that affects treatment: no Additional care/services needed: no Educational information or adherence tools provided: Yes HCV therapy adherence: Yes HCV treatment response: Yes Additional equipment/supplies required: no Patient Counseling: Monitoring: CBC, CMP, HepC viral load Lab schedule reviewed: Yes Upcoming Lab Reminder Given: Yes Personal Hygiene Device Disposal Reminder Given: Yes Proper Hydration: Yes Number of Days Supply Remaining from Prior Fill: 10 (including today) Pharmacist follow-up needed: Yes Patient Satisfaction with Care/Services Provided: Yes Informed patient of specialty pharmacy services: Yes -Patient received welcome packet: Yes Date received: Delivery Method: mail -Patient received and returned Rights & Responsibilities: Yes Date received: 02/09/21 Delivery Method: mail -Patient is aware a licensed pharmacist is available 24 hours a day, 7 days a week to discuss medication-related questions or concerns: Yes -Patient verbalizes understanding of the common side effect profile of their medication. The patient is able to call 911 or seek urgent care if signs/symptoms of allergy or harmful adverse reactions occur: Yes Patient Satisfaction with Therapy: yes - no concerns Patient understands no changes to current drug regimen were made at the appointment and that [facility] isproviding recommendations (summary located at top of note) for provider review and follow up. Lesli Palomino RPH 02/27/21 12:45 PM documented in this encounter Plan of Treatment Not on file documented as of this encounter Goals Goal Patient Goal Type Associated Problems Recent Progress Patient-Stated? Author Home Medication Compliance and Understanding Patient Facing Action Plan No Marilou Sood [facility] Note: SVR12 through treatment with Mavyret. Home Medication Compliance and Understanding Patient Facing Action Plan On track(2020 12:44 PM EDT) No Lesli Palomino [facility] Note: SVR12 through treatment with Mavyret x 8 weeks documented as of this encounter Visit Diagnoses Not on filedocumented in this encounter Care Teams Transcription Manager Relationship Specialty Start Date End Date Fauzia Nelson MD PCP - General Family Medicine 12/26/20 04/17/22 documented as of this encounter
--- OUTSIDE RECORDS SUMMARY | 2024-07-16 00:57 | XMS_ITS | Encounter Summary ---
[place] [address] Care Team Providers Care Film Producer Name Role Phone Fauzia Nelson MD Primary Care Provider + Reason for Visit * Reason Comments Medication Management Encounter Details Date Type Department Care Team (Late st Contact Info) Description 07/16/2021 Specialty [place] [address] Lesli Palomino [facility] Social History Tobacco Use Types Packs/Day Years [...] Progress Notes * Lesli Palomino RPH - 07/16/2021 12:29 PM EST Clinical Management Plan: Transfer of Care/Discharge Specialty Services Specialty Pharmacy Consultation; Lesli Palomino Twin Comprehensive Medication Management (CMM) Mike Guillermo [address] [facility] [address] Telephone Information: Work Phone Not on file. Is the patient transferring services to a different Specialty Pharmacy or discontinuing the medication? Discontinuing Services Medication: Mavyret x 8 weeks Reason for discontinuation or transfer: completion of treatment Approximate date of discontinuation or transfer: Discontinued from Specialty Pharmacy Services on 07/16/21 Patient's response to therapy: SVR12 lab completed: no SVR12 Result: Unknown Summary of services provided by [facility] Specialty: Initial pharmacist consult, day 3 follow-up, refill reminder and follow-up 10 days prior to refill, end of treatment follow-up, SVR12 lab reminder Summary of on-going needs: Follow-up provided by clinic Referral for additional services (if applicable): n/a Is patient aware of referral? [X] N/A Instructions provided to patient about discharge/transfer: yes - patient aware this concludes our follow-up schedule and to reach out with any additional questions/concerns Provider aware of discontinuation or transfer: yes Patient understands no changes to current drug regimen were made at the appointment and that [facility] isproviding recommendations (summary located at top of note) for provider review and follow up. Lesli Palomino RPH 07/16/21 12:31 PM documented in this encounter Plan of Treatment Not on file documented as of this encounter Goals Goal Patient Goal Type Associated Problems Recent Progress Patient-Stated? Author Home Medication Compliance and Understanding Patient Facing Action Plan No Marilou Sood [facility] Note: SVR12 through treatment with Mavyret. Home Medication Compliance and Understanding Patient Facing Action Plan On track(2020 12:44 PM EDT) No Lesli Palomino [facility] Note: SVR12 through treatment with Mavyret x 8 weeks documented as of this encounter Visit Diagnoses Not on filedocumented in this encounter Care Teams Film Producer Relationship Specialty Start Date End Date Fauzia Nelson MD PCP - General Family Medicine 12/26/20 04/17/22 documented as of this encounter
--- OUTSIDE RECORDS SUMMARY | 2024-07-16 00:57 | XMS_ITS | Encounter Summary ---
Author [facility] [place] [address] Care Team Providers Care Lcac Operator Name Role Phone Fauzia Nelson MD Primary Care Provider + Encounter Details Date Type Department Care Team (Late st Contact Info) Description 05/03/2021 5:28 PM EST Anesthesia [place] [address] Efraín Faria MD [facility] [address] [place] [address] Clive Buck MD [facility] [place] [address] Anesthesia Record Procedure Summary Procedure Name Responsible Anesthesiologist Anesthesia Start Time Anesthesia Stop Time EGD, UPPER GI ENDOSCOPY (WRVU 2.09) (Trunk) Efraín Faria MD 05/03/21 1728 05/03/21 1752 Events Date Time Event Comment 05/03/2021 1715 1728 AN Verify 1728 Start 1728 An Start Data 1734 An Induction 1734 Anesthesia Ready 1741 Handoff Intra-procedure anesthesia care was transferred after review of the patient's history, current anesthetic/surgical status and procedural plan, anticipated issues and expected post-operative course (including disposition.) Ryland Alvarez MD 175 an stop data 1752 Recovery or ICU Handoff Carlie ent care was transferred to the destination unit staff after review of the patient's medical history, current anesthetic/surgical status and plan, according to the Provider Handoff Checklist. 1752 Stop Meds Name Total IV Lidocaine 100 mg Propofol 300 mg Propofol INF 237.6 mg Ondansetron 4 mg lactated ringers infusion 0 mL * Agents Name O2 Auxiliary Flowmeter 1 * Blood No blood administrations on file. Lines, Drains, and Airways Type Details Placement Removal (RETIRED) Peripheral IV Line - Single Lumen 05/03/21; 170; brachial vein, right; [id number] catheter system; Yes - US guidance used for evaluation of potential access sites, vessel patency and realtime visualization of needle entry with permanent recording.; 22 gauge; papa; intradermal injection; 05/03/21; 182305/03/21 170 by Ashlyn Caldwell RN 05/03/211823 by Shannan Wall RN documented in this encounter Social History Tobacco Use Types Packs/Day Years [...] on file documented as of this encounter OR Notes * Anesthesia Postprocedure Evaluation - Efraín Faria MD - 05/03/2021 6:15 PM EST Department of Anesthesiology Post-procedure Note Patient: Mike Guillermo Procedure Summary Date: 05/03/21 Room / Location: [facility] ENDO 6 / [facility] ENDOSCOPY Anesthesia Start: 1727 Anesthesia Stop: 1751 Procedure: EGD, UPPER GI ENDOSCOPY (N/A Trunk) Diagnosis: Hepatic cirrhosis, unspecified hepatic cirrhosis type, unspecified whether ascites present (cirrhosis, screen for varices) Surgeons: Kings Anderson MD Responsible Provider: Efraín Faria MD Anesthesia Type: MAC ASA Status: 3 All Anesthesia Providers: Anesthesiologist: Ryland Alvarez MD; Efraín Faria MD GROUT MACHINE TENDER: Emma Weller CRNA Vitals Value Taken Time BP 138/91 05/03/21 1825 Temp Pulse 109 05/03/21 1802 Resp 20 05/03/21 1802 SpO2 97 % 05/03/21 1827 Pain Level Vitals shown include unvalidated device data. Patient Location: PACU/[facility] Level of Consciousness: Awake and Alert Pain Management: Satisfactory Analgesia PONV: None Cardiovascular Status: At Baseline and Hemodynamically Stable Respiratory Status: At Baseline and Room Air Postoperative Fluid Status: Intravascular EUvolemia Possible Anesthetic Complications: NONE apparent at time of evaluation Final Primary Anesthesia Type: MAC (The anesthetic type performed was the same as planned.) Comments: Efraín Faria MD * Anesthesia Preprocedure Evaluation - Efraín Faria MD - 05/03/2021 10:53 AM EST Pre-Anesthesia Evaluation for: Mike Guillermo a 45 y.o. male. Procedure(s): EGD, UPPER GI ENDOSCOPY Patient Active Problem List Diagnosis ??? Chronic hepatitis C without hepatic coma ??? Habitual alcohol use ??? Overweight ??? Hypertension ??? Gastroesophageal reflux ??? Sleep apnea ??? Low back pain, non-specific ??? Eczema ??? Migraine ??? Cigarette smoker ??? History of intravenous drug abuse ??? Opioid dependence No past medical history on file. No past surgical history on file. Social History Tobacco Use ??? Smoking status: Former Smoker Types: e-Cigarettes ??? Smokeless tobacco: Never Used Substance Use Topics ??? Alcohol use: Not on file Social History Substance and Sexual Activity Drug Use Not on file No Known Allergies Medications: MAR and/or home medications have been reviewed. Physical Exam: Preprocedure Vitals Current as of 05/03/21 1053 No BP, pulse, respiration, SpO2, or temperature recorded. Height: Weight: BMI: IBW: Airway Assessment: Mallampati: II TM distance: >3 FB Neck ROM: full Cardiovascular Assessment: Rhythm: regular Rate: normal Pulmonary Assessment: unlabored breathing Dental Assessment: Misc Assessment: Last Filed Perioperative Cognitive Screening None Anesthesia Plan: ASA 3 MAC, with a(n) intravenous induction Mike Guillermo is a 45 y.o. 108 kg male presenting for EGD. Pt has a PMH of EtOH cirrhosis, opioid use disorder, GERD, and migraines Anesthetic History: No prior anesthetic documentation available. Labs were reviewed. Type and Screen: No results found for: ABORH Allergies: No Known Allergies NPO Status: Appropriate Anesthetic Plan: MAC with propofol, GA backup Standard ASA monitoring Adequate IV access Clive Buck MD PhD #[id number] Region - Other Informed Consent: Anesthetic plan and risks discussed with patient. Plan discussed with GROUT MACHINE TENDER. Anesthesia Screening documented in this encounter Plan of Treatment Not on file documented as of this encounter Goals Goal Patient Goal Type Associated Problems Recent Progress Patient-Stated? Author Home Medication Compliance and Understanding Patient Facing Action Plan No Marilou Sood, [facility] Note: SVR12 through treatment with Mavyret. [facility] Medication Compliance and Understanding Patient Facing Action Plan On track(2020 12:44 PM EDT) No Lesli Palomino, [facility] Note: SVR12 through treatment with Mavyret x 8 weeks documented as of this encounter Visit Diagnoses Not on filedocumented in this encounter Administered Medications Inactive Administered Medications - up to 3 most recent administrations Medication Order MAR Action Action Date Dose Rate Site lactated ringers infusion 100 mL/hr, Intravenous, CONTINUOUS, Starting on Prema 05/03/21 at 1645, Until Prema 05/03/21 at 1824, Endoscopy (Day of Procedure) Restarted 05/03/2021 5:34 PM EST New Bag 05/03/2021 5:05 PM EST 100 mL/hr 100 mL/hr lidocaine (pf) (Xylocaine) (20 mg/mL) 2% injection syringe Intravenous, PRN, Starting on Prema 05/03/21 at 1734, Until Prema 05/03/21 at 1752, Anesthesia Intra-op, Routine Given 05/03/2021 5:34 PM EST 100 mg ondansetron (pf) (Zofran) (2 mg/mL) injection Intravenous, PRN, Starting on Prema 05/03/21 at 1755, Until Prema 05/03/21 at 1755, Anesthesia Intra-op, Routine Given 05/03/2021 5:55 PM EST 4 mg propofoL (Diprivan) (10 mg/mL) infusion Intravenous, CONTINUOUS PRN, Starting on Prema 05/03/21 at 1734, Until Prema 05/03/21 at 1752, Anesthesia Intra-op, Routine New Bag 05/03/2021 5:34 PM EST 200 mcg/kg/min 129.6 mL/hr propofoL (Diprivan) 10 mg/mL bolus injection (Anesthesia) Intravenous, PRN, Starting on Prema 05/03/21 at 1734, Until Prema 05/03/21 at 1752, Anesthesia Intra-op Given 05/03/2021 5:38 PM EST 100 mg Given 05/03/2021 5:36 PM EST 50 mg Given 05/03/2021 5:34 PM EST 150 mg documented in this encounter Care Teams Lcac Operator Relationship Specialty Start Date End Date Fauzia Nelson MD PCP - General Family Medicine 12/26/20 04/17/22 documented as of this encounter
--- OUTSIDE RECORDS SUMMARY | 2024-07-16 00:57 | XMS_ITS | Encounter Summary ---
[place] [address] Care Team Providers Care Senior Director Creative Services Name Role Phone Fauzia Nelson MD Primary Care Provider + Encounter Details Date Type Department Care Team (Late st Contact Info) Description 01/30/2021 Specialty [place] [address] Bob Woo [facility] Social History Tobacco Use Types Packs/Day Years Used Date Smoking Tobacco: Former e-Cigarettes Smokeless Tobacco: Never Sex and Gender Information Value Date Recorded Sex Assigned at Not on file Gender Identity Not on file Sexual Orientation Not on file documented as of this encounter Progress Notes * Bob Woo - 01/30/2021 12:04 PM EDT Error documented in this encounter Plan of Treatment Not on file documented as of this encounter Goals Goal Patient Goal Type Associated Problems Recent Progress Patient-Stated? Author Home Medication Compliance and Understanding Patient Facing Action Plan No Marilou Sood [facility] Note: SVR12 through treatment with Mavyret. Home Medication Compliance and Understanding Patient Facing Action Plan On track(2020 12:44 PM EDT) No Lesli Palomino [facility] Note: SVR12 through treatment with Mavyret x 8 weeks documented as of this encounter Visit Diagnoses Not on filedocumented in this encounter Care Teams Senior Director Creative Services Relationship Specialty Start Date End Date Fauzia Nelson MD PCP - General Family Medicine 12/26/20 04/17/22 documented as of this encounter
--- OUTSIDE RECORDS SUMMARY | 2024-07-16 00:57 | XMS_ITS | Encounter Summary ---
[place] [address] Care Team Providers Care Scientific Publications Editor Name Role Phone Fauzia Nelson MD Primary Care Provider + Encounter Details Date Type Department Care Team (Late st Contact Info) Description 04/18/2022 11:00 AM EDT Office [place] [address] León Wong PA [address] [place] [address] [place] [address] Hepatic cirrhosis, unspecified hepatic cirrhosis type, unspecified whether ascites present (Primary Dx); Chronic hepatitis C without hepatic coma; Edema of lower extremity Social History Tobacco Use Types Packs/Day Years [...] on file documented as of this encounter Last Filed Vital Signs Vital Sign Reading Time Taken Comments Blood Pressure 128/77 04/18/2022 10:29 AM EDT Pulse 86 04/18/2022 10:29 AM EDT Temperature - - Respiratory Rate - - Oxygen Saturation - - Inhaled Oxygen Concentration - - Weight 124.6 kg (274 lb 11.2 oz) 2021 10:29 AM EDT Height 188 cm (6' 2) 04/18/2022 10:29 AM EDT Body Mass Index 35.27 04/18/2022 10:29 AM EDT documented in this encounter Progress Notes * León Wong PA - 04/18/2022 11:00 AM EDT Gastroenterology and Hepatology Follow Up Note Patient: Mike Guillermo Sex: male : 1975 Provider: León Wong PA-C PCP: Fauzia Nelson MD LIVER HISTORY 1. Hepatitis C infection 2. Cirrhosis -Genotype 1a -dx'd ~ 2007 via ?screening - low viral load, no good tx options, told to wait -h/o IVDU [id number], tattoos (all homemade), incarceration -Fibroscan 04/29/18: 7.8 kPa, 12% IQR, 180 CAP; c/w F2 fibrosis -Labs 04/29/18 (consult): AST 49, ALT 41, ALP 84, TBIL 0.6, ALB 3.9, PLT 233, RF neg, YUNIER neg, cryoglobulins negative, HBsAg neg, HBsAb neg, HBcAb neg, GT 1a -Plan was for tx with G/P x 8 weeks, approved and first fill sent to patient, however he was lost to phone follow-up and he never started the medication, eventually -New referral 09/2020, seen 12/26/20 - concerns for cirrhosis on updated ultrasound 09/2020 at OSH withnodular liver; new sxs of abdominal bloating, leg/feet swelling, as well as increased alcohol use -Fibroscan 01/29/21: 70.1 kPa, 12% IQR, 295 CAP; c/w cirrhosis and pHTN, steatosis -HCV treatment: started G/P x 8 weeks 01/2021-03/2021 No SVR labs drawn/sent - pt lost to follow-up with incarceration -EGD 05/03/21: no varices, PHG, Dooley's esophagus (rec'd start daily PPI) -Last imaging: US 04/18/22 with normal appearing liver, no concerning lesions (stable 1.7 cm cyst),no ascites, mild splenomegaly -Last MELD-Na = 10 on 04/18/22 PROBLEM LIST Patient Active Problem List Diagnosis Code ??? Chronic hepatitis C without hepatic coma B18.2 ??? Habitual alcohol use F10.90 ??? Overweight E66.3 ??? Hypertension I10 ??? Gastroesophageal reflux K21.9 ??? Sleep apnea G47.30 ??? Low back pain, non-specific M54.50 ??? Eczema L30.9 ??? Migraine G43.909 ??? Cigarette smoker F17.210 ??? History of intravenous drug abuse F19.11 ??? Opioid dependence F11.20 ??? Hepatic cirrhosis K74.60 ??? Edema of lower extremity R60.0 ??? Dooley's esophagus K22.70 Interval History: Mr. Mike Guillermo is 46 y.o. with a history of hepatitis C infection and associated cirrhosis. We last met on 01/29/21 and he was treated for his infection with 8 weeks of Mavyret last year. He hadlabs and ultrasound prior to his visit today. He was lost to follow-up in the meantime due to incarceration. He is here today with correctional officers from [facility] in [place], [place]. He states that his biggest concern has been ongoing lower extremity edema over the last year. His legs have been quite swollen and he is on high-dose diuretics at the moment (not sure exactly what the doses are). He has had some itching in his legs as well. Sometimes they get a bit red and tender. He uses Unna boots most of the time, and sees a nurse every other day to make changes. He tries to lift his legs and watch salt in his diet, right now following a kosher diet in the facility. He denies any specific GI related complaints today such as abdominal pain, nausea/vomiting, distention/bloating, or GI bleeding. He has normal regular bowel habits. He continues to take Suboxone 16 mg daily. He has not had any alcohol in more than a year now and so he is no longer taking acamprosate. He anticipates approximately another 12 months incarcerated. MEDICATIONS: Current Outpatient Medications Medication Sig Dispense Refill ??? baclofen (Lioresal) 10 mg Tablet Take 10 mg by mouth 3 times daily. ??? Cetirizine 10 mg Capsule Take 10 mg by mouth daily. ??? doxepin (SINEquan) 50 mg Capsule Take 50 mg by mouth daily. ??? furosemide (Lasix) 80 mg Tablet Take 80 mg by mouth 2 times daily. ??? hydrOXYzine (Atarax) 50 mg Tablet Take 50 mg by mouth 3 times daily as needed for Itching. ??? potassium gluconate 550 mg (90 mg) Tablet Take 550 each by mouth daily. ??? Pramoxine (Sarna Sensitive) 1 % Lotion Apply topically 2 times daily. ??? sertraline (ZOLOFT) 100 mg Tablet Take 100 mg by mouth daily. ??? spironolactone (Aldactone) 100 mg Tablet Take 150 mg by mouth 2 times daily. Take 1 1/2 tabletstwice daily ??? buprenorphine (Subutex) 8 mg Tablet, Sublingual Place 16 mg under the tongue daily. ??? SUMAtriptan (Imitrex) 25 mg Tablet Take 25 mg by mouth as needed for Migraine. Initial dose: 25mg, 50 mg, or 100 mg (take with fluids). May repeat dose after 2 hours. Max daily dose: 200 mg ??? Psyllium Seed-Sucrose (Fiber) Powder Take by mouth daily. ??? omeprazole (PriLOSEC) 40 mg Capsule, Delayed Release(E.C.) Take 40 mg by mouth daily. ??? SUMAtriptan (IMITREX STATDOSE) 6 mg/0.5 mL Pen Injector GIVE ONE INJCETION AT FIRST SIGN OF HEADACHE MAY REPEAT IN TWO HOURS IF NEEDED ??? buprenorphine-naloxone (Suboxone) 12-[address] 1 Film under the tongue daily. No current facility-administered medications for this visit. ALLERGIES/ADR No Known Allergies PHYSICAL EXAMINATION: Vitals: 04/18/22 1029 BP: 128/77 BP Location (NBP): Left arm Patient Position: Sitting BP Cuff Sizes: Large Adult (32-43 cm) Pulse: 86 Weight: 124.6 kg (274 lb 11.2 oz) Height: 188 cm (6' 2) Body mass index is 35.27 kg/m??. Constitutional: Well appearing, appropriate, no acute distress, in shackles Skin: Bilateral venous statis, no cyanosis, no palmar erythema, no jaundice, no spider angiomata Head: Normocephalic, sclerae anicteric Abdomen: Increased central adiposity, nondistended Neurologic: Alert and oriented x 3, no asterixis or tremor Extremities: 2+ bilateral LE edema, no clubbing, no muscle wasting, no joint swelling PERTINENT LABS AND IMAGING: Recent Results (from the past 24 hour(s)) Prothrombin Time Result Value Ref Range PT 13.4 (H) 9.4 - 12.5 sec INR 1.2 Comprehensive metabolic panel (non-fasting) Result Value Ref Range Glucose Lvl 111 65 - 199 mg/dL BUN 18 10 - 20 mg/dL Creatinine 1.18 0.80 - 1.50 mg/dL Sodium 134 (L) 135 - 145 mmol/L Potassium 4.4 3.5 - 5.0 mmol/L Chloride 91 (L) 98 - 107 mmol/L CO2 33 (H) 22 - 31 mmol/L Anion Gap 10 5 - 15 mmol/L Calcium 9.5 8.5 - 10.5 mg/dL Total Protein 9.0 (H) 6.1 - 8.0 g/dL Albumin 4.3 3.2 - 5.2 g/dL AST 38 0 - 39 unit/L ALT 19 0 - 55 unit/L Alk Phos 113 40 - 130 unit/L Total Bilirubin 0.7 0.2 - 1.3 mg/dL Estimated GFR 77 >=60 mL/min/1.73 m?? Hemogram Result Value Ref Range WBC 4.5 4.0 - 9.5 x10(3)/mcL RBC 4.52 (L) 4.58 - 5.54 x10(6)/mcL Hemoglobin 13.6 (L) 13.7 - 16.5 g/dL Hematocrit 37.5 (L) 40.5 - 48.5 % MCV 83.0 82.9 - 93.1 fL MCH 30.1 27.5 - 32.1 pg MCHC 36.3 (H) 32.0 - 35.7 g/dL Platelets 130 (L) 145 - 357 x10(3)/mcL RDWSD 40.0 36.0 - 45.0 fL RDWCV 13.2 11.4 - 13.8 % MPV 10.0 7.6 - 12.9 fL nRBC % Auto 0.0 % nRBC Abs Auto 0.000 0.000 - 0.000 x10(3)/mcL Differential, Automated Result Value Ref Range Neutrophils % 72.3 % Neutr Abs (ANC) 3.26 1.70 - 6.10 x10(3)/mcL Lymphocytes % 12.6 % Lymphocytes Abs 0.6 (L) 0.9 - 3.2 x10(3)/mcL Monocytes % 9.5 % Monocyte Abs 0.4 0.3 - 0.9 x10(3)/mcL Eosinophils % 4.7 % Eosinophils Abs 0.2 0.0 - 0.4 x10(3)/mcL Basophils % 0.7 % Basophils Abs 0.0 0.0 - 0.1 x10(3)/mcL Immature Gran % 0.20 % Daily Gran Abs 0.01 0.00 - 0.04 x10(3)/mcL MELD-Na score: 10 at 04/18/2022 9:41 AM MELD score: 10 at 04/18/2022 9:41 AM Calculated from: Serum Creatinine: 1.18 mg/dL at 04/18/2022 9:41 AM Serum Sodium: 134 mmol/L at 04/18/2022 9:41 AM Total Bilirubin: 0.7 mg/dL (Using min of 1 mg/dL) at 04/18/2022 9:41 AM INR(ratio): 1.2 at 04/18/2022 9:41 AM Age: 46 years Non-DH Laboratory: No recent outside laboratory data avialable Imaging: Ultrasound w dopplers today: LIVER: ------ Right Lobe Length: 16.0 cm Echogenicity/Echotexture: Normal ?? HEPATIC-PORTAL DUPLEX: PSV Waveform (cm/s) Right Hepatic Patent where Vein: seen Middle Patent where Hepatic Vein: seen Left Hepatic Patent where Vein: seen Main Portal 13.8 Patent where Vein: seen Right Portal Patent where Vein: seen Left Portal Patent where Vein: seen ?? Direction of Flow Main Portal Hepatopetal Vein: ?? Collaterals: None visualized ?? GALLBLADDER: Cholelithiasis: No stones visualized Wall Thickness: 2.0 mm Focal Tenderness: Negative sonographic Crouch's sign ?? BILIARY TRACT: Intrahepatic Ducts: Normal Extrahepatic Ducts: Normal Common Duct Size: 3.0 mm ?? ------- SPLEEN: ------- Size (cm) L: 15.4 AP: 7.7 TV: 13.1 ?? Vol (ml): 813.4 ?? Comment: Splenomegaly ?? FLUID COLLECTIONS: Ascites not present on 4 quadrant evaluation. ?? IMPRESSION ?? 1. Normal size and attenuation of the hepatic parenchyma. 2. 1.7 cm simple hepatic cyst posterior left lobe with a single uniformly thin avascular septation. No further follow-up recommended. 3. Hepatic and portal veins are patent. No ascites. 4. Mild splenomegaly. ASSESSMENT & PLAN: Mike Guillermo is a 46 y.o. male with chronic hepatitis C infection, genotype 1a, and compensated cirrhosis with underlying portal hypertension indicated on transient elastography and chronic thrombocytopenia, mild splenomegaly on imaging. He completed 8-week course of Mavyret April of last year however unfortunately was incarcerated shortly after and did not have any follow-up testing posttreatment and was lost to follow-up in clinic. We reviewed his labs and ultrasound this morning thus far, all of which are very reassuring. He hasno concerning liver lesions and interestingly a normal- appearing liver, though he does have mild splenomegaly. There is no ascites on ultrasound which is also reassuring. LFTs are within normal limits and synthetic function is also relatively unremarkable. Overall MELD score calculated at 10. HCV viral load is pending and with this now more than 12 months posttreatment if negative would confirm acure of his infection. Regarding lower extremity edema, given the improvement in synthetic function and lack of other liver related symptoms, I believe this is likely not related to his cirrhosis. On fairly high dose diuretics without much improvement which makes me believe this is more likely related to blockage of venous return with stasis, possibly lymphedema. I recommended his medical team at the facility consider swapping furosemide for torsemide but if this does not show any improvement and if elevating his legs and following low-sodium diet also does not help, would then recommend referral to vascular surgery for evaluation and consideration of extremity vein stripping or other interventions. Reviewed with him warning signs for DVT including painful hot red legs, new cramping, and of course respiratory distress for pulmonary embolism. Plan: -Await remaining lab results. If HCV RNA undetected, will confirm a cure. -Continue diuretics or consider swapping furosemide for torsemide at equivalent doses. -Raise legs when sitting and lying down. -Dietary sodium restriction is much as possible. He should be on a heart healthy/low-sodium diet atfacility. -If no improvement in edema, consider referral to vascular surgery. -Continue omeprazole 40 mg for Dooley's esophagus. -Repeat EGD approximately 2 years for varices screening and follow-up of Dooley's. -Repeat ultrasound 6 months for HCC screening. -Hepatology follow-up likely in 6 months with ultrasound and labs prior pending remaining results from today. Time spent reviewing records prior to this encounter: 10 minutes Time spent during encounter with patient including counselin minutes Time spent documenting encounter on date of service: 7 minutes Approximate total time devoted to this single encounter on date of service: 42 minutes León Wong PA-C Section of Gastroenterology [place] [address] Cc: MD Zach Beth PA-C documented in this encounter Plan of Treatment Not on file documented as of this encounter Goals Goal Patient Goal Type Associated Problems Recent Progress Patient-Stated? Author Home Medication Compliance and Understanding Patient Facing Action Plan No Marilou Sood [facility] Note: SVR12 through treatment with Mavyret. Home Medication Compliance and Understanding Patient Facing Action Plan On track(2020 12:44 PM EDT) No Lesli Palomino [facility] Note: SVR12 through treatment with Mavyret x 8 weeks documented as of this encounter Visit Diagnoses Diagnosis Hepatic cirrhosis, unspecified hepatic cirrhosis type, unspecified whether ascites present- Primary Chronic hepatitis C without hepatic coma Edema of lower extremity Edema documented in this encounter Care Teams Scientific Publications Editor Relationship Specialty Start Date End Date Fauzia Nelson MD [facility] [place] [address] PCP - General Family Medicine 04/18/22 11/10/23 documented as of this encounter
--- OUTSIDE RECORDS SUMMARY | 2024-07-16 00:57 | XMS_ITS | Encounter Summary ---
[place] [address] Care Team Providers Care Mate Fishing Vessel Name Role Phone Fauzia Nelson MD Primary Care Provider + Reason for Visit * Reason Comments Specialty Pharmacy Review Encounter Details Date Type Department Care Team (Late st Contact Info) Description 01/29/2021 Specialty Pharm[place] [address] Nell Talbert, [facility] Social History Tobacco Use Types Packs/Day Years Used Date Smoking Tobacco: Former e-Cigarettes Smokeless Tobacco: Never Sex and Gender Information Value Date Recorded Sex Assigned at Not on file Gender Identity Not on file Sexual Orientation Not on file documented as of this encounter Progress Notes * Nell Talbert - 01/29/2021 12:13 PM EDT [facility] has completed a benefits investigation for Mike Guillermo to review their eligibility to fill at [facility]. Per patient's medication list they are prescribed Mavyret and the medication is able to be filled at the [facility]. documented in this encounter Plan of Treatment Not on file documented as of this encounter Goals Goal Patient Goal Type Associated Problems Recent Progress Patient-Stated? Author Home Medication Compliance and Understanding Patient Facing Action Plan No Marilou Sood [facility] Note: SVR12 through treatment with Mavyret. Home Medication Compliance and Understanding Patient Facing Action Plan On track(2020 12:44 PM EDT) No Lesli Palomino [facility] Note: SVR12 through treatment with Mavyret x 8 weeks documented as of this encounter Visit Diagnoses Not on filedocumented in this encounter Care Teams Mate Fishing Vessel Relationship Specialty Start Date End Date Fauzia Nelson MD PCP - General Family Medicine 12/26/20 04/17/22 documented as of this encounter
--- OUTSIDE RECORDS SUMMARY | 2024-07-16 00:57 | XMS_ITS | Encounter Summary ---
Author Organization [facility] Address [facility] [place] [address] Care Team Providers Care Net Coordinator Name Role Phone Fauzia Nelson MD Primary Care Provider + Encounter Details Date Type Department Care Team (Late st Contact Info) Description 05/03/2021 3:55 PM EST - 05/03/2021 6:40 PM EST Hospital Encounter Gastroenterology at [facility] [place] [address] Kings Anderson MD [facility] [place] [place] [address] Discharge Disposition: Home Social History Tobacco Use [...] Sign Reading Time Taken Comments Blood Pressure 138/91 05/03/2021 6:25 PM EST Pulse 109 05/03/2021 6:02 PM EST Temperature 37.6 ??C (99.7 ??F) 05/03/2021 4:45 PM ES T Respiratory Rate 20 05/03/2021 6:02 PM EST Oxygen Saturation 96% 05/03/2021 6:25 PM EST Inhaled Oxygen Concentration - - Weight - - Height - - Body Mass Index - - documented in this encounter Discharge Instructions * Discharge Instructions* Shannan Wall RN - 05/03/2021 6:04 PM EST Upper GI Endoscopy: What to Expect at Home Your Recovery You will be able to go home after your doctor or nurse checks to make sure you are not having any problems. You may have to stay overnight if you had treatment during the test. You may have a sore throat fora day or two after the test. This care sheet gives you a general idea about what to expect after the test. How can you care for yourself at home? Activity Rest when you feel tired. ?? You can do your normal activities when it feels okay to do so. Diet ?? Follow your doctor's directions for eating. ?? Unless your doctor has told you not to, drink plenty of fluids. This helps to replace the fluidsthat were lost during the prep. ?? Do not drink alcohol. Medicines ?? Your doctor will tell you if and when you can restart your medicines. He or she will also give you instructions about taking any new medicines. ?? If you take blood thinners, such as warfarin (Coumadin), clopidogrel (Plavix), or aspirin, be sure to talk to your doctor. He or she will tell you if and when to start taking those medicines again. Make sure that you understand exactly what your doctor wants you to do. ?? If polyps were removed or a biopsy was done during the test, your doctor may tell you not to take aspirin or other anti-inflammatory medicines for a few days. These include ibuprofen (Advil, Motrin) and naproxen (Aleve). ?? If you have a sore throat the day after the procedure, use an jenc-eek-bidjwkt spray to numb your throat. Sucking on throat lozenges and gargling with warm salt water may also help relieve your symptoms. Other instructions ?? For your safety, do not drive or operate machinery until the medicine wears off and you can think clearly. Your doctor may tell you not to drive or operate machinery until the day after your test. ?? Do not sign legal documents or make major decisions until the medicine wears off and you can think clearly. The anesthesia can make it hard for you to fully understand what you are agreeing to. Additional Information for Sedation Patients For patients who received sedation: ?? You may have received medications before and/or during your procedure which effects your judgement and reaction time. ?? Do not drive, operate machinery, drink alcoholic beverages or make important decisions for 24 hours. ?? Be careful on stairs as you may be unsteady on your feet. ?? You may eat a regular diet as tolerated. ?? Do not smoke if you are alone. ?? IV site: Slight redness or tenderness is normal, you can use a warm compress if you would like. If tenderness and/or redness increase or if foul drainage occurs, please contact your Doctor. Please call [phone] before 8pm Mon-Fri with problems, questions or concerns. If you call after 8pm or on weekends, call the Hospital at [phone] and ask to speak to the Retail Sales Lead iphone developer and the press operator will contact that person for you. When should you call for help? Call [phone] anytime you think you may need emergency care. For example, call if: ?? You passed out (lost consciousness). ?? You pass maroon or bloody stools. ?? You have trouble breathing. Call your doctor now or seek immediate medical care if: ?? You have pain that does not get better after you take pain medicine. ?? You are sick to your stomach or cannot drink fluids. ?? You have new or worse belly pain. ?? You have blood in your stools. ?? You have a fever. ?? You cannot pass stools or gas. Watch closely for changes in your health, and be sure to contact your doctor if you have any problems. Where can you learn more? [facility] View your After Visit Summary and more online at [email or web address] If you would like to provide feedback about your hospital experience, please call the Office of Patient and Family Relations at . If you have received this After Visit Summary in error, please immediately return it in person to the department, or notify the [facility] Privacy Office by calling toll free at between the hours of 8AM and 5PM to arrange for our retrieval of the documents at no cost to you. Content Version: 12.2 ?? [id number] [employer]. Care instructions adapted under license by [facility]. If you have questions about a medical condition or this instruction, always ask your healthcare professional. [employer] disclaims any warranty or liability for your use of this information. documented in this encounter Medications at Time of Discharge Medication Sig Dispensed Refills Start Date End Date SUMAtriptan (IMITREX STATDOSE) 6 mg/0.5 mL Pen Injector GIVE ONE INJCETION AT FIRST SIGN OF HEADACHE MAY REPEAT IN TWO HOURS IF NEEDED 09/20/2020 omeprazole (PriLOSEC) 40 mg Capsule, Delayed Release(E.C.) Take 40 mg by mouth daily. buprenorphine-naloxone (Suboxone) 12-[address] 1 Film under the tongue daily. acamprosate DR (Campral) 333 mg Tablet, Delayed Release (E.C.)Indications:Habi tual alcohol use Take 2 tablets by mouth 3 times daily. 180 tablet 2 12/26/2020 04/18/2022 documented as of this encounter H&P Notes * Kings Anderson MD - 05/03/2021 4:27 PM EST Patient Name: Mike Guillermo Patient Age: 45 y.o. Birthdate: 1975 Admit date: 05/03/2021 Attending Physician: Kings Anderson MD Gastroenterology & Hepatology Pre-Procedure History and Physical Planned Procedure: EGD: Indication: cirrhosis, screen for varices Patient Active Problem List Diagnosis Code ??? Chronic hepatitis C without hepatic coma B18.2 ??? Habitual alcohol use Z72.89 ??? Overweight E66.3 ??? Hypertension I10 ??? Gastroesophageal reflux K21.9 ??? Sleep apnea G47.30 ??? Low back pain, non-specific M54.50 ??? Eczema L30.9 ??? Migraine G43.909 ??? Cigarette smoker F17.210 ??? History of intravenous drug abuse F19.11 ??? Opioid dependence F11.20 Medications: Reviewed in EDH No Known Allergies Social History/Family History: Reviewed in EDH. No changes Exam: Patient Vitals for the past 24 hrs: Temp Pulse Resp BP SpO2 05/03/21 1645 37.6 ??C (99.7 ??F) 93 16 (!) 154/119 96 % GEN: NAD, AAOX3 HEENT: NC/AT dryMM, anicteric Chest: CTAB Heart: RRR, nl s1, s2 Abdomen: normal bowel sounds, soft, non tender Assessment and Plan: Proceed with EGD: ASA Grade: ASA 3 - Patient with moderate systemic disease with functional limitations Mallampati: II (soft palate, uvula, fauces visible) Sedation plan: MAC Risks and benefits of the procedure were discussed with the patient. Risks discussed including bleeding, infection, reaction to anesthesia, perforation or other intraabdominal trauma, pancreatitis (if applicable), missing a cancer (if applicable) and/or other unforseen complication. Informed Consent signed by patient (or sales development representative). documented in this encounter Plan of Treatment [...] PM EDT) No Lesli Palomino [facility] Note: SVR12 through treatment with Mavyret x 8 weeks documented as of this encounter Procedures Procedure Name Priority Date/Time Associated Diagnosis Comments SURGICAL PATHOLOGY REPORT Routine 05/03/2021 5:46 PM EST SPECIMEN TO PATHOLOGY Routine 05/03/2021 5:46 PM EST Upper GI Endoscopy, Diagnostic ([id number]) 05/03/2021 5:29 PM EST Hepatic cirrhosis, unspecified hepatic cirrhosis type, unspecified whether ascites present UPPER GI ENDOSCOPY Routine 05/03/2021 5: 23 PM EST documented in this encounter Results * Surgical Pathology Report (05/03/2021 5:46 PM EST) Final Diagnosis [id number] ? Location: 4T; EA10; A The signing pathologist has (i) examined the relevant preparation(s) for the specimen(s) and (ii) rendered or confirmed the diagnosis(es). . ?Surgical Pathology DIAGNOSIS Distal esophagus, biopsy (Multiple): - ??Squamocolumnar junctional mucosa with intestinal metaplasia, negative for dysplasia (see Discussion). - ??Multiple levels examined. Electronically signed by: ?Luan HUNTER PhD, Luisa Verified: ??05/16/2021 10:28 ??Pathologist Performed at: ??-[facility] Dept. 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 ADDITIONAL STUDIES Immunohistochemistry Studies: Formalin-fixed, paraffin-embedded tissue sections are studied using the polymer technique with appropriate positive and negative controls. ?These IHC studies provide the pathologist with adjunctive diagnostic information. Antibody specificity has been verified by testing antibodies on a series of in-house tissues with known immunohistochemical performance characteristics. The clinical interpretation of any antibody positive staining or its absence is evaluated within the context of clinical presentation, morphology, histopathological criteria and other diagnostic tests. Block ? Antibody ?Result (Positive/Negative) A1 ? p53 ?Wild-type (non-mutant) staining pattern SPECIMEN(S) SUBMITTED A - Distal esophagus, biopsy (Multiple) CLINICAL INFORMATION Mucosal changes suggestive of Dooley's SPECIMEN PROCESSING A - Labeled/Fixative: Distal esophagus, formalin. Quantity/Size: Four, ranging from 0.3-0.5 cm. Tissue Description: Soft, pink-red tissues. Sections/Processing: Submitted en toto ??in 1 cassette labeled A1. ?? 05/16/2021 10:28 AM EST [facility] GI Biopsy 05/03/2021 5:46 PM EST 05/03/2021 5:46 PM EST Kings Anderson MD PATHOLOGY/CYTOLOG Y ORDERABLES Performing Organization Address [facility] [place] [address] * Specimen to Pathology (05/03/2021 5:46 PM EST) AP Specimen 05/03/2021 5:46 PM EST 05/03/2021 5:46 PM EST Narrative [facility] - 05/03/2021 5:46 PM EST Specimen requisition ordered. ??Separate Pathology report to follow Kings Anderson MD PATHOLOGY/CYTOLOG Y ORDERABLES Performing Organization Address [facility] [place] [address] * UPPER GI ENDOSCOPY (05/03/2021 5:23 PM EST) UPPER GI ENDOSCOPY [facility] Endoscopy Procedure Date: 05/03/2021 5:23 PM ? Patient Name: Mike Guillermo ? N: [id number] ? Date of : 1975 ? Age: 45 ? Order #: [id number] ? Instrument Name: [id number] ? Procedure: ? Upper GI endoscopy Indications: ? Cirrhosis rule out esophageal varices Patient Profile: ? This is a 45 year old male with ? alcohol induced cirrhosis. Providers: ? Kings Anderson MD, Jennifer Mesa ? Hayden Reynodls, Firmware Architect Referring MD: ?Fauzia Nelson Requesting Provider: León Wong Medicines: ? Monitored Anesthesia Care Complications: ? No immediate complications. Procedure: ? Pre-Anesthesia Assessment: ? - Prior to the procedure, a History ? and Physical was performed, and ? patient medications and allergies ? were reviewed. The patient's ? tolerance of previous anesthesia was ? also reviewed. The risks and benefits ? of the procedure and the sedation ? options and risks were discussed with ? the patient. All questions were ? answered, and informed consent was ? obtained. Prior Anticoagulants: The ? patient has taken no previous ? anticoagulant or antiplatelet agents. ? ASA Grade Assessment: III - A patient ? with severe systemic disease. After ? reviewing the risks and benefits, the ? patient was deemed in satisfactory ? condition to undergo the procedure. ? The procedure, indications, benefits, ? risks and alternatives were explained ? to the patient. Specifically ? discussed were potential ? complications including, but not ? limited to, bleeding, perforation, ? infection, missing a cancer, and ? adverse medication reactions. The ? Endoscope was introduced through the ? mouth, and advanced to the third part ? of duodenum. The patient tolerated ? the procedure well. The upper GI ? endoscopy was accomplished without ? difficulty. The patient tolerated the ? procedure well. ? Findings: ? Three tongues of salmon-colored mucosa were present ? from 38 to 40 cm. No other visible abnormalities were ? present. The maximum longitudinal extent of these ? esophageal mucosal changes was 2 cm in length. ? Examined with high definition white light endoscopy ? and Narrow Band Imaging (NBI). Mucosa was biopsied ? with a cold forceps for histology. One specimen ? bottle was sent to pathology. ? The Z-line was variable and was found 38 to 40 cm ? from the incisors. ? A small (2cm) sliding hiatal hernia was found. The ? hiatal narrowing was 40 cm from the incisors. ? Mild portal hypertensive gastropathy was found in the ? gastric body. ? The exam of the stomach was otherwise normal with no ? evidence of gastric varices. ? The examined duodenum was normal. ? Moderate Sedation: ? 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 Biopsied. ? - Z-line variable, 38 to 40 cm from ? the incisors. ? - Small sliding hiatal hernia. ? - Portal hypertensive gastropathy. ? - Normal examined duodenum. Recommendation: ?- Await pathology results. ? - Recommend daily PPI therapy if ? positive for Dooley's esophagus ? and/or symptoms of reflux. ? - Recommend Alcohol cessation. ? - - Follow an antireflux regimen. ? This includes: ? - Do not lie down for at least 3 to 4 ? hours after meals. ? - Raise the head of the bed 4 to 6 ? inches. ? - Decrease excess weight. ? - Avoid citrus juices and other ? acidic foods, alcohol, chocolate, ? mints, coffee and other caffeinated ? beverages, carbonated beverages, ? fatty and fried foods. ? - Avoid tight-fitting clothing. ? - Avoid cigarettes and other tobacco ? products. ? Attending Participation: ? I personally performed the entire procedure. ? Dr. Javan Anderson ____ Kings Anderson MD 05/03/2021 6:02:20 PM Number of Addenda: 0 Note Initiated On: 05/03/2021 5:23 PM PROVATION 05/03/2021 5:23 PM EST Fauzia Nelson MD GENERAL SURGICAL ORDERABLES PROVATION documented in this encounter Visit Diagnoses Not [...] 5:05 PM EST 100 mL/hr 100 mL/hr documented in this encounter Active and Recently Administered Medications Times are shown in EST. Continuous Medication Order 05/01/2021 05/02/2021 05/03/2021 lactated ringers infusion (CANCELED) 100 mL/hr, Intravenous, CONTINUOUS, Starting on Prema 05/03/21 at 1645, Until Prema 05/03/21 at 1824, Endoscopy (Day of Procedure) 1705 (New Bag - Prov ider: Ashlyn Caldwell RN)1733 (Paused - Provider: Emma Weller CRNA - Comment: Switch to gravity)1734 (Restarted - Provider: Emma Weller CRNA) documented in this encounter Care Teams Net Coordinator Relationship Specialty Start Date End Date Fauzia Nelson MD PCP - General Family Medicine 12/26/20 04/17/22 documented as of this encounter
--- OUTSIDE RECORDS SUMMARY | 2024-07-16 00:57 | XMS_ITS | Encounter Summary ---
Author [place] [address] Care Team Providers Care Mounter Brass Wind Instruments Name Role Phone Fauzia Nelson MD Primary Care Provider + Encounter Details Date Type Department Care Team (Late st Contact Info) Description 02/15/2021 Orders [place] [address] León Wong PA [address] [place] [address] [place] [address] Chronic hepatitis C without hepatic coma Social [...] Type Associated Problems Recent Progress Patient-Stated? Author [facility] Medication Compliance and Understanding Patient Facing Action Plan No Marilou Sood [facility] Note: SVR12 through treatment with Mavyret. [facility] Medication Compliance and Understanding Patient Facing Action Plan On track(2020 12:44 PM EDT) No Lesli Palomino [facility] Note: SVR12 through treatment with Mavyret x 8 weeks documented as of this encounter Visit Diagnoses Diagnosis Chronic hepatitis C without hepatic coma documented in this encounter Care Teams Mounter Brass Wind Instruments Relationship Specialty Start Date End Date Fauzia Nelson MD PCP - General Family Medicine 12/26/20 04/17/22 documented as of this encounter
--- OUTSIDE RECORDS SUMMARY | 2024-07-16 00:57 | XMS_ITS | Encounter Summary ---
[facility] Organization [facility] [place] [address] Care Team Providers Care Software Testing Specialist Name Role Phone Fauzia Nelson MD Primary Care Provider + Encounter Details Date Type Department Care Team (Latest Contact Info) Description 04/18/2022 9:30 AM EDT Laboratory Appointment Lab [address] [place] [id number] Chronic hepatitis C without hepatic coma; Hepatic [...] CARE Note: SVR12 through treatment with Mavyret. [facility] Medication Compliance and Understanding Patient Facing Action Plan On track(2020 12:44 PM EDT) No Lesli Palomino [facility] Note: SVR12 through treatment with Mavyret x 8 weeks documented as of this encounter Procedures Procedure Name Priority Date/Time Associated Diagnosis Comments HEMOGRAM Routine 04/18/2022 9:41 AM EDT Chronic hepatitis C without hepatic coma Hepatic cirrhosis, unspecified hepatic cirrhosis type, unspecified whether ascites present DIFFERENTIAL, AUTOMATED Routine 04/18/2022 9:41 AM EDT Chronic hepatitis C without hepatic coma Hepatic cirrhosis, unspecified hepatic cirrhosis type, unspecified whether ascites present HC ALPHA FETOPROTEIN TUMOR MARKER Routine 04/18/2022 9:41 AM EDT Chronic hepatitis C without hepatic coma Hepatic cirrhosis, unspecified hepatic cirrhosis type, unspecified whether ascites present HC HCV QUANTIFICATION Routine 04/18/2022 9:41 AM EDT Chronic hepatitis C without hepatic coma HC PROTHROMBIN TIME Routine 04/18/2022 9 :41 AM EDT Chronic hepatitis C without hepatic coma Hepatic cirrhosis, unspecified hepatic cirrhosis type, unspecified whether ascites present HC CBC,PLT & AUTO DIFF Routine 9:41 AM EDT Chronic hepatitis C without hepatic coma Hepatic cirrhosis, unspecified hepatic cirrhosis type, unspecified whether ascites present COMPREHENSIVE METABOLIC PANEL Routine 04/18/2022 9:41 AM EDT Chronic hepatitis C without hepatic coma Hepatic cirrhosis, unspecified hepatic cirrhosis type, unspecified whether ascites present documented in this encounter Results * (ABNORMAL) Differential, Automated (04/18/2022 9:41 AM EDT) Neutrophil % 72.3 % [facility] Neutrophil Absolute 3.26 1.70 - 6.10 x10(3)/mc L [facility] Lymph % 12.6 % [facility] Lymphocytes Abs 0.6(L) 0.9 - 3.2 x10(3)/mc L [facility] Monocyte % 9.5 % [facility] Monocyte Abs 0.4 0.3 - 0.9 x10(3)/mc L [facility] Eos % 4.7 % [facility] Eosinophils Abs 0.2 0.0 - 0.4 x10(3)/mc L [facility] Basophil % 0.7 % [facility] Baso Absolute 0.0 0.0 - 0.1 x10(3)/mc L [facility] Immature Gran % 0.20 % [facility] Comment: Immature granulocytes(IG's)percentage and absolute count will include metamyelocytes, myelocytes, and promyelocytes. Blood smears from CBCs yielding IG's will be scanned manually for concordance. If this scan disagrees with the automated IG or if promyelocytes are noted, a manual differential will be performed. Immature Gran Absolute 0.01 0.00 - 0.04 x10(3)/ L [facility] Blood 04/18/2022 9:41 AM EDT 04/18/2022 9:53 AM EDT Narrative Resulting Agency Comment Spec In Lab León ALDRIDGE HEMATOLOGY ORDERABLE S Performing Organization Address City/State/[facility] Co de Phone Number [facility] [place] [address] * (ABNORMAL) Hemogram (04/18/2022 9:41 AM EDT) White Blood Cell 4.5 4.0 - 9.5 x10(3)/[facility] Red Blood Cell 4.52(L) 4.58 - 5.54 x10(6)/mc L [facility] Hemoglobin 13.6(L) 13.7 - 16.5 g/dL [facility] Hematocrit 37.5(L) 40.5 - 48.5 % [facility] Mean Cell Volume 83.0 82.9 - 93.1 fL [facility] Mean Cell Hemoglobin 30.1 27.5 - 32.1 pg [facility] Mean Cell Hemoglobin Concentration 36.3(H) 32.0 - 35.7 g/dL [facility] Platelet 130(L) 145 - 357 x10(3)/[facility] RDW Standard Deviation 40.0 36.0 - 45.0 fL [facility] RDW coefficient of variation 13.2 11.4 - 13.8 % [facility] Mean Platelet Volume 10.0 7.6 - 12.9 fL [facility] NRBC% auto 0.0 % [facility] NRBC Absolute 0.000 0.000 - 0.000 x10(3)/mc L [facility] Blood 04/18/2022 9:41 AM EDT 04/18/2022 9:53 AM EDT Narrative Resulting Agency Comment Spec In Lab León ALDRIDGE HEMATOLOGY ORDERABLE S [facility] [place] [address] * (ABNORMAL) Comprehensive metabolic panel (non-fasting) (04/18/2022 9:41 AM EDT) Glucose 111 65 - 199 mg/dL [facility] Comment:Diabetes: >=200 mg/d L plus symptoms Blood Urea Nitrogen 18 10 - 20 mg/dL [facility] Creatinine 1.18 0.80 - 1.50 mg/dL [facility] Sodium 134(L) 135 - 145 mmol/L [facility] Potassium 4.4 3.5 - 5.0 mmol/L [facility] Comment: Please note: ??Patients with WBC >100,000 may have falsely elevated Potassium levels. ??For accurate Potassium quantification in these patients send serum separator tube (gold top) for subsequent determinations. ??Contact the Clinical Chemistry Laboratory if there are any questions. Chloride 91(L) 98 - 107 mmol/L [facility] Carbon Dioxide 33(H) 22 - 31 mmol/L [facility] Anion Gap 10 5 - 15 mmol/L [facility] Calcium 9.5 8.5 - 10.5 mg/dL [facility] Protein, Total 9.0(H) 6.1 - 8.0 g/dL [facility] Albumin 4.3 3.2 - 5.2 g/dL [facility] Aspartate Aminotransferase 38 0 - 39 unit/L [facility] Alanine Aminotransferase 19 0 - 55 unit/L [facility] Alkaline Phosphatase 113 40 - 130 unit/L [facility] Bilirubin, Total 0.7 0.2 - 1.3 mg/dL [facility] Est Glomerular Filtration Rate 77 >=60 mL/min/1. 73 m?? [facility] Comment: This patient's estimated GFR was [...] In Lab Vida Ayala MD CHEMISTRY ORDERABLES [facility] [place] [address] * (ABNORMAL) Prothrombin Time (04/18/2022 9:41 AM EDT) Prothrombin Time 13.4(H) 9.4 - 12.5 sec [facility] International Normalization Ratio 1.2 [facility] Comment: An INR <2.0 indicates adequate [...] Comment Spec In Lab Vida Ayala MD HEMATOLOGY ORDERABLE S Performing Organization Address [facility] Co de Phone Number [facility] [place] [address] * AFP tumor marker (04/18/2022 9:41 AM EDT) [facility] Alpha Fetoprotein 2.0 <=8.3 ng/mL [facility] Comment: This result was generated using a Talib Kiara immunoassay. ??Results obtained from other methods or manufacturers cannot be used interchangeably with this method. Blood 04/18/2022 9:41 AM EDT 04/18/2022 9:53 AM EDT Narrative Resulting Agency Comment Spec In Lab Vida Ayala MD CHEMISTRY ORDERABLES Performing Organization Address [facility] de Phone Number [facility] [place] [address] * Hepatitis C RNA, quantitative, PCR (04/18/2022 9:41 AM EDT) [facility] HCV Viral Load <12 IU/mL [facility] HCV Viral Load Result: <12 IU/mL [...] by the U.S. Food and Drug Administration. [facility] Comment: [VERIFIED DATE]04.19.22 Verified By:Shanon Hurley (Electronic Signature) Blood 04/18/2022 9:41 AM EDT 04/18/2022 9:08 PM EDT Narrative Resulting Agency Comment Spec In Lab Vida Ayala MD MOLECULAR ORDERABLES [facility] [place] [address] documented in this encounter Visit Diagnoses Diagnosis Chronic hepatitis C without hepatic coma Hepatic cirrhosis, unspecified hepatic cirrhosis type, unspecified whether ascites present documented in this encounter Care Teams Software Testing Specialist Relationship Specialty Start Date End Date Fauzia Nelson MD [address] [place] [address] PCP - General Family Medicine 04/18/22 11/10/23 documented as of this encounter
--- OUTSIDE RECORDS SUMMARY | 2024-07-16 00:57 | XMS_ITS | Encounter Summary ---
Author Organization [facility] Address [address] [place] [address] Care Team Providers Care Manager System Name Role Phone Unknown, Provider Primary Care Provider Unava ilable Encounter Details Date Type Department Care Team (Late st Contact Info) Description 04/26/2021 Lab Requisition [facility] Pathology & Laboratory Medicine - [address] [id number] Outr Resulting Lab, Provider Social History Tobacco [...] Priority Date/Time Associated Diagnosis Comments ZZCOVID-19 TEST [facility] Today 04/25/2021 21:30 EDT COVID-19 TESTING Routine 04/25/2021 21:3 0 EDT documented in this encounter Results * COVID-19 TEST [facility] PCR (04/25/2021 21:30 EDT) Swab ENTIRE NASOPHARYNX / Unknown 04/25/2021 21:30 EDT 04/26/2021 16:09 EDT us Provider Outr Resulting Lab MICROBIOLOGY - GENER AL ORDERABLES Final Result [facility] [address] [place] [address] * COVID-19 TESTING (04/25/2021 21:30 EDT) COVID-19 rt-PCR Result Negative Negative 04/27/2021 14:16 EDT [facility] Comment: This test has not [...] developed and its performance characteristics determined by [facility]. It has not been cleared or approved [...] testing. This test is based on the [facility] COVID-19 Emergency Use Authorization (EUA) assay, with minor modification as defined by the FDA Performed on the Sapeo 7 Pro RT-PCR System. Performing Lab [facility] Lab 04/27/2021 14:16 EDT [facility] Swab 04/25/2021 21:3 0 EDT 04/26/2021 16:09 EDT us Provider Outr Resulting Lab MICROBIOLOGY - GENER AL ORDERABLES Final Result [facility] [address] [place] [address] documented in this encounter Visit Diagnoses Not on filedocumented in this encounter Care Teams Manager System Relationship Specialty Start Date End Date Unknown, Provider, PCP - General 09/26/16 documented as of this encounter
--- OUTSIDE RECORDS SUMMARY | 2024-07-16 00:57 | XMS_ITS | Encounter Summary ---
[place] [address] Care Team Providers Care Erp Specialist Name Role Phone Fauzia Nelson MD Primary Care Provider + Encounter Details Date Type Department Care Team (Late st Contact Info) Description 12/27/2020 Orders [place] [address] León Wong PA [address] [place] [address] [place] [address] Chronic hepatitis C without hepatic coma Social [...] Type Associated Problems Recent Progress Patient-Stated? Author [facility] Medication Compliance and Understanding Patient Facing Action Plan Marilou Quintana, [facility] Note: SVR12 through treatment with Mavyret. documented as of this encounter Visit Diagnoses Diagnosis Chronic hepatitis C without hepatic coma documented in this encounter Care Teams Erp Specialist Relationship Specialty Start Date End Date Fauzia Nelson MD PCP - General Family Medicine 12/26/20 04/17/22 documented as of this encounter
--- OUTSIDE RECORDS SUMMARY | 2024-07-16 00:57 | XMS_ITS | Encounter Summary ---
[place] [address] Care Team Providers Care Literacy Coordinator Name Role Phone Fauzia Nelson MD Primary Care Provider + Encounter Details Date Type Department Care Team (Latest Contact Info) Description 01/29/2021 8:30 AM EDT Procedure visit [place] [address] León Wong PA [address] [place] [id number] Chronic hepatitis C without hepatic coma; Hepatic cirrhosis, unspecified hepatic cirrhosis type, unspecified whether ascites present Social History Tobacco Use Types Packs/Day Years Used Date Smoking Tobacco: Former e-Cigarettes Smokeless Tobacco: Never Sex and Gender Information Value Date Recorded Sex Assigned at Not on file Gender Identity Not on file Sexual Orientation Not on file documented as of this encounter Procedure Notes * León Wong PA - 01/29/2021 8:30 AM EDTAssociated Order(s): FIBROSCAN Procedure(s): FIBROSCAN Pre-Procedure Diagnose(s): Chronic hepatitis C without hepatic coma [facility] Liver Fibrosis Assessment Report Indication: Hepatitis C, recent ultrasound and liver fibrosis panel suggests cirrhosis Performed by: OLY Esquivel Procedure: Vibration Controlled Transient Elastography (VCTE) or Fibroscan [place] Protocol: Patient's identity, procedure and site were verified, confirmatory pause performed. Discussed procedure including risks and potential complications. Questions answered. Patient verbalizes understanding and wishes to proceed with Fibroscan assessment. Patient was placed in the supine position with right arm in maximum abduction to allow optimal exposure of right lateral abdomen. Patient was briefly assessed. Testing was performed in the mid-axillary location. 50Hz Shear Wave pulses were applied and the resulting Shear Wave and Propagation Speed was detected with a 3.5MHz ultrasonic signal, using the Fibroscan probe. Skin to liver capsule distance and liver parenchyma were accessed during the entire examination with the Fibroscan probe. Patient was instructed to breathe normally and abstain from sudden movements during the procedure. At least ten Sheer Waves were produced; individual measurements of each Shear Wave were calculated. Patient tolerated the procedure well with no complications. Fibroscan Results: Median kPa: 70.1 Mean IQR: 12% (goal is <30 %) Number of valid measurements: 10 (at least 10 required) Number of invalid measurements: 0 Predicted fibrosis stage: F4 CAP (dB/m): 295 Estimated steatosis grade: 3/3 % hepatocytes affected: > 66% XL probe used Interpretation: Based on this Fibroscan result, history, clinical examination and review of laboratory and radiological data, this patient likely has stage 4 liver fibrosis and grade 3 steatosis affecting greater than 66% of hepatocytes. Discussed with patient that all clinical data suggest that he has cirrhosis. With liver stiffness greater than 20 kPa, we should obtain EGD for varices screening. Order placed. documented in this encounter Plan of Treatment Scheduled Orders Name Type Priority Associated Diagnoses Orde r Schedule ENDOSCOPY CASE REQUEST: EGD, UPPER GI ENDOSCOPY Procedures Routine Hepatic cirrhosis, unspecified hepatic cirrhosis type, unspecified whether ascites present Ordered: 01/29/2021 documented as of this encounter Goals Goal Patient Goal Type Associated Problems Recent Progress Patient-Stated? Author [facility] Medication Compliance and Understanding Patient Facing Action Plan Marilou Quintana, [facility] Note: SVR12 through treatment with Mavyret. documented as of this encounter Procedures Procedure Name Priority Date/Time Associated Diagnosis Comments [id number] Routine 01/29/2021 8:30 AM EDT Chronic hepatitis C without hepatic coma documented in this encounter Results * [id number] (01/29/2021 8:30 AM EDT) Narrative León Wong PA - 01/29/2021 8:30 AM EDT León Wong PA ? 01/29/2021 ??9:04 AM [facility] Liver Fibrosis Assessment Report Indication: ?? Hepatitis C, recent ultrasound and liver fibrosis panel suggests cirrhosis Performed by: ??OLY Esquivel Procedure: Vibration Controlled Transient Elastography (VCTE) or Fibroscan [place] Protocol: Patient's identity, procedure and site were verified, confirmatory pause performed. Discussed procedure including risks and potential complications. Questions answered. Patient verbalizes understanding and wishes to proceed with Fibroscan assessment. Patient was placed in the supine position with right arm in maximum abduction to allow optimal exposure of right lateral abdomen. Patient was briefly assessed. Testing was performed in the mid-axillary location. 50Hz Shear Wave pulses were applied and the resulting Shear Wave and Propagation Speed was detected with a 3.5MHz ultrasonic signal, using the Fibroscan probe. Skin to liver capsule distance and liver parenchyma were accessed during the entire examination with the Fibroscan probe. Patient was instructed to breathe normally and abstain from sudden movements during the procedure. At least ten Sheer Waves were produced; individual measurements of each Shear Wave were calculated. Patient tolerated the procedure well with no complications. Fibroscan Results: Median kPa: 70.1 Mean IQR: 12% (goal is <30 %) Number of valid measurements: 10 (at least 10 required) Number of invalid measurements: 0 Predicted fibrosis stage: F4 CAP (dB/m): 295 Estimated steatosis grade: 3/3 % hepatocytes affected: > 66% XL probe used Interpretation: Based on this Fibroscan result, history, clinical examination and review of laboratory and radiological data, this patient likely has stage 4 liver fibrosis and grade 3 steatosis affecting greater than 66% ??of hepatocytes. Discussed with patient that all clinical data suggest that he has cirrhosis. With liver stiffness greater than 20 kPa, we should obtain EGD for varices screening. Order placed. Vida Ayala MD PROCEDURE/MINOR SURG ICAL ORDERABLES documented in this encounter Visit Diagnoses Diagnosis Chronic hepatitis C without hepatic coma Hepatic cirrhosis, unspecified hepatic cirrhosis type, unspecified whether ascites present documented in this encounter Care Teams Literacy Coordinator Relationship Specialty Start Date End Date Fauzia Nelson MD PCP - General Family Medicine 12/26/20 04/17/22 documented as of this encounter
--- OUTSIDE RECORDS SUMMARY | 2024-07-16 00:57 | XMS_ITS | Encounter Summary ---
Author Organization [facility] Address [address] [facility] [place] [address] Care Team Providers Care Duplicator Punch Set Up Operator Name Role Phone Fauzia Nelson MD Primary Care Provider + Encounter Details Date Type Department Care Team (Latest Contact Info) Description 04/18/2022 Travel Social History Tobacco Use Types Packs/Day Years [...] Patient Facing Action Plan No Marilou Sood [facility] Note: SVR12 through treatment with Mavyret. [facility] Medication Compliance and Understanding Patient Facing Action Plan On track(2020 12:44 PM EDT) No Lesli Palomino [facility] Note: SVR12 through treatment with Mavyret x 8 weeks documented as of this encounter Visit Diagnoses Not on filedocumented in this encounter Care Teams Duplicator Punch Set Up Operator Relationship Specialty Start Date End Date Fauzia Nelson MD [address] [place] [address] PCP - General Family Medicine 04/18/22 11/10/23 documented as of this encounter
--- OUTSIDE RECORDS SUMMARY | 2024-07-16 00:57 | XMS_ITS | Encounter Summary ---
Author Organization [facility] [place] [address] Care Team Providers Care Aquaculture Director Name Role Phone Fauzia Nelson MD Primary Care Provider + Encounter Details Date Type Department Care Team (Late st Contact Info) Description 05/03/2021 4:40 PM EST - 05/03/2021 5:10 PM EST [place] [phone] Kings Anderson MD [facility] [place] [address] EGD, UPPER GI ENDOSCOPY (WRVU 2.09) Social History Tobacco Use Types Packs/Day Years [...] Sign Reading Time Taken Comments Blood Pressure 154/119 05/03/2021 4:45 PM EST Pulse 93 05/03/2021 4:45 PM EST Temperature 37.6 ??C (99.7 ??F) 05/03/2021 4:45 PM ES T Respiratory Rate 16 05/03/2021 4:45 PM EST Oxygen Saturation 96% 05/03/2021 4:45 PM EST Inhaled Oxygen Concentration - - [...] the day after the procedure, use an blyv-pxb-[id number] spray to numb your throat. Sucking on [...] occurs, please contact your Doctor. Please call [phone] before 8pm Mon-Fri with problems, questions or concerns. If you call after 8pm or on weekends, call the Hospital at [phone] and ask to speak to the Emblem Fuser Tender rn medication and the head operator will contact that person for you. When should you call for help? Call [phone] anytime you think you may need emergency [...] any problems. Where can you learn more? [facility] View your After Visit Summary and more online at [email or web address] If you would like to provide feedback about your hospital experience, please call the Office of Patient and Family Relations at . If you have received this After Visit Summary in error, please immediately return it in person to the department, or notify the [facility] Privacy Office by calling toll free at between the hours of 8AM and 5PM to arrange for our retrieval of the documents at no cost to you. Content Version: 12.2 ?? [id number] [employer]. Care instructions adapted under license by [facility]. If you have questions about a medical condition or this instruction, always ask your healthcare professional. [employer] disclaims any warranty or liability for your [...] complication. Informed Consent signed by patient (or membership sales representative). documented in this encounter Plan of Treatment Not on file documented as of this encounter Goals Goal Patient Goal Type Associated Problems Recent Progress Patient-Stated? Author Home Medication Compliance and Understanding Patient Facing Action Plan No Marilou Sood [facility] Note: SVR12 through treatment with Mavyret. Home Medication Compliance and Understanding Patient Facing Action Plan On track(2020 12:44 PM EDT) No Lesli Palomino RPH Note: SVR12 through treatment with Mavyret x 8 weeks documented as of this encounter Procedures Procedure Name Priority Date/Time Associated Diagnosis Comments SURGICAL PATHOLOGY REPORT Routine 05/03/2021 5:46 PM EST SPECIMEN TO PATHOLOGY Routine 05/03/2021 5:46 PM EST Upper GI Endoscopy, Diagnostic (08921) 05/03/2021 5:29 PM EST Hepatic cirrhosis, unspecified hepatic cirrhosis type, unspecified whether ascites present UPPER GI ENDOSCOPY Routine 05/03/2021 5: 23 PM EST documented in this encounter Results * Surgical Pathology Report (05/03/2021 5:46 PM EST) Final Diagnosis [id number] ? Location: 4T; EA10; A The signing pathologist has (i) examined the relevant preparation(s) for the specimen(s) and (ii) rendered or confirmed the diagnosis(es). . ?Surgical Pathology DIAGNOSIS Distal esophagus, biopsy (Multiple): - ??Squamocolumnar junctional mucosa with intestinal metaplasia, negative for dysplasia (see Discussion). - ??Multiple levels examined. Electronically signed by: ?Luan HUNTER PhD, Luisa Verified: ??05/16/2021 10:28 ??Pathologist Performed at: ??-[facility] Dept. of Pathology, [place], [place] DISCUSSION The findings are compatible with [...] cassette labeled A1. ?? 05/16/2021 10:28 AM [facility] GI Biopsy 05/03/2021 5:46 PM EST 05/03/2021 5:46 PM EST Kings Anderson MD PATHOLOGY/CYTOLOG Y ORDERABLES Performing Organization Address [facility] [place] [address] * Specimen to Pathology (05/03/2021 5:46 PM EST) AP Specimen 05/03/2021 5:46 PM EST 05/03/2021 5:46 PM EST Narrative [facility] - 05/03/2021 5:46 PM EST Specimen requisition ordered. ??Separate Pathology report to follow Kings Anderson MD PATHOLOGY/CYTOLOG Y ORDERABLES Performing Organization Address [facility] [place] [address] * UPPER GI ENDOSCOPY (05/03/2021 5:23 PM EST) UPPER GI ENDOSCOPY [facility] Endoscopy Procedure Date: 05/03/2021 5:23 PM ? Patient Name: Mike Guillermo ? N: [id number] ? Date of : 1975 ? Age: 45 ? Order #: [id number] ? Instrument Name: [id number] ? Procedure: ? Upper GI endoscopy Indications: ? Cirrhosis rule out esophageal varices Patient Profile: ? This is a 45 year old male with ? alcohol induced cirrhosis. Providers: ? Kings Anderson MD, Jennifer Mesa ? 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 [...] PROVATION documented in this encounter Visit Diagnoses Diagnosis Hepatic cirrhosis, unspecified hepatic cirrhosis type, unspecified whether ascites present documented in this encounter Administered Medications Inactive Administered [...] CRNA) documented in this encounter Care Teams Aquaculture Director Relationship Specialty Start Date End Date Fauzia Nelson MD PCP - General Family Medicine 12/26/20 04/17/22 documented as of this encounter
--- OUTSIDE RECORDS SUMMARY | 2024-07-16 00:57 | XMS_ITS | Encounter Summary ---
Author Organization [facility] [place] [place] [address] Care Team Providers Care Jack Machine Operator Name Role Phone Fauzia Nelson MD Primary Care Provider + Encounter Details Date Type Department Care Team (Late st Contact Info) Description 02/08/2021 [place] [phone] Lesli Palomino RPH Social History Tobacco Use Types Packs/Day Years Used Date Smoking Tobacco: Former e-Cigarettes Smokeless Tobacco: Never Sex and Gender Information Value Date Recorded Sex Assigned at Not on file Gender Identity Not on file Sexual Orientation Not on file documented as of this encounter Miscellaneous Notes * Telephone Encounter - Lesli Palomino RP - 02/08/2021 8:51 AM EDT Patient called the specialty pharmacy to report that he hasn't had any nausea or vomiting and hewould like to start Mavyret. I reviewed the note from last Friday with instructions to hold off on starting Mavyret until he feels better for 1-2 weeks. I explained that tomorrow would be the one week grayson so if he feels like he wants to start taking it tomorrow then he can start. We reviewed the instructions for taking all 3 tablets all at once at the same time every day with food. We reviewed the importance of adherence. We also went over instructions for re-taking a dose ifhe vomits within 3 hours of taking Mavyret. I will confirm with Edgardo Wong that he is okay with patient starting treatment tomorrow. Talha Palomino PharmD 02/08/2021 8:55 AM documented in this encounter Plan of [...] on filedocumented in this encounter Care Teams Jack Machine Operator Relationship Specialty Start Date End Date Fauzia Nelson MD PCP - General Family Medicine 12/26/20 04/17/22 documented as of this encounter
--- OUTSIDE RECORDS SUMMARY | 2024-07-16 00:57 | XMS_ITS ---
Author Organization [facility] Address [address] [place] [address] Care Team Providers Care Data Center Technician Name Role Phone Unknown, Provider Primary Care Provider Alejo isbell Addiction Medicine Status:Enrolled (Active) Start date:05/21/2023 Enrollment date:05/21/2023 Enrollment reason:Referred by provider Current support & services provided:Clinical Management, Refill Management, Clinic Administered Medication Linked medications:buprenorphine (Active) Linked problems:Opioid use disorder (Active) Overview Taz [place]: [phone] Continued Care and Services Coordination
--- OUTSIDE RECORDS SUMMARY | 2024-07-16 00:57 | XMS_ITS | Encounter Summary ---
[facility] [place] [address] Care Team Providers Care Molded Goods Operator Name Role Phone Fauzia Nelson MD Primary Care Provider + Encounter Details Date Type Department Care Team (Late st Contact Info) Description 07/17/2021 Tele[place] [phone] Cortney Andrews Social History Tobacco Use Types [...] * Telephone Encounter - Cortney Andrews - 07/23/2021 3:57 PM EST Sending letter * Telephone Encounter - Cortney Andrews - 07/17/2021 12:19 PM EST Called pt to schedule a follow-up w/ Edgardo Wong in clinic [facility].. Can be telemedicine Unable to LVM documented in this encounter Plan of Treatment Not on file documented as of this encounter Goals Goal Patient Goal Type Associated Problems Recent Progress Patient-Stated? Author Home Medication Compliance and Understanding Patient Facing Action Plan Marilou Quintana, [facility] Note: SVR12 through treatment with Mavyret. [facility] Medication Compliance and Understanding Patient Facing Action Plan On track(2020 12:44 PM EDT) No Lesli Palomino, [facility] Note: SVR12 through treatment with Mavyret x 8 weeks documented as of this encounter Visit Diagnoses Not on filedocumented in this encounter Care Teams Molded Goods Operator Relationship Specialty Start Date End Date Fauzia Nelson MD PCP - General Family Medicine 12/26/20 04/17/22 documented as of this encounter
--- OUTSIDE RECORDS SUMMARY | 2024-07-16 00:57 | XMS_ITS | Encounter Summary ---
Author Organization [facility] Address [address] [place] [address] Care Team Providers Care Signals Intelligence Analyst Name Role Phone Fauzia Nelson MD Primary Care Provider Reason for Visit * Reason Onset Date Comments Appointment Related 09/30/2014 NO SHOW AND CX HISTORY Encounter Details Date Type Department Care Team (Late st Contact Info) Description 09/30/2014 Telephone [facility] Gastroenterology - [address] [address] Luke Deshpande MD PhD [address] [place] [address], [address] [place] [address] Appointment Related (NO SHOW AND [...] on filedocumented in this encounter Care Teams Signals Intelligence Analyst Relationship Specialty Start Date End Date Fauzia Nelson MD PCP - General 07/08/14 09/25/16 documented as of this encounter
--- OUTSIDE RECORDS SUMMARY | 2024-07-16 00:58 | XMS_ITS | Encounter Summary ---
[place] [address] Care Team Providers Care Building Supplies Salesperson Retail Name Role Phone Larry Valencia MD Primary Care Provider [phone] Encounter Details Date Type Department Care Team (Late st Contact Info) Description 04/03/2018 Telephone [place] [phone] Noemy Francois Social History Tobacco Use Types Packs/Day Years Used Date Smoking Tobacco: Never Assessed Sex and Gender Information Value Date Recorded Sex Assigned at Not on file Gender Identity Not on file Sexual Orientation Not on file documented as of this encounter Miscellaneous Notes * Telephone Encounter - Noemy Francois - 04/03/2018 10:09 AM EDT patients calling to check on referral status documented in this encounter Plan of Treatment Not on file documented as of this encounter Visit Diagnoses Not on filedocumented in this encounter Care Teams Building Supplies Salesperson Retail Relationship Specialty Start Date End Date Larry Valencia MD [address] [place] [address] PCP - General 05/15/10 12/25/20 documented as of this encounter
--- OUTSIDE RECORDS SUMMARY | 2024-07-16 00:58 | XMS_ITS | Encounter Summary ---
Author Organization [facility] [place] [address] Care Team Providers Care Drug Abuse Worker Name Role Phone Larry Valencia MD Primary Care Provider [phone] Encounter Details Date Type Department Care Team (Late st Contact Info) Description 09/14/2018 Specialty [place] [phone] Marilou Sood [facility] Social History Tobacco Use Types Packs/Day Years Used Date Smoking Tobacco: Every Day e-Cigarettes Smokeless Tobacco: Never Sex and Gender Information Value Date Recorded Sex Assigned at Not on file Gender Identity Not on file Sexual Orientation Not on file documented as of this encounter Progress Notes * Marilou Alvarez [facility] - 09/14/2018 12:33 PM EDT Clinical Management Plan: Mavyret - unable to reach patient Specialty Pharmacy Consultation; Marilou Alvarez [facility] Comprehensive Medication Management (CMM) Mike Guillermo Mr. Mike Guillermo is a 43 y.o. (1975) male who the Specialty Pharmacy has been trying to reach since 08/07 to follow-up on the status of HCV treatment with Mavyret. Wai picked up the first 4-week supply shipment of Mavyret from the post office on 08/13 but we have not been able to reach him to confirm start date and follow-up on the treatment. We have left him several voicemail's with no response back from him yet. At this point it may be necessary for the clinic to try to reach the patient or send him a letter due to lack of response. Adherence: Gaps in fill history: first fill of Maryvet (28 day supply ) filled on 07/31/18 for $3 copay; patientpicked up from post office on 08/13/18- unknown if patient has started yet Was a change made to the Care Plan: felicitas Alvarez RPH 09/14/18 12:33 PM * Marilou Alvarez RPH - 09/14/2018 12:33 PM EDT Wai's Rebecca was reached and she states Wai had an injury at work and their child was just diagnosed with Type I diabetes so they have been going through a stressful time. She says that Wai has not started the Mavyret medication yet as he is waiting for his ribs to heal from his work injury.He has a bone density test soon so it may be a while before he starts. She said that she will have Wai inform the clinic and pharmacy when he does start the medication so that his treatment can be followed. documented in this encounter Plan of Treatment Not on file documented as of this encounter Goals Goal Patient Goal Type Associated Problems Recent Progress Patient-Stated? Author DH Home Medication Compliance and Understanding Patient Facing Action Plan No Marilou Sood [facility] Note: SVR12 through treatment with Mavyret. documented as of this encounter Visit Diagnoses Not on filedocumented in this encounter Care Teams Drug Abuse Worker Relationship Specialty Start Date End Date Larry Valencia MD [address] [address] PCP - General 05/15/10 12/25/20 documented as of this encounter
--- OUTSIDE RECORDS SUMMARY | 2024-07-16 00:58 | XMS_ITS | Encounter Summary ---
Author Organization [facility] [place] [address] Care Team Providers Care Salesperson [employer] Name Role Phone Larry Valencia MD Primary Care Provider Reason for Visit * Consultation (Urgent) - Closed Specialty Diagnoses / Procedures Referred By Dorita arambula Referred To Contact Gastroenterology Diagnoses Hep C Procedures consult Fauzia Nelson MD [facility] [place] [address] [facility] [address] [place] [address] Referral ID Status Reason Start Date Expiration Date Visits Re quested Visits Authorized [id number] Closed 03/24/2018 03/24/2019 1 1 Encounter Details Date Type Department Care Team (Late st Contact Info) Description 04/29/2018 9:00 AM EST Office Visit [place] [address] Shawnee Fairchild APRN [facility] [place] [address] Chronic hepatitis C without hepatic coma; Pain in finger of both hands Social History Tobacco Use Types Packs/Day Years Used Date Smoking Tobacco: Every Day e-Cigarettes Smokeless Tobacco: Never Sex and Gender Information Value Date Recorded Sex Assigned at Not on file Gender Identity Not on file Sexual Orientation Not on file documented as of this encounter Last Filed Vital Signs Vital Sign Reading Time Taken Comments Blood Pressure 126/69 04/29/2018 9:28 AM EST Pulse 69 04/29/2018 9:28 AM EST Temperature - - Respiratory Rate - - Oxygen Saturation - - Inhaled Oxygen Concentration - - Weight 99 kg (218 lb 3.2 oz) 04/29/2018 9:28 AM EST Height 185.4 cm (6' 1) 04/29/2018 9:28 AM EST Body Mass Index 28.79 04/29/2018 9:28 AM EST documented in this encounter Progress Notes * Shawnee Fairchild APRN - 04/29/2018 9:00 AM EST Images from the original note were not included. HEPATOLOGY NEW PATIENT CONSULTATION Mike Guillermo 1975 ASSESSMENT NURSE PRACTITIONER: SHAWNEE FAIRCHILD APRN PCP: Larry Valencia MD (Inactive) Requesting Provider: REASON FOR CONSULTATION Hepatitis C HISTORY OF PRESENT ILLNESS Mike Guillermo is a 42 y.o. year old male with hepatitis C. He has had Hepatitis C for years, but this is the first time that his viral load was high. 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 He is wondering if the swelling in his hands is related to having Hepatitis C. He was first diagnosed with hepatitis C 10 years ago, and his viral load was low. At that time treatment involved interferon and his provider did not think this was a good idea. He has multiple risk factors for acquiring the virus. He used IV drugs previously, from 1989- 2009. He has multiple tattoos, none done sterile conditions, most done 15 years ago. He was also in [employer] from [id number]. He has never had treatment of his hepatitis C. The soreness in his hands is the worst when he wakes up in the morning. After working it often his hands often feel slightly better. 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 He would like to see a power house engineer, but his PCP wants him to have his hepatitis C treated before any further workup. He states he was a very difficult IV stick and requires arterial blood draws. ROS: Constitutional: no fatigue, fever, chills Eye: no visual changes ENT: no URI symptoms Cardio: no chest pain, palpitations Resp: no cough, no SOB GI: No blood in stools, no nausea/vomitting : no dysuria Integumentary: no new rashes, no easy bruising Musculoskeletal: See HPI. Pain and swelling in hands Neuro: no new numbness, weakness in extremities PAST MEDICAL/SURGICAL HISTORY 1. Hepatitis C 2. History of IV drug use 3. GERD MEDICATIONS Outpatient Medications Marked as Taking for the 04/29/18 encounter (Office Visit) with Shawnee Fairchild APRN Medication Sig Dispense Refill ??? omeprazole (PRILOSEC) 20 mg Capsule, Delayed Release(E.C.) Take 20 mg by mouth daily. ??? gabapentin (NEURONTIN) 300 mg Capsule Take 300 mg by mouth 3 times daily. ??? buprenorphine HCl/naloxone HCl (SUBOXONE SL) Place under the tongue. 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 In 20s and 30s drank more significantly. FAMILY HISTORY PHYSICAL EXAM Vitals: 04/29/18 0928 BP: 126/69 Pulse: 69 Height: 185.4 cm (6' 1) Body mass index is 28.79 kg/m??. Gen: Well appearing, no apparent distress. Skin: no spider angiomata, no palmar erythema, no jaundice. Multiple tattoos across arms and abdomen HEENT: Sclerae anicteric, pupils equal, round, react to light. Pharynx unremarkable. Neck is supple, no adenopathy, no thyromegaly. Chest is clear. Heart: Regular rate and rhythm. Normal S1, S2, no murmurs. Abdomen: Normal bowel sounds; soft, non distended. No obvious hepatosplenomegaly. No evidence of ascites Extremities: No edema. Neuro: alert and oriented x3, no asterixis or tremor. 03/19/18: HCV RNA: 1,400,000 IU/mL Ultrasound 10/01/11: . Fibroscan Results: Median kPa: 7.8 kPa Mean IQR: 12% (goal is <30 %) Number of valid measurements: 10(at least 10 required) Number of invalid measurements: 0 Predicted fibrosis stage: F2 CAP (dB/m): 180 Estimated steatosis grade: 0/3 % hepatocytes affected: 0% ASSESSMENT/PLAN Mike Guillermo is a 42 y.o. male with hepatitis C, genotype unknown, although he believes he is genotype 1. His Fibroscan shows moderate fibrosis in his liver consistent with stage II fibrosis. I would recommend treatment of his hepatitis C to prevent progression of his liver disease. Treatment regimen will be dictated by genotype, however if he is genotype 1, I would recommend treatment with 8 weeks of Mavyret. The pain and swelling in his hands could be due to cryoglobulins, and I will check for those today. Given his difficulty with drawing blood will also check an YUNIER and rheumatoid factor and if these are positive I would recommend referral to rheumatology. He has been vaccinated to hepatitis A and B, however I will check his hepatitis B studies as well prior to initiating treatment. We discussed common side effects, the process of getting the medication, and blood work schedule. I would like to do blood work at the end of treatment, and 3 and 6 months post-treatment. Plan: -Blood work today- HCV genotype, CMP, CBC, cryoglobulin, rheumatoid factor, YUNIER, hep B surface antibody, surface antigen, core antibody. -Once blood work returns, if patient is genotype 1 plan to submit prior authorization for treatmentwith 8 weeks of Mavyret. -Blood work at end of treatment, 3 months posttreatment, 6 months posttreatment. Shawnee Fairchild APRN Section of Gastroenterology [place] [address] Copy: Larry Valencia MD (Inactive) [address] [place] [id number] Larry Valencia MD (Inactive) documented in this encounter Plan of Treatment Not on file documented as of this encounter Procedures Procedure Name Priority Date/Time Associated Diagnosis Comments HCV GENOTYPE Routine 04/29/2018 11:01 AM EST Chronic hepatitis C without hepatic coma HEMOGRAM Routine 04/29/2018 11:01 AM EST Chronic hepatitis C without hepatic coma DIFFERENTIAL, AUTOMATED Routine 04/29/2018 11:01 AM EST Chronic hepatitis C without hepatic coma CRYOGLOBULIN Routine 04/29/2018 11:01 AM EST Chronic hepatitis C without hepatic coma HEPATITIS B CORE ANTIBODY, TOTAL Routine 04/29/2018 11:01 AM EST Chronic hepatitis C without hepatic coma HEPATITIS C GENOTYPE Routine 04/29/2018 11:01 AM EST Chronic hepatitis C without hepatic coma HEPATITIS B SURFACE ANTIBODY Routine 04/29/2018 11:01 AM EST Chronic hepatitis C without hepatic coma HEPATITIS B SURFACE ANTIGEN Routine 04/29/2018 11:01 AM EST Chronic hepatitis C without hepatic coma CBC (WITH DIFF) Routine 04/29/2018 11:01 AM EST Chronic hepatitis C without hepatic coma RHEUMATOID FACTOR, QUANT Routine 04/29/2018 11:01 AM EST Pain in finger of both hands YUNIER ANTIBODY SCREEN Routine 04/29/2018 1 1:01 AM EST Chronic hepatitis C without hepatic coma Pain in finger of both hands COMPREHENSIVE METABOLIC PANEL Routine 04/29/2018 11:01 AM EST Chronic hepatitis C without hepatic coma documented in this encounter Results * Differential, Automated (04/29/2018 11:01 AM EST) Neutrophil % 46.6 % [facility] Neutrophil Absolute 2.22 1.70 - 6.10 x10(3)/[facility] Lymph % 34.5 % [facility] Lymphocytes Abs 1.6 0.9 - 3.2 x10(3)/[facility] Monocyte % 9.2 % [facility] Monocyte Abs 0.4 0.3 - 0.9 x10(3)/[facility] Eos % 8.2 % [facility] Eosinophils Abs 0.4 0.0 - 0.4 x10(3)/[facility] Basophil % 1.1 % [facility] Baso Absolute 0.0 0.0 - 0.1 x10(3)/[facility] Immature Gran % 0.40 % [facility] Comment: Immature granulocytes(IG's)percentage and absolute count will include metamyelocytes, myelocytes, and promyelocytes. Blood smears from CBCs yielding IG's will be scanned manually for concordance. If this scan disagrees with the automated IG or if promyelocytes are noted, a manual differential will be performed. Immature Gran Absolute 0.02 0.00 - 0.04 x10(3)/mcL [facility] Blood specimen (specimen) 04/29/2018 11:01 AM EST 04/29/2018 11:06 AM EST Narrative Resulting Agency Comment Spec In Lab Shawnee Fairchild APRN HEMATOLOGY ORDERAB LES [facility] [place] [address] * (ABNORMAL) Hemogram (04/29/2018 11:01 AM EST) White Blood Cell 4.8 4.0 - 9.5 x10(3)/mc L [facility] Red Blood Cell 5.04 4.58 - 5.54 x10(6)/mc L [facility] Hemoglobin 14.5 13.7 - 16.5 gm/dL [facility] Hematocrit 42.2 40.5 - 48.5 % [facility] Mean Cell Volume 83.7 82.9 - 93.1 fL [facility] Mean Cell Hemoglobin 28.8 27.5 - 32.1 pg [facility] Mean Cell Hemoglobin Concentration 34.4 32.0 - 35.7 gm/dL [facility] Platelet 233 145 - 357 x10(3)/mc L [facility] RDW Standard Deviation 35.9(L) 36.0 - 45.0 fL [facility] RDW coefficient of variation 11.9 11.4 - 13.8 % [facility] Mean Platelet Volume 9.8 7.6 - 12.9 [facility] NRBC% auto 0.0 % [facility] NRBC Absolute 0.000 0.000 - 0.000 x10(3)/mc L [facility] Blood specimen (specimen) 04/29/2018 11:01 AM EST 04/29/2018 11:06 AM EST Narrative Resulting Agency Comment Spec In Lab Shawnee Fairchild APRN HEMATOLOGY ORDERAB LES Performing Organization Address City/[facility]/ZIP Co de Phone Number [facility] [place] [address] * HCV Genotype (04/29/2018 11:01 AM EST) HCV Genotype Indication for study Hepatitis C Infection Result 1a Interpretation: The genotyping analysis has identified the presence of hepatitis C virus (HCV) genotype 1a in the submitted specimen. Response to some antiviral therapies is genotype dependent. Please refer to current practice guidelines and pharmaceutical product inserts for specific recommendations on treating this particular HCV genotype. Method: The HCV genotyping was carried out using [employer]?? HCVg Direct Test. Briefly, nucleic acid isolated from plasma is subjected to a multiplexed reverse transcriptase PCR followed by a direct analysis on the electrochemical NaHere XT-8 detection system for the identification of HCV genotypes. The HCV genotypes/subtypes detected by this method include 1a, 1b, 2a/c, 2b, 3, 4, 5 and 6. Disclaimer: This test was developed and its performance characteristics determined by the [facility] at [facility]. It has not been cleared or approved by the FDA. The laboratory is regulated under CLIA as qualified to perform high-complexity testing. This test is used for clinical purposes. It should not be regarded as investigational or for research. [facility] Comment: [VERIFIED DATE]05.11.18 Verified By:Sol Lawson (Electronic Signature) Blood specimen (specimen) 04/29/2018 11:01 AM EST 05/04/2018 6:25 AM EST Narrative Resulting Agency Comment Spec In Lab Shawnee Fairchild [employer] SALES ACCOUNT EXECUTIVE HEMATOLOGY ORDERAB LES Performing Organization Address City/[facility]/ZIP Co de Phone Number [facility] [place] [address] * Hepatitis B Surface Antibody (04/29/2018 11:01 AM EST) Hepatitis B Surface Antibody, Quantitative 3.5 IU/L [facility] Comment: HepB Surface Ab Quant: Unvaccinated: < 8.5 IU/L Vaccinated: > 11.5 IU/L Hepatitis B Surface Antibody Negative [facility] Comment: Patient is presumed to be not vaccinated or immune to HBV infection. Expected Results: Vaccinated: Positive Unvaccinated: Negative Blood specimen (specimen) 04/29/2018 11:01 AM EST 04/29/2018 11:06 AM EST Narrative Resulting Agency Comment Spec In Lab Shawnee Fairchild APRN CHEMISTRY ORDERABL ES Performing Organization Address [facility] Co nv Phone Number [facility] [place] [address] * Hepatitis B Surface Antigen (04/29/2018 11:01 AM EST) Hepatitis B Surface Antigen Negative Negative [facility] Blood specimen (specimen) 04/29/2018 11:01 AM EST 04/29/2018 11:06 AM EST Narrative Resulting Agency Comment Spec In Lab Shawnee Fairchild APRN CHEMISTRY ORDERABL ES Performing Organization Address [facility] Phone Number [facility] [place] [address] * Hepatitis B Core Antibody, Total (04/29/2018 11:01 AM EST) Hepatitis B Core Antibody Negative Negative [facility] Blood specimen (specimen) 04/29/2018 11:01 AM EST 04/29/2018 11:06 AM EST Narrative Resulting Agency Comment Spec In Lab Shawnee Fairchild APRN CHEMISTRY ORDERABL ES Performing Organization Address [facility] Co de Phone Number [facility] [place] [address] * YUNIER (LEB/CGP) (04/29/2018 11:01 AM EST) YUNIER Neg Neg [facility] Blood specimen (specimen) 04/29/2018 11:01 AM EST 04/29/2018 12:50 PM EST Narrative Resulting Agency Comment Spec In Lab Shawnee A [place] [facility] SEND OUT ORDER CAREN [facility] [place] [address] * (ABNORMAL) Comprehensive metabolic panel (non-fasting) (04/29/2018 11:01 AM EST) Glucose 140 65 - 199 mg/dL [facility] Comment:Diabetes: >=200 mg/d L plus symptoms Blood Urea Nitrogen 12 10 - 20 mg/dL [facility] Creatinine 0.81 0.80 - 1.50 mg/dL [facility] Sodium 139 135 - 145 mmol/L [facility] Potassium 4.1 3.5 - 5.0 mmol/L [facility] Comment: Please note: ??Patients with WBC >100,000 may have falsely elevated Potassium levels. ??For accurate Potassium quantification in these patients send serum separator tube (gold top) for subsequent determinations. ??Contact the Clinical Chemistry Laboratory if there are any questions. Chloride 99 98 - 107 mmol/L [facility] Carbon Dioxide 27 22 - 31 mmol/L [facility] Anion Gap 13 5 - 15 mmol/L [facility] Calcium 9.0 8.5 - 10.5 mg/dL [facility] Protein, Total 7.4 6.1 - 8.0 gm/dL [facility] Albumin 3.9 3.2 - 5.2 gm/dL [facility] Aspartate Aminotransferase 49(H) 0 - 39 unit/L [facility] Alanine Aminotransferase 41 0 - 55 unit/L [facility] Alkaline Phosphatase 84 40 - 120 unit/L [facility] Bilirubin, Total 0.6 0.2 - 1.3 mg/dL [facility] Est Glomerular Filtration Rate 109 >=60 mL/min/1. 73 m?? [facility] Comment: The eGFR was calculated using the CKD-EPI equation. As with all creatinine based estimates of kidney function, eGFR values calculated with the CKD-EPI equation are not accurate in patients with acute kidney failure, extremes of body mass or the acutely ill. http://[employer]/[facility] eGFR 126 >=60 mL/min/1. 73 m?? [facility] Comment: The eGFR was calculated using the CKD-EPI equation. As with all creatinine based estimates of kidney function, eGFR values calculated with the CKD-EPI equation are not accurate in patients with acute kidney failure, extremes of body mass or the acutely ill. http://[employer]/[facility] Blood specimen (specimen) 04/29/2018 11:01 AM EST 04/29/2018 11:06 AM EST Narrative Resulting Agency Comment Spec In Lab Shawnee Fairchild APRN CHEMISTRY ORDERABL ES Performing Organization Address [facility] de Phone Number [facility] [place] [phone] * Cryoglobulin (04/29/2018 11:01 AM EST) Cryoglobulin See Note [facility] Comment: Cryoglobulins negative at 24 and 72 hours. Identification of cryoglobulins is dependent upon appropriate sample handling. False negative results may occur if the proper sample handling steps are not followed. This test was developed and its performance characteristics determined by [facility]. It has not been cleared or approved by the FDA. The laboratory is regulated under CLIA as qualified to perform high-complexity testing. This test is used for clinical purposes. It should not be regarded as investigational or for research. Blood specimen (specimen) 04/29/2018 11:01 AM EST 04/29/2018 11:06 AM EST Narrative Resulting Agency Comment Spec In Lab Shawnee Fairchild APRN CHEMISTRY ORDERABL ES Performing Organization Address [facility] Co de Phone Number [facility] [place] [address] * Rheumatoid factor, quant (04/29/2018 11:01 AM EST) Rheumatoid Factor <10 <=14 IU/mL [facility] Blood specimen (specimen) 04/29/2018 11:01 AM EST 04/29/2018 11:06 AM EST Narrative Resulting Agency Comment Spec In Lab Shawnee Fairchild APRN CHEMISTRY ORDERABL ES Performing Organization Address City/[facility]/ZIP Co de Phone Number [facility] [place] [address] documented in this encounter Visit Diagnoses Diagnosis Chronic hepatitis C without hepatic coma Pain in finger of both hands documented in this encounter Care Teams Salesperson [employer] Relationship Specialty Start Date End Date Larry Valencia MD [address] [address] PCP - General 05/15/10 12/25/20 documented as of this encounter
--- OUTSIDE RECORDS SUMMARY | 2024-07-16 00:58 | XMS_ITS | Encounter Summary ---
[place] [address] Care Team Providers Care Vp Home Health Name Role Phone Larry Valencia MD Primary Care Provider [phone] Encounter Details Date Type Department Care Team (Late st Contact Info) Description 04/10/2018 Telephone [place] [phone] Noemy Francois Social History Tobacco Use Types Packs/Day Years Used Date Smoking Tobacco: Never Assessed Sex and Gender Information Value Date Recorded Sex Assigned at Not on file Gender Identity Not on file Sexual Orientation Not on file documented as of this encounter Miscellaneous Notes * Telephone Encounter - Noemy Francois - 04/10/2018 3:38 PM EDT Updating referral information documented in this encounter Plan of Treatment Not on file documented as of this encounter Visit Diagnoses Not on filedocumented in this encounter Care Teams Vp Home Health Relationship Specialty Start Date End Date Larry Valencia MD [address] [place] [address] PCP - General 05/15/10 12/25/20 documented as of this encounter
--- OUTSIDE RECORDS SUMMARY | 2024-07-16 00:58 | XMS_ITS | Encounter Summary ---
Author Organization [facility] [place] [address] Care Team Providers Care Trimmer Meat Name Role Phone Fauzia Nelson MD Primary Care Provider + Reason for Visit * Consultation (Routine) - Closed Specialty Diagnoses / Procedures Referred By Dorita arambula Referred To Contact Gastroenterology Diagnoses Hep C carrier, US showing hepatic cirrhosis, hepatomegaly and hepatic steatosis. Experiencing edema, nausea and abd pain. Procedures consult Fauzia Nelson MD [place] [address] [facility] [address] [place] [address] Referral ID Status Reason Start Date Expiration Date Visits Re quested Visits Authorized [id number] Closed 10/21/2020 10/21/2021 1 1 Encounter Details Date Type Department Care Team (Late st Contact Info) Description 12/26/2020 2:00 PM EDT Office [place] [address] León Wong PA [address] [place] [address] [place] [address] Chronic hepatitis C without hepatic coma (Primary Dx); Habitual alcohol use Social History Tobacco Use Types Packs/Day Years Used Date Smoking Tobacco: Former e-Cigarettes Smokeless Tobacco: Never Sex and Gender Information Value Date Recorded Sex Assigned at Not on file Gender Identity Not on file Sexual Orientation Not on file documented as of this encounter Last Filed Vital Signs Vital Sign Reading Time Taken Comments Blood Pressure 145/93 12/26/2020 2:06 PM EDT Pulse 95 12/26/2020 2:06 PM EDT Temperature - - Respiratory Rate - - Oxygen Saturation - - Inhaled Oxygen Concentration - - Weight 108.9 kg (240 lb) 12/26/2020 2:06 PM EDT Height - - Body Mass Index 31.66 04/29/2018 9:28 AM EST documented in this encounter Progress Notes * León Wong PA - 12/26/2020 2:00 PM EDT Images from the original note were not included. Gastroenterology and Hepatology Follow Up Note Patient: Mike Guillermo Sex: male : 1975 Provider: León Wogn PA-C PCP: Fauzia Nelson MD LIVER HISTORY Hepatitis C infection -Genotype 1a -dx'd ~ 2007 via ?screening - low viral load, no good tx options, told to wait -h/o IVDU [id number], tattoos (all homemade), incarceration -Fibroscan 04/29/18: 7.8 [...] swelling, as well as increased alcohol use -Last known viral load 03/19/18: 1,400,000 IU/mL PROBLEM LIST Patient Active Problem List Diagnosis Code ??? Chronic hepatitis C without hepatic coma B18.2 ??? Habitual alcohol use Z72.89 ??? Overweight E66.3 ??? Hypertension I10 ??? Gastroesophageal reflux K21.9 ??? Sleep apnea G47.30 ??? Low back pain, non-specific M54.5 ??? Eczema L30.9 ??? Migraine G43.909 ??? Cigarette smoker F17.210 ??? History of intravenous drug abuse F19.11 ??? Opioid dependence F11.20 Interval History: Mr. Mike Guillermo is 45 y.o. with a history of hepatitis C infection. He previously met with louis Almeida APRN on 04/29/18 and was lost to follow-up. He is accompanied by his mother. He states that he never started the Mavyret that was delivered to him in 2019. There was a sequenceof life events that caused some changes in priorities and he felt that it was not the best time to start the treatment. He still has the supply, but it has since . He states he is in a much better place to try again to be treated. His major concern however is that he has significantly increased his alcohol consumption since he was last seen. He is drinking about 4 cocktails daily at the moment, which has only been a problem in the last year. He is interested in medication for alcohol cravings to help him decrease by the time he is on antiviral treatment. He sees a psychiatrist [place], but they are retiring soon. He is also complaining of ongoing swelling in his harms/hands and legs/feet. This is a chronic issue. He has nausea in the mornings and sometimes gags and vomits clear emesis. He has a decrease in appetite as well in the last year. He also notes an increase in nosebleeds, about 3-4 times in the last year has had nosebleeds that have not stopped for hours. MEDICATIONS: Current Outpatient Medications Medication Sig Dispense Refill ??? SUMAtriptan (IMITREX STATDOSE) 6 mg/0.5 mL Pen Injector GIVE ONE INJCETION AT FIRST SIGN OF HEADACHE MAY REPEAT IN TWO HOURS IF NEEDED ??? omeprazole (PRILOSEC) 20 mg Capsule, Delayed Release(E.C.) Take 20 mg by mouth daily. ??? buprenorphine-naloxone (SUBOXONE) 12-[address] 1 Film under the tongue daily. ??? gabapentin (NEURONTIN) 300 mg Capsule Take 300 mg by mouth 3 times daily. No current facility-administered medications for this visit. ALLERGIES/ADR No Known Allergies PHYSICAL EXAMINATION: Vitals: 12/26/20 1406 BP: (!) 145/93 Pulse: 95 Weight: 108.9 kg (240 lb) Body mass index is 31.66 kg/m??. Constitutional: Well appearing, appropriate, no acute distress Skin: LE venous statis, no cyanosis, no palmar erythema, no jaundice, no spider angiomata Head: Normocephalic, sclerae anicteric Abdomen: Increased central adiposity, nondistended Neurologic: Alert and oriented x 3, no asterixis or tremor Extremities: Trace bilateral LE edema, no clubbing, no muscle wasting, no joint swelling PERTINENT LABS AND IMAGING: Recent Results (from the past 24 hour(s)) Hepatitis A Antibody, Total Result Value Ref Range Hepatitis A Ab Total Positive (A) Negative HIV Screen, 4th Generation ([facility]/CGP/APD/[facility]) Result Value Ref Range HIV-1/2 Ab and Ag Negative Negative Prothrombin Time Result Value Ref Range PT 13.8 (H) 9.4 - 12.5 sec INR 1.2 Comprehensive metabolic panel (non-fasting) Result Value Ref Range Glucose Lvl 108 65 - 199 mg/dL BUN 7 (L) 10 - 20 mg/dL Creatinine 0.75 (L) 0.80 - 1.50 mg/dL Sodium 140 135 - 145 mmol/L Potassium 3.7 3.5 - 5.0 mmol/L Chloride 100 98 - 107 mmol/L CO2 27 22 - 31 mmol/L Anion Gap 13 5 - 15 mmol/L Calcium 9.1 8.5 - 10.5 mg/dL Total Protein 8.6 (H) 6.1 - 8.0 gm/dL Albumin 4.1 3.2 - 5.2 gm/dL AST 449 (H) 0 - 39 unit/L ALT 211 (H) 0 - 55 unit/L Alk Phos 94 40 - 130 unit/L Total Bilirubin 1.1 0.2 - 1.3 mg/dL Estimated GFR 110 >=60 mL/min/1.73 m?? Hemogram Result Value Ref Range WBC 4.7 4.0 - 9.5 x10(3)/mcL RBC 4.60 4.58 - 5.54 x10(6)/mcL Hemoglobin 14.8 13.7 - 16.5 gm/dL Hematocrit 42.8 40.5 - 48.5 % MCV 93.0 82.9 - 93.1 fL MCH 32.2 (H) 27.5 - 32.1 pg MCHC 34.6 32.0 - 35.7 gm/dL Platelets 109 (L) 145 - 357 x10(3)/mcL RDWSD 42.1 36.0 - 45.0 fL RDWCV 12.3 11.4 - 13.8 % MPV 10.0 7.6 - 12.9 fL nRBC % Auto 0.0 % nRBC Abs Auto 0.000 0.000 - 0.000 x10(3)/mcL Differential, Automated Result Value Ref Range Neutrophils % 53.1 % Neutr Abs (ANC) 2.52 1 - 6 x10(3)/mcL Lymphocytes % 28.3 % Lymphocytes Abs 1.3 0.9 - 3.2 x10(3)/mcL Monocytes % 11.8 % Monocyte Abs 0.6 0.3 - 0.9 x10(3)/mcL Eosinophils % 5.5 % Eosinophils Abs 0.3 0.0 - 0.4 x10(3)/mcL Basophils % 1.1 % Basophils Abs 0.0 0.0 - 0.1 x10(3)/mcL Immature Gran % 0.20 % Daily Gran Abs 0.01 0.00 - 0.04 x10(3)/mcL Liver Fibrosis Score (Fib 4) was 13.04 at 12/27/2020 11:28 AM MELD-Na score: 9 at 12/26/2020 5:07 PM MELD score: 9 at 12/26/2020 5:07 PM Calculated from: Serum Creatinine: 0.75 mg/dL (Using min of 1 mg/dL) at 12/26/2020 5:07 PM Serum Sodium: 140 mmol/L (Using max of 137 mmol/L) at 12/26/2020 5:07 PM Total Bilirubin: 1.1 mg/dL at 12/26/2020 5:07 PM INR(ratio): 1.2 at 12/26/2020 5:07 PM Age: 45 years Prior Laboratory: Lab Results Component Value Date WBC 4.8 04/29/2018 HGB 14.5 04/29/2018 HCT 42.2 04/29/2018 MCV 83.7 04/29/2018 PLATELET 233 04/29/2018 Lab Results Component Value Date NA 139 04/29/2018 K 4.1 04/29/2018 CL 99 04/29/2018 CO2 27 04/29/2018 BUN 12 04/29/2018 CREATININE 0.81 04/29/2018 GLUCOSE 140 04/29/2018 CALCIUM 9.0 04/29/2018 ESTGFR 109 04/29/2018 Lab Results Component Value Date ALT 41 04/29/2018 AST 49 (H) 04/29/2018 ALKPHOS 84 04/29/2018 BILITOT 0.6 04/29/2018 ALBUMIN 3.9 04/29/2018 PROT 7.4 04/29/2018 Ref. Range 04/29/2018 11:01 YUNIER Latest Ref Range: Neg Neg Cryoglob Unknown Neg RF Latest Ref Range: <=14 IU/mL <10 HepB Surface Ab Quant Latest Units: IU/L 3.5 HepB Surface Ab Unknown Negative HepB Surface Ag Latest Ref Range: Negative Negative Hep B Core Ab Latest Ref Range: Negative Negative HCV Genotype Unknown 1a Non-DH Laboratory: 03/19/18 @ [facility]: Imaging: Ultrasound 10/17/20 @ [facility]: Fibroscan Results 04/29/18: Median kPa: 7.8 kPa Mean IQR: 12% (goal is <30 %) Number of valid measurements: 10(at least 10 required) Number of invalid measurements: 0 Predicted fibrosis stage: F2 CAP (dB/m): 180 ASSESSMENT & PLAN: Mike Guillermo is a 45 y.o. male with known chronic hepatitis C infection, genotype 1a, who is na??ve to treatment however he was approved for 8 weeks of Mavyret in 2018 and first treatment was delivered to him although he never took the medication and was lost to follow-up. He has been referredto reestablish care and to discuss treatment options. New finding on ultrasound in September suggesting a nodular liver consistent with cirrhosis is certainly concerning. His FibroScan exam from 2017 did not suggest cirrhosis, only moderate fibrosis, however after our visit today and reviewing his labs, he has new thrombocytopenia, elevated INR, and significantly elevated transaminases that all suggest that he may have progressed to cirrhosis at this point. He fortunately does not show any concerning signs or symptoms of severe liver dysfunction, though unfortunately he was not appropriately fasting for a repeat FibroScan exam today. It would be helpful to have him return the office for a repeat FibroScan and if this is suggestive of cirrhosis we will treat him as such. Elevated FIB-4 score today is also suggestive of advanced fibrosis. A liver fibrosis panel is also pending from labs today which may also shed light on whether he might have cirrhosis. At any rate, I discussed with him and his mother that he absolutely is still a candidate for treatment. We are updating a viral load (pending) and he would be a candidate for any first line availabletreatments. If he is cirrhotic, I do not believe he is decompensated, so he might still be a candidate for 8 weeks of glecaprevir (300 mg)/pibrentasvir (120 mg) (Mavyret). Also, his omeprazole would have no potential drug drug interactions. If he did develop signs of liver dysfunction however, Mavyret would not be an option due to the protease inhibitor and we would need to treat him with 12 weeks of sofosbuvir (400 mg)/velpatasvir (100 mg) (Epclusa). In the meantime while we are waiting for lab results and rescheduling a FibroScan exam, it is safe for him to start acamprosate for alcohol craving reduction. Naltrexone is contraindicated with his Suboxone. In my discussion with him, I feel that he will be able to decrease his alcohol consumption.He seems to be very interested in treatment and would like to improve his symptoms. Discussed that if he stops drinking alcohol, his esophageal reflux, morning nausea, and abdominal bloating might also improve. Plan: -Await remaining lab results. -Start acamprosate 666 mg 3 times daily. Ordered for 90-day supply. -Schedule FibroScan only visit soon, NPO 3 to 4 hours. -When labs return and FibroScan is updated, we will submit prior authorization for antiviral therapy as discussed above. -If liver fibrosis panel and/or FibroScan suggest cirrhosis, we will follow him long-term with routine HCC surveillance. Next imaging would be due in March, 6 months from his ultrasound in September. -He would also need esophageal varices screening if he is cirrhotic given his thrombocytopenia. I will discuss this with him in follow-up. Time spent reviewing records prior to this encounter: 5 minutes Time spent during encounter with patient including counselin minutes Approximate total time devoted to this single encounter on date of service: 50 minutes León Wong PA-C Section of Gastroenterology [place] [address] Cc: Fauzia Nelson MD @PCPADD@ documented in this encounter Plan of Treatment Not on file documented as of this encounter Goals Goal Patient Goal Type Associated Problems Recent Progress Patient-Stated? Author Home Medication Compliance and Understanding Patient Facing Action Plan Marilou Quintana, [facility] Note: SVR12 through treatment with Mavyret. documented as of this encounter Procedures Procedure Name Priority Date/Time Associated Diagnosis Comments HC [facility] LIVER FIBROSIS PANEL; NEPHELOMETRY Routine 12/26/2020 5:07 PM EDT Chronic hepatitis C without hepatic coma HEMOGRAM Routine 12/26/2020 5:07 PM EDT Chronic hepatitis C without hepatic coma DIFFERENTIAL, AUTOMATED Routine 12/27/19 5:07 PM EDT Chronic hepatitis C without hepatic coma HC HEPATITIS A, TOTAL Routine 12/26/2020 5:07 PM EDT Chronic hepatitis C without hepatic coma HEPATITIS C GENOTYPE Routine 12/26/2020 5:07 PM EDT HC HCV QUANTIFICATION Routine 12/26/2020 5:07 PM EDT Chronic hepatitis C without hepatic coma HC HIV SCREEN, 4TH GENERATION Routine 12/26/2020 5:07 PM EDT Chronic hepatitis C without hepatic coma HEPATITIS B SURFACE ANTIGEN Routine 12/26/2020 5:07 PM EDT HC PROTHROMBIN TIME Routine 12/26/2020 5 :07 PM EDT Chronic hepatitis C without hepatic coma HC CBC,PLT & AUTO DIFF Routine 5:07 PM EDT Chronic hepatitis C without hepatic coma COMPREHENSIVE METABOLIC PANEL Routine 12/26/2020 5:07 PM EDT Chronic hepatitis C without hepatic coma documented in this encounter Results * Hepatitis B Surface Antigen (12/26/2020 5:07 PM EDT) Hepatitis B Surface Antigen Negative Negative [facility] Blood Venous Draw / Unknown 12/26/2020 5:07 PM EDT 12/26/2020 5:38 PM EDT Narrative Resulting Agency Comment Spec In Lab León ALDRIDGE CHEMISTRY ORDERABLES [facility] [place] [address] * Hepatitis C genotype (12/26/2020 5:07 PM EDT) Pathologist [facility] HCV Genotype Indication for study Hepatitis C [...] The HCV genotyping was carried out using [employer] eSensor?? HCVg Direct Test. Briefly, nucleic acid isolated from plasma is subjected to a multiplexed reverse transcriptase PCR followed by a direct analysis on the electrochemical [employer] Scam XT-8 detection system for the identification of HCV genotypes. The HCV genotypes/subtypes detected by this method include 1a, 1b, 2a/c, 2b, 3, 4, 5 and 6. Disclaimer: This test was developed and its performance characteristics determined by the [facility] ([facility] at [facility]. It has not been cleared or approved by the FDA. The laboratory is regulated under CLIA as qualified to perform high-complexity testing. This test is used for clinical purposes. It should not be regarded as investigational or for research. [facility] Comment: [VERIFIED DATE]01.01.21 Verified By:Bebe Mcbride (Electronic Signature) Blood Venous Draw / Unknown 12/26/2020 5:07 PM EDT 12/27/2020 7:31 AM EDT Narrative Resulting Agency Comment Spec In Lab León ALDRIDGE MOLECULAR ORDERABLES [facility] [place] [address] * Differential, Automated (12/26/2020 5:07 PM EDT) [facility] Neutrophil % 53.1 % [facility] Neutrophil Absolute 2.52 1.70 - 6.10 x10(3)/[facility] LABORAT[facility] Lymph % 28.3 % [facility] Lymphocytes Abs 1.3 0.9 - 3.2 x10(3)/[facility] LABORATORY Monocyte % 11.8 % [facility] Monocyte Abs 0.6 0.3 - 0.9 x10(3)/[facility]ORATORY Eos % 5.5 % [facility] Eosinophils Abs 0.3 0.0 - 0.4 x10(3)/[facility]ATORY Basophil % 1.1 % [facility] Baso Absolute 0.0 0.0 - 0.1 x10(3)/[facility]ORATORY Immature Gran % 0.20 % [facility] Comment: Immature granulocytes(IG's)percentage and absolute count will include metamyelocytes, myelocytes, and promyelocytes. Blood smears from CBCs yielding IG's will be scanned manually for concordance. If this scan disagrees with the automated IG or if promyelocytes are noted, a manual differential will be performed. Immature Gran Absolute 0.01 0.00 - 0.04 x10(3)/[facility]ORY Blood 12/26/2020 5:07 PM EDT 12/26/2020 5:31 PM EDT Narrative Resulting Agency Comment Spec In Lab León ALDRIDGE HEMATOLOGY ORDERABLE S [facility] [place] [address] * (ABNORMAL) Hemogram (12/26/2020 5:07 PM EDT) [facility] White Blood Cell 4.7 4.0 - 9.5 x10(3)/ L [facility] Red Blood Cell 4.60 4.58 - 5.54 x10(6)/ L [facility] Hemoglobin 14.8 13.7 - 16.5 gm/dL [facility] Hematocrit 42.8 40.5 - 48.5 % [facility] Mean Cell Volume 93.0 82.9 - 93.1 fL [facility] Mean Cell Hemoglobin 32.2(H) 27.5 - 32.1 pg [facility] Mean Cell Hemoglobin Concentration 34.6 32.0 - 35.7 gm/dL [facility] Platelet 109(L) 145 - 357 x10(3)/ L [facility] RDW Standard Deviation 42.1 36.0 - 45.0 fL [facility] RDW coefficient of variation 12.3 11.4 - 13.8 % [facility] Mean Platelet Volume 10.0 7.6 - 12.9 fL [facility] NRBC% auto 0.0 % [facility] NRBC Absolute 0.000 0.000 - 0.000 x10(3)/ L [facility] Blood 12/26/2020 5:07 PM EDT 12/26/2020 5:31 PM EDT Narrative Resulting Agency Comment Spec In Lab León ALDRIDGE HEMATOLOGY ORDERABLE S [facility] [place] [address] * (ABNORMAL) Hepatitis A Antibody, Total (12/26/2020 5:07 PM EDT) Pathologist [facility] Hepatitis A ANTIBODY, TOTAL Positive(A ) Negative [facility] Blood 12/26/2020 5:07 PM EDT 12/26/2020 5:31 PM EDT Narrative Resulting Agency Comment Spec In Lab Vida Ayala MD CHEMISTRY ORDERABLES Performing Organization Address City/[facility]/ZIP Co de Phone Number [facility] [place] [address] * HIV Screen, 4th Generation ([facility]/CGP/APD/[facility]) (12/26/2020 5:07 PM EDT) [facility] HIV Ab/Ag Screen Negative Negative [facility] Comment: This 4th Generation HIV [...] Ayala MD CHEMISTRY ORDERABLES Performing Organization Address [facility] Co de Phone Number [facility] [place] [address] * Hepatitis C RNA, quantitative, PCR (12/26/2020 5:07 PM EDT) [facility] HCV Viral Load 714,797 IU/mL [facility] HCV Viral Load Result: 142705 IU/mL (Target Detected) Indication for Study: Hepatitis C Infection Analysis: The [employer] RealTime HCV assay is an in vitro reverse economics lecturer polymerase chain reaction (RT-PCR)for the quantitation of hepatitis C viral (HCV) RNA in human serum or plasma (EDTA) from HCV-infected individuals. Sample: plasma (0.7 mL minimum volume) Method: [employer] RealTime HCV Assay Linear Range: 12 IU/mL - 100,000,000IU/mL Note: The [employer] RealTime HCV Assay has been approved by the U.S. Food and Drug Administration. [facility] Comment: [VERIFIED DATE]12.29.20 Verified By:Jose Miguel Watosn (Electronic Signature) Blood 12/26/2020 5:07 PM EDT 12/27/2020 7:31 AM EDT Narrative Resulting Agency Comment Spec In Lab Vida Ayala MD MOLECULAR ORDERABLES [facility] [place] [address] * (ABNORMAL) Liver Fibrosis Panel (12/26/2020 5:07 PM EDT) Liver Fibrosis Panel Test ? Result ?Flag ??Unit ?? RefValue FibroTest-ActiTest, S ??FibroTest Score ?0.94 ??FibroTest Stage ?F4 ??FibroTest Interpretation ? severe fibrosis ?FibroTest estimates liver fibrosis ?FibroTest Score ?Stage ?Interpretation ?0.00-0.21 ?F0 ? no fibrosis ?0.21-0.27 ?F0-F1 ?no fibrosis ?0.27-0.31 ?F1 ? minimal fibrosis ?0.31-0.48 ?F1-F2 ?minimal fibrosis ?0.48-0.58 ?F2 ? moderate fibrosis ?0.58-0.72 ?F3 ? advanced fibrosis ?0.72-0.74 ?F3-F4 ?advanced fibrosis ?0.74-1.00 ?F4 ? severe fibrosis (Cirrhosis) ??ActiTest Score ? 0.94 ??ActiTest Grade ? A3 ??ActiTest Interpretation ?severe activity ?ActiTest estimates necroinflammatory activity ?ActiTest Score ? Grade ?Interpretation ?0.00-0.17 ?A0 ? no activity ?0.17-0.29 ?A0-A1 ?no activity ?0.29-0.36 ?A1 ? minimal activity ?0.36-0.52 ?A1-A2 ?minimal activity ?0.52-0.60 ?A2 ? significant activity ?0.60-0.62 ?A2-A3 ?significant activity ?0.62-1.00 ?A3 ? severe activity ??FibroTest-ActiTest Comment ? SEE COMMENTS ?The reliability of results is dependent on compliance ?with the preanalytical and analytical conditions ?recommended by [employer]. The tests have to be ?deferred for: acute hemolysis, acute hepatitis, ?acute inflammation, extra hepatic cholestasis. The ?advice of a specialist should be sought for ?interpretation in chronic hemolysis and Gilbert's ?syndrome. The test interpretation is not validated ?in liver transplant patients. Isolated extreme values ?of one of the components should lead to caution in ?interpreting the results. In case of discordance ?between a biopsy result and a test, it is recommended ?to seek advice of a specialist. The causes of these ?discordances could be due to a flaw of the test or to ?a flaw in the biopsy: i.e. a liver biopsy has a 33% ?variability rate for one fibrosis stage. FibroTest is ?interpretable for chronic hepatitis B and C, alcoholic ?and non alcoholic steatosis. ActiTest is interpretable ?for chronic hepatitis B and C. ? A DDITIONAL INFORMATION -------- ?This test was developed and its performance characteristics ?determined by [facility] in a manner consistent with ?CLIA requirements. This test has not been cleared or ?approved by the U.S. Food and Drug Administration. ??[employer] Serial Number ?[id number] ??Apolipoprotein A1, S ? 100 ?L ?mg/dL ??>=120 ??Ghwyb-4-Nusekvpbkzhj n, S ? 321 ?H ?mg/dL ??100 - 280 ??Haptoglobin, S ? 36 ?mg/dL ??30 - 200 ??Alanine Aminotransferase (ALT), S ?244 ?H ?U/L ?7-55 ??Gamma Glutamyltransferase (GGT), S ? 519 ?H ?U/L ?8 - 61 ??Bilirubin, Total, S ?1.1 ? mg/dL ??<=1.2 ?Test Performed by: ?[facility] ?[address] [id number] ?[employer] Attendant: Micah Arroyo M.D. Ph.D.; CLIA# [id number] ?Test Performed by: ?[facility] ?[address] [id number] ?[employer] Attendant: Micah Arroyo M.D. Ph.D.; CLIA# [id number]) [facility] Blood 12/26/2020 5:07 PM EDT 12/27/2020 8:39 AM EDT Narrative Resulting Agency Comment Spec In Lab Vida Ayala MD LAB SEND OUT ORDERAB LES [facility] [place] [address] * (ABNORMAL) Prothrombin Time (12/26/2020 5:07 PM EDT) Prothrombin Time 13.8(H) 9.4 - 12.5 sec [facility] International Normalization Ratio 1.2 [facility] Comment: An INR <2.0 indicates [...] be appropriate depending on clinical circumstances. Blood 12/26/2020 5:07 PM EDT 12/26/2020 5:31 PM EDT Narrative Resulting Agency Comment Spec In Lab Vida Ayala MD HEMATOLOGY ORDERABLE S [facility] [place] [address] * (ABNORMAL) Comprehensive metabolic panel (non-fasting) (12/26/2020 5:07 PM EDT) Pathologist [facility] Glucose 108 65 - 199 mg/dL [facility] Comment:Diabetes: >=200 mg/d L plus symptoms Blood Urea Nitrogen 7(L) 10 - 20 mg/dL [facility] Creatinine 0.75(L) 0.80 - 1.50 mg/dL [facility] Sodium 140 135 - 145 mmol/L [facility] Potassium 3.7 3.5 - 5.0 mmol/L [facility] Comment: Please note: ??Patients with WBC >100,000 may have falsely elevated Potassium levels. ??For accurate Potassium quantification in these patients send serum separator tube (gold top) for subsequent determinations. ??Contact the Clinical Chemistry Laboratory if there are any questions. Chloride 100 98 - 107 mmol/L [facility] Carbon Dioxide 27 22 - 31 mmol/L [facility] Anion Gap 13 5 - 15 mmol/L [facility] Calcium 9.1 8.5 - 10.5 mg/dL [facility] Protein, Total 8.6(H) 6.1 - 8.0 gm/dL [facility] Albumin 4.1 3.2 - 5.2 gm/dL [facility] Aspartate Aminotransferase 449(H) 0 - 39 unit/L [facility] Alanine Aminotransferase 211(H) 0 - 55 unit/L [facility] Alkaline Phosphatase 94 40 - 130 unit/L [facility] Bilirubin, Total 1.1 0.2 - 1.3 mg/dL [facility] Est Glomerular Filtration Rate 110 >=60 mL/min/1. 73 m?? [facility] Comment: This patient? s estimated glomerular filtration rate (eGFR) is between 110 mL/min/1.73 m2 (patients with less muscle mass per kg body weight) and 128 mL/min/1.73 m2 (patients with more muscle mass per kg body weight) as determined by the CKD-EPI equation. Assessment of eGFR is not appropriate when creatinine concentrations are rapidly changing. For clinical decisions where creatinine clearance will affect therapy, a 24-hour urine creatinine clearance may be advised. Assignment of CKD stage 1 - 5 for patients with an eGFR near the transition point between stages may be based on clinical assessment of muscle mass and symptoms in addition to eGFR. Blood 12/26/2020 5:07 PM EDT 12/26/2020 5:31 PM EDT Narrative Resulting Agency Comment Spec In Lab Vida Ayala MD CHEMISTRY ORDERABLES [facility] [place] [address] documented in this encounter Visit Diagnoses Diagnosis Chronic hepatitis C without hepatic coma- Primary Habitual alcohol use Alcohol abuse, unspecified documented in this encounter Care Teams Trimmer Meat Relationship Specialty Start Date End Date Fauzia Nelson MD PCP - General Family Medicine 12/26/20 04/17/22 documented as of this encounter
--- OUTSIDE RECORDS SUMMARY | 2024-07-16 00:58 | XMS_ITS | Encounter Summary ---
[facility] [place] [address] Care Team Providers Care Airplane Engineer Name Role Phone Larry Valencia MD Primary Care Provider [phone] Encounter Details Date Type Department Care Team ([facility] st Contact Info) Description 04/08/2018 Telephone [place] [phone] Cherie Austin Social History Tobacco Use Types Packs/Day Years Used Date Smoking Tobacco: Never Assessed Sex and Gender Information Value Date Recorded Sex Assigned at Not on file Gender Identity Not on file Sexual Orientation Not on file documented as of this encounter Miscellaneous Notes * Telephone Encounter - Cherie oDan - 04/08/2018 12:28 PM EDT Patient's spouse called to schedule from a referral. The referral was changed to urgent but there were no notes as to why and it was not back from review yet. Referral is for Hep C and I was able to get patient in next week so I just went ahead and got him scheduled. Spouse was happy and very appreciative that I was able to get him in so quickly. documented in this encounter Plan of Treatment Not on file documented as of this encounter Visit Diagnoses Not on filedocumented in this encounter Care Teams Airplane Engineer Relationship Specialty Start Date End Date Larry Valencia MD [address] [place] [address] PCP - General 05/15/10 12/25/20 documented as of this encounter
--- OUTSIDE RECORDS SUMMARY | 2024-07-16 00:58 | XMS_ITS | Encounter Summary ---
Author Organization [facility] [place] [place] [address] Care Team Providers Care Boilermaker'S Assistant Name Role Phone Larry Valencia MD Primary Care Provider [phone] Encounter Details Date Type Department Care Team (Late st Contact Info) Description 04/17/2018 [facility] [place] [phone] Robyn Capone Social History Tobacco Use Types Packs/Day Years Used Date Smoking Tobacco: Never Assessed Sex and Gender Information Value Date Recorded Sex Assigned at Not on file Gender Identity Not on file Sexual Orientation Not on file documented as of this encounter Miscellaneous Notes * Telephone Encounter - Robyn Capone - 04/17/2018 11:26 AM EDT pts mother called in to reschedule her sons apt because she said he is not feeling well documented in this encounter Plan of Treatment Not on file documented as of this encounter Visit Diagnoses Not on filedocumented in this encounter Care Teams Boilermaker'S Assistant Relationship Specialty Start Date End Date Larry Valencia MD [address] [place] [address] PCP - General 05/15/10 12/25/20 documented as of this encounter
--- OUTSIDE RECORDS SUMMARY | 2024-07-16 00:58 | XMS_ITS | Encounter Summary ---
Author Organization [facility] [place] [address] Care Team Providers Care Writer Producer Name Role Phone Larry Valencia MD Primary Care Provider [phone] Reason for Visit * Reason Comments Medication Management Encounter Details Date Type Department Care Team (Late st Contact Info) Description 07/31/2018 Specialty [place] [address] Marilou Sood [facility] Social History Tobacco Use Types Packs/Day Years Used Date Smoking Tobacco: Every Day e-Cigarettes Smokeless Tobacco: Never Sex and Gender Information Value Date Recorded Sex Assigned at Not on file Gender Identity Not on file Sexual Orientation Not on file documented as of this encounter Progress Notes * Marilou Alvarez RPH - 07/31/2018 1:04 PM EST Specialty Pharmacy Consultation; Marilou Alvarez Twin Comprehensive Medication Management (CMM) Mike Guillermo Diagnosis: Hepatitis C Therapy Start Date: to be determined Contact in person or via telephone:telephone Mr. Mike Guillermo is a 42 y.o. (1975) male who was contacted in regard to specialty medication. Spoke with patient regarding Mavyret . A review of the medication therapy was performed. The medication was Filled as scheduled, and all medication related questions and concerns were addressed.The specialty pharmacy staff will follow up with the patient around day 3 of therapy to assess tolerability and adherence. Is the patient willing to proceed with the Clinical Assessment? Yes Summary and Recommendations: Wai was contacted regarding initiation of HCV treatment with Mavyret. We reviewed the medication in detail and Wai verbalized understanding of taking three tablets simultaneously at the same time each day with food. I explained the importance of adherence and not missing any doses. He has other medications that he takes at the same time each day so he does not anticipate adherence being a problem. An alarm or phone reminder was recommended to help with this. I do not see any interactions withhis other medications. Wai plans on getting labs done at [facility] for now. If this changes he will letthe clinic know. We have asked that he notify us or the clinic when he starts the medication and wewill follow-up with him a few days later to see how it is going. We are filling the Mavyret and it will be mailed out to him for delivery early next week. No recommendations at this time. Clinic Follow-up needed: no Allergies and Drug intolerance: No Known Allergies Special Dietary or Hydration Requirements: no There is no height or weight on file to calculate BMI. Medication Reconciliation Discrepancies (compared to [facility] med list) -omeprazole 20mg- patient reports he takes this bid Medication Adherence Demonstrates understanding of importance of [...] Medications Medication Sig Dispense Refill ??? glecaprevir-pibrentasvir (MAVYRET) 100-40 mg Tablet Take 3 tablets by mouth daily. 84 tablet 1 ??? omeprazole (PRILOSEC) 20 mg Capsule, Delayed Release(E.C.) Take 20 mg by mouth 2 times daily. ??? gabapentin (NEURONTIN) 300 mg Capsule Take 300 mg by mouth 3 times daily. ??? buprenorphine-naloxone (SUBOXONE) 12-[address] 1 Film under the tongue daily. No current facility-administered medications for this visit. Most Recent Vitals: Ht Readings from Last 1 Encounters: 04/29/18 185.4 cm (6' 1) Wt Readings from Last 3 Encounters: 04/29/18 99 kg (218 lb 3.2 oz) Temp Readings from Last 3 Encounters: No data found for Temp BP Readings from Last 3 Encounters: 04/29/18 126/69 Pulse Readings from Last 3 Encounters: 04/29/18 69 Pertinent Lab values: Lab Results Component Value Date NA 139 04/29/2018 K 4.1 04/29/2018 CL 99 04/29/2018 CO2 27 04/29/2018 BUN 12 04/29/2018 CREATININE 0.81 04/29/2018 GLUCOSE 140 04/29/2018 CALCIUM 9.0 04/29/2018 Lab Results Component Value Date ALT 41 04/29/2018 AST 49 (H) 04/29/2018 ALKPHOS 84 04/29/2018 BILITOT 0.6 04/29/2018 ALBUMIN 3.9 04/29/2018 PROT 7.4 04/29/2018 Lab Results Component Value Date WBC 4.8 04/29/2018 HGB 14.5 04/29/2018 HCT 42.2 04/29/2018 MCV 83.7 04/29/2018 PLATELET 233 04/29/2018 No results found for: HA1C There is no immunization history on file for this patient. Assessment and Recommendations: Title Type of Medication Management: chronic disease management, targeted medication review Referred By: provider Recipient: beneficiary Provider: plan sponsor pharmacist Visit Type: [facility] Follow-up Method of Contact: by telephone Cognitive Ability: good Drug Interactions Provided the patient with educational [...] the counter products discussed, preventative care discussed, self-monitoring discussed, start medication discussed, timing of medications discussed, lifestyle modification education Drug Medication Management Summary Topics discussed: reviewed [...] the counter products discussed, preventative care discussed, self-monitoring discussed, start medication discussed, timing of medications discussed, lifestyle modification education Time spent: 16-30 min Treatment Outcomes No data found. Reviewed in detail with patient: Dose appropriateness [...] frequency and method Handling, storage, and disposal of the medication Relevant lab data Patient verbalizes understanding and is able to read-back instructions on self-administration/injection, proper storage, drug stability, importance of adherence and management strategies, side effectavoidance and mitigation strategies, and interruptions in therapy: yes Physical Assessment: Functional limitations identified: no Cognitive limitations identified: no Concern regarding orientation/memory: no Concern with reasoning/judgement: no Is patient a fall risk: no Other needed information: no Social Assessment: Does the patient have a primary director day care center? no Patient has emergency contact on file: Yes Does patient need referral to health social work professor: No Does patient need referral to advocacy group: No Physical and Home Health Assessment: Is the patient able to store their medication as directed? Yes Is the patient in a safe home environment? Yes Do you have a support network? Yes Reviewed potential home safety hazards: Yes Economic Assessment: Patient is agreeable to medication copay: Yes Copay Amount: $3 Day Supply: 28 Date Needed: as soon as possible-new start Copay assistance required: no Therapy Assessment: Current Medication Dosing/Route/Frequency: Mavyret 3 tabs po qd Appropriate Therapy: Yes Genotype: 1a Treatment Naive/Experienced: naive Fibrosis Score: F2 HX of liver transplant: no HBV Coinfection: no HIV Coinfection: unable to find documentation Lab schedule reviewed: Yes Educational information or adherence tools provided? Yes HCV therapy adherence: Yes HCV treatment response: Yes Verbalized understanding to call office before start: Yes Patient experienced change in condition that affects treatment: no Patient's Problems/Needs: Treatment of HepC; remain adherent to the medication regimen Patient's goals: Patient's specific desired goal:??SVR12 Measured by:??HepC viral load 12 weeks post-treatment Time-frame to meet goal:??12 weeks post-treatment Expected Outcome: SVR12 Plan of Care Reviewed and Approved by Pharmacist and Patient: Yes Monitoring requirements for prescribed medication: Monitor efficacy, safety, tolerability Monitor CBC, CMP, HepC viral load week 4, end of treatment, 3 and 6 months post-treatment Interventions (if applicable): No Additional care/services needed: no Pharmacist Follow-up needed: Yes Informed patient of specialty pharmacy services: Yes -Patient will be provided with welcome packet: Yes Date to be provided: 07/31/18 Delivery Method: mail -Patient will be provided with Rights & Responsibilities: Yes Date to be provided: 07/31/18 Delivery Method: mail -Patient is aware a [...] made at the appointment and that [facility] isproviding recommendations (summary located at top of note) for provider review and follow up. Marilou Alvarez RPH 07/31/18 1:06 PM documented in this encounter Plan of [...] on filedocumented in this encounter Care Teams Writer Producer Relationship Specialty Start Date End Date Larry Valencia MD P O [facility] [address] [place] [address] PCP - General 05/15/10 12/25/20 documented as of this encounter
--- OUTSIDE RECORDS SUMMARY | 2024-07-16 00:58 | XMS_ITS | Encounter Summary ---
Author Organization [facility] [place] [address] Care Team Providers Care Paper Ruler Name Role Phone Larry Valencia MD Primary Care Provider [phone] Encounter Details Date Type Department Care Team (Late st Contact Info) Description 11/12/2019 Orders [place] [address] Shawnee Almeida APRN [facility] [place] [address] Chronic hepatitis C without hepatic coma Social [...] Type Associated Problems Recent Progress Patient-Stated? Author [facility] Medication Compliance and Understanding Patient Facing Action Plan Marilou Quintana, [facility] Note: SVR12 through treatment with Mavyret. documented as of this encounter Visit Diagnoses Diagnosis Chronic hepatitis C without hepatic coma documented in this encounter Care Teams Paper Ruler Relationship Specialty Start Date End Date Larry Valencia MD [address] [place] [address] PCP - General 05/15/10 12/25/20 documented as of this encounter
--- OUTSIDE RECORDS SUMMARY | 2024-07-16 00:58 | XMS_ITS | Encounter Summary ---
Author Organization [facility] [place] [address] Care Team Providers Care Metaphysics Teacher Name Role Phone Larry Valencia MD Primary Care Provider [phone] Encounter Details Date Type Department Care Team (Late st Contact Info) Description 11/12/2019 [place] [address] Lesli Palomino Twin Social History Tobacco Use Types Packs/Day Years Used Date Smoking Tobacco: Every Day e-Cigarettes Smokeless Tobacco: Never Sex and Gender Information Value Date Recorded Sex Assigned at Not on file Gender Identity Not on file Sexual Orientation Not on file documented as of this encounter Miscellaneous Notes * Telephone Encounter - Sosa Laird RN - 12/03/2019 11:56 AM EDT Attempted to reach patient again to follow-up on labs needed to re-initiate prior authorization process for Mavyret for treatment of hepatitis C. Unable to leave M on patient's telephone. Have not received response to letter sent out on 11/11. * Telephone Encounter - Lesli Palomino Twin - 11/29/2019 5:03 PM EDT I spoke to patient and let him know that the clinic was trying to get in touch with him to schedulea telehealth visit with Shawnee Almeida. I provided him with the clinic call back number and he sayshe'll call to schedule the appointment. Talha Palomino, [place] 11/29/2019 5:04 PM * Telephone Encounter - Sosa Laird RN - 11/12/2019 2:21 PM EDT Attempted to reach patient on listed telephone numbers. Did not leave VMM (unidentified VMM). Letter sent to patient requesting updated lab work. External lab orders enclosed. * Telephone Encounter - Lesli Palomino [facility] - 11/12/2019 10:25 AM EDT Patient called the Specialty Pharmacy yesterday because he wants to start his Mavyret. The Mavyret was filled back in July 2018 and then the patient was lost to follow up. He reports that he never started the Mavyret because he had a work accident and other life events, but he is now ready to start treatment. He only has the first 4 weeks of Mavyret on hand and he would need a new PA to get the refill. He reports that the expiration date on his box of Mavyret is 10/20/20. I told him NOT to start the Mavyret and that I would touch base with the prescriber, Shawnee Almeida, to determine next steps. The patient is in agreement with this plan. Talha Palomino, PharmCatrachito 11/12/2019 10:38 AM documented in this encounter Plan of Treatment Not on file documented as of this encounter Goals Goal Patient Goal Type Associated Problems Recent Progress Patient-Stated? Author Home Medication Compliance and Understanding Patient Facing Action Plan Marilou Quintana [facility] Note: SVR12 through treatment with Mavyret. documented as of this encounter Visit Diagnoses Not on filedocumented in this encounter Care Teams Metaphysics Teacher Relationship Specialty Start Date End Date Larry Valencia MD [address] [place] [address] PCP - General 05/15/10 12/25/20 documented as of this encounter
--- OUTSIDE RECORDS SUMMARY | 2024-07-16 00:58 | XMS_ITS | Encounter Summary ---
[place] [address] Care Team Providers Care Reading Tutor Name Role Phone Larry Valencia MD Primary Care Provider [phone] Reason for Visit * Reason Onset Date Comments Prior Authorization 07/30/2018 Juan Carlos Encounter Details Date Type Department Care Team (Late st Contact Info) Description 07/30/2018 [place] [address] Nell Talbert CPHT Prior Authorization (Juan Carlos) Social History Tobacco Use Types Packs/Day Years Used Date Smoking Tobacco: Every Day e-Cigarettes Smokeless Tobacco: Never Sex and Gender Information Value Date Recorded Sex Assigned at Not on file Gender Identity Not on file Sexual Orientation Not on file documented as of this encounter Miscellaneous Notes * Telephone Encounter - Nell Talbert - 07/30/2018 3:44 PM EST [facility], Prior Authorization Approval FILLABLE AT [facility]? yes APPROVAL DATES: 07/30/18 - 09/27/18 SPECIFIC INS REQUIREMENT: N/A CASE/REFERENCE # [id number] APPROVAL NOTIFICATION RECEIVED VIA: Fax COPAY: $3.00 COPAY ASSISTANCE NEEDED?: No NOTES: * Telephone Encounter - Nell Talbert - 07/30/2018 12:19 PM EST [facility], Medication Prior Authorization Patient: Mike Guillermo Patient : 1975 Patient Address: [address] [place] [phone] (home) Medication: Mavyret Subscriber [place]: [place] Physician: Shawnee Almeida Sent Via: Fax Crooks: N/A Ref/Case/PA#: N/A Medication Strength Frequency Requested: 100-40m tablets daily Qty/Day Supply: days New Start: Yes Diagnosis & ICD-10 Code: Chronic hepatitis C without hepatic coma, B18.2 documented in this encounter Plan of Treatment Not on file documented as of this encounter Visit Diagnoses Not on filedocumented in this encounter Care Teams Reading Tutor Relationship Specialty Start Date End Date Larry Valencia MD [address] [place] [address] PCP - General 05/15/10 12/25/20 documented as of this encounter
--- OUTSIDE RECORDS SUMMARY | 2024-07-16 00:58 | XMS_ITS | Encounter Summary ---
Author Organization [facility] [place] [address] Care Team Providers Care Drip Pumper Name Role Phone Larry Valencia MD Primary Care Provider [phone] Reason for Visit * Reason Comments Medication Management Encounter Details Date Type Department Care Team (Late st Contact Info) Description 12/21/2018 Specialty [place] [address] Marilou Sood [facility] Social History Tobacco Use Types Packs/Day Years Used Date Smoking Tobacco: Every Day e-Cigarettes Smokeless Tobacco: Never Sex and Gender Information Value Date Recorded Sex Assigned at Not on file Gender Identity Not on file Sexual Orientation Not on file documented as of this encounter Progress Notes * Marilou Alvarez [facility] - 12/21/2018 11:28 AM EDT Clinical Management Plan: Transfer of Care/Discharge Specialty Services Specialty Pharmacy Consultation; Marilou Alvarez Twin Comprehensive Medication Management (CMM) Mike Guillermo [address] [place] [id number] Telephone Information: Work Phone Not on file. Summary: The Specialty Pharmacy has been trying to contact Wai for follow-up on HCV treatment with Mavyret since 08/07/18. He has the first four week supply of Mavyret at home but we have not been able to reach him to determine if he has started or when he plans on starting. At this point the provider would also like him to come into clinic for a more recent follow-up visit to help assess readiness fortreatment. We have left several messages on his home phone, cell phone, and on his emergency contact's phone ( Rebecca) but have not heard back from them. At this time we will stop reaching out to the patient. It may be necessary for the clinic to send a letter to the patient or reach out in a final attempt to discuss this with Wai. If Wai schedules a follow-up visit with the provider and is ready for treatment we would be happy to re-enroll him in our services in the future. Is the patient transferring services to a different Specialty Pharmacy or discontinuing the medication? Discontinuing medication- upcoming completion of treatment Medication: Mavyret Reason for discontinuation or transfer: completion of treatment Approximate date of discontinuation or transfer: 12/21/18 Patient's response to therapy: Unknown; never started to our knowledge Summary of services provided by [facility]: Initial pharmacist consult and dispensed first four week supply, attempted follow-up consults but no response from patient Summary of on-going needs: patient needs to schedule follow-up visit with clinic Referral for additional services (if applicable): n/a Instructions provided to patient about discharge/transfer: No- unable to contact Provider aware of discontinuation or transfer: yes Patient understands no changes to current drug regimen were made at the appointment and that [facility] isproviding recommendations (summary located at top of note) for provider review and follow up. Marilou Alvarez RPH 12/21/18 11:28 AM documented in this encounter Plan of Treatment Not on file documented as of this encounter Goals Goal Patient Goal Type Associated Problems Recent Progress Patient-Stated? Author [facility] Home Medication Compliance and Understanding Patient Facing Action Plan No Marilou Sood [facility] Note: SVR12 through treatment with Mavyret. documented as of this encounter Visit Diagnoses Not on filedocumented in this encounter Care Teams Drip Pumper Relationship Specialty Start Date End Date Larry Valencia MD [address] [place] [address] PCP - General 05/15/10 12/25/20 documented as of this encounter
--- OUTSIDE RECORDS SUMMARY | 2024-07-16 00:58 | XMS_ITS | Encounter Summary ---
Author Organization [facility]ly [facility] [place] [address] Care Team Providers Care Community Health Program Representative Name Role Phone Larry Valencia MD Primary Care Provider [phone] Encounter Details Date Type Department Care Team (Latest Contact Info) Description 07/02/2011 - 07/02/2011 11:59 PM EST Hospital Encounter Radiology Library at [facility] [place] [id number] Zach Parrish MD [facility] [place] [address] Discharge Disposition: Home Social History Tobacco Use [...] Priority Date/Time Associated Diagnosis Comments FILM LIBRARY STORAGE ONLY ULTRASOUND STUDY Routine 07/02/2011 12:00 AM EST documented in this encounter Results * Film Library- Storage Only Ultrasound Study (07/02/2011 12:00 AM EST) Narrative [facility] - 03/24/2018 11:40 AM EDT This exam is for storage only and is auto-finalizing. Zach Parrish MD IMG FILM LIBRARY ORD ERABLES [place], [place] documented in this encounter Visit Diagnoses Not on filedocumented in this encounter Care Teams Community Health Program Representative Relationship Specialty Start Date End Date Larry Valencia MD [address] [place], [place] [phone] PCP - General 05/15/10 12/25/20 documented as of this encounter
--- OUTSIDE RECORDS SUMMARY | 2024-07-16 00:58 | XMS_ITS | Encounter Summary ---
Author Organization [facility] [place] [address] Care Team Providers Care Nurse Head Name Role Phone Larry Valencia MD Primary Care Provider [phone] Encounter Details Date Type Department Care Team (Late st Contact Info) Description 07/29/2018 Notes [place] [address] [facility] [place] [address] Social History Tobacco Use Types Packs/Day Years Used Date Smoking Tobacco: Every Day e-Cigarettes Smokeless Tobacco: Never Sex and Gender Information Value Date Recorded Sex Assigned at Not on file Gender Identity Not on file Sexual Orientation Not on file documented as of this encounter Progress Notes * Shawnee Almeida APRN - 07/29/2018 4:26 PM EST Received results of testing for Hepatitis C. He is Genotype 1a. His Hepatitis B studies are negative. Would recommend treatment with 8 weeks of Mavyret. Will send in prescription and ask pharmacy staff to follow up. He will need blood work at week 4 of treatment, end of treatment,and 3 and 6 months post-treatment. SHAWNEE ALMEIDA APRN documented in this encounter Plan of Treatment Not on file documented as of this encounter Visit Diagnoses Not on filedocumented in this encounter Care Teams Nurse Head Relationship Specialty Start Date End Date Larry Valencia MD [address] [place], [place] [phone] PCP - General 05/15/10 12/25/20 documented as of this encounter
--- NOTE | 2024-07-16 12:16 | DI.RAD_ITS ---
Exam(s) RF JOINT INJ. FLUORO GUID RAD EXAM: RF JOINT INJ. FLUORO GUID RAD CLINICAL HISTORY: R SHOULDER PAIN,FLUORO GUIDED INJECTION,ARTHRITIS RT GLENOHUMERAL JOINT. TECHNIQUE: 2D and realtime digital imaging was performed. CONTRAST MATERIAL: Oral barium Oral water soluble contrast was administered. COMPARISON: No exams were available for comparison FINDINGS: This RIGHT shoulder glenohumeral joint therapeutic injection was performed [facility]. Patient was consented prior to this procedure Patient was placed in supine position on the fluoroscopy table. Using sterile technique and adequate skin-subcutaneous anesthesia, fluoroscopic guidance was used to advance a 22 gauge spinal needle into the glenohumeral joint via an anterior approach. Intra-articular position was confirmed with injection of Omnipaque 300. Thereafter a sterile solution of 40 milligrams Depo-Medrol and 4 cc 0.5 percent bupivacaine was injec timothy into the joint. Patient tolerated this procedure well and there were no intraprocedural complications. IMPRESSION: Successful right glenohumeral joint steroid injection using fluoroscopic guidance. RADIATION DOSE DELIVERED: Ka,r=4.31mGy
[2024-07-16] MEDS: methylPREDNISolone ACETATE 40 MG/ML VIAL IM (12:19)
[2024-07-16] MEDS: Omnipaque 300 MG/ML 10 ML BTL IJ (12:20)
[2024-07-16] MEDS: Lidocaine 1% Pres-Free 30 ML VIAL IJ (12:21)
[2024-07-16] MEDS: Bupivacaine 0.5% Pres-Free 10 ML VIAL IJ (12:22)
== END 2024-07-16 01:13 ==
LOC: DI 00:53
PROVIDERS: PCP Nurse Practitioner; Visit Provider Student in an Organized Health Care Education/Training Program
DX: M19.011 Primary osteoarthritis, right shoulder (principal)
CPT/HCPCS: 20610; 77002; J0665; J1010

== ENCOUNTER 2024-11-16 11:32 | Outpatient (CLI) | payer MEDICAID, SELFPAY ==
[2024-11-16 11:37] LABS: Abs Immature Grans 0.02 10^3/uL (0.0-0.06); Absolute Basophil Count 0.04 10^3/uL (0.0-0.2); Absolute Eosinophil Count 0.35 10^3/uL (0.0-0.7); Absolute Lymphocyte Count 2.01 10^3/uL (1.2-3.4); Absolute Monocyte Count 0.37 10^3/uL (0.1-0.8); Absolute Neutrophil Count 2.91 10^3/uL (1.2-6.7); Basophils % 0.7 %; Eosinophils % 6.1 %; HGB 13.9 g/dL (13.5-17.5); Immature Grans % 0.4 %; Lymphocytes % 35.3 %; MCH 29.5 pg (27.0-33.0); MCHC 35.6 % (32.0-36.0); MCV 83 fL (80-95); Monocytes % 6.5 %; Platelet Count 129 10^3/uL (130-400); RBC 4.71 10^6/uL (4.36-5.78); RDW 12.7 % (11.8-14.1); RDW-SD 38.6 fL
[2024-11-16 12:26] LABS: ALT 71 U/L (16-63); AST 249 U/L (15-37); Albumin 3.9 g/dL (3.4-5.0); Alkaline Phosphatase 114 U/L (46-116); Anion Gap 5.7 mmol/L (3-11); BUN 16 mg/dL (7-18); Bilirubin, Total 0.8 mg/dL (0.2-1.0); CO2 30.3 mmol/L (21.0-32.0); CREATININE 0.9 mg/dL (0.70-1.30); Calcium 8.8 mg/dL (8.5-10.1); Chloride 100 mmol/L (98-107); Estimated GFR 104.05 (mL/min/1.73m2); Glucose 97 mg/dL (74-106); Potassium 3.5 mmol/L (3.5-5.1); Sodium 136 mmol/L (136-145); TSH 0.63 uIU/mL (0.36-3.74); Total Protein 7.8 g/dL (6.4-8.2)
[2024-12-01 10:56] LABS: Testosterone, Free 4.28 ng/dL (4.06-15.6); Testosterone, Total 251 ng/dL (240-950)
== END 2024-11-16 11:33 | disposition home or self-care (01) ==
LOC: LBO 11:33
PROVIDERS: PCP Nurse Practitioner; Visit Provider Nurse Practitioner
DX: E34.9 Endocrine disorder, unspecified (principal); F11.23 Opioid dependence with withdrawal; R53.83 Other fatigue; R61 Generalized hyperhidrosis
CPT/HCPCS: 36415; 80053; 84402; 84403; 84443; 85025

== ENCOUNTER 2024-12-09 11:34 | Outpatient (CLI) | payer MEDICAID, SELFPAY ==
--- NOTE | 2024-12-09 11:15 | DI.RAD_ITS ---
Exam(s) XR CERVICAL SPINE COMP 4-5V EXAM: XR CERVICAL SPINE COMP 4-5V CLINICAL HISTORY: New onset neck pain, L radiculopathy M54.12 RADICULOPATHY. TECHNIQUE: 2D digital imaging was performed. Five images were obtained. AP, odontoid, lateral and bilateral oblique images were obtained. COMPARISON: No exams were available for comparison FINDINGS: The odontoid is intact. The lateral masses are well aligned. There is straightening of the normal cervical lordosis. There is 2 mm anterolisthesis of C4 on C5. There is disc space narrowing at C5-C6. Osteophytes are seen at C4-5 and C5-C6. There is also disc space narrowing at C3-C4. No acute fracture or subluxation is present. Wyjp-vs-svofqzkp neural foraminal stone air owing is seen on the right at C3-C4. There is mild neural foraminal narrowing on the left at C5-C6. The cervical thoracic junction is well maintained. The prevertebral soft tissues are unremarkable. Lung apices are clear. IMPRESSION: Hwen-sp-yvbcnwfc cervical spondylosis. DATA REPOSITORY: RADIATION DOSE DELIVERED:
== END 2024-12-09 11:54 ==
LOC: DI 11:34
PROVIDERS: PCP Nurse Practitioner; Visit Provider Family Medicine
DX: M47.12 Other spondylosis with myelopathy, cervical region (principal)
CPT/HCPCS: 72050

== ENCOUNTER 2025-01-31 03:25 | Outpatient (CLI) | payer MEDICAID, SELFPAY ==
--- NOTE | 2025-01-31 06:45 | DI.MRI_ITS ---
Exam(s) MR CERVICAL SPINE WO EXAM: MR CERVICAL SPINE WO CLINICAL HISTORY: Neck pain, with R sided radicular symptoms,cervical radiculopathy,m54.12 TECHNIQUE: Multiplanar multisequence MRI of the cervical spine was performed without intravenous contrast. COMPARISON: CR XR CERVICAL SPINE COMP 4-5V from 12/09/2024 FINDINGS: BONES: Vertebral body heights are maintained. Alignment is normal. Bone marrow signal intensity is within normal limits. CERVICAL CORD: Craniovertebral junction is unremarkable. The cervical cord is normal size and signal intensity. SOFT TISSUES: Unremarkable. C2-3: No disc herniation or bulge is identified. No evidence of neural foraminal narrowing. No significant central canal stenosis. C3-4: Moderate loss of disc height. Prominent osteophytes projecting toward the right causing neural foraminal narrowing. No evidence of neural foraminal narrowing. No significant central canal stenosis. C4-5: Minimal endplate osteophytes. No disc herniation or bulge is identified. No evidence of neural foraminal narrowing. No significant central canal stenosis. C5-6: Mild loss of disc height. Endplate osteophytes eccentric toward the left, causing neural foraminal narrowing. No disc herniation or bulge is identified. No evidence of neural foraminal narrowing. No significant central canal stenosis. C6-7: Small endplate osteophytes. Moderate sized central disc protrusion effacing the anterior CSF space. No evidence of neural foraminal narrowing. No significant central canal stenosis. C7-T1: No disc herniation or bulge is identified. No evidence of neural foraminal narrowing. No significant central canal stenosis. IMPRESSION: Moderate-sized disc protrusion at C6-7 effaces the anterior CSF space. Disc osteophytes at C3-4 and C5-6 cause neural foraminal narrowing. DATA REPOSITORY:
== END 2025-01-31 03:45 ==
PROVIDERS: PCP Nurse Practitioner; Visit Provider Family Medicine
DX: M54.12 Radiculopathy, cervical region (principal); M50.022 Cervical disc disorder at C5-C6 level with myelopathy; M50.023 Cervical disc disorder at C6-C7 level with myelopathy
CPT/HCPCS: 72141

== ENCOUNTER 2025-03-23 03:20 | Outpatient (CLI) | payer MEDICAID, SELFPAY ==
--- NOTE | 2025-03-23 06:00 | DI.MRI_ITS ---
Exam(s) MR THORACIC SPINE WO EXAM: MR THORACIC SPINE WO CLINICAL HISTORY: new thoracic back pain,m54.50,m54.6. TECHNIQUE: Multiplanar multisequence MRI of the Thoracic spine was performed. COMPARISON: MR MR CERVICAL SPINE WO from 01/31/2025 FINDINGS: Bones: The vertebral body heights are well maintained. Alignment is satisfactory. The marrow signal characteristics are unremarkable. Small hemangioma in the T3 vertebral body. Cord: The thoracic cord is normal size and signal intensity. No intrinsic cord lesion is present. Soft tissues: Normal. T1-2: No disc herniation or bulge is identified. T2-3: No disc herniation or bulge is identified. T3-4: No disc herniation or bulge is identified. T4-5: No disc herniation or bulge is identified. T5-6: Small left-sided endplate osteophytes. No disc herniation or bulge is identified. No significant central canal stenosis or neural foraminal narrowing. T6-7: Small left-sided endplate osteophytes. No significant neural foraminal narrowing or central canal stenosis. No disc herniation or bulge is identified. T7-8: No disc herniation or bulge is identified. T8-9: Minimal central disc bulging. No central canal stenosis or neural foraminal narrowing. T9-10: No disc herniation or bulge is identified. T10-11:No disc herniation or bulge is identified. Schmorl's node at superior endplate. T11-12: No disc herniation or bulge is identified. T12-L1: No disc herniations or bulges are present. IMPRESSION: Small left-sided endplate osteophytes at T5-6 and T6-7 without significant neural foraminal or central canal encroachment. Minimal disc bulging at T8-9. DATA REPOSITORY:
== END 2025-03-23 03:40 ==
PROVIDERS: PCP Family Medicine; Visit Provider Family Medicine
DX: M51.24 Other intervertebral disc displacement, thoracic region (principal)
CPT/HCPCS: 72146

== ENCOUNTER 2025-04-13 01:14 | Outpatient (CLI) | payer MEDICAID, SELFPAY ==
[2025-04-13] MEDS: Bupivacaine 0.25% Pres-Free 10 ML VIAL IJ (11:52)
[2025-04-13] MEDS: Normal Saline - Diluent 50 ML VIAL IJ (11:52)
[2025-04-13] MEDS: Omnipaque 300 MG/ML 10 ML BTL IJ (11:53)
[2025-04-13] MEDS: methylPREDNISolone ACETATE 40 MG/ML VIAL IM (11:53)
--- NOTE | 2025-04-13 12:02 | DI.RAD_ITS ---
Exam(s) RF JOINT INJ. FLUORO GUID RAD EXAM: RF JOINT INJ. FLUORO GUID RAD CLINICAL HISTORY: Rt shoulder pain,fluoro guided injection,arthritis rt glenohumeral joint,. The Patient has had persistent right shoulder pain. Noninvasive measures have been tried. To serve as both diagnostic and therapeutic, an injection under fluoroscopy was recommended. The risks of the procedure were discussed with their Orthopedic provider and the patient elected to proceed. TECHNIQUE: 2D and realtime digital imaging was performed. CONTRAST MATERIAL: Water soluble contrast was utilized. COMPARISON: No exams were available for comparison FINDINGS: The Patient was greeted in the fluoroscopy room. The correct side was identified and the consent was reviewed with the patient and was signed. The patient was properly positioned on the fluoroscopy table. The right shoulderwas then prepped and draped. The right shoulder injection starting point was identified by the bony landmarks and fluoroscopy. The skin and soft tissue in the tract of the injection was anesthetized with 0.25% Bupivacaine. A spinal needle was then inserted into the right shoulder joint at the level of the glenohumeral joint under fluoroscopic guidance. A small amount of Omnipaque solution was injected to confirm intraarticular placement. Once confirmed, the right shoulder was injected with 5cc of a solution containing 0.25% Bupivacaine and 40 mg of Depo-Medrol. A bandaid was placed on the injection site. The patient tolerated the procedure well and left the department in good condition. IMPRESSION: Successful right shoulder injection. RADIATION DOSE DELIVERED: Ka,r=1.92 mGy
== END 2025-04-13 01:34 ==
LOC: DI 01:14
PROVIDERS: PCP Family Medicine; Visit Provider Student in an Organized Health Care Education/Training Program
DX: M19.011 Primary osteoarthritis, right shoulder (principal)
CPT/HCPCS: 20610; 77002; J0665; J1010

== ENCOUNTER 2025-05-03 15:27 | Outpatient (CLI) | payer MEDICAID, SELFPAY ==
[2025-05-03 16:11] LABS: INR 1.0 (0.9-1.1); Prothrombin Time 10.5 sec (9.1-11.1)
[2025-05-03 16:39] LABS: Platelet Count 184 10^3/uL (130-400)
== END 2025-05-03 15:28 | disposition home or self-care (01) ==
LOC: LBO 15:27
PROVIDERS: PCP Family Medicine; Visit Provider Anesthesiology Pain Medicine
DX: D69.6 Thrombocytopenia, unspecified (principal); K74.60 Unspecified cirrhosis of liver
CPT/HCPCS: 36415; 85049; 85610

== ENCOUNTER 2025-05-09 12:00 | Outpatient (CLI) | payer MEDICAID, SELFPAY ==
--- NOTE | 2025-05-09 12:03 | PDOC.PAIN_ITS ---
Date of service: 05/09/25 Time of Service: 12:43 Pain Managment Procedure Note Procedure Note Procedure Note: Lumbar Interlaminar Epidural Steroid Injection ? Location: L5-S1 ? Pre-procedure Diagnosis: M54.16- Radiculopathy, LUMBAR region ? Post-procedure Diagnosis:? The same as above ? Sedation:? ? None ? Medication: Depo-Medrol 80 mg, Omnipaque 1 mL ? Estimated blood loss:? less than 2 ml ? Surgeon:? Jasvir Corral MD COMMENT: Patient has spondylolisthesis at L5-S1 with bilateral foraminal stenosis. INR and platelets were normal-10.5/1.0 wir993 . LLE worse then Right. ? Procedure Detail:? The procedure and potential risks were explained to the patient and informed written consent was obtained. The patient was escorted to the procedure room and placed in the prone position. Pillows were utilized for proper positioning and comfort. Time out was performed in the procedure room with nursing staff confirming the patient's identity, procedure to be performed, allergies, and any blood thinning or anti-platelet medications.? The patient's low back was prepped with ChloraPrep and draped in a sterile fashion. Sterile technique was maintained throughout the procedure.? Sterile gloves were used, a face mask was worn, and new single dose vials of all medications were used with the top being swabbed with alcohol and given time to dry prior to withdrawal of medication. Lidocane 1% was used to anesthetize the skin.Using a 25-gauge 1.5 inch needle, 1% lidocaine was instilled into the superficial soft tissue overlying the targeted area to provide local anesthesia. With fluoroscopic rosanne dance, a 17 -gauge Tuohy needle was advanced toward the interlaminar space of L5-S1. The needle was then advance through the ligamentum flavum and into the posterior epidural space using the loss of resistance technique. Correct needle placement was confirmed through review of the AP and lateral fluoroscopic views. Following negative aspiration, 1 ml of Omnipaque 240 contrast was injected which confirmed good flow throughout the epidural space and no evidence of vascular flow or flow into adjacent compartments. Next, following negative aspiration, 1 ml of normal saline and 80mg of Depo-Medrol was injected. The needle was gently removed. The patient tolerated the procedure well and was transported to the recovery area for observation and discharge instructions. Permanent images saved and recorded. PAIN PRE-PROCEDURE 10/30 POST-PROCEDURE 10/30 Plan:? Follow up prn. COMMENT: Could consider unilateral bilateral transforaminal steroid injections at L5. Also for the axial pain consider medial branch blocks L3,4,5 and possible basivertebral nerve ablation L4, L5,S1 for vertebrogenic pain. Coding Conscious Sedation used for procedure: No CPT Codes: Inj Spine L/S w/Imaging - [id number] ([id number] ~G) Additional Codes: Date of Service () Diagnoses: M54.16- Radiculopathy, LUMBAR region
[2025-05-09 12:09] VITALS: BP 130/91; PULSE 68; RESP 20; TEMP 37.2; O2SAT 96
[2025-05-09 12:26] VITALS: PULSE 64; O2SAT 96
[2025-05-09 12:30] VITALS: PULSE 66; O2SAT 96
--- NOTE | 2025-05-09 12:36 | DI.RAD_ITS ---
Exam(s) XR PAIN CLINIC LUMBAR SP 2V EXAM: XR PAIN CLINIC LUMBAR SP 2V CLINICAL HISTORY: DX: Lumbar Radiculopathy. TECHNIQUE: Fluoroscopy was provided for the referring physician for guidance with performing pain clinic injection procedure. COMPARISON: No exams were available for comparison FINDINGS: Please see procedure note for details. Fluoro time: 16.9 seconds RADIATION DOSE DELIVERED: Ka,r=7.2 mGy
[2025-05-09] MEDS: Omnipaque 240 MG/ML 50 ML BTL IJ (12:38)
[2025-05-09] MEDS: Epidural Tray 1 EACH MC (12:38)
[2025-05-09] MEDS: methylPREDNISolone ACETATE 40 MG/ML VIAL IJ (12:38)
== END 2025-05-09 12:01 | disposition home or self-care (01) ==
LOC: PC 12:00
PROVIDERS: Visit Provider Anesthesiology Pain Medicine
DX: M54.16 Radiculopathy, lumbar region (principal)
CPT/HCPCS: 62323; 72100; J1010; Q9967